=== PATIENT | female | born 1950 | race Caucasian/White ===

== ENCOUNTER 2017-11-26 12:00 | Outpatient (RCR) | payer MEDICARE, OTHER, SELFPAY ==
--- NOTE | 2017-09-09 09:02 | HP.PTEVAL_ITS ---
Patient's Visit Information JUSTINO FOY is a 66 year old F referred to Physical Therapy by Lyndsay Cha with a diagnosis of L TKA. Date of Evaluation: 09/08/17 Physical Therapist: Wiley Sun - Visit Plan Frequency: 3x /Week Duration: 4-6 Weeks Plan: 1.) Nustep. 2.) Focus ROM exercises to progress ext and flexion. 3.) progression of gait mechanics. 4.) light strengthening exercises once ready ( activation of quads, glute, HS, glute med) - Subjective Subjective: Pt. is here today for her initial evaluation with diagnosis of L TKA. DOS: 07/02/17. Pt. reports having rough experience at hospital, but is glad to be back at home. She arrives today useing FWW with decent step length. She had previously taken off her bandage as prescribed by physician. She reports high levels of pain as well. Difficulty sleeping and stair negotiation, difficulty with straightening and bending her knee. She reports being able to walk around her house hourly with AD and is doing her HEP she recieved from the hospital. Pt. - Pain L knee Pain Intensity (Out of 10): 6 Pain Intensity Range: 5, 8 - Objective POSTURE: Pt. has increased R wt. shift in stance, she lacks TKE on his L leg. Pt. has increased use of UEs on AD to maintain stability. Pt. has wide EDWAR. PALAPTION: Pt. had previously taken off bandage. She had DEWAYNE bandage without SAW hose on. Pt. had previously dried blood around incision and had placed self suture tape on incision. It did not appear to have any signs of infection, but was warm (as expected) and had increased edema as expected. Pt. has no signs of DVT, negative Dar's bilateral LEs. Pt. educated to wear TEDs as instructed by physician. NEUROLOGICAL: Pt. has normal sensation throughout bilateral LEs to light and sharp touch. Pt. has 2+ achilles DTR bilaterally and 2+ R patellar DTR. Pt. is able to rise on toes and heels, but did require balance asssitance to maintain stability. ROM: R knee- 0-2-129deg. L knee 0-11-78deg. Pt. reports increased symptoms at both end range flexion and ext. Pt. has tight L HS , but normal hip ROM bilaterally. MMT: RLE- ankle 5/5 throughout; knee- ext 5-/ 5, flexion 4+/5; hip- flexion 4+/5, abd 4/5, ext 4/5. LLE- ankle 5/5 throughout ; knee- 3/5 throughout; hip- flexion 4-/5, abd 4-/5, ext 4-/5. GAIT: Pt. ambulates with FWW with heavy use of UEs. She ambulates with decreased slep length bilaterally. She lack TKE on LLE during stance phase, but has close to normal knee flexion during swing phase. Increased use of AD during L stance phase noted. STAIRS: Pt. is able to complete with 2 HR with step to pattern. She is very hesitant to complete. Loading RLE only with trials. - Goals Goal 1:: Pt. to be I with HEP. Goal Time Frame: 4-6 Weeks Goal 2:: Pt. to have increased L knee ROM to 0-0-120deg allowing for increased tolerance to all functional mobility. Goal Time Frame: 4-6 Weeks Goal 3:: Pt. to have ambulate with normalized gait pattern without AD allowing for increased functional mobility. Goal Time Frame: 4-6 Weeks Goal 4:: Pt. to have increase LLE strength by 1/2 grade in all directions to increase ability to complete all functional mobility and stair negotiation. Goal Time Frame: 4-6 Weeks Goal 5:: Pt. to have decreased pain in L knee to 0-1/10 pain at rest and with sleeping allowing for increased quality of life. Goal Time Frame: 4-6 Weeks Goal 6:: Pt. to negotiate steps with reciprocal pattern with use of 1 HR allowing for increased functonal mobility. Goal Time Frame: 4-6 Weeks - Rehabilitation Potential Physical Therapy Diagnosis: Pt. has signs and symptoms consistent with L TKA, DOS 09/01/17. She has subsequent pain, hypomobility, weakness, difficulty with gait and difficulty with stair negotiation. Pt. would benefit from PT to address above limitations and progress back to normal gait and decreased symptoms with all ADLs and functional mobility. Rehabilitation Potential: Excellent - Anticipated Interventions Patient/Client Instruction: Educate patient on: Condition, Plan of Care, Risk Factors, Benefits of Fitness Program For the Purpose of:: To improve safety, To improve health and function, To foster healthy habits, To improve decision making, To facilitate caregiver knowledge, To improve self management, To prevent re-injury, To improve ability to perform tasks related to life management, To improve tolerance to ADL's Therapeutic Exercise to Include: Strength training, Power training, Endurance training, Balance training, Flexibilty training, Gait and locomotor training, Passive ROM, Active ROM For the Purpose of:: To decrease pain, To decrease swelling/inflammation, To increase ROM, To improve nutrient delivery to tissue, To improve muscle performance and motor function, To improve ability to perform ADL's, To increase tolerance to activity/condition/position, To improve performance and independence with ADL's, To improve gait and locomotor functions, To improve health of tissue, To decrease soft tissue restriction, To increase flexibility/ ROM Manual Therapy Techniques to Include: Mobilization, Passive ROM For the Purpose of:: To decrease pain, To decrease swelling/inflammation, To increase ROM, To improve nutrient delivery to tissue, To improve muscle performance and motor function IF ES: Yes Cryotherapy (ice pack, ice massage): Yes Vasopneumatic device: Yes For the Purpose of:: To decrease pain, To decrease swelling/inflammation, To increase ROM Thank you for the opportunity to evaluate your patient. For Medicare and Medicare HMO plans, please review the plan of care and approve it. It will need to be FAXED BACK to us at [phone] for Medicare purposes. Please let me know if there are questions or concerns regarding this plan of care. Physician Signature: Date:
--- NOTE | 2017-10-06 16:25 | HP.PTREVAL_ITS ---
Lyndsay Cha, It has been my pleasure to treat JUSTINO FOY over the last 11 visits for L TKA. Please see the progress note below for an update on the physical therapy plan of care! Subjective: Pt. reports I am doing pretty well, but I still have some issues with going up and down the stairs. I am doig all of my exercises. She continues to use her cane without issues. Objective/Function: Pt. tolerated all PT without adverse reaction. Pt. is progressing with ROM- PROM 0-0-112deg, AROM 0-3-107deg. PT. given knee aadc plans staff officer to take home with her. Pt. is able to negotiate steps with reciprocal pattern with 2 HR without LOB, but has mild increase insymptoms with loading LLE during descending. Pt. is able to ambulate without AD with increased step pattern, but does lack TKE during stance phase. Pt. has appropriate knee flexion during swing phase. Pt. continues to report increased pain with ambulation, but is progressing. Pt. is sleeping with greater tolerance. Plan Plan: Cont. with current POC. Pt. to follow up with physician next week. Goals Goal 1:: Pt. to be I with HEP. Goal Time Frame: 4-6 Weeks Goal Progress: Goal Met Goal 2:: Pt. to have increased L knee ROM to 0-0-120deg allowing for increased tolerance to all functional mobility. Goal Time Frame: 4-6 Weeks Goal Progress: Progressing Goal 3:: Pt. to have ambulate with normalized gait pattern without AD allowing for increased functional mobility. Goal Time Frame: 4-6 Weeks Goal Progress: Progressing Goal 4:: Pt. to have increase LLE strength by 1/2 grade in all directions to increase ability to complete all functional mobility and stair negotiation. Goal Time Frame: 4-6 Weeks Goal Progress: Progressing Goal 5:: Pt. to have decreased pain in L knee to 0-1/10 pain at rest and with sleeping allowing for increased quality of life. Goal Time Frame: 4-6 Weeks Goal Progress: Progressing Goal 6:: Pt. to negotiate steps with reciprocal pattern with use of 1 HR allowing for increased functonal mobility. Goal Time Frame: 4-6 Weeks Goal Progress: Progressing Anticipated Interventions Patient/Client Instruction: Educate patient on: Condition, Plan of Care, Risk Factors, Benefits of Fitness Program For the Purpose of:: To improve safety, To improve health and function, To foster healthy habits, To improve decision making, To facilitate caregiver knowledge, To improve self management, To prevent re-injury, To improve ability to perform tasks related to life management, To improve tolerance to ADL's Therapeutic Exercise to Include: Strength training, Power training, Endurance training, Balance training, Flexibilty training, Gait and locomotor training, Passive ROM, Active ROM For the Purpose of:: To decrease pain, To decrease swelling/inflammation, To increase ROM, To improve nutrient delivery to tissue, To improve muscle performance and motor function, To improve ability to perform ADL's, To increase tolerance to activity/condition/position, To improve performance and independence with ADL's, To improve gait and locomotor functions, To improve health of tissue, To decrease soft tissue restriction, To increase flexibility/ ROM Manual Therapy Techniques to Include: Mobilization, Passive ROM For the Purpose of:: To decrease pain, To decrease swelling/inflammation, To increase ROM, To improve nutrient delivery to tissue, To improve muscle performance and motor function IF ES: Yes Cryotherapy (ice pack, ice massage): Yes Vasopneumatic device: Yes For the Purpose of:: To decrease pain, To decrease swelling/inflammation, To increase ROM Please do not hesitate to contact me at [phone] by phone or Fax: if you have questions or concerns regarding this new plan of care! Sincerely, Wiley Sun
--- NOTE | 2017-10-31 12:47 | HP.PTREVAL_ITS ---
Lyndsay Cha, It has been my pleasure to treat JUSTINO FOY over the last 20 visits for L TKA. Please see the progress note below for an update on the physical therapy plan of care! Subjective: Pt. reports I am doing better, but it still stiffens up a lot at night. Pt. reports being HEP compliant with all exericses. Objective/Function: ROM- PROM 0-0-118deg. AROM 0-0-112deg. MMT- LLE- knee- ext 4+/5, flexion 4/5; hip- flexion 4/5, abd 4/5. GAIT: Pt. has improved gait pattern. She has improving initial contact and increased knee flexion during gait. STAIRS: Pt. is able to complete with reciprocal pattnern with 1 HR, slight functional weakness with LLE. Pt. is progressing. She continues to have slight reduction in ROM of flexion, but is progressing. Pt. cont. to have 3-4/ 10 pain with most activities. Pt. is tolerating increased motion and increased functional mobility. Plan Plan: Will cont. with POC x2-3 per week for another 2-3 weeks weaning from therapy progressing to independent activities. Pt. consents. Goals Goal 1:: Pt. to be I with HEP. Goal Time Frame: 4-6 Weeks Goal Progress: Goal Met Goal 2:: Pt. to have increased L knee ROM to 0-0-120deg allowing for increased tolerance to all functional mobility. Goal Time Frame: 4-6 Weeks Goal Progress: Progressing Goal 3:: Pt. to have ambulate with normalized gait pattern without AD allowing for increased functional mobility. Goal Time Frame: 4-6 Weeks Goal Progress: Progressing Goal 4:: Pt. to have increase LLE strength by 1/2 grade in all directions to increase ability to complete all functional mobility and stair negotiation. Goal Time Frame: 4-6 Weeks Goal Progress: Progressing Goal 5:: Pt. to have decreased pain in L knee to 0-1/10 pain at rest and with sleeping allowing for increased quality of life. Goal Time Frame: 4-6 Weeks Goal Progress: Progressing Goal 6:: Pt. to negotiate steps with reciprocal pattern with use of 1 HR allowing for increased functonal mobility. Goal Time Frame: 4-6 Weeks Goal Progress: Progressing Anticipated Interventions Patient/Client Instruction: Educate patient on: Condition, Plan of Care, Risk Factors, Benefits of Fitness Program For the Purpose of:: To improve safety, To improve health and function, To foster healthy habits, To improve decision making, To facilitate caregiver knowledge, To improve self management, To prevent re-injury, To improve ability to perform tasks related to life management, To improve tolerance to ADL's Therapeutic Exercise to Include: Strength training, Power training, Endurance training, Balance training, Flexibilty training, Gait and locomotor training, Passive ROM, Active ROM For the Purpose of:: To decrease pain, To decrease swelling/inflammation, To increase ROM, To improve nutrient delivery to tissue, To improve muscle performance and motor function, To improve ability to perform ADL's, To increase tolerance to activity/condition/position, To improve performance and independence with ADL's, To improve gait and locomotor functions, To improve health of tissue, To decrease soft tissue restriction, To increase flexibility/ ROM Manual Therapy Techniques to Include: Mobilization, Passive ROM For the Purpose of:: To decrease pain, To decrease swelling/inflammation, To increase ROM, To improve nutrient delivery to tissue, To improve muscle performance and motor function IF ES: Yes Cryotherapy (ice pack, ice massage): Yes Vasopneumatic device: Yes For the Purpose of:: To decrease pain, To decrease swelling/inflammation, To increase ROM Please do not hesitate to contact me at [phone] by phone or Fax: if you have questions or concerns regarding this new plan of care! Sincerely, Wiley Sun
--- NOTE | 2017-11-27 12:16 | HP.PTREVAL ---
Lyndsay Cha, It has been my pleasure to treat JUSTINO FOY over the last 30 visits for L TKA. Please see the progress note below for an update on the physical therapy plan of care! Subjective: Pt. reports I am doing okay, but [facility] She reports falling on her R side/hip. Pt. reports minimal increase in L knee pain, but not much. Pt. to follow up with physician later this date. Objective/Function: Knee ROM- PROM 0-0-118deg. AROM 0-1-114deg. GAIT: Pt. is able to ambulate without AD. She has slight decrease in tempo. Pt. does have slight lack of TKE on LLE, but is progressing. STAIRS: PT. is able to negotiate with 2 HR with reciprocal pattern, but has increased L knee pain during loaded phases. MMT- LLE- ankle 5/5 throughout; knee- ext 4/5, flexion 4/5; hip- flexion 4/5, abd 4/5, ext 4/5. Plan Plan: Pt. is to follow up with physician later this date. Pt. has improved motion, but continues to have anterior/lateral knee pain with walking. Talked to patient about edema lasting 6 months to 1 year. Pt. educated that often has she slows down from PT symptoms will reduce allowing for increased motion and tolerance to mobility. Pt. has follow up later this week. Goals Goal 1:: Pt. to be I with HEP. Goal Time Frame: 4-6 Weeks Goal Progress: Goal Met Goal 2:: Pt. to have increased L knee ROM to 0-0-120deg allowing for increased tolerance to all functional mobility. Goal Time Frame: 4-6 Weeks Goal Progress: Progressing Goal 3:: Pt. to have ambulate with normalized gait pattern without AD allowing for increased functional mobility. Goal Time Frame: 4-6 Weeks Goal Progress: Progressing Goal 4:: Pt. to have increase LLE strength by 1/2 grade in all directions to increase ability to complete all functional mobility and stair negotiation. Goal Time Frame: 4-6 Weeks Goal Progress: Progressing Goal 5:: Pt. to have decreased pain in L knee to 0-1/10 pain at rest and with sleeping allowing for increased quality of life. Goal Time Frame: 4-6 Weeks Goal Progress: Progressing Goal 6:: Pt. to negotiate steps with reciprocal pattern with use of 1 HR allowing for increased functonal mobility. Goal Time Frame: 4-6 Weeks Goal Progress: Progressing Anticipated Interventions Patient/Client Instruction: Educate patient on: Condition, Plan of Care, Risk Factors, Benefits of Fitness Program For the Purpose of:: To improve safety, To improve health and function, To foster healthy habits, To improve decision making, To facilitate caregiver knowledge, To improve self management, To prevent re-injury, To improve ability to perform tasks related to life management, To improve tolerance to ADL's Therapeutic Exercise to Include: Strength training, Power training, Endurance training, Balance training, Flexibilty training, Gait and locomotor training, Passive ROM, Active ROM For the Purpose of:: To decrease pain, To decrease swelling/inflammation, To increase ROM, To improve nutrient delivery to tissue, To improve muscle performance and motor function, To improve ability to perform ADL's, To increase tolerance to activity/condition/position, To improve performance and independence with ADL's, To improve gait and locomotor functions, To improve health of tissue, To decrease soft tissue restriction, To increase flexibility/ROM Manual Therapy Techniques to Include: Mobilization, Passive ROM For the Purpose of:: To decrease pain, To decrease swelling/inflammation, To increase ROM, To improve nutrient delivery to tissue, To improve muscle performance and motor function IF ES: Yes Cryotherapy (ice pack, ice massage): Yes Vasopneumatic device: Yes For the Purpose of:: To decrease pain, To decrease swelling/inflammation, To increase ROM Please do not hesitate to contact me at [phone] by phone or if you have questions or concerns regarding this new plan of care! Sincerely, Wiley Sun
--- NOTE | 2018-02-18 10:14 | HP.PTDCNRP_ITS ---
HP - Discharge Summary (1) - Patient Information JUSTINO FOY was seen in my office for initial evaluation on 09/08/17. The following Plan of Care was established for this patient: Initial Frequency: 3x /Week Initial Duration: 4-6 Weeks - Anticipated Interventions Patient/Client Instruction: Educate patient on: Condition, Plan of Care, Risk Factors, Benefits of Fitness Program For the Purpose of:: To improve safety, To improve health and function, To foster healthy habits, To improve decision making, To facilitate caregiver knowledge, To improve self management, To prevent re-injury, To improve ability to perform tasks related to life management, To improve tolerance to ADL's Therapeutic Exercise to Include: Strength training, Power training, Endurance training, Balance training, Flexibilty training, Gait and locomotor training, Passive ROM, Active ROM For the Purpose of:: To decrease pain, To decrease swelling/inflammation, To increase ROM, To improve nutrient delivery to tissue, To improve muscle performance and motor function, To improve ability to perform ADL's, To increase tolerance to activity/condition/position, To improve performance and independence with ADL's, To improve gait and locomotor functions, To improve health of tissue, To decrease soft tissue restriction, To increase flexibility/ ROM Manual Therapy Techniques to Include: Mobilization, Passive ROM For the Purpose of:: To decrease pain, To decrease swelling/inflammation, To increase ROM, To improve nutrient delivery to tissue, To improve muscle performance and motor function IF ES: Yes Cryotherapy (ice pack, ice massage): Yes Vasopneumatic device: Yes For the Purpose of:: To decrease pain, To decrease swelling/inflammation, To increase ROM This patient was last seen in our office 11/26/17. Pertinent comments regarding their Physical therapy will appear below: Pt. was seen for her TKA. Pt. was making progress with both ROM and strength, but continued to have increased pain. Pt. was to follow up with physician then back with PT if needed. Pt. did not follow up and has not been seen in ~3 months and will be DC from PT at this point in time. At this point I will be discontinuing this patient from physical therapy. I would be happy to see this patient again in the future if found appropriate by the physician. Thank you! Wiley Sun
== END 2017-11-26 19:00 | disposition home or self-care (01) ==
LOC: PT 12:00
PROVIDERS: Family Provider Family Medicine; PCP Family Medicine; Visit Provider Physician Assistant
DX: M19.071 Primary osteoarthritis, right ankle and foot (principal)
CPT/HCPCS: 97016; 97110; 97162; 97530; G8978; G8979

== ENCOUNTER 2018-06-24 12:09 | Outpatient (RCR) | payer MEDICARE, OTHER, SELFPAY ==
--- NOTE | 2018-07-29 12:45 | HP.PTEVAL_ITS ---
Patient's Visit Information JUSTINO FOY is a 67 year old F referred to Physical Therapy by Lyndsay Cha with a diagnosis of R ankle pain. Date of Evaluation: 06/24/18 Physical Therapist: Wiley Sun - Visit Plan Frequency: 1x/Week Duration: 1 Week Plan: I am referring patient to podiatry for consult or back to physician to determin if new bracing or reconstruction is warranted. Pt. consents. I think there is very little I can provide for this patient at this point it time, but might possibly do okay with better bracing. - Subjective Subjective: Pt. is here today for her initial evaluation with diagnosis of R ankle pain. Pt. is known to this PT as I have seen her before for this similar issues. She arrives today with increased R medial and lateral ankle pain. She wears an Jazzy brace, but appears to have been braking down. Pt. reports increased pain with walking, and standing. reduced pain with sitting and off loading. Pt. denies N/T. Pt. reports she has been told she might need surgery to repair a Post tib tear. Pt. has not been doing exercises due to time contraints. Pt. is hopeful to reduce symptoms in order to get back to all walking and household work wihtout issues. - Pain R lateral and medial ankle Pain Intensity (Out of 10): 5 Pain Intensity Range: 2, 6 - Objective POSTURE: Pt. has increased calcaneal varus in stance with almost complete navicualr drop. Pt. has increased pressure in stance on navicular. Brace is wearing out where here navicular is rubbing. Increased R knee valgus as well. PALAPTION: Pt. has increased tenderness along longitudinal arch, navicular and along post tib tendon or RLE. Pt. has tendernes along lateral malleolus as well. NEURO: Normal all intact. Pt. does have difficulty rising on toes and heels, balance aide required. ROM: R ankle- normal ankle DF 14deg, PF 38deg, INV 4deg, EVR 16deg. Pt. has pain with inversion mobility. Pt. has full PROM of R ankle. MMT: Pt. has 4+/5 throughout R ankle except 4/5 with inv and increased pain. Pt. ahd 4+/5 througout L ankle. GAIT: pt. has increased pronation to the pain of R navicular pressure in stance. Pt. has increased R knee valgus and antalgic pattern during R stance phase. STAIRS: step to pattern with HR to complete. - Rehabilitation Potential Physical Therapy Diagnosis: Pt. has signs and symptoms consistent with R ankle pain due to R ankle instability. She is currently wearing an Jazzy boot, but is braking down and putting increased pressure on her navicular bone. Pt. at this point would really benefit from podiatry consult to see if post tib recontruction of ankle recronstruction is warranted. Rehabilitation Potential: Poor - Anticipated Interventions Patient/Client Instruction: Educate patient on: Condition, Plan of Care, Risk Factors For the Purpose of:: To improve self management, To prevent re-injury, To improve ability to perform tasks related to life management, To improve tolerance to ADL's Thank you for the opportunity to evaluate your patient. For Medicare and Medicare HMO plans, please review the plan of care and approve it. It will need to be FAXED BACK to us at [phone] for Medicare purposes. Please let me know if there are questions or concerns regarding this plan of care. Physician Signature: Date:
--- NOTE | 2018-07-29 12:47 | HP.PT.NRP ---
HP - Discharge Summary (1) - Patient Information JUSTINO FOY was seen in my office for initial evaluation on 06/24/18. The following Plan of Care was established for this patient: Initial Frequency: 1x/Week Initial Duration: 1 Week - Anticipated Interventions Patient/Client Instruction: Educate patient on: Condition, Plan of Care, Risk Factors For the Purpose of:: To improve self management, To prevent re-injury, To improve ability to perform tasks related to life management, To improve tolerance to ADL's This patient was last seen in our office 06/24/18. Pertinent comments regarding their Physical therapy will appear below: Pt. was seen for her initial evaluation for R ankle pain. Pt. was referred back to physician or podiatry for new bracing vs surgical intervention. Pt. was not been seen in ~1 month and will be DC from PT at this point in time. At this point I will be discontinuing this patient from physical therapy. I would be happy to see this patient again in the future if found appropriate by the physician. Thank you! Wiley Sun
== END 2018-06-24 19:00 | disposition home or self-care (01) ==
LOC: PT 12:09
PROVIDERS: Family Provider Family Medicine; PCP Family Medicine; Visit Provider Physician Assistant
DX: M17.11 Unilateral primary osteoarthritis, right knee (principal); M54.5 Low back pain
CPT/HCPCS: 97162

== ENCOUNTER → 2018-11-18 11:32 | Outpatient (CLI) | payer MEDICARE, OTHER, SELFPAY ==
[2018-10-26 11:38] VITALS: BMI 24.1
[2018-11-18 13:02] LABS: Erythrocyte Sedimentation Rate 21 mm/hr (0-30)
[2018-11-18 13:32] LABS: Hemoglobin A1c 5.2 % (4.2-6.3)
[2018-11-18 13:34] LABS: Vitamin B12 1580 pg/mL (211-911)
[2018-11-18 13:36] LABS: CPK Total, Creatine Kinase 36 U/L (26-192); Rheumatoid Factor < 10.0 IU/mL (<15); Thyroid Stim Hormone (TSH) 1.45 uIU/mL (0.358-3.74)
[2018-11-19 14:05] LABS: SJOGREN'S Anti-SS-A test < 0.2 AI (0.0-0.9); SJOGREN'S Anti-SS-B test < 0.2 AI (0.0-0.9)
[2018-11-19 15:10] LABS: ANTINUCLEAR ANTIBODIES DIRECT Positive (Negative)
[2018-11-20 16:08] LABS: Albumin 3.9 g/dL (2.9-4.4); Albumin, Ur 42.7 % (.); Alpha-1-Globulin, Ur 4.6 % (.); Alpha-1-Globulins 0.2 g/dL (0.0-0.4); Alpha-2-Globulins 0.9 g/dL (0.4-1.0); Alpha-2-Globulins, Ur 13.4 % (.); Beta Globulin, Ur 27.4 % (.); Cytoplasmic Ab (C-ANCA) <1:20 titer (Neg:<1:20); Gamma Globulin 0.7 g/dL (0.4-1.8); Gamma Globulin, Ur 11.9 % (.); Immunoglobulin G 649 mg/dL (700-1600); Immunoglobulin M 72 mg/dL (26-217); M-Spike, Ur % Not Observed % (Not Observed); PROEL- TOTAL PROTEIN 6.7 g/dL (6.0-8.5); Total Protein, Ur 18.4 mg/dL (Not Estab.)
[2018-11-23 08:20] LABS: IMMUNOFIXATION RESULT,S Comment: (.); Immunoglobulin A 41 mg/dL (87-352); Perinuclear Ab (P-ANCA) <1:20 titer (Neg:<1:20)
== END ==
PROVIDERS: Family Provider Family Medicine; PCP Family Medicine; Referring Provider Psychiatry & Neurology Neurology; Visit Provider Psychiatry & Neurology Neurology
DX: D80.1 Nonfamilial hypogammaglobulinemia (principal); G62.9 Polyneuropathy, unspecified; Z79.899 Other long term (current) drug therapy
CPT/HCPCS: 36415; 82550; 82607; 82784; 83036; 84165; 84166; 84443; 85652; 86038; 86235; 86256; 86334; 86335; 86431

== ENCOUNTER → 2019-01-19 14:31 | Outpatient (CLI) | payer MEDICARE, OTHER, SELFPAY ==
[2018-11-23 10:59] VITALS: BMI 24.5
[2019-01-19 15:40] LABS: EXAGEN MAILED SPECIMEN
[2019-01-19 17:44] LABS: Color, Urine Yellow (Yellow); Glucose, Dipstick Normal (Normal); Ketone-Dipstick Negative (Negative); Leukocyte Esterase-Dipstick 500 /ul (Negative); Nitrite-Dipstick Negative (Negative); Occult Blood-Urine 10 /ul (Negative); Protein-Dipstick Negative (Negative); Urine Bilirubin Dipstick Negative (Negative); Urine Clarity Clear (Clear); Urine Urobilinogen Normal (Normal)
[2019-01-19 17:49] LABS: Absolute Lymphocyte Count 1.21 X10^3/ul (0.83-4.51); Absolute Neutrophil Count 3.1 X10^3/uL (2.0-7.7); Basophil# 0.01 X10^3/uL; Basophil% 0.2 % (0-1); Eosinophil# 0.13 X10^3/uL; Eosinophils% 2.6 % (0-5); Hematocrit 35.7 % (37-47); Lymphocyte # 1.21 X10^3/ul (4.0); Lymphocyte % 24.3 % (19-41); Mean Corp Hgb Conc 33.6 g/gl (32-36); Mean Corpuscular Hgb 31.5 pg (27.0-32.0); Mean Corpuscular Volume 93.7 fL (81-99); Mean Platelet Vol. 9.3 fl (6.2-12.0); Monocyte# 0.48 X10^3/uL; Monocyte% 9.7 % (0-10); Neutrophil # 3.13 X10^3/uL (2.7-7.7); Platelet Count 202 K/mm3 (150-450); RBC Distribution Width CV 12.3 % (11.6-14.6); Red Blood Count 3.81 M/mm3 (4.2-5.4)
[2019-01-19 17:50] LABS: POSITIVE COUNT NO; POSITIVE DIFFERENTIAL NO; POSITIVE MORPHOLOGY NO
[2019-01-19 17:55] LABS: Protein, Urine (Random) 10.1 mg/dL (<11.9); Protein:Creat Ratio 237 mg/g CRE (0-200)
[2019-01-19 18:00] LABS: Erythrocyte Sedimentation Rate 16 mm/hr (0-30)
[2019-01-19 18:34] LABS: ALB/GLOB Ratio 1.3 RATIO (0.9-2.4); AST(SGOT) 17 U/L (15-37); Alanine Aminotransfer ALT/SGPT 21 U/L (13-56); Alkaline Phosphatase 65 U/L (45-117); Anion Gap 10 (5-15); BUN 16 mg/dL (7-18); BUN/Creat Ratio 27.4 RATIO (10-20); CRP < 2.90 mg/L (0.0-3.0); Calcium,Total 9.1 mg/dL (8.5-10.1); Chloride 108 mmol/L (98-107); Creatinine, Serum 0.58 mg/dL (0.55-1.02); EST Glomerular Filtration Rate 109 mL/min (>60); Est Glom Filt Rate - Afr Amer 131 mL/min (>60); Globulin 3.1 g/dL (2.2-4.2); Glucose 100 mg/dL (74-106); Potassium 4.1 mmol/L (3.5-5.1); Protein, Total 7.1 g/dL (6.4-8.2); Rheumatoid Factor < 10.0 IU/mL (<15); Sodium Level 142 mmol/L (136-145)
[2019-01-22 12:42] LABS: CCP IgG Antibodies 4 units (0-19); HEPATITIS B SURFACE AG Negative (Negative); Hep B Surface Antibodies Reactive (.); Hep C Antibodies <0.1 s/co ratio (0.0-0.9)
== END ==
PROVIDERS: Family Provider Family Medicine; PCP Family Medicine; Referring Provider Internal Medicine Rheumatology; Visit Provider Internal Medicine Rheumatology
DX: M06.4 Inflammatory polyarthropathy (principal); R76.8 Other specified abnormal immunological findings in serum
CPT/HCPCS: 36415; 80053; 81002; 82570; 84156; 85025; 85652; 86140; 86200; 86431; 86706; 86803; 87340

== ENCOUNTER → 2019-06-02 10:16 | Outpatient (CLI) | payer MEDICARE, OTHER, SELFPAY ==
[2018-11-23 10:59] VITALS: BMI 24.5
--- NOTE | 2019-06-02 13:06 | NEURO ---
NCS and/or EMG Patient Report Ordering Doctor: Kari Denton DATE OF SERVICE: 06/02/19 Monse Orona is a 68-year-old female who presents for elective diagnostic testing of the upper limbs. She has burning pain radiating from the right hand to the right shoulder. She denies significant left-sided pain. Electrodiagnostic findings: Right median motor nerve demonstrates prolonged distal latency with normal amplitude and conduction velocity. Left median motor response within normal limits. Ulnar motor response bilaterally is within normal limits. Prolonged right median sensory latency at the wrist. Prolonged right median palmar latency. Prolonged right ulnar sensory latency is noted. Needle EMG testing showed no evidence of denervation in any muscles tested in the upper limbs. Motor action potentials of normal amplitude and duration. Electrodiagnostic impression: This is an abnormal study in the upper limbs. 1. Electrodiagnostic findings demonstrate right-sided median mononeuropathy. This is consistent with a mild right carpal tunnel syndrome. 2. Electrodiagnostic findings demonstrate right-sided ulnar sensory neuropathy. 3. No electrodiagnostic evidence is noted for myopathy or cervical radiculopathy. If there are any further questions, please do not hesitate to contact me.
== END ==
PROVIDERS: Family Provider Family Medicine; PCP Family Medicine; Referring Provider Psychiatry & Neurology Neurology; Visit Provider Psychiatry & Neurology Neurology
DX: R55 Syncope and collapse (principal); R20.0 Anesthesia of skin; R20.2 Paresthesia of skin
CPT/HCPCS: 95886; 95912

== ENCOUNTER → 2019-07-23 12:30 | Outpatient (CLI) | payer MEDICARE, OTHER, SELFPAY ==
[2019-06-22 15:20] VITALS: BMI 26.9
[2019-07-12 09:50] VITALS: BMI 26.2
--- NOTE | 2019-07-23 12:32 | STEWCON_ITS ---
Reason For Study: Atrial Fibrillation Stress Results Protocol: Dobutamine Stress Echo Maximum Predicted HR: 151 bpm Target HR: 128 bpm % Maximum Predicted HR: 85 % DurationHeart Rate Stage (mm:ss) (bpm) BP Comment Baseline 93 134/79No Chest Pain; Diluted Definity 7 ML Given DSE 10 MCG 3:23 109 125/71No Chest Pain DSE 20 MCG 3:07 129 148/62No Chest Pain Recovery 93 126/70No Chest Pain Stress Duration: 6:30 mm:ss Maximum Stress HR: 129 bpm METS: 1 Baseline Echocardiogram Findings The estimated ejection fraction is 55 %. Stress Echo Wall motion Data Resting WM Intermediate WM Stress WM Resting Wall Motion Wall Motion Stress No regional wall motion No regional wall motion abnormalities noted. abnormalities noted. EKG Data The baseline ECG displays normal sinus rhythm. The patient was titrated from 10 mcg to a maximum of 20 mcg of dobutamine during the stress. The maximum heart rate attained was 157 beats per minute. This was 103% of maximum predicted heart rate. At peak infusion, upsloping ST changes only were noted, which did not meet the criteria for ischemia. No clinical angina was noted. Interpretation Summary The estimated ejection fraction is 55 %. Normal, adequate, dobutamine echocardiogram. Negative for ischemia by echocardiographic criteria. No anginal symptoms noted. Rare PACs, PVCs and ventricular couplets during infusion. Appropriate blood pressure response to dobutamine. Patient developed less than [address] segment depression at peak infusion which resolved by 3 minutes 4 minutes 50 seconds into recovery. Decreased sensitivity due to poor echo windows requiring Definity agent. Final LVEF is 65%. Test terminated due to the attainment of target heart rate. No complications. The study was technically difficult. Contrast injection was performed. Ordering Physician: Selvin Sosa Referring Physician: Perez Rios Performed By: Zahra Barajas, MATT, RVT
== END ==
PROVIDERS: Family Provider Family Medicine; PCP Family Medicine; Referring Provider Internal Medicine Cardiovascular Disease; Visit Provider Internal Medicine Cardiovascular Disease
DX: I25.10 Atherosclerotic heart disease of native coronary artery without angina pectoris (principal); I48.2 Chronic atrial fibrillation; I48.92 Unspecified atrial flutter; I45.10 Unspecified right bundle-branch block; I34.0 Nonrheumatic mitral (valve) insufficiency; E78.5 Hyperlipidemia, unspecified
CPT/HCPCS: 93017; 93350; J7040; Q9957; A4216; C8928

== ENCOUNTER → 2019-12-17 13:50 | Outpatient (CLI) | payer MEDICARE, OTHER, SELFPAY ==
[2019-11-01 10:56] VITALS: BMI 26.2
[2019-12-17 15:36] LABS: Absolute Lymphocyte Count 3.22 X10^3/uL (0.83-4.51); Absolute Neutrophil Count 2.9 X10^3/uL (2.0-7.7); Basophil# 0.04 X10^3/uL; Basophil% 0.6 % (0-1); Eosinophil# 0.21 X10^3/uL; Hematocrit 33.7 % (37-47); Hemoglobin 11.3 g/dL (12.0-15.0); Lymphocyte # 3.22 X10^3/ul (4.0); Lymphocyte % 45.4 % (19-41); Mean Corp Hgb Conc 33.5 g/dL (32-36); Mean Corpuscular Hgb 31.4 pg (27.0-32.0); Mean Corpuscular Volume 93.6 fL (81-99); Mean Platelet Vol. 9.1 fl (6.2-12.0); Monocyte# 0.74 X10^3/uL; Monocyte% 10.4 % (0-10); NRBC Flagged by Analyzer 0 % (0-5); Neutrophil # 2.85 X10^3/uL (2.7-7.7); Platelet Count 173 K/mm3 (150-450); RBC Distribution Width CV 12.5 % (11.6-14.6); RBC Distribution Width SD 43.1 fl (35.1-43.9); RET-HE 36.5 pg (30-35); Reticulocyte Count 2.62 % (0.5-1.5); White Blood Count 7.1 K/mm3 (4.4-11.0)
[2019-12-17 15:58] LABS: ALB/GLOB Ratio 1.3 RATIO (0.9-2.4); AST(SGOT) 18 U/L (15-37); Alanine Aminotransfer ALT/SGPT 28 U/L (13-56); Albumin, Serum 3.8 g/dL (3.2-5.0); Alkaline Phosphatase 71 U/L (45-117); Anion Gap 6 (5-15); BUN 19 mg/dL (7-18); BUN/Creat Ratio 24.6 RATIO (10-20); Calcium,Total 9.3 mg/dL (8.5-10.1); Chloride 107 mmol/L (98-107); Creatinine, Serum 0.77 mg/dL (0.55-1.02); EST Glomerular Filtration Rate 79 mL/min (>60); Est Glom Filt Rate - Afr Amer 95 mL/min (>60); Ferritin 390 ng/mL (8-252); Glucose 98 mg/dL (74-106); Iron Binding Capacity,Total 232 ug/dL (250-450); Magnesium 2.1 mg/dL (1.6-2.6); Potassium 4.2 mmol/L (3.5-5.1); Protein, Total 6.8 g/dL (6.4-8.2); Sodium Level 138 mmol/L (136-145); Thyroid Stim Hormone (TSH) 2.35 uIU/mL (0.358-3.74)
== END ==
PROVIDERS: PCP Family Medicine; Referring Provider Family Medicine; Visit Provider Family Medicine
DX: I48.91 Unspecified atrial fibrillation (principal); D64.9 Anemia, unspecified
CPT/HCPCS: 36415; 80053; 82728; 83550; 83735; 84443; 85025; 85045

== ENCOUNTER → 2020-06-01 12:25 | Outpatient (CLI) | payer MEDICARE, OTHER, SELFPAY ==
[2020-05-04 14:40] VITALS: BMI 25.6
[2020-05-31 11:50] VITALS: BMI 24.7
--- NOTE | 2020-06-01 12:34 | BD_ITS ---
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 COMPARISON: Comparison is made with prior study dated December 13, 2015. FINDINGS: Lumbar Spine (L1-L4): g/cm2 (1.144) / T-score (-0.5) / Z-score (1.2) Findings are suggestive of normal bone density with a low fracture risk. Increased kyphosis. Prior vertebroplasty of the T12 vertebrae with loss of height. Left Femur Total: g/cm2 (0.918) / T-score (-0.7) / Z-score (0.8) Left Femoral Neck: g/cm2 (0.849) / T-score (-1.4) / Z-score (0.4) Right Femur Total: g/cm2 (0.958) / T-score (-0.4) / Z-score (1.1) Right Femoral Neck: g/cm2 (0.815) / T-score (-1.6) / Z-score (0.1) The T-Scores on the most recent prior examination were: Lumbar Spine (L1-L4): There has been improvement of bone density since the previous examination. Left Femur Total: which represents a worsening of 8.8%. Right Femur Total: which represents a worsening of 5.6%. BD/Dexa Bone Density Study IMPRESSION: The patient is considered osteopenic as outlined below according to World [employer] (WHO) criteria with a moderate fracture risk. There has been worsening of bone density since the previous examination. Reference Information: The T-score is the number of standard deviations above or below the standard which is normal for young adults at their peak bone mineral density. The World Health Organization (WHO) interprets the T-scores as follows: Above -1 Normal bone density Between -1 and -2.5 Osteopenia Equal to / or below -2.5 Osteoporosis As a practical clinical guideline, osteopenia may be graded as follows: Mild -1 through -1.5 Moderate -1.6 through -2.0 Severe -2.1 through -2.4 The Z-score is the number of standard deviations above or below age-matched controls. A Z-score of less than -1.5 would be considered abnormal. References: 1. NIH Osteoporosis and Related Bone Diseases http://www.osteo.org 2. International Society for Clinical Densitometry http://www.iscd.org 3. National Osteoporosis Foundation http://www.nof.org Electronically Signed: Leo Arora, at 8:12 EDT , Service support ,
== END ==
PROVIDERS: PCP Family Medicine
DX: S22.088A Other fracture of T11-T12 vertebra, initial encounter for closed fracture (principal); X58.XXXA Exposure to other specified factors, initial encounter; Y93.9 Activity, unspecified; Y92.9 Unspecified place or not applicable; Y99.9 Unspecified external cause status; M85.80 Other specified disorders of bone density and structure, unspecified site; Z78.0 Asymptomatic menopausal state
CPT/HCPCS: 77080

== ENCOUNTER 2020-07-05 11:30 | Outpatient (RCR) | payer MEDICARE, OTHER, SELFPAY ==
[2020-05-04 14:40] VITALS: BMI 25.6
[2020-05-31 11:50] VITALS: BMI 24.7
--- NOTE | 2020-06-08 07:29 | HP.PTEVAL ---
Patient's Visit Information JUSTINO FOY is a 69 year old F referred to Physical Therapy by NATHAN GRIER with a diagnosis of Compression fx of T12 with kyphoplasty on 05/10. Date of Evaluation: 06/07/20 Physical Therapist: Wiley Sun DPT - Visit Plan Frequency: 2x /Week Duration: 6 Weeks Plan: Start with neutral spine core stability exercise. Wean from brace as tolerated. Progress with complexity of exercises promoting independent program as able. - Subjective Pt. is here today for her initial evaluation with diganosis of T12 vertebral compression fracture. Pt. did have a subsequent kyphoplasty. Pt. 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 Pt. had subsequent surgery on 05/10/20. Pt. reports overall doing better, but still has an achey/sore feeling in her mid back. Pt. denies N/T. Pt. has been overall been taking it slow with her activities. Pt. 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 Pt. does report relief with resting. Pt. is hopeful to reduce these symptoms in order to get back to all of her household work without limitations. - Pain Lower Thoracic spine Pain Intensity (Out of 10): 2 Pain Intensity Range: 0, 4 - Objective POSTURE: pt. has decent posture in stance. pt. has slight increased in thoracic kyphosis, but minimal. PALAPTION: Pt. has increased tenderness along T8-L2 spinous process, but also tendereness along thoracic and lubar erector spinea, bilaterally (R worse than L). Muscle tightness noted as well. NEURO: normal throughout. ROM: Pt. has normal BLE ROM, normal HS length, normal hip flexor length. LUMBAR SPINE: flexion- min loss NE, extension min/mod loss NE, SB min loss NE, rotation- min loss NE bilat. MMT: RLE- ankle 5/5 throughout; knee 5/5 throughout; hip- flexion 4+/5, abd 4/5, ext 4/5. LLE- ankle 5/5 throughout; knee 5/5 throughout; hip- flexion 4+/5, abd 4/5, ext 4/5. Core strenght- poor+. GAIT: Pt. is able to ambulate without AD, but does report that her back feels heavy with increased walking. STAIRS: Pt. is able to negotiate with reciprocal pattern with slight increase in symptoms with ascending. Use of BHR. - Goals Goal 1:: LTG: pt. to be I with HEP for core stability. Goal Time Frame: 4-6 Weeks Goal 2:: STG: Pt. to sleep throughout the night without reprots of increased symptoms. Goal Time Frame: 2-4 Weeks Goal 3:: STG: Pt. to walk community level distances without increased in thoracic spine symptoms. Goal Time Frame: 2-4 Weeks Goal 4:: LTG: Pt. to ambulate unlimited distances without increase in symptoms. Goal Time Frame: 4-6 Weeks Goal 5:: LTG: Pt. to have increased core strength by 1/2 grade to reduce stress applied to thoracic spine with all ADLs and recreational activities. Goal Time Frame: 4-6 Weeks Goal 6:: STG: pt. to be educated in proper body mechanics to allow to increased tolerance for all engineering leader and recreational activites in order to reduce stress applied to Thoracic/lumbar spine. Goal Time Frame: 2-4 Weeks - Rehabilitation Potential Physical Therapy Diagnosis: Pt. has signs and symptoms consistent with Compression fx of T12 with kyphoplasty on 05/10. Pt. 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 Pt. would benefit from PT to address above limitation progressing back to all recreational/household activities without limitations. Rehabilitation Potential: Excellent - Anticipated Interventions Patient/Client Instruction: Educate patient on: Condition, Plan of Care, Risk Factors, Benefits of Fitness Program For the Purpose of:: To foster healthy habits, To improve decision making, To facilitate caregiver knowledge, To improve self management, To prevent re-injury, To improve ability to perform tasks related to life management, To improve tolerance to ADL's Therapeutic Exercise to Include: Strength training, Power training, Body mechanics, Postural training, Flexibilty training, Passive ROM, Active ROM, Dynamic Lumbar Stabilization For the Purpose of:: To decrease pain, To decrease swelling/inflammation, To increase ROM, To improve nutrient delivery to tissue, To increase oxygenation perfusion, To improve muscle performance and motor function, To improve ability to perform ADL's, To increase tolerance to activity/condition/position, To improve health of tissue, To decrease soft tissue restriction, To increase flexibility/ROM Thank you for the opportunity to evaluate your patient. For Medicare and Medicare HMO plans, please review the plan of care and approve it. It will need to be FAXED BACK to us at [phone] for Medicare purposes. For Medicare only, by signing this I certify the plan of care. Please let me know if there are questions or concerns regarding this plan of care. Physician Signature: Date:
== END 2020-07-05 19:00 | disposition home or self-care (01) ==
LOC: PT 11:30
PROVIDERS: PCP Family Medicine; Referring Provider Family Medicine
DX: S22.080D Wedge compression fracture of T11-T12 vertebra, subsequent encounter for fracture with routine healing (principal)
CPT/HCPCS: 97110; 97161

== ENCOUNTER 2020-12-28 12:00 | Outpatient (RCR) | payer MEDICARE, OTHER, SELFPAY ==
[2020-09-27 14:32] VITALS: BMI 23.6
[2020-11-22 12:48] VITALS: BMI 23.8
--- NOTE | 2020-11-28 09:51 | HP.PTEVAL ---
Patient's Visit Information JUSTINO FOY is a 70 year old F referred to Physical Therapy by NATHAN GRIER with a diagnosis of Low back pain without sciatica. Date of Evaluation: 11/27/20 Physical Therapist: Wiley Sun DPT - Visit Plan Frequency: 1-2x /Week Duration: 4-6 Weeks Plan: Start with neutral spine core stability exercises. Address posture alignment and proper positioning. Progress to further postural strengthening as tolerated. - Subjective Pt. is here today for her initial evaluation with diagnosis of Low back pain. Pt. having increased low back pain for ~2 months. She did have a kyphoplasty ~6 months ago. She is also taking chemo medications as well (stated ~ 2 months ago) for her CA (CLL). Increased pain: lying on her back it feels like my bones are coming out of my skin, standing, getting out of car, in and down steps, and bedning over. Decrease pain: prolonged lying. No N/T. No radiating pain. Pain located at lumnbar spine: 8/10, worst is 10/10, best is 5/10. Pt. is hopeful to reduce symptoms and get back to all recreational and household activities without limitations. - Pain Lumbar spine Pain Intensity (Out of 10): 8 Pain Intensity Range: 5, 10 - Objective POSTURE: Pt. has decreased lumbar lordosis, adn increased thoracic kyphosis. Pt. has decreased pain wtih improved posture. pt. has more sway back postioning. PALPATION: Pt. has tenderness at lumbar spine, greater on the R side. NEURO: Pt. has normal sensation of BLEs without issues. Normal DR of BLEs. ROM: LUMABR SPINE: flexion- min loss mild increase NW, extension- max loss (tightness, increase NW), SB R min loss increased NW, SB L nil loss NE, rotation L nil loss NE, rotation R min loss increase NW. Pt. has good HS lenght, tight hip flexors bilaterally. MMT: RLE- 4+/5 throughout; except hip flexors and hipabd 4/5 (increase NW with hip flexion and abd). LLE: 4+/5 throughout, hip- 4/5 throughout No pain with testing. Core strength- poor. GAIT: Pt. has slight incerase in lateral hip translation, decreased arm swing. Stairs- increase hip lateral translation. - Special Tests L/S Slump test left side: Negative L/S Slump test right side: Negative L/S Left Straight Leg Raise: Negative L/S Right Straight Leg Raise: Negative L/S Left Femoral Nerve Tension: Negative L/S Right Femoral Nerve Tension: Negative Lumbar Standing: Flexion - Mechanical Response: No effect Lumbar Standing: Flexion - Symptoms During Testing: No effect Lumbar Standing: Flexion - Symptoms After Testing: No effect Lumbar Standing: Extension - Mechanical Response: No effect Lumbar Standing: Extension - Symptoms During Testing: Increases Lumbar Standing: Extension - Symptoms After Testing: No worse Lumbar Standing: Right Side Glides - Mechanical Response: No effect Lumbar Standing: Right Side [place] - Symptoms During Testing: No effect Lumbar Standing: Right Side [place] - Symptoms After Testing: No effect Lumbar Standing: Left Side [place] - Mechanical Response: No effect Lumbar Standing: Left Side [place] - Symptoms During Testing: No effect Lumbar Standing: Left Side [place] - Symptoms After Testing: No effect Lumbar Lying: Flexion - Mechanical Response: No effect Lumbar Lying: Flexion - Symptoms During Testing: Decreases Lumbar Lying: Flexion - Symptoms After Testing: Better - Goals Goal 1:: LTG: Pt. to be I with HEP. Goal Time Frame: 4-6 Weeks Goal 2:: LTG: Pt. to walk unlimited distances without increase in symptoms. Goal Time Frame: 4-6 Weeks Goal 3:: LTG: pt. to have increased core and BLE strngth by 1/2 grade of all effected musculature. Goal Time Frame: 4-6 Weeks Goal 4:: STG: pt. to be able to sit for 1+ hour in comfortable chair with 0-2/10 pain in lumbar spine. Goal Time Frame: 2-4 Weeks Goal 5:: LTG: pt. to have increased lumbar ROM by 25% in all effected ranges. Goal Time Frame: 4-6 Weeks Goal 6:: LTG: Pt. to demonstrate improved posture throughout therapy sesssion, indicating increased postural awarness. Goal Time Frame: 4-6 Weeks - Rehabilitation Potential Physical Therapy Diagnosis: Pt. has signs and symptoms consistent with low back pain without sciatica. Pt. has maked core weakness and poor posture. Pt. would benefit from PT to work on core stability in neutral spine and porgress on body mechanics and postural control. Rehabilitation Potential: Good - Anticipated Interventions Patient/Client Instruction: Educate patient on: Condition, Plan of Care, Risk Factors, Benefits of Fitness Program For the Purpose of:: To improve decision making, To facilitate caregiver knowledge, To improve self management, To prevent re-injury, To improve ability to perform tasks related to life management, To improve tolerance to ADL's Therapeutic Exercise to Include: Strength training, Power training, Endurance training, Coordination, Passive ROM, Active ROM, Dynamic Lumbar Stabilization, Tania Exercises For the Purpose of:: To decrease pain, To decrease swelling/inflammation, To increase ROM, To improve nutrient delivery to tissue, To increase oxygenation perfusion, To improve muscle performance and motor function, To improve performance and independence with ADL's, To improve gait and locomotor functions, To improve health of tissue, To decrease soft tissue restriction, To increase flexibility/ROM Cryotherapy (ice pack, ice massage): Yes Thermo therapy (hot pack): Yes For the Purpose of:: To decrease pain, To decrease swelling/inflammation, To increase ROM Thank you for the opportunity to evaluate your patient. For Medicare and Medicare HMO plans, please review the plan of care and approve it. It will need to be FAXED BACK to us at [phone] for Medicare purposes. For Medicare only, by signing this I certify the plan of care. Please let me know if there are questions or concerns regarding this plan of care. Physician Signature: Date:
--- NOTE | 2021-01-03 12:05 | HP.PTREVAL ---
NATHAN CHERRIE, It has been my pleasure to treat JUSTINO FOY over the last 6 visits for Low back pain without sciatica. Please see the progress note below for an update on the physical therapy plan of care! Subjective: Pt. arrived 20 min late today. She reports having minimal to no change at this point in time with her low/mid back pain. Pt. reports increased symptoms throughout the day and has not been able to reudce symptoms with any movements. She reports doing her exercises for core stability. Objective/Function: Due to patient being fairly late today. I did not charge her, but talked to her about her progress or lack of progress. She cotinues to display poor pelvic posture resulting in poor lumbar posture. I talked to her about trying pool therapy. Pt. consents to this addition to her POC. Plan Plan: Trial aquatic exercises with focus on core stability in netural spine and general mobility. Pt. agrees to trialing aquatic therapy. Goals Goal 1:: LTG: Pt. to be I with HEP. Goal Time Frame: 4-6 Weeks Goal 2:: LTG: Pt. to walk unlimited distances without increase in symptoms. Goal Time Frame: 4-6 Weeks Goal 3:: LTG: pt. to have increased core and BLE strngth by 1/2 grade of all effected musculature. Goal Time Frame: 4-6 Weeks Goal 4:: STG: pt. to be able to sit for 1+ hour in comfortable chair with 0-2/10 pain in lumbar spine. Goal Time Frame: 2-4 Weeks Goal 5:: LTG: pt. to have increased lumbar ROM by 25% in all effected ranges. Goal Time Frame: 4-6 Weeks Goal 6:: LTG: Pt. to demonstrate improved posture throughout therapy sesssion, indicating increased postural awarness. Goal Time Frame: 4-6 Weeks Anticipated Interventions Patient/Client Instruction: Educate patient on: Condition, Plan of Care, Risk Factors, Benefits of Fitness Program For the Purpose of:: To improve decision making, To facilitate caregiver knowledge, To improve self management, To prevent re-injury, To improve ability to perform tasks related to life management, To improve tolerance to ADL's Therapeutic Exercise to Include: Strength training, Power training, Endurance training, Coordination, In an aquatic setting, Passive ROM, Active ROM, Dynamic Lumbar Stabilization, Tania Exercises For the Purpose of:: To decrease pain, To decrease swelling/inflammation, To increase ROM, To improve nutrient delivery to tissue, To increase oxygenation perfusion, To improve muscle performance and motor function, To improve performance and independence with ADL's, To improve gait and locomotor functions, To improve health of tissue, To decrease soft tissue restriction, To increase flexibility/ROM Cryotherapy (ice pack, ice massage): Yes Thermo therapy (hot pack): Yes For the Purpose of:: To decrease pain, To decrease swelling/inflammation, To increase ROM Please do not hesitate to contact me at [phone] by phone or if you have questions or concerns regarding this new plan of care! Sincerely, HOMAR CopelandT
== END 2020-12-28 19:00 | disposition home or self-care (01) ==
LOC: PT 12:00
PROVIDERS: PCP Family Medicine
DX: M54.5 Low back pain (principal); G89.29 Other chronic pain
CPT/HCPCS: 97110; 97161

== ENCOUNTER → 2021-05-15 14:33 | Outpatient (CLI) | payer MEDICARE, OTHER, SELFPAY ==
[2021-05-10 12:33] VITALS: BMI 21.1
[2021-05-15 14:51] LABS: Absolute Neutrophil Count 1.8 X10^3/uL (2.0-7.7); Basophil# 0.06 X10^3/uL; Basophil% 0.1 % (0-1); Eosinophil# 0.15 X10^3/uL; Eosinophils% 0.1 % (0-5); Hemoglobin 8.3 g/dL (12.0-15.0); Lymphocyte % 97.4 % (19-41); Mean Corp Hgb Conc 30.7 g/dL (32-36); Mean Corpuscular Hgb 33.1 pg (27.0-32.0); Mean Corpuscular Volume 107.6 fL (81-99); Mean Platelet Vol. 9.4 fl (6.2-12.0); Monocyte# 0.54 X10^3/uL; Monocyte% 0.5 % (0-10); NRBC Flagged by Analyzer 0 % (0-5); Neutrophil # 1.79 X10^3/uL (2.7-7.7); Neutrophil % 1.8 % (47-70); POSITIVE COUNT YES; POSITIVE DIFFERENTIAL YES; POSITIVE MORPHOLOGY YES; Platelet Count 164 K/mm3 (150-450); RBC Distribution Width CV 15.7 % (11.6-14.6); RBC Distribution Width SD 57.1 fl (35.1-43.9); Red Blood Count 2.51 M/mm3 (4.2-5.4)
[2021-05-15 14:55] LABS: Differential Indicated SCAN CRITERIA MET
[2021-05-15 15:44] LABS: White Blood Count 100.7 K/mm3 (4.4-11.0)
[2021-05-15 15:50] LABS: Differential Comment SCANNED
[2021-05-15 22:49] LABS: Xtra Tube EP Lab EXTRA TUBE
[2021-05-16 13:30] LABS: Pathologist Review Reviewed
== END ==
PROVIDERS: PCP Family Medicine
DX: C91.10 Chronic lymphocytic leukemia of B-cell type not having achieved remission (principal)
CPT/HCPCS: 36415; 85025

== ENCOUNTER 2021-06-12 15:54 | Outpatient (RCR) | payer MEDICARE, OTHER, SELFPAY ==
[2021-05-10 12:33] VITALS: BMI 21.1
[2021-05-29 13:48] LABS: Absolute Lymphocyte Count 146.32 X10^3/uL (0.83-4.51); Absolute Neutrophil Count 2.4 X10^3/uL (2.0-7.7); Basophil# 0.05 X10^3/uL; Eosinophil# 0.19 X10^3/uL; Eosinophils% 0.1 % (0-5); Hematocrit 28.2 % (37-47); Hemoglobin 8.3 g/dL (12.0-15.0); Lymphocyte # 146.32 X10^3/ul (0.83-4.51); Lymphocyte % 97.8 % (19-41); Mean Corp Hgb Conc 29.4 g/dL (32-36); Mean Corpuscular Hgb 32.4 pg (27.0-32.0); Mean Corpuscular Volume 110.2 fL (81-99); Mean Platelet Vol. 9.6 fl (6.2-12.0); Monocyte# 0.56 X10^3/uL; Monocyte% 0.4 % (0-10); NRBC Flagged by Analyzer 0 % (0-5); Neutrophil # 2.38 X10^3/uL (2.7-7.7); Neutrophil % 1.6 % (47-70); POSITIVE COUNT YES; POSITIVE DIFFERENTIAL YES; POSITIVE MORPHOLOGY YES; Platelet Count 177 K/mm3 (150-450); RBC Distribution Width CV 15.7 % (11.6-14.6); RBC Distribution Width SD 56.3 fl (35.1-43.9); Red Blood Count 2.56 M/mm3 (4.2-5.4)
[2021-05-29 13:51] LABS: White Blood Count 149.6 K/mm3 (4.4-11.0)
[2021-05-29 13:52] LABS: Differential Indicated SCAN CRITERIA MET
[2021-05-29 14:12] LABS: AST(SGOT) 20 U/L (15-37); Alanine Aminotransfer ALT/SGPT 20 U/L (13-56); Albumin, Serum 3.9 g/dL (3.2-5.0); Alkaline Phosphatase 59 U/L (45-117); Bilirubin, Direct 0.22 mg/dL (0.00-0.30); Cholesterol 158 mg/dL (200); Globulin 2.9 g/dL (2.2-4.2); High Density Lipoprotein 55 mg/dL; Protein, Total 6.8 g/dL (6.4-8.2); Triglycerides 95 mg/dL; Very Low Density Lipoprotein 19 mg/dL (5-40)
[2021-05-30 13:40] LABS: Pathologist Review Reviewed
[2021-06-12 17:10] LABS: Neutrophil-Segmented 1 % (47-70); Total Cells Counted 100 (MANUAL DIFF)
[2021-06-12 17:11] LABS: Lymphocyte 98 % (19-41); Monocyte 1 % (0-10)
[2021-06-12 17:19] LABS: Hematocrit 30.2 % (37-47); Hemoglobin 8.6 g/dL (12.0-15.0); Mean Corp Hgb Conc 28.5 g/dL (32-36); Mean Corpuscular Hgb 31.3 pg (27.0-32.0); Mean Corpuscular Volume 109.8 fL (81-99); Red Blood Count 2.75 M/mm3 (4.2-5.4); White Blood Count 195.7 K/mm3 (4.4-11.0)
[2021-06-12 17:20] LABS: Differential Indicated MANUAL DIFF; Mean Platelet Vol. 9.1 fl (6.2-12.0); POSITIVE COUNT YES; POSITIVE DIFFERENTIAL YES; POSITIVE MORPHOLOGY YES; Platelet Count 227 K/mm3 (150-450)
[2021-06-12 17:24] LABS: Absolute Lymphocyte Count 191.81 X10^3/uL (0.83-4.51)
[2021-06-12 17:25] LABS: Differential Comment SEE COMMENTS; Reactive Lymphocyte 1+
[2021-06-12 17:26] LABS: Anisocytosis 1+; Hypochromasia RARE; Macrocytosis 1+; Platelet Estimate ADEQUATE (ADEQ); Red Cell Morphology N CHROM NORMAL (NORM C&C)
[2021-06-13 00:14] LABS: Xtra Tube EP Lab EXTRA TUBE
[2021-06-13 12:25] LABS: Pathologist Review Reviewed
== END 2021-06-12 18:00 | disposition home or self-care (01) ==
LOC: LAB 15:54
PROVIDERS: Internal Medicine Cardiovascular Disease; PCP Family Medicine
DX: C91.10 Chronic lymphocytic leukemia of B-cell type not having achieved remission (principal); E78.00 Pure hypercholesterolemia, unspecified
CPT/HCPCS: 36415; 80061; 80076; 85025

== ENCOUNTER 2021-07-10 11:28 | Outpatient (RCR) | payer MEDICARE, OTHER, SELFPAY ==
[2021-05-10 12:33] VITALS: BMI 21.1
[2021-06-19 11:44] LABS: Absolute Lymphocyte Count 163.04 X10^3/uL (0.83-4.51); Absolute Neutrophil Count 3.3 X10^3/uL (2.0-7.7); Basophil# 0.07 X10^3/uL; Eosinophil# 0.14 X10^3/uL; Eosinophils% 0.1 % (0-5); Hemoglobin 8.7 g/dL (12.0-15.0); Lymphocyte # 163.04 X10^3/ul (0.83-4.51); Lymphocyte % 97.6 % (19-41); Mean Corpuscular Hgb 31.5 pg (27.0-32.0); Mean Corpuscular Volume 108.7 fL (81-99); Mean Platelet Vol. 9.2 fl (6.2-12.0); Monocyte% 0.2 % (0-10); NRBC Flagged by Analyzer 0 % (0-5); Neutrophil # 3.31 X10^3/uL (2.7-7.7); POSITIVE COUNT YES; POSITIVE DIFFERENTIAL YES; POSITIVE MORPHOLOGY YES; Platelet Count 163 K/mm3 (150-450); RBC Distribution Width SD 51.7 fl (35.1-43.9); Red Blood Count 2.76 M/mm3 (4.2-5.4)
[2021-06-19 11:55] LABS: Differential Indicated SCAN CRITERIA MET; White Blood Count 167.1 K/mm3 (4.4-11.0)
[2021-06-19 12:53] LABS: Smudge Cells 1+
[2021-06-20 12:36] LABS: Pathologist Review Reviewed
[2021-06-26 10:38] LABS: Absolute Lymphocyte Count 155.34 X10^3/uL (0.83-4.51); Absolute Neutrophil Count 2.8 X10^3/uL (2.0-7.7); Basophil# 0.04 X10^3/uL; Eosinophil# 0.25 X10^3/uL; Eosinophils% 0.2 % (0-5); Hematocrit 30.6 % (37-47); Hemoglobin 9.1 g/dL (12.0-15.0); Lymphocyte # 155.34 X10^3/ul (0.83-4.51); Lymphocyte % 97.5 % (19-41); Mean Corp Hgb Conc 29.7 g/dL (32-36); Mean Corpuscular Hgb 31.6 pg (27.0-32.0); Mean Corpuscular Volume 106.3 fL (81-99); Mean Platelet Vol. 9.5 fl (6.2-12.0); Monocyte# 0.63 X10^3/uL; Monocyte% 0.4 % (0-10); NRBC Flagged by Analyzer 0 % (0-5); Neutrophil # 2.84 X10^3/uL (2.7-7.7); Neutrophil % 1.8 % (47-70); POSITIVE COUNT YES; POSITIVE DIFFERENTIAL YES; POSITIVE MORPHOLOGY YES; Platelet Count 172 K/mm3 (150-450); RBC Distribution Width CV 14.3 % (11.6-14.6); Red Blood Count 2.88 M/mm3 (4.2-5.4)
[2021-06-26 11:14] LABS: White Blood Count 159.3 K/mm3 (4.4-11.0)
[2021-06-26 11:15] LABS: Atypical Lymphocyte 4+ %; Differential Indicated SCAN CRITERIA MET
[2021-06-26 11:16] LABS: Differential Comment SCANNED; Hypochromasia 1+; Platelet Estimate ADEQUATE (ADEQ); Smudge Cells RARE
[2021-06-26 18:35] LABS: Xtra Tube EP Lab EXTRA TUBE
[2021-06-28 09:02] LABS: Pathologist Review Reviewed
[2021-07-03 10:23] LABS: Absolute Lymphocyte Count 136.99 X10^3/uL (0.83-4.51); Absolute Neutrophil Count 3.3 X10^3/uL (2.0-7.7); Basophil# 0.03 X10^3/uL; Eosinophil# 0.23 X10^3/uL; Eosinophils% 0.2 % (0-5); Hematocrit 30.5 % (37-47); Lymphocyte # 136.99 X10^3/ul (0.83-4.51); Lymphocyte % 97.1 % (19-41); Mean Corp Hgb Conc 29.5 g/dL (32-36); Mean Corpuscular Hgb 31.5 pg (27.0-32.0); Mean Corpuscular Volume 106.6 fL (81-99); Mean Platelet Vol. 9.1 fl (6.2-12.0); Monocyte# 0.47 X10^3/uL; Monocyte% 0.3 % (0-10); NRBC Flagged by Analyzer 0 % (0-5); Neutrophil % 2.3 % (47-70); POSITIVE COUNT YES; POSITIVE DIFFERENTIAL YES; POSITIVE MORPHOLOGY YES; Platelet Count 166 K/mm3 (150-450); RBC Distribution Width CV 14.2 % (11.6-14.6); RBC Distribution Width SD 49.8 fl (35.1-43.9); Red Blood Count 2.86 M/mm3 (4.2-5.4); White Blood Count 141.1 K/mm3 (4.4-11.0)
[2021-07-03 11:12] LABS: Differential Indicated SCAN CRITERIA MET
[2021-07-03 11:13] LABS: Hypochromasia 1+; Platelet Estimate ADEQUATE (ADEQ)
[2021-07-03 11:14] LABS: Atypical Lymphocyte 3+ %
[2021-07-03 12:45] LABS: Pathologist Review Reviewed
[2021-07-03 18:20] LABS: Xtra Tube EP Lab EXTRA TUBE
[2021-07-10 11:50] LABS: Absolute Lymphocyte Count 123.59 X10^3/uL (0.83-4.51); Absolute Neutrophil Count 2.8 X10^3/uL (2.0-7.7); Basophil# 0.03 X10^3/uL; Eosinophil# 0.11 X10^3/uL; Eosinophils% 0.1 % (0-5); Hematocrit 28.5 % (37-47); Hemoglobin 8.5 g/dL (12.0-15.0); Lymphocyte # 123.59 X10^3/ul (0.83-4.51); Lymphocyte % 97.3 % (19-41); Mean Corp Hgb Conc 29.8 g/dL (32-36); Mean Corpuscular Hgb 31.4 pg (27.0-32.0); Mean Corpuscular Volume 105.2 fL (81-99); Mean Platelet Vol. 9.1 fl (6.2-12.0); Monocyte# 0.43 X10^3/uL; Monocyte% 0.3 % (0-10); NRBC Flagged by Analyzer 0 % (0-5); Neutrophil # 2.81 X10^3/uL (2.7-7.7); Neutrophil % 2.2 % (47-70); POSITIVE COUNT YES; POSITIVE DIFFERENTIAL YES; POSITIVE MORPHOLOGY YES; Platelet Count 164 K/mm3 (150-450); RBC Distribution Width CV 14.1 % (11.6-14.6); RBC Distribution Width SD 49.8 fl (35.1-43.9); Red Blood Count 2.71 M/mm3 (4.2-5.4); White Blood Count 127.1 K/mm3 (4.4-11.0)
[2021-07-10 11:52] LABS: Differential Indicated SCAN CRITERIA MET
[2021-07-10 19:48] LABS: Xtra Tube EP Lab EXTRA TUBE
[2021-07-11 13:00] LABS: Pathologist Review Reviewed
== END 2021-07-17 23:59 ==
LOC: PAVLAB 11:28
PROVIDERS: PCP Family Medicine
DX: C91.10 Chronic lymphocytic leukemia of B-cell type not having achieved remission (principal)
CPT/HCPCS: 36415; 85025

== ENCOUNTER 2021-08-14 13:36 | Outpatient (RCR) | payer MEDICARE, OTHER, SELFPAY ==
[2021-07-18 00:18] VITALS: BMI 21.1
[2021-07-24 11:27] LABS: Absolute Lymphocyte Count 116.15 X10^3/uL (0.83-4.51); Absolute Neutrophil Count 2.5 X10^3/uL (2.0-7.7); Basophil# 0.06 X10^3/uL; Eosinophil# 0.13 X10^3/uL; Eosinophils% 0.1 % (0-5); Hematocrit 31.3 % (37-47); Hemoglobin 9.4 g/dL (12.0-15.0); Lymphocyte # 116.15 X10^3/ul (0.83-4.51); Lymphocyte % 96.6 % (19-41); Mean Corpuscular Hgb 30.7 pg (27.0-32.0); Mean Corpuscular Volume 102.3 fL (81-99); Mean Platelet Vol. 9.5 fl (6.2-12.0); Monocyte% 1.1 % (0-10); NRBC Flagged by Analyzer 0 % (0-5); Neutrophil # 2.45 X10^3/uL (2.7-7.7); Neutrophil % 2.1 % (47-70); POSITIVE COUNT YES; POSITIVE DIFFERENTIAL YES; POSITIVE MORPHOLOGY YES; Platelet Count 200 K/mm3 (150-450); RBC Distribution Width CV 14.3 % (11.6-14.6); RBC Distribution Width SD 49.5 fl (35.1-43.9); Red Blood Count 3.06 M/mm3 (4.2-5.4); White Blood Count 120.2 K/mm3 (4.4-11.0)
[2021-07-24 11:28] LABS: Differential Indicated SCAN CRITERIA MET
[2021-07-24 19:23] LABS: Xtra Tube EP Lab EXTRA TUBE
[2021-07-25 16:13] LABS: Pathologist Review Reviewed
[2021-07-31 16:04] LABS: Absolute Lymphocyte Count 101.14 X10^3/uL (0.83-4.51); Absolute Neutrophil Count 4.3 X10^3/uL (2.0-7.7); Basophil# 0.05 X10^3/uL; Eosinophil# 0.22 X10^3/uL; Eosinophils% 0.2 % (0-5); Hematocrit 30.7 % (37-47); Hemoglobin 9.2 g/dL (12.0-15.0); Lymphocyte # 101.14 X10^3/ul (0.83-4.51); Lymphocyte % 95.1 % (19-41); Mean Corpuscular Volume 103.4 fL (81-99); Mean Platelet Vol. 9.6 fl (6.2-12.0); Monocyte# 0.53 X10^3/uL; Monocyte% 0.5 % (0-10); NRBC Flagged by Analyzer 0 % (0-5); Neutrophil # 4.33 X10^3/uL (2.7-7.7); Neutrophil % 4.1 % (47-70); POSITIVE COUNT YES; POSITIVE DIFFERENTIAL YES; POSITIVE MORPHOLOGY YES; Platelet Count 182 K/mm3 (150-450); RBC Distribution Width CV 14.4 % (11.6-14.6); Red Blood Count 2.97 M/mm3 (4.2-5.4)
[2021-07-31 16:42] LABS: Differential Indicated SCAN CRITERIA MET; White Blood Count 106.4 K/mm3 (4.4-11.0)
[2021-07-31 17:44] LABS: Anisocytosis 1+; Differential Comment SEE COMMENTS; Platelet Estimate ADEQUATE (ADEQ); Red Cell Morphology N CHROM NORMAL (NORM C&C)
[2021-07-31 17:45] LABS: Hypochromasia 1+; Macrocytosis 1+
[2021-08-01 13:41] LABS: Pathologist Review Reviewed
[2021-08-07 15:54] LABS: Absolute Lymphocyte Count 90.53 X10^3/uL (0.83-4.51); Absolute Neutrophil Count 3.2 X10^3/uL (2.0-7.7); Basophil# 0.04 X10^3/uL; Eosinophil# 0.24 X10^3/uL; Eosinophils% 0.3 % (0-5); Hematocrit 29.3 % (37-47); Hemoglobin 8.7 g/dL (12.0-15.0); Lymphocyte # 90.53 X10^3/ul (0.83-4.51); Lymphocyte % 95.6 % (19-41); Mean Corp Hgb Conc 29.7 g/dL (32-36); Mean Corpuscular Hgb 30.1 pg (27.0-32.0); Mean Corpuscular Volume 101.4 fL (81-99); Mean Platelet Vol. 9.7 fl (6.2-12.0); Monocyte# 0.63 X10^3/uL; Monocyte% 0.7 % (0-10); NRBC Flagged by Analyzer 0 % (0-5); Neutrophil # 3.19 X10^3/uL (2.7-7.7); Neutrophil % 3.3 % (47-70); POSITIVE COUNT YES; POSITIVE DIFFERENTIAL YES; POSITIVE MORPHOLOGY YES; Platelet Count 202 K/mm3 (150-450); Red Blood Count 2.89 M/mm3 (4.2-5.4)
[2021-08-07 16:13] LABS: Differential Indicated SCAN CRITERIA MET; White Blood Count 94.7 K/mm3 (4.4-11.0)
[2021-08-07 16:37] LABS: Differential Comment SCANNED
[2021-08-08 12:41] LABS: Pathologist Review Reviewed
[2021-08-14 13:58] LABS: Absolute Lymphocyte Count 93.64 X10^3/uL (0.83-4.51); Absolute Neutrophil Count 3.9 X10^3/uL (2.0-7.7); Basophil# 0.06 X10^3/uL; Basophil% 0.1 % (0-1); Eosinophil# 0.21 X10^3/uL; Eosinophils% 0.2 % (0-5); Hematocrit 31.7 % (37-47); Hemoglobin 9.4 g/dL (12.0-15.0); Lymphocyte # 93.64 X10^3/ul (0.83-4.51); Lymphocyte % 95.2 % (19-41); Mean Corp Hgb Conc 29.7 g/dL (32-36); Mean Corpuscular Hgb 29.8 pg (27.0-32.0); Mean Corpuscular Volume 100.6 fL (81-99); Monocyte# 0.48 X10^3/uL; Monocyte% 0.5 % (0-10); NRBC Flagged by Analyzer 0 % (0-5); Neutrophil # 3.89 X10^3/uL (2.7-7.7); Neutrophil % 3.9 % (47-70); POSITIVE COUNT YES; POSITIVE DIFFERENTIAL YES; POSITIVE MORPHOLOGY YES; Platelet Count 308 K/mm3 (150-450); RBC Distribution Width CV 14.3 % (11.6-14.6); RBC Distribution Width SD 50.5 fl (35.1-43.9); Red Blood Count 3.15 M/mm3 (4.2-5.4)
[2021-08-14 14:07] LABS: Differential Indicated SCAN CRITERIA MET; White Blood Count 98.4 K/mm3 (4.4-11.0)
[2021-08-14 14:26] LABS: Atypical Lymphocyte 3+ %
[2021-08-14 14:27] LABS: Hypochromasia 1+; Platelet Estimate ADEQUATE (ADEQ)
[2021-08-15 13:35] LABS: Pathologist Review Reviewed
[2021-08-16 15:55] LABS: Immunoglobulin G 592 mg/dL (586-1602)
== END 2021-08-16 23:59 ==
LOC: PAVLAB 13:36
PROVIDERS: Nurse Practitioner Family; PCP Family Medicine
DX: C91.10 Chronic lymphocytic leukemia of B-cell type not having achieved remission (principal)
CPT/HCPCS: 36415; 82784; 85025

== ENCOUNTER 2021-09-11 13:46 | Outpatient (RCR) | payer MEDICARE, OTHER, SELFPAY ==
[2021-08-17 00:14] VITALS: BMI 21.1
[2021-08-22 14:42] LABS: Absolute Lymphocyte Count 83.67 X10^3/uL (0.83-4.51); Absolute Neutrophil Count 4.4 X10^3/uL (2.0-7.7); Basophil# 0.02 X10^3/uL; Eosinophil# 0.02 X10^3/uL; Hematocrit 30.8 % (37-47); Hemoglobin 9.4 g/dL (12.0-15.0); Lymphocyte # 83.67 X10^3/ul (0.83-4.51); Lymphocyte % 94.6 % (19-41); Mean Corp Hgb Conc 30.5 g/dL (32-36); Mean Corpuscular Hgb 30.3 pg (27.0-32.0); Mean Corpuscular Volume 99.4 fL (81-99); Mean Platelet Vol. 9.3 fl (6.2-12.0); Monocyte% 0.3 % (0-10); NRBC Flagged by Analyzer 0 % (0-5); Neutrophil # 4.36 X10^3/uL (2.7-7.7); POSITIVE COUNT YES; POSITIVE DIFFERENTIAL YES; POSITIVE MORPHOLOGY YES; Platelet Count 254 K/mm3 (150-450); RBC Distribution Width CV 13.8 % (11.6-14.6); RBC Distribution Width SD 49.1 fl (35.1-43.9)
[2021-08-22 14:43] LABS: Differential Indicated SCAN CRITERIA MET
[2021-08-22 14:48] LABS: White Blood Count 88.5 K/mm3 (4.4-11.0)
[2021-08-22 15:18] LABS: Platelet Estimate ADEQUATE (ADEQ); Red Cell Morphology NORM C+C NORMAL (NORM C&C)
[2021-08-23 14:21] LABS: Pathologist Review Reviewed
[2021-08-24 09:59] LABS: Immunoglobulin G 565 mg/dL (586-1602)
[2021-08-28 13:48] LABS: Absolute Lymphocyte Count 76.01 X10^3/uL (0.83-4.51); Absolute Neutrophil Count 3.6 X10^3/uL (2.0-7.7); Basophil# 0.04 X10^3/uL; Eosinophil# 0.32 X10^3/uL; Eosinophils% 0.4 % (0-5); Hematocrit 31.7 % (37-47); Hemoglobin 9.8 g/dL (12.0-15.0); Lymphocyte # 76.01 X10^3/ul (0.83-4.51); Lymphocyte % 94.2 % (19-41); Mean Corp Hgb Conc 30.9 g/dL (32-36); Mean Corpuscular Hgb 30.3 pg (27.0-32.0); Mean Corpuscular Volume 98.1 fL (81-99); Mean Platelet Vol. 9.7 fl (6.2-12.0); Monocyte# 0.62 X10^3/uL; Monocyte% 0.8 % (0-10); NRBC Flagged by Analyzer 0 % (0-5); Neutrophil # 3.64 X10^3/uL (2.7-7.7); Neutrophil % 4.5 % (47-70); POSITIVE COUNT YES; POSITIVE DIFFERENTIAL YES; POSITIVE MORPHOLOGY YES; Platelet Count 214 K/mm3 (150-450); RBC Distribution Width CV 14.1 % (11.6-14.6); RBC Distribution Width SD 49.9 fl (35.1-43.9); Red Blood Count 3.23 M/mm3 (4.2-5.4)
[2021-08-28 13:59] LABS: Differential Indicated SCAN CRITERIA MET; White Blood Count 80.7 K/mm3 (4.4-11.0)
[2021-08-30 09:22] LABS: Pathologist Review Reviewed
[2021-09-04 13:58] LABS: Absolute Lymphocyte Count 66.28 X10^3/uL (0.83-4.51); Absolute Neutrophil Count 4.4 X10^3/uL (2.0-7.7); Basophil# 0.02 X10^3/uL; Eosinophil# 0.22 X10^3/uL; Eosinophils% 0.3 % (0-5); Hemoglobin 9.2 g/dL (12.0-15.0); Lymphocyte # 66.28 X10^3/ul (0.83-4.51); Lymphocyte % 92.4 % (19-41); Mean Corp Hgb Conc 30.7 g/dL (32-36); Mean Corpuscular Hgb 30.2 pg (27.0-32.0); Mean Corpuscular Volume 98.4 fL (81-99); Monocyte# 0.68 X10^3/uL; Monocyte% 0.9 % (0-10); NRBC Flagged by Analyzer 0 % (0-5); Neutrophil # 4.42 X10^3/uL (2.7-7.7); Neutrophil % 6.3 % (47-70); POSITIVE COUNT YES; POSITIVE DIFFERENTIAL YES; POSITIVE MORPHOLOGY YES; Platelet Count 201 K/mm3 (150-450); Red Blood Count 3.05 M/mm3 (4.2-5.4)
[2021-09-04 14:06] LABS: Differential Indicated SCAN CRITERIA MET; White Blood Count 71.7 K/mm3 (4.4-11.0)
[2021-09-04 14:26] LABS: Atypical Lymphocyte 3+ %
[2021-09-04 14:27] LABS: Hypochromasia 1+; Platelet Estimate ADEQUATE (ADEQ)
[2021-09-06 09:24] LABS: Pathologist Review Reviewed
[2021-09-11 14:06] LABS: Absolute Lymphocyte Count 60.43 X10^3/uL (0.83-4.51); Absolute Neutrophil Count 2.9 X10^3/uL (2.0-7.7); Basophil# 0.04 X10^3/uL; Basophil% 0.1 % (0-1); Eosinophil# 0.32 X10^3/uL; Eosinophils% 0.5 % (0-5); Hematocrit 32.8 % (37-47); Hemoglobin 10.3 g/dL (12.0-15.0); Lymphocyte # 60.43 X10^3/ul (0.83-4.51); Lymphocyte % 93.9 % (19-41); Mean Corp Hgb Conc 31.4 g/dL (32-36); Mean Corpuscular Hgb 30.5 pg (27.0-32.0); Mean Platelet Vol. 9.3 fl (6.2-12.0); Monocyte# 0.57 X10^3/uL; Monocyte% 0.9 % (0-10); NRBC Flagged by Analyzer 0 % (0-5); Neutrophil # 2.89 X10^3/uL (2.7-7.7); Neutrophil % 4.4 % (47-70); POSITIVE COUNT YES; POSITIVE DIFFERENTIAL YES; POSITIVE MORPHOLOGY YES; Platelet Count 234 K/mm3 (150-450); RBC Distribution Width CV 14.3 % (11.6-14.6); RBC Distribution Width SD 50.4 fl (35.1-43.9); Red Blood Count 3.38 M/mm3 (4.2-5.4)
[2021-09-11 14:41] LABS: White Blood Count 64.4 K/mm3 (4.4-11.0)
[2021-09-11 14:43] LABS: Differential Comment SCANNED
[2021-09-12 13:24] LABS: Pathologist Review Reviewed
== END 2021-09-16 23:59 ==
LOC: PAVLAB 13:46
PROVIDERS: PCP Family Medicine
DX: C91.10 Chronic lymphocytic leukemia of B-cell type not having achieved remission (principal)
CPT/HCPCS: 36415; 82784; 85025

== ENCOUNTER → 2021-09-12 13:55 | Outpatient (CLI) | payer MEDICARE, OTHER, SELFPAY ==
--- NOTE | 2021-09-12 13:58 | ECHOD_ITS ---
Reason For Study: Afib, Aflutter Procedure This was a 2D Doppler, Color Flow transthoracic echocardiogram. Exam performed in department. Left Ventricle Normal LV size. Apical false tendon noted. Left ventricular systolic function is normal. The estimated ejection fraction is 55 %. Unable to assess diastolic dysfunction. No regional wall motion abnormalities noted. Right Ventricle Normal RV size. Normal systolic function. Atria The left atrium is moderately enlarged. The right atrium is mildly enlarged. No doppler evidence for ASD. Mitral Valve There is no mitral annular calcification. Mild diffuse mitral valve thickening. Mild-Moderate (1-2+) mitral valve insufficiency. Tricuspid Valve Normal tricuspid valve. Mild to moderate (1-2+) tricuspid valve insufficiency. Right ventricular systolic pressure estimated to be 26 mmHg. Aortic Valve Trisinus/trileaflet aortic valve. Mild diffuse aortic valve thickening. Mild (1+) aortic valve insufficiency. Pulmonic Valve The pulmonic valve is not well visualized. Great Vessels Normal sized aortic root. Pericardium/Pleural No pericardial effusion. MMode/2D Measurements & Calculations LVIDd: 4.8 cm IVSd: 1.1 cm Ao root diam: 2.3 cm LVIDs: 3.7 cm LVPWd: 1.1 cm RVDd: 3.4 cm FS: 23.1 % LAV(MOD-bp): 86.2 ml LVAd ap4: 22.9 cm2 SV(MOD-sp4): 33.9 ml LAV(MOD-bp) Indexed: 54.1 ml/m2 LVLd ap4: 7.2 cm LAV(MOD-sp2): 103.2 ml EDV(MOD-sp4): 61.1 ml LAV(MOD-sp4): 72.5 ml EDV(sp4-el): 61.8 ml LVAs ap4: 13.9 cm2 LVLs ap4: 6.3 cm ESV(MOD-sp4): 27.1 ml ESV(sp4-el): 26.3 ml EF(MOD-sp4): 55.6 % EF(sp4-el): 57.5 % SV(sp4-el): 35.5 ml LA A4 area: 23.4 cm2 LA dimension(2D): 5.2 cm RA A4 area: 16.0 cm2 Doppler Measurements & Calculations MV E max thuy: 103.9 cm/sec Ao V2 max: 124.6 cm/sec AI max thuy: 454.5 cm/sec Ao max P.2 mmHg AI max P.6 mmHg Ao V2 mean: 91.2 cm/sec Ao mean P.6 mmHg AI dec slope: 277.2 cm/sec2 Ao V2 VTI: 25.7 cm AI P1/2t: 480.2 msec LV V1 max: 70.8 cm/sec PA V2 max: 76.4 cm/sec TR max thuy: 239.2 cm/sec LV V1 max P.0 mmHg TR max P.9 mmHg ECHO/Echo Complete Interpretation Summary Left ventricular systolic function is normal. The estimated ejection fraction is 55 %. Apical false tendon noted. The left atrium is moderately enlarged. The right atrium is mildly enlarged. Mild diffuse mitral valve thickening. Mild-Moderate (1-2+) mitral valve insufficiency. Mild to moderate (1-2+) tricuspid valve insufficiency. Mild diffuse aortic valve thickening. Mild (1+) aortic valve insufficiency. Right ventricular systolic pressure estimated to be 26 mmHg. Unable to assess diastolic dysfunction. Ordering Physician: Munir Perez Referring Physician: Perez Rios Performed By: Natalie Jean Baptiste, MATT, RVT
== END ==
PROVIDERS: PCP Family Medicine; Referring Provider Internal Medicine Cardiovascular Disease; Visit Provider Internal Medicine Cardiovascular Disease
DX: I34.0 Nonrheumatic mitral (valve) insufficiency (principal)
CPT/HCPCS: 93306

== ENCOUNTER 2021-09-25 13:57 | Outpatient (RCR) | payer MEDICARE, OTHER, SELFPAY ==
[2021-09-17 00:10] VITALS: BMI 21.1
[2021-09-18 14:44] LABS: Absolute Lymphocyte Count 49.94 X10^3/uL (0.83-4.51); Absolute Neutrophil Count 2.2 X10^3/uL (2.0-7.7); Basophil# 0.03 X10^3/uL; Basophil% 0.1 % (0-1); Eosinophil# 0.29 X10^3/uL; Eosinophils% 0.5 % (0-5); Hematocrit 31.5 % (37-47); Hemoglobin 9.8 g/dL (12.0-15.0); Lymphocyte # 49.94 X10^3/ul (0.83-4.51); Lymphocyte % 94.2 % (19-41); Mean Corp Hgb Conc 31.1 g/dL (32-36); Mean Corpuscular Hgb 30.2 pg (27.0-32.0); Mean Corpuscular Volume 96.9 fL (81-99); Mean Platelet Vol. 9.4 fl (6.2-12.0); Monocyte# 0.47 X10^3/uL; Monocyte% 0.9 % (0-10); NRBC Flagged by Analyzer 0 % (0-5); Neutrophil # 2.15 X10^3/uL (2.7-7.7); POSITIVE COUNT YES; POSITIVE DIFFERENTIAL YES; POSITIVE MORPHOLOGY YES; Platelet Count 236 K/mm3 (150-450); RBC Distribution Width CV 14.2 % (11.6-14.6); RBC Distribution Width SD 50.3 fl (35.1-43.9); Red Blood Count 3.25 M/mm3 (4.2-5.4)
[2021-09-18 14:53] LABS: Differential Indicated SCAN CRITERIA MET
[2021-09-21 09:13] LABS: Pathologist Review Reviewed
[2021-09-25 14:18] LABS: Absolute Lymphocyte Count 41.89 X10^3/uL (0.83-4.51); Absolute Neutrophil Count 2.5 X10^3/uL (2.0-7.7); Basophil# 0.03 X10^3/uL; Basophil% 0.1 % (0-1); Eosinophil# 0.22 X10^3/uL; Eosinophils% 0.5 % (0-5); Hematocrit 31.2 % (37-47); Hemoglobin 9.9 g/dL (12.0-15.0); Lymphocyte # 41.89 X10^3/ul (0.83-4.51); Lymphocyte % 92.5 % (19-41); Mean Corp Hgb Conc 31.7 g/dL (32-36); Mean Corpuscular Hgb 30.1 pg (27.0-32.0); Mean Corpuscular Volume 94.8 fL (81-99); Mean Platelet Vol. 9.3 fl (6.2-12.0); Monocyte# 0.46 X10^3/uL; NRBC Flagged by Analyzer 0 % (0-5); Neutrophil # 2.51 X10^3/uL (2.7-7.7); Neutrophil % 5.5 % (47-70); POSITIVE COUNT YES; POSITIVE DIFFERENTIAL YES; POSITIVE MORPHOLOGY YES; Platelet Count 202 K/mm3 (150-450); RBC Distribution Width CV 14.3 % (11.6-14.6); RBC Distribution Width SD 49.5 fl (35.1-43.9); Red Blood Count 3.29 M/mm3 (4.2-5.4); White Blood Count 45.3 K/mm3 (4.4-11.0)
[2021-09-25 14:21] LABS: Differential Indicated SCAN CRITERIA MET
[2021-09-26 12:58] LABS: Pathologist Review Reviewed
== END 2021-10-16 23:59 ==
LOC: PAVLAB 13:57
PROVIDERS: PCP Family Medicine
DX: C91.10 Chronic lymphocytic leukemia of B-cell type not having achieved remission (principal)
CPT/HCPCS: 36415; 85025

== ENCOUNTER 2021-11-07 15:29 | Outpatient (RCR) | payer MEDICARE, OTHER, SELFPAY ==
[2021-10-17 00:16] VITALS: BMI 21.1
[2021-11-07 15:51] LABS: Absolute Lymphocyte Count 21.05 X10^3/uL (0.83-4.51); Absolute Neutrophil Count 2.3 X10^3/uL (2.0-7.7); Basophil# 0.08 X10^3/uL; Basophil% 0.3 % (0-1); Eosinophil# 0.17 X10^3/uL; Eosinophils% 0.7 % (0-5); Hematocrit 32.7 % (37-47); Hemoglobin 10.3 g/dL (12.0-15.0); Lymphocyte # 21.05 X10^3/ul (0.83-4.51); Lymphocyte % 86.7 % (19-41); Mean Corp Hgb Conc 31.5 g/dL (32-36); Mean Corpuscular Hgb 29.8 pg (27.0-32.0); Mean Corpuscular Volume 94.5 fL (81-99); Mean Platelet Vol. 9.1 fl (6.2-12.0); Monocyte# 0.47 X10^3/uL; Monocyte% 1.9 % (0-10); NRBC Flagged by Analyzer 0 % (0-5); Neutrophil # 2.29 X10^3/uL (2.7-7.7); Neutrophil % 9.5 % (47-70); POSITIVE DIFFERENTIAL YES; POSITIVE MORPHOLOGY YES; Platelet Count 208 K/mm3 (150-450); RBC Distribution Width CV 14.2 % (11.6-14.6); RBC Distribution Width SD 48.4 fl (35.1-43.9); Red Blood Count 3.46 M/mm3 (4.2-5.4); White Blood Count 24.3 K/mm3 (4.4-11.0)
[2021-11-07 16:29] LABS: Differential Indicated SCAN CRITERIA MET
[2021-11-07 16:31] LABS: Differential Comment SCANNED
[2021-11-09 09:08] LABS: Immunoglobulin G 528 mg/dL (586-1602)
== END 2021-11-16 23:59 ==
LOC: PAVLAB 15:29
PROVIDERS: PCP Family Medicine
DX: C91.10 Chronic lymphocytic leukemia of B-cell type not having achieved remission (principal)
CPT/HCPCS: 36415; 82784; 85025

== ENCOUNTER 2021-12-04 14:11 | Outpatient (RCR) | payer MEDICARE, OTHER, SELFPAY ==
[2021-11-17 00:16] VITALS: BMI 21.1
[2021-12-04 14:45] LABS: Absolute Lymphocyte Count 13.83 X10^3/uL (0.83-4.51); Absolute Neutrophil Count 3.5 X10^3/uL (2.0-7.7); Basophil# 0.05 X10^3/uL; Basophil% 0.3 % (0-1); Eosinophil# 0.15 X10^3/uL; Eosinophils% 0.8 % (0-5); Hematocrit 31.6 % (37-47); Hemoglobin 10.5 g/dL (12.0-15.0); Lymphocyte # 13.83 X10^3/ul (0.83-4.51); Lymphocyte % 76.4 % (19-41); Mean Corp Hgb Conc 33.2 g/dL (32-36); Mean Corpuscular Volume 93.2 fL (81-99); Mean Platelet Vol. 9.1 fl (6.2-12.0); Monocyte# 0.57 X10^3/uL; Monocyte% 3.1 % (0-10); NRBC Flagged by Analyzer 0 % (0-5); Neutrophil # 3.47 X10^3/uL (2.7-7.7); Neutrophil % 19.2 % (47-70); POSITIVE DIFFERENTIAL YES; POSITIVE MORPHOLOGY YES; Platelet Count 210 K/mm3 (150-450); RBC Distribution Width CV 13.7 % (11.6-14.6); RBC Distribution Width SD 47.4 fl (35.1-43.9); Red Blood Count 3.39 M/mm3 (4.2-5.4); White Blood Count 18.1 K/mm3 (4.4-11.0)
[2021-12-04 14:47] LABS: Differential Indicated SCAN CRITERIA MET
[2021-12-06 08:35] LABS: Immunoglobulin G 440 mg/dL (586-1602)
== END 2021-12-17 23:59 ==
LOC: PAVLAB 14:11
PROVIDERS: PCP Family Medicine
DX: C91.10 Chronic lymphocytic leukemia of B-cell type not having achieved remission (principal); D80.1 Nonfamilial hypogammaglobulinemia
CPT/HCPCS: 36415; 82784; 85025

== ENCOUNTER 2022-01-29 15:19 | Outpatient (RCR) | payer MEDICARE, OTHER, SELFPAY ==
[2021-12-18 00:20] VITALS: BMI 21.1
[2022-01-29 15:45] LABS: Absolute Lymphocyte Count 10.35 X10^3/uL (0.83-4.51); Basophil# 0.03 X10^3/uL; Basophil% 0.2 % (0-1); Eosinophil# 0.13 X10^3/uL; Eosinophils% 0.9 % (0-5); Hematocrit 34.2 % (37-47); Hemoglobin 11.4 g/dL (12.0-15.0); Lymphocyte # 10.35 X10^3/ul (0.83-4.51); Lymphocyte % 73.8 % (19-41); Mean Corp Hgb Conc 33.3 g/dL (32-36); Mean Corpuscular Hgb 31.1 pg (27.0-32.0); Mean Corpuscular Volume 93.4 fL (81-99); Mean Platelet Vol. 9.4 fl (6.2-12.0); Monocyte# 0.49 X10^3/uL; Monocyte% 3.5 % (0-10); NRBC Flagged by Analyzer 0 % (0-5); Neutrophil # 2.95 X10^3/uL (2.7-7.7); POSITIVE DIFFERENTIAL YES; POSITIVE MORPHOLOGY YES; Platelet Count 200 K/mm3 (150-450); RBC Distribution Width CV 13.2 % (11.6-14.6); RBC Distribution Width SD 45.1 fl (35.1-43.9); Red Blood Count 3.66 M/mm3 (4.2-5.4)
[2022-01-29 15:50] LABS: Differential Indicated SCAN CRITERIA MET
[2022-01-29 16:18] LABS: Differential Comment SCANNED
[2022-01-31 08:24] LABS: Immunoglobulin G 623 mg/dL (586-1602)
== END 2022-02-14 23:59 ==
LOC: PAVLAB 15:19
PROVIDERS: PCP Family Medicine
DX: C91.10 Chronic lymphocytic leukemia of B-cell type not having achieved remission (principal)
CPT/HCPCS: 36415; 82784; 85025

== ENCOUNTER 2022-03-06 13:26 | Outpatient (RCR) | payer MEDICARE, OTHER, SELFPAY ==
[2022-02-15 00:09] VITALS: BMI 21.1
[2022-03-06 13:43] LABS: Absolute Lymphocyte Count 5.13 X10^3/uL (0.83-4.51); Absolute Neutrophil Count 4.6 X10^3/uL (2.0-7.7); Basophil# 0.03 X10^3/uL; Basophil% 0.3 % (0-1); Eosinophil# 0.19 X10^3/uL; Eosinophils% 1.8 % (0-5); Hematocrit 34.5 % (37-47); Hemoglobin 11.5 g/dL (12.0-15.0); Lymphocyte # 5.13 X10^3/ul (0.83-4.51); Lymphocyte % 48.6 % (19-41); Mean Corp Hgb Conc 33.3 g/dL (32-36); Mean Platelet Vol. 8.9 fl (6.2-12.0); Monocyte# 0.55 X10^3/uL; Monocyte% 5.2 % (0-10); NRBC Flagged by Analyzer 0 % (0-5); Neutrophil # 4.63 X10^3/uL (2.7-7.7); Neutrophil % 43.8 % (47-70); POSITIVE DIFFERENTIAL YES; Platelet Count 192 K/mm3 (150-450); RBC Distribution Width CV 13.2 % (11.6-14.6); RBC Distribution Width SD 44.9 fl (35.1-43.9); Red Blood Count 3.71 M/mm3 (4.2-5.4); White Blood Count 10.6 K/mm3 (4.4-11.0)
[2022-03-06 13:46] LABS: Differential Indicated SCAN CRITERIA MET
[2022-03-06 14:06] LABS: Platelet Estimate ADEQUATE (ADEQ)
[2022-03-06 14:07] LABS: Red Cell Morphology NORM C+C NORMAL (NORM C&C)
[2022-03-08 08:25] LABS: Immunoglobulin G 465 mg/dL (586-1602)
== END 2022-03-16 23:59 ==
LOC: PAVLAB 13:26
PROVIDERS: PCP Family Medicine
DX: C91.10 Chronic lymphocytic leukemia of B-cell type not having achieved remission (principal)
CPT/HCPCS: 36415; 82784; 85025

== ENCOUNTER 2022-05-13 11:21 | Outpatient (RCR) | payer MEDICARE, OTHER, SELFPAY ==
[2022-03-17 00:13] VITALS: BMI 21.1
[2022-05-13 11:56] LABS: Absolute Lymphocyte Count 3.68 X10^3/uL (0.83-4.51); Absolute Neutrophil Count 3.3 X10^3/uL (2.0-7.7); Basophil# 0.03 X10^3/uL; Basophil% 0.4 % (0-1); Eosinophil# 0.14 X10^3/uL; Eosinophils% 1.8 % (0-5); Hematocrit 33.6 % (37-47); Hemoglobin 10.8 g/dL (12.0-15.0); Lymphocyte # 3.68 X10^3/ul (0.83-4.51); Lymphocyte % 48.6 % (19-41); Mean Corp Hgb Conc 32.1 g/dL (32-36); Mean Corpuscular Hgb 30.3 pg (27.0-32.0); Mean Corpuscular Volume 94.4 fL (81-99); Mean Platelet Vol. 9.8 fl (6.2-12.0); Monocyte# 0.42 X10^3/uL; Monocyte% 5.5 % (0-10); NRBC Flagged by Analyzer 0 % (0-5); Neutrophil # 3.28 X10^3/uL (2.7-7.7); Neutrophil % 43.4 % (47-70); Platelet Count 182 K/mm3 (150-450); RBC Distribution Width CV 13.2 % (11.6-14.6); RBC Distribution Width SD 45.6 fl (35.1-43.9); Red Blood Count 3.56 M/mm3 (4.2-5.4); White Blood Count 7.6 K/mm3 (4.4-11.0)
[2022-05-13 19:52] LABS: Xtra Tube EP Lab EXTRA TUBE
[2022-05-14 07:53] LABS: Immunoglobulin G 484 mg/dL (586-1602)
== END 2022-05-16 23:59 ==
LOC: PAVLAB 11:21
PROVIDERS: PCP Family Medicine
DX: C91.10 Chronic lymphocytic leukemia of B-cell type not having achieved remission (principal)
CPT/HCPCS: 36415; 82784; 85025

== ENCOUNTER 2022-08-13 11:29 | Outpatient (RCR) | payer MEDICARE, OTHER, SELFPAY ==
[2022-05-17 00:08] VITALS: BMI 21.1
[2022-08-13 11:56] LABS: Absolute Lymphocyte Count 3.08 X10^3/uL (0.83-4.51); Absolute Neutrophil Count 2.3 X10^3/uL (2.0-7.7); Basophil# 0.04 X10^3/uL; Basophil% 0.7 % (0-1); Eosinophil# 0.22 X10^3/uL; Eosinophils% 3.7 % (0-5); Hematocrit 34.3 % (37-47); Hemoglobin 11.2 g/dL (12.0-15.0); Lymphocyte # 3.08 X10^3/ul (0.83-4.51); Lymphocyte % 51.2 % (19-41); Mean Corp Hgb Conc 32.7 g/dL (32-36); Mean Corpuscular Hgb 31.1 pg (27.0-32.0); Mean Corpuscular Volume 95.3 fL (81-99); Mean Platelet Vol. 9.5 fl (6.2-12.0); Monocyte# 0.42 X10^3/uL; NRBC Flagged by Analyzer 0 % (0-5); Neutrophil # 2.25 X10^3/uL (2.7-7.7); Neutrophil % 37.2 % (47-70); Platelet Count 210 K/mm3 (150-450); RBC Distribution Width CV 13.6 % (11.6-14.6); RBC Distribution Width SD 47.7 fl (35.1-43.9)
[2022-08-13 19:48] LABS: Xtra Tube EP Lab EXTRA TUBE
[2022-08-14 09:09] LABS: Immunoglobulin G 699 mg/dL (586-1602)
== END 2022-08-16 23:59 ==
LOC: PAVLAB 11:29
PROVIDERS: Nurse Practitioner Family; PCP Family Medicine
DX: C91.10 Chronic lymphocytic leukemia of B-cell type not having achieved remission (principal)
CPT/HCPCS: 36415; 82784; 85025

== ENCOUNTER 2022-09-09 11:03 | Outpatient (RCR) | payer MEDICARE, OTHER, SELFPAY ==
[2022-08-17 00:13] VITALS: BMI 21.1
[2022-08-20 14:06] LABS: Thyroid Stim Hormone (TSH) 1.86 uIU/mL (0.358-3.74)
[2022-09-09 11:19] LABS: Absolute Lymphocyte Count 3.66 X10^3/uL (0.83-4.51); Absolute Neutrophil Count 3.3 X10^3/uL (2.0-7.7); Basophil# 0.04 X10^3/uL; Basophil% 0.5 % (0-1); Eosinophil# 0.19 X10^3/uL; Eosinophils% 2.5 % (0-5); Hematocrit 34.5 % (37-47); Hemoglobin 11.3 g/dL (12.0-15.0); Lymphocyte # 3.66 X10^3/ul (0.83-4.51); Lymphocyte % 47.4 % (19-41); Mean Corp Hgb Conc 32.8 g/dL (32-36); Mean Corpuscular Hgb 30.5 pg (27.0-32.0); Mean Platelet Vol. 9.3 fl (6.2-12.0); Monocyte% 6.5 % (0-10); NRBC Flagged by Analyzer 0 % (0-5); Neutrophil # 3.31 X10^3/uL (2.7-7.7); Neutrophil % 42.8 % (47-70); Platelet Count 223 K/mm3 (150-450); RBC Distribution Width CV 13.3 % (11.6-14.6); RBC Distribution Width SD 45.3 fl (35.1-43.9); Red Blood Count 3.71 M/mm3 (4.2-5.4); White Blood Count 7.7 K/mm3 (4.4-11.0)
[2022-09-10 17:52] LABS: Immunoglobulin G 544 mg/dL (586-1602)
== END 2022-09-16 23:59 ==
LOC: PAVLAB 11:03
PROVIDERS: PCP Family Medicine
DX: C91.10 Chronic lymphocytic leukemia of B-cell type not having achieved remission (principal); R53.82 Chronic fatigue, unspecified
CPT/HCPCS: 36415; 82784; 84443; 85025

== ENCOUNTER → 2022-09-16 | Outpatient (CLI) | payer MEDICARE, OTHER, SELFPAY ==
--- NOTE | 2022-09-16 06:51 | ECHOD_ITS ---
Reason For Study: A. fib, Fatigue Procedure This was a 2D Doppler, Color Flow transthoracic echocardiogram. Myocardial strain analysis was performed in this exam to aid in the assessment of cardiac function. The exam was of adequate technical quality. Exam performed in department. Left Ventricle Normal LV size. Apical false tendon noted. Left ventricular systolic function is lower limits of normal. The estimated ejection fraction is 50 %. The global longitudinal strain = -12% (abnormal). Diastolic function is indeterminate. Right Ventricle Normal RV size. Normal systolic function. Atria The left atrium is severely enlarged. The right atrium is moderately enlarged. No doppler evidence for ASD. Mitral Valve There is no mitral annular calcification. Mild diffuse mitral valve thickening. Moderately severe (3+) eccentric mitral valve insufficiency. Tricuspid Valve Normal tricuspid valve. Moderate (2+) tricuspid valve insufficiency. Right ventricular systolic pressure estimated to be 29 mmHg. Aortic Valve Trisinus/trileaflet aortic valve. Mild diffuse aortic valve thickening. Mild (1+) eccentric aortic valve insufficiency. Pulmonic Valve The pulmonic valve is not well visualized. Great Vessels Normal sized aortic root. Pericardium/Pleural No pericardial effusion. MMode/2D Measurements & Calculations LVIDd: 4.6 cm IVSd: 1.0 cm Ao root diam: 3.1 cm LVIDs: 3.8 cm LVPWd: 1.1 cm RVDd: 3.0 cm FS: 17.3 % LAV(MOD-bp): 84.9 ml LVAd ap4: 25.6 cm2 SV(MOD-sp4): 37.3 ml LAV(MOD-bp) Indexed: 52.4 ml/m2 LVLd ap4: 6.7 cm LAV(MOD-sp2): 76.6 ml EDV(MOD-sp4): 82.3 ml LAV(MOD-sp4): 82.8 ml EDV(sp4-el): 82.5 ml LVAs ap4: 17.8 cm2 LVLs ap4: 6.1 cm ESV(MOD-sp4): 45.1 ml ESV(sp4-el): 44.3 ml EF(MOD-sp4): 45.3 % EF(sp4-el): 46.4 % SV(sp4-el): 38.3 ml LA A4 area: 23.9 cm2 LA dimension(2D): 4.9 cm RA A4 area: 20.0 cm2 Doppler Measurements & Calculations MV E max thuy: 88.5 cm/sec Ao V2 max: 132.6 cm/sec AI max thuy: 473.1 cm/sec Ao max P.0 mmHg AI max P.5 mmHg AI dec slope: 323.0 cm/sec2 AI P1/2t: 429.1 msec LV V1 max: 75.2 cm/sec PA V2 max: 85.5 cm/sec TR max thuy: 253.1 cm/sec LV V1 max P.3 mmHg TR max P.9 mmHg ECHO/Echo Complete Interpretation Summary Left ventricular systolic function is lower limits of normal. The estimated ejection fraction is 50 %. The global longitudinal strain = -12% (abnormal). Apical false tendon noted. The left atrium is severely enlarged. The right atrium is moderately enlarged. Mild diffuse mitral valve thickening. Moderately severe (3+) eccentric mitral valve insufficiency. Moderate (2+) tricuspid valve insufficiency. Mild diffuse aortic valve thickening. Mild (1+) eccentric aortic valve insufficiency. Right ventricular systolic pressure estimated to be 29 mmHg. Diastolic function is indeterminate. Ordering Physician: Munir Perez Referring Physician: Perez Rios MD Performed By: Daisha Stafford RDCS
== END | disposition home or self-care (01) ==
LOC: CVS 08:40
PROVIDERS: PCP Family Medicine; Referring Provider Internal Medicine Cardiovascular Disease; Visit Provider Internal Medicine Cardiovascular Disease
DX: I34.0 Nonrheumatic mitral (valve) insufficiency (principal); I48.20 Chronic atrial fibrillation, unspecified; R09.89 Other specified symptoms and signs involving the circulatory and respiratory systems; E78.5 Hyperlipidemia, unspecified; I10 Essential (primary) hypertension; Z95.818 Presence of other cardiac implants and grafts
CPT/HCPCS: 93306; A4216; J2785

== ENCOUNTER 2022-09-24 06:04 | Outpatient (CLI) | payer MEDICARE, OTHER, SELFPAY ==
--- NOTE | 2022-09-24 16:23 | STRESSREP ---
Stress Test Report Date: 09-24-2022 Procedure: Pharmacologic stress nuclear imaging study Indications: Atrial fibrillation; status post left atrial appendage occluder device; hyperlipidemia; hypertension Consent: Per the patient Procedure: The patient underwent pharmacologic (Regadenoson 0.4mg ) evaluation with a peak heart rate of 97 beats per minute (65%predicted maximal heart rate) and a resting blood pressure of 120/72 mmHg and a peak blood pressure of 120/72 mmHg. The baseline ECG demonstrated atrial fibrillation; nonspecific ST/T wave abnormality. The peak pharmacologic ECG demonstrated continued nonspecific ST/T wave abnormality. There was a rare PVC during recovery. There was no complaint of chest discomfort during pharmacologic infusion or recovery. The examination was discontinued secondary to completion of protocol. Impression: 1. Pharmacologic (Regadenoson) evaluation 2. Peak pharmacologic ECG with continued nonspecific ST/T wave abnormality. 3. There was a rare PVC during recovery. 4. Nuclear images pending Myocardial perfusion imaging study: Technique: The patient was injected with 10.8 millicuries of technetium 99m Cardiolite and subsequently rest SPECT Cardiolite nuclear imaging was obtained in the horizontal long, vertical long, and short axis views. The patient underwent pharmacologic (Regadenoson) evaluation with a peak heart rate of 97 beats per minute (65% percent predicted maximal heart rate) and a resting blood pressure of 120/72 mmHg and a peak blood pressure of 120/72 mmHg. The patient was injected with 31.9 millicuries of technetium 99m Cardiolite and subsequently stress SPECT Cardiolite nuclear imaging was obtained in the horizontal long, vertical long, and short axis views. A gated Cardiolite study at peak stress was obtained. Interpretation: Rest and stress SPECT Cardiolite nuclear imaging status post realignment, normalization, and attenuation correction demonstrate relative uniform tracer uptake and myocardial perfusion appearing within normal limits. There is end systolic thickening and brightening. The gated Cardiolite study demonstrates myocardial thickening and inward wall motion. The reported LVEF is 62%. Impression: 1. Rest and stress SPECT Cardiolite nuclear imaging demonstrate relative uniform tracer uptake and myocardial perfusion appearing within normal limits. 2. The gated Cardiolite study reports an LVEF of 62%. This note was generated with [employer] software. It may contain incorrect words, spelling, and punctuation that were not noted in checking the note before signing.
== END 2022-09-24 23:59 | disposition home or self-care (01) ==
PROVIDERS: PCP Family Medicine; Referring Provider Internal Medicine Cardiovascular Disease; Visit Provider Internal Medicine Cardiovascular Disease
DX: I48.11 Longstanding persistent atrial fibrillation (principal); R94.31 Abnormal electrocardiogram [ECG] [EKG]; I45.10 Unspecified right bundle-branch block; R93.1 Abnormal findings on diagnostic imaging of heart and coronary circulation; R09.89 Other specified symptoms and signs involving the circulatory and respiratory systems; I10 Essential (primary) hypertension; E78.5 Hyperlipidemia, unspecified; R53.83 Other fatigue
CPT/HCPCS: 78452; 93017; A9500; A4216; J2785

== ENCOUNTER → 2022-09-25 | Outpatient (CLI) | payer MEDICARE, OTHER, SELFPAY ==
--- NOTE | 2022-09-25 08:54 | AAAS_ITS ---
Reason For Study: Palbable abdominal aorta Aorta Measurements Aorta Doppler Measurements Proximal aorta measures2.23 x 2.29cm. in cross- Peak systolic flow velocities within the proximal sectional axis. aorta measure 85 cm/sec. Proximal aorta measures2.23cm. in longitudinal Peak systolic flow velocities within the mid aorta axis. measure 83.2 cm/sec. Mid aorta measures1.40 x 1.53cm. in cross- Peak systolic flow velocities within the distal sectional axis. aorta measure 70.5 cm/sec. Mid aorta measures1.45cm. in longitudinal axis. Distal aorta measures1.30 x 1.30cm. in cross- sectional axis. Distal aorta measures1.27cm. in longitudinal axis. Left Iliac Artery Left iliac artery measures 0.97 x 0.93 cm. in the cross-sectional axis. Left iliac artery measures 0.94 cm. in the longitudinal axis. Peak systolic velocity in the left iliac artery measures 79.6 cm/sec. Right Iliac Artery Right iliac artery measures 0.98 x 0.95 cm. in the cross-sectional axis. Right iliac artery measures 0.91 cm. in the longitudinal axis. Peak systolic velocity in the right iliac artery measures 83.2 cm/sec. Procedure Aorta IVC Iliac vasculature or bypass grafts 31813. Exam performed in department. VL/AAA Screening Interpretation Summary Diffuse atherosclerotic disease of the abdominal aorta with maximum dimension p roximally at 2.23 x 2.29 cm. Normal aortic flow velocities identified. Normal left common iliac artery diameter 0.97 x 0.93 cm Normal right common iliac artery diameter 0.98 x 0.95 cm Ordering Physician: Munir Perez Referring Physician: Perez Rios MD Performed By: Meseret Diaz RVT
== END | disposition home or self-care (01) ==
LOC: CVS 08:52
PROVIDERS: PCP Family Medicine; Referring Provider Internal Medicine Cardiovascular Disease; Visit Provider Internal Medicine Cardiovascular Disease
DX: R09.89 Other specified symptoms and signs involving the circulatory and respiratory systems (principal); I48.20 Chronic atrial fibrillation, unspecified; I34.0 Nonrheumatic mitral (valve) insufficiency; E78.5 Hyperlipidemia, unspecified; I10 Essential (primary) hypertension; Z95.818 Presence of other cardiac implants and grafts
CPT/HCPCS: 76706

== ENCOUNTER → 2022-10-09 | Outpatient (CLI) | payer MEDICARE, OTHER, SELFPAY | END | disposition home or self-care (01) | LOC: LABSPEC 16:20 | PROVIDERS: PCP Family Medicine; Visit Provider Family Medicine | DX: L02.415 Cutaneous abscess of right lower limb (principal) | CPT/HCPCS: 87070; 87205 ==

== ENCOUNTER 2022-11-04 10:51 | Outpatient (RCR) | payer MEDICARE, OTHER, SELFPAY ==
[2022-09-17 00:11] VITALS: BMI 21.1
[2022-11-04 11:31] LABS: Absolute Lymphocyte Count 2.36 X10^3/uL (0.83-4.51); Absolute Neutrophil Count 2.2 X10^3/uL (2.0-7.7); Basophil# 0.02 X10^3/uL; Basophil% 0.4 % (0-1); Eosinophil# 0.16 X10^3/uL; Eosinophils% 3.1 % (0-5); Hematocrit 32.9 % (37-47); Hemoglobin 10.6 g/dL (12.0-15.0); Lymphocyte # 2.36 X10^3/ul (0.83-4.51); Lymphocyte % 45.4 % (19-41); Mean Corp Hgb Conc 32.2 g/dL (32-36); Mean Corpuscular Hgb 30.5 pg (27.0-32.0); Mean Corpuscular Volume 94.5 fL (81-99); Mean Platelet Vol. 9.3 fl (6.2-12.0); Monocyte# 0.41 X10^3/uL; Monocyte% 7.9 % (0-10); NRBC Flagged by Analyzer 0 % (0-5); Neutrophil # 2.24 X10^3/uL (2.7-7.7); Platelet Count 186 K/mm3 (150-450); RBC Distribution Width CV 13.4 % (11.6-14.6); RBC Distribution Width SD 46.5 fl (35.1-43.9); Red Blood Count 3.48 M/mm3 (4.2-5.4); White Blood Count 5.2 K/mm3 (4.4-11.0)
[2022-11-05 12:46] LABS: Immunoglobulin G 563 mg/dL (586-1602)
== END 2022-11-16 23:59 ==
LOC: PAVLAB 10:51
PROVIDERS: PCP Family Medicine
DX: C91.10 Chronic lymphocytic leukemia of B-cell type not having achieved remission (principal)
CPT/HCPCS: 36415; 82784; 85025

== ENCOUNTER 2023-01-30 12:16 | Outpatient (RCR) | payer MEDICARE, OTHER, SELFPAY ==
[2022-11-17 00:05] VITALS: BMI 21.1
[2023-01-30 12:47] LABS: Absolute Lymphocyte Count 2.64 X10^3/uL (0.83-4.51); Absolute Neutrophil Count 2.3 X10^3/uL (2.0-7.7); Basophil# 0.02 X10^3/uL; Basophil% 0.4 % (0-1); Eosinophil# 0.17 X10^3/uL; Hematocrit 34.4 % (37-47); Hemoglobin 11.4 g/dL (12.0-15.0); Lymphocyte # 2.64 X10^3/ul (0.83-4.51); Mean Corp Hgb Conc 33.1 g/dL (32-36); Mean Corpuscular Hgb 31.2 pg (27.0-32.0); Mean Corpuscular Volume 94.2 fL (81-99); Mean Platelet Vol. 9.6 fl (6.2-12.0); Monocyte# 0.49 X10^3/uL; Monocyte% 8.7 % (0-10); NRBC Flagged by Analyzer 0 % (0-5); Neutrophil # 2.28 X10^3/uL (2.7-7.7); Neutrophil % 40.5 % (47-70); Platelet Count 198 K/mm3 (150-450); RBC Distribution Width SD 44.5 fl (35.1-43.9); Red Blood Count 3.65 M/mm3 (4.2-5.4); White Blood Count 5.6 K/mm3 (4.4-11.0)
[2023-02-01 13:01] LABS: Immunoglobulin G 695 mg/dL (586-1602)
== END 2023-02-14 23:59 ==
LOC: PAVLAB 12:16
PROVIDERS: Nurse Practitioner Family; PCP Family Medicine
DX: C91.10 Chronic lymphocytic leukemia of B-cell type not having achieved remission (principal)
CPT/HCPCS: 36415; 82784; 85025

== ENCOUNTER → 2023-05-09 | Outpatient (CLI) | payer MEDICARE, OTHER, SELFPAY ==
[2023-05-09 18:10] LABS: Vitamin B12 1332 pg/mL (211-911); Vitamin D,25 Hydroxy 99.1 ng/mL
[2023-05-09 18:56] LABS: AST(SGOT) 12 U/L (15-37); Alanine Aminotransfer ALT/SGPT 15 U/L (13-56); Albumin, Serum 3.2 g/dL (3.2-5.0); Alkaline Phosphatase 47 U/L (45-117); Anion Gap 5 (5-15); BUN 15 mg/dL (7-18); BUN/Creat Ratio 18.2 RATIO (10-20); Calcium,Total 8.4 mg/dL (8.5-10.1); Chloride 109 mmol/L (98-107); Creatinine, Serum 0.82 mg/dL (0.55-1.02); EST Glomerular Filtration Rate 72 mL/min (>60); Est Glom Filt Rate - Afr Amer 87 mL/min (>60); Ferritin 102 ng/mL (8-252); Globulin 3.3 g/dL (2.2-4.2); Glucose 84 mg/dL (74-106); Potassium 3.8 mmol/L (3.5-5.1); Protein, Total 6.5 g/dL (6.4-8.2); Rheumatoid Factor < 10.0 IU/mL (<15); Sodium Level 141 mmol/L (136-145); Thyroid Stim Hormone (TSH) 1.26 uIU/mL (0.358-3.74)
== END | disposition home or self-care (01) ==
LOC: MTLAB 14:43
PROVIDERS: PCP Family Medicine; Referring Provider Family Medicine; Visit Provider Family Medicine
DX: M06.9 Rheumatoid arthritis, unspecified (principal); D64.9 Anemia, unspecified; R53.83 Other fatigue; E55.9 Vitamin D deficiency, unspecified
CPT/HCPCS: 36415; 80053; 82306; 82607; 82728; 82746; 84443; 86431

== ENCOUNTER 2023-06-19 11:25 | Outpatient (RCR) | payer MEDICARE, OTHER, SELFPAY ==
[2023-02-15 00:12] VITALS: BMI 21.1
[2023-06-19 11:55] LABS: Absolute Lymphocyte Count 2.25 X10^3/uL (0.83-4.51); Absolute Neutrophil Count 1.3 X10^3/uL (2.0-7.7); Basophil# 0.03 X10^3/uL; Basophil% 0.7 % (0-1); Eosinophil# 0.14 X10^3/uL; Eosinophils% 3.3 % (0-5); Hematocrit 33.9 % (37-47); Hemoglobin 11.5 g/dL (12.0-15.0); Lymphocyte # 2.25 X10^3/ul (0.83-4.51); Lymphocyte % 52.6 % (19-41); Mean Corp Hgb Conc 33.9 g/dL (32-36); Mean Corpuscular Hgb 31.5 pg (27.0-32.0); Mean Corpuscular Volume 92.9 fL (81-99); Mean Platelet Vol. 9.5 fl (6.2-12.0); Monocyte% 11.7 % (0-10); NRBC Flagged by Analyzer 0 % (0-5); Neutrophil # 1.32 X10^3/uL (2.7-7.7); Neutrophil % 30.8 % (47-70); Platelet Count 195 K/mm3 (150-450); RBC Distribution Width SD 44.1 fl (35.1-43.9); Red Blood Count 3.65 M/mm3 (4.2-5.4); White Blood Count 4.3 K/mm3 (4.4-11.0)
[2023-06-20 05:07] LABS: Immunoglobulin G 542 mg/dL (586-1602)
== END 2023-07-17 23:59 ==
LOC: PAVLAB 11:25
PROVIDERS: PCP Family Medicine
DX: C91.10 Chronic lymphocytic leukemia of B-cell type not having achieved remission (principal)
CPT/HCPCS: 36415; 82784; 85025

== ENCOUNTER 2023-08-13 10:16 | Outpatient (RCR) | payer MEDICARE, OTHER, SELFPAY ==
[2023-07-18 00:04] VITALS: BMI 21.1
[2023-08-13 10:37] LABS: Absolute Lymphocyte Count 2.91 X10^3/uL (0.83-4.51); Absolute Neutrophil Count 8.8 X10^3/uL (2.0-7.7); Basophil# 0.03 X10^3/uL; Basophil% 0.2 % (0-1); Eosinophil# 0.02 X10^3/uL; Eosinophils% 0.2 % (0-5); Hematocrit 32.2 % (37-47); Hemoglobin 10.8 g/dL (12.0-15.0); Lymphocyte # 2.91 X10^3/ul (0.83-4.51); Lymphocyte % 22.3 % (19-41); Mean Corp Hgb Conc 33.5 g/dL (32-36); Mean Corpuscular Hgb 30.9 pg (27.0-32.0); Mean Corpuscular Volume 92.3 fL (81-99); Mean Platelet Vol. 9.5 fl (6.2-12.0); Monocyte# 1.27 X10^3/uL; Monocyte% 9.7 % (0-10); NRBC Flagged by Analyzer 0 % (0-5); Neutrophil # 8.75 X10^3/uL (2.7-7.7); Platelet Count 244 K/mm3 (150-450); RBC Distribution Width CV 13.2 % (11.6-14.6); Red Blood Count 3.49 M/mm3 (4.2-5.4); White Blood Count 13.1 K/mm3 (4.4-11.0)
[2023-08-14 05:07] LABS: Immunoglobulin G 535 mg/dL (586-1602)
== END 2023-08-16 23:59 ==
LOC: PAVLAB 10:16
PROVIDERS: PCP Family Medicine
DX: C91.10 Chronic lymphocytic leukemia of B-cell type not having achieved remission (principal)
CPT/HCPCS: 36415; 82784; 85025

== ENCOUNTER → 2023-11-19 | Outpatient (CLI) | payer MEDICARE, OTHER, SELFPAY ==
[2023-11-19 12:32] LABS: Absolute Lymphocyte Count 1.88 X10^3/uL (0.83-4.51); Absolute Neutrophil Count 3.5 X10^3/uL (2.0-7.7); Basophil# 0.06 X10^3/uL; Eosinophil# 0.17 X10^3/uL; Eosinophils% 2.8 % (0-5); Hematocrit 37.3 % (37-47); Hemoglobin 12.2 g/dL (12.0-15.0); Lymphocyte # 1.88 X10^3/ul (0.83-4.51); Lymphocyte % 30.8 % (19-41); Mean Corp Hgb Conc 32.7 g/dL (32-36); Mean Corpuscular Hgb 30.3 pg (27.0-32.0); Mean Corpuscular Volume 92.8 fL (81-99); Monocyte# 0.44 X10^3/uL; Monocyte% 7.2 % (0-10); NRBC Flagged by Analyzer 0 % (0-5); Neutrophil # 3.53 X10^3/uL (2.7-7.7); Neutrophil % 57.7 % (47-70); Platelet Count 244 K/mm3 (150-450); RBC Distribution Width CV 12.9 % (11.6-14.6); RBC Distribution Width SD 43.5 fl (35.1-43.9); Red Blood Count 4.02 M/mm3 (4.2-5.4); White Blood Count 6.1 K/mm3 (4.4-11.0)
[2023-11-19 12:57] LABS: BNP,B-Type NATRIURETIC PEPTIDE 123.2 pg/mL (0-100)
[2023-11-19 13:16] LABS: ALB/GLOB Ratio 1.2 RATIO (0.9-2.4); AST(SGOT) 14 U/L (15-37); Alanine Aminotransfer ALT/SGPT 13 U/L (13-56); Albumin, Serum 3.8 g/dL (3.2-5.0); Alkaline Phosphatase 52 U/L (45-117); Anion Gap 6 (5-15); BUN 19 mg/dL (7-18); BUN/Creat Ratio 22.7 RATIO (10-20); Calcium,Total 9.2 mg/dL (8.5-10.1); Chloride 107 mmol/L (98-107); Creatinine, Serum 0.84 mg/dL (0.55-1.02); EST Glomerular Filtration Rate 71 mL/min (>60); Est Glom Filt Rate - Afr Amer 86 mL/min (>60); Globulin 3.1 g/dL (2.2-4.2); Glucose 95 mg/dL (74-106); Magnesium 2.3 mg/dL (1.6-2.6); Protein, Total 6.9 g/dL (6.4-8.2); Sodium Level 140 mmol/L (136-145)
== END | disposition home or self-care (01) ==
LOC: LAB 11:48
PROVIDERS: PCP Family Medicine; Referring Provider Physician Assistant Medical; Visit Provider Physician Assistant Medical
DX: R06.09 Other forms of dyspnea (principal); D80.1 Nonfamilial hypogammaglobulinemia; R53.83 Other fatigue; I34.0 Nonrheumatic mitral (valve) insufficiency; Z95.818 Presence of other cardiac implants and grafts
CPT/HCPCS: 36415; 80053; 83735; 83880; 85025

== ENCOUNTER → 2023-12-03 | Outpatient (CLI) | payer MEDICARE, OTHER, SELFPAY ==
--- OUTSIDE RECORDS SUMMARY | 2023-12-03 19:55 | XMS RPT_ITS | CCD ---
Author Name Unknown Address [address] [place] [address] Organization [facility] Care Team Providers Care Grounds Manager Name Role Phone PEPE MARIN Unavailable Unavailable SAVANNAH RIOS Unavailable Unavailable ELAINE VILLAREAL Unavailable Unavailable ELAINE VILLAREAL Unavailable Unavailable MAYTE GAR Unavailable Unavailable PEPE MARIN Unavailable Unavailable SAVANNAH RIOS Unavailable Unavailable Willie Amaya Unavailable Unavailable Symone Mora Unavailable Unavailable Vitaly Ortega Unavailable Symone London Unavailable Unavailable Didi Kirkpatrick Unavailable Unavailable Master Kuo Unavailable Cong Aguirre Unavailable Vitaly Ortega MD Unavailable Unavailable Master Kuo MD Unavailable [facility] MAGDA/Cong MENDOZA Unavailable Savannah Rios MD A Primary Care Provider Faye GARCIAN-MANAGER CIVIL, Ada R Unavailable [facility] Un[facility] [phone] Domingo [facility],PharmD, Chauncey Unavailable Unavai lable Otto [facility], Vitaly Unavailable [phone] [facility]adi [facility] Un[facility] Otto [facility], Vitaly Unavailable [phone] Vitaly Ortega MD Unavailable Unavailable Vitaly Ortega MD Unavailable Unavailable Master Kuo MD Unavailable [facility] MAGDA/Cong MENDOZA Unavailable Savannah Rios MD Primary Care Provider Faye MASTICATOR-MANAGER CIVIL, Ada R Unavailable [phone] Sadi [facility], Chris W Unavailable [phone] Domingo [facility],PharmD, Chauncey Unavailable Unavai lable Otto [facility], [place] Unavailable Rm BENAVIDEZ, Sarina Moore Unavailable Shannon BENAVIDEZ, [place] Unavailable Unavailable [facility] MB/CHB, Cong Unavailable Gabriel BENAVIDEZ, Savannah Moore Primary Care Provider Faye MASTICATOR-[facility], Ada R Unavailable Sadi [facility], Chris W Unavailable [phone] Domingo [facility],PharmD, Chauncey Unavailable Unavai lable Otto [facility], [place] Unavailable Sarina Abdalla MD Unavailable Domingo [facility],PharmD, Chauncey Unavailable Unavai labtrace RIOS, SAVANNAH A Referring Unavailable RIOS, SAVANNAH A Primary Care Unavailable RM, SARINA A Attending Unavailable RIOS, SAVANNAH A Referring Unavailable RIOS, SAVANNAH A Primary Care Unavailable RM, SARINA A Attending Unavailable RIOS, SAVANNAH A Referring Unavailable RIOS, SAVANNAH A Primary Care Unavailable RM, SARINA A Attending Unavailable RIOS, SAVANNAH A Referring Unavailable RM, SARINA A Attending Unavailable RIOS, SAVANNAH A Primary Care Unavailable Medications Current Medications Medication Drug Class(es) Dates Sig (Normalized) Sig (Original) Aloe Vera Oil (20 sources) take 1 dose by mouth three times daily Aloe Vera Oil Take 1 Dose by mouth Three times a day. 0 Active amoxicillin 875 mg / clavulanate 125 mg oral tablet (1 source) Penicillin-class Antibacterial Start: 10-31-2023 End: 11-07-2023 take 1 tablet by mouth every twelve hours Amoxicillin-clav ulanate 875-125 MG tablet Take 1 tablet by mouth every 12 hours for 7 days. 14 tablet 0 10/31/2023 11/07/2023 Active amylase 931102 unt / lipase 9000 unt / protease [id number] unt oral capsule (20 sources) take 1 capsule by mouth three times daily after mealtime Digestive Enzyme Cap Take 1 capsule by mouth 3 times daily. After meals 0 Active apixaban 5 mg oral tablet (1 source) Factor Xa Inhibitor Start: 10-06-2018 take 1 tablet by mouth every twelve hours apixaban (ELIQUIS) 5 MG Tab tablet Take 1 tablet by mouth every 12 hours. 60 tablet 2 10/06/2018 Active Apple Cider Vinegar (20 sources) APPLE CIDER VINEGAR PO Take by mouth. 0 Active Arnica extract (20 sources) ascorbic acid 500 mg chewable tablet (20 sources) Vitamin C Start: 10-08-2022 take 4 tablets by mouth once daily ascorbic acid 500 MG tablet Take 4 tablets by mouth daily. 0 10/08/2022 Active Completed/Discontinued Medications Medication Drug Class(es) Dates Sig (Normalized) Sig (Original) busPIRone hydrochloride 5 mg oral tablet (3 sources) Start: 02-08-2022 End: 07-09-2022 take 0.5-2 tablets by mouth twice daily busPIRone 5 MG tablet 1/2 TO 2 TABLET BY MOUTH TWICE DAILY 0 02/08/2022 07/09/2022 Discontinued (Therapy completed) hydrOXYzine hydrochloride 25 mg oral tablet (3 sources) Antihistamine Start: 08-15-2022 End: 10-08-2022 take 1 tablet by mouth at bedtime as needed for anxiety hydrOXYzine HCl 25 MG tablet Indications: ZULEYKA (generalized anxiety disorder) , Panic attacks Take 1 tablet by mouth at bedtime as needed for Anxiety or Insomnia. 90 tablet 0 08/15/2022 10/08/2022 Discontinued (Ineffective) sertraline 50 mg oral tablet (16 sources) Serotonin Reuptake Inhibitor Start: 08-15-2022 End: 10-31-2023 take 1.5 tablets by mouth once daily sertraline 50 MG tablet Indications: Major depressive disorder, recurrent episode, moderate , ZULEYKA (generalized anxiety disorder) Take 1.5 tablets by mouth daily. 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 ] Onset: 11-07-2017 11-07-2017 Chronic Leukemias (20 sources) Chronic lymphoid leukemia, disease; Translations: [Chronic lymphocytic leukemia of B-cell type not having achieved remission] Onset: 10-03-2015 10-06-2018 Chronic Maintenance chemotherapy; radiotherapy (20 sources) Patient encounter status; Translations: [Encounter for antineoplastic chemotherapy] Onset: 07-31-2018 07-31-2018 Chronic Other hematologic conditions (20 sources) Disorder of hematopoietic structure; Translations: [Other specified diseases of blood and blood-forming organs] Onset: 07-31-2018 07-31-2018 Chronic Unclassified (1 source) Patient encounter status; Translations: [Encounter for antineoplastic chemotherapy] Onset: 07-31-2018 07-31-2018 Unclassified (7 sources) New Patient Onset: 03-25-2023 03-25-2023 Unclassified (7 sources) Access to Medication(s) Onset: 03-25-2023 03-25-2023 Unclassified (7 sources) Safety: Avoid toxicity that would cause discontinuation Onset: 03-25-2023 03-25-2023 Unclassified (7 sources) Identify and eliminate barriers to patient adherence Onset: 03-25-2023 03-25-2023 Unclassified (7 sources) Ensure that patient is receiving therapeutic benefit Onset: 03-25-2023 03-25-2023 Past or Other Problems Problem Classification Problem Date Documented Date Episodic/Chronic Deficiency and other anemia (20 sources) Anemia; Translations: [Anemia, unspecified] Onset: 03-30-2016 03-30-2016 Episodic Headache; including migraine (20 sources) Headache; Translations: [Head ache] Onset: 08-31-2016 08-31-2016 Episodic Mood disorders (20 sources) Mood disorders Onset: 01-16-2021 Resolved: 08-15-2022 01-16-2021 Other hematologic conditions (1 source) Disorder of hematopoietic structure; Translations: [Other specified diseases of blood and blood-forming organs] Onset: 07-31-2018 07-31-2018 Episodic Urinary tract infections (20 sources) Urinary tract infectious disease; Translations: [Urinary tract infection, site not specified] Onset: 09-01-2016 09-01-2016 Episodic Results Test Name Value Interpretation Reference Range Facil ity Vital Signs Date Time Vital Sign Value Performing Clinician Faci lity 10-31-2023 09:49-0500 Body height 165.1 cm Sarina Abdalla MD Work Phone: [facility] 10-31-2023 09:49-0500 Body mass index (BMI) [Ratio] 22.96 kg/m2 Sarina Abdalla MD Work Phone: [facility] 10-31-2023 09:49-0500 Body temperature 97.3 [degF] Sarina Abdalla MD Work Phone: [facility] 10-31-2023 09:49-0500 Body weight 62.6 kg Sarina Abdalla MD Work Phone: [facility] 10-31-2023 09:49-0500 Diastolic blood pressure 70 mm[Hg] Sarina Abdalla MD Work Phone: [facility] 10-31-2023 09:49-0500 Heart rate 72 /min Sarina Abdalla MD Work Phone: [facility] 10-31-2023 09:49-0500 Respiratory rate 18 /min aSrina Abdalla MD Work Phone: [facility] 10-31-2023 09:49-0500 SaO2% (BldA) [Mass fraction] 99 % Sarina Abdalla MD Work Phone: [facility] 10-31-2023 09:49-0500 Systolic blood pressure 145 mm[Hg] Sarina Abdalla MD Work Phone: [facility] 10-08-2022 12:48-0500 Body height 165.1 cm Sarina Abdalla MD Work Phone: [facility] 10-08-2022 12:48-0500 Body mass index (BMI) [Ratio] 21.98 kg/m2 Sarina Abdalla MD Work Phone: [facility] 10-08-2022 12:48-0500 Body temperature 97.81 [degF] Sarina Abdalla MD Work Phone: [facility] 10-08-2022 12:48-0500 Body weight 59.92 kg Sarina Abdalla MD Work Phone: [facility] 10-08-2022 12:48-0500 Diastolic blood pressure 68 mm[Hg] Sarina Abdalla MD Work Phone: [facility] 10-08-2022 12:48-0500 Heart rate 72 /min Sarina Abdalla MD Work Phone: 0(111)261-769754 [address] 10-08-2022 12:48-0500 Respiratory rate 17 /min Sarina Abdalla MD Work Phone: [facility] 10-08-2022 12:48-0500 SaO2% (BldA) [Mass fraction] 98 % Sarina Abdalla MD Work Phone: [facility] 10-08-2022 12:48-0500 Systolic blood pressure 143 mm[Hg] Sarina Abdalla MD Work Phone: [facility] 07-09-2022 14:08-0400 Body height 165.1 cm Sarina Abdalla MD Work Phone: [facility] 07-09-2022 14:08-0400 Body mass index (BMI) [Ratio] 21.72 kg/m2 Sarina Abdalla MD Work Phone: [facility] 07-09-2022 14:08-0400 Body temperature 98.4 [degF] Sarina Abdalla MD Work Phone: [facility] 07-09-2022 14:08-0400 Body weight 59.19 kg Sarina Abdalla MD Work Phone: [facility] 07-09-2022 14:08-0400 Diastolic blood pressure 64 mm[Hg] Sarina Abdalla MD Work Phone: [facility] 07-09-2022 14:08-0400 Heart rate 90 /min Sarina Abdalla MD Work Phone: 9(661)293-776054 [address] 07-09-2022 14:08-0400 Respiratory rate 16 /min Sarina Abdalla MD Work Phone: 5(649)448-378935 [place] [address] 07-09-2022 14:08-0400 SaO2% (BldA) [Mass fraction] 98 % Sarina Abdalla MD Work Phone: 0(593)786-851735 [place] [address] 07-09-2022 14:08-0400 Systolic blood pressure 132 mm[Hg] Sarina Abdalla MD Work Phone: 6(589)104-098535 [place] [address] 04-09-2022 13:22-0400 Body height 165.1 cm Sarina Abdalla MD Work Phone: 1(428)373-834635 [place] [address] 04-09-2022 13:22-0400 Body mass index (BMI) [Ratio] 21.67 kg/m2 Sarina Abdalla MD Work Phone: 5(029)403-010935 [place] [address] 04-09-2022 13:22-0400 Body temperature 97.81 [degF] Sarina Abdalla MD Work Phone: 8(090)938-228435 [place] [address] 04-09-2022 13:22-0400 Body weight 59.06 kg Sarina Abdalla MD Work Phone: 0(399)933-020835 [place] [address] 04-09-2022 13:22-0400 Diastolic blood pressure 73 mm[Hg] Sarina Abdalla MD Work Phone: 9(124)881-391635 [place] [address] 04-09-2022 13:22-0400 Heart rate 73 /min Sarina Abdalla MD Work Phone: 4(476)179-491035 [place] [address] 04-09-2022 13:22-0400 Respiratory rate 16 /min Sarina Abdalla MD Work Phone: 8(884)160-579335 [place] [address] 04-09-2022 13:22-0400 SaO2% (BldA) [Mass fraction] 97 % Sarina Abdalla MD Work Phone: 0(430)398-984987 [place] [address] 04-09-2022 13:22-0400 Systolic blood pressure 144 mm[Hg] Sarina Abdalla MD Work Phone: 2(256)017-107935 [place] [address] 06-05-2021 10:28-0400 Body height 165.1 cm Sarina Abdalla MD Work Phone: 3(260)583-005235 [place] [address] 06-05-2021 10:28-0400 Body mass index (BMI) [Ratio] 21.32 kg/m2 Sarina Abdalla MD Work Phone: 0(620)358-986935 [place] [address] 06-05-2021 10:28-0400 Body temperature 97.7 [degF] Sarina Abdalla MD Work Phone: 0(357)292-696435 [place] [address] 06-05-2021 10:28-0400 Body weight 58.11 kg Sarina Abdalla MD Work Phone: 4(488)999-964135 [place] [address] 06-05-2021 10:28-0400 Diastolic blood pressure 59 mm[Hg] Sarina Abdalla MD Work Phone: 4(846)689-838035 [place] [address] 06-05-2021 10:28-0400 Heart rate 100 /min Sarina Abdalla MD Work Phone: 1(678)303-080735 [place] [address] 06-05-2021 10:28-0400 Respiratory rate 16 /min Sarina Abdalla MD Work Phone: 9(094)046-934935 [place] [address] 06-05-2021 10:28-0400 SaO2% (BldA) [Mass fraction] 99 % Sarina Abdalla MD Work Phone: 1(762)588-771935 [place] [address] 06-05-2021 10:28-0400 Systolic blood pressure 129 mm[Hg] Sarina Abdalla MD Work Phone: 8(292)722-273635 [place] [address] Encounters Encounter Date Encounter Type Care Provider Facility Start: 11-28-[address] RPh,PharmD Pharmacy Outpatient [facility] Start: 11-28-2023 Patient encounter procedure [address]uncey Lane RPh,PharmD Pharmacy [facility] Start: 10-31-2023 ambulatory SAVANNAH RIOS Facility:[facility] Start: 10-31-2023 End: 10-31-2023 Office outpatient visit 25 minutes Sarina Abdalla MD Work Phone: Division of Hematology & Oncology at [facility] Procedures Date Procedure Procedure Detail Performing Clinician Start: 10-31-2023 CBC AND ELECTRONIC DIFF Bettina Maryjane ArechigaSantoyo MASTICATOR-MANAGER CIVIL Work Phone: Start: 10-31-2023 Complete blood count with white cell differential, automated Bettina Maryjane ArechigaSantoyo MASTICATOR-MANAGER CIVIL Work Phone: Start: 10-31-2023 Comprehensive metabo lic panel Bettinamark Arechigaman MASTICATOR-MANAGER CIVIL Work Phone: Start: 10-31-2023 DNA EXTRACTION, B-CELL Bettinamark Arechigaman MASTICATOR-MANAGER CIVIL Work Phone: Start: 10-31-2023 Unlisted molecular pathology procedure Bettinamark Arechigaman MASTICATOR-MANAGER CIVIL Work Phone: Start: 10-08-2022 CBC AND ELECTRONIC DIFF Bettina Maryjane Santoyo MASTICATOR-MANAGER CIVIL Work Phone: Start: 10-08-2022 Complete blood count with white cell differential, automated Bettina Maryjane Santoyo MASTICATOR-MANAGER CIVIL Work Phone: Start: 10-08-2022 Comprehensive metabo lic panel Bettina Maryjane Santoyo MASTICATOR-MANAGER CIVIL Work Phone: Start: 07-09-2022 CBC AND ELECTRONIC DIFF Bettina Maryjane Santoyo MASTICATOR-MANAGER CIVIL Work Phone: Start: 07-09-2022 Complete blood count with white cell differential, automated Bettina Maryjane Santoyo MASTICATOR-MANAGER CIVIL Work Phone: Start: 07-09-2022 Comprehensive metabo lic panel Bettina N Santoyo MASTICATOR-MANAGER CIVIL Work Phone: Start: 04-09-2022 CBC AND ELECTRONIC DIFF Ebttina N Santoyo MASTICATOR-MANAGER CIVIL Work Phone: Start: 04-09-2022 Complete blood count with white cell differential, automated Bettina N Santoyo MASTICATOR-MANAGER CIVIL Work Phone: Start: 04-09-2022 Comprehensive metabo lic panel Bettina N Santoyo MASTICATOR-MANAGER CIVIL Work Phone: Start: 06-05-2021 CBC AND ELECTRONIC DIFF Bettina N Santoyo MASTICATOR-MANAGER CIVIL Work Phone: Start: 06-05-2021 Complete blood count with white cell differential, automated Bettina N Santoyo MASTICATOR-MANAGER CIVIL Work Phone: Start: 06-05-2021 Comprehensive metabo lic panel Bettina N Santoyo MASTICATOR-MANAGER CIVIL Work Phone: Start: 06-05-2021 MANUAL DIFF Bettina N Santoyo MASTICATOR-MANAGER CIVIL Work Phone: Start: 11-20-2020 Lipid 1996 panel - S mauricio or Plasma Vitaly Otto [facility] Work Phone: Start: 05-10-2020 Antibody screen Plan of Treatment Date Care Activity Detail Author Start: 11-20-2025 Fasting lipid profile LIPID SCREENING [facility] Start: 11-20-2025 Lipid panel LIPID SCREENING [facility] Start: 02-03-2024 End: 02-03-2024 Patient encounter procedure 02/03/2024 9:40 AM EDT Office Visit Division of Hematology & Oncology at [facility] [address] [place] [address] Sarina Abdalla MD [address] [place] [address] Division of Hematology & Oncology at [facility] Start: 10-31-2023 End: 10-31-2023 Patient encounter procedure 10/31/2023 10:20 AM EST Office Visit Division of Hematology & Oncology at [facility] [address] [place] [phone] Sarina Abdalla MD [address] [place] [address] Division of Hematology & Oncology at [facility] Start: 07-22-2023 End: 07-22-2023 Patient encounter procedure [facility] H[facility]ology [facility] at [facility] Start: 07-18-2023 Influenza vaccination [facility] Start: 04-01-2023 End: 04-01-2023 Patient encounter procedure 04/01/2023 Office Visit Hematology Sarina Abdalla MD [address] [place] [address] Division of Hematology & Oncology Start: 12-31-2022 End: 12-31-2022 Patient encounter procedure 12/31/2022 Office Visit Hematology Sarina Abdalla MD [address] [place] [address] Division of Hematology & Oncology Start: 10-28-2022 End: 10-28-2022 ambulatory 10/28/2022 Telemed Clin Support Psychology Eduin Ovalle, YOEL [address] [place] [address] [facility] Start: 10-28-2022 End: 10-28-2022 Telemedicine consultation with patient 10/28/2022 Telemedicine Psychology Anabella Correia, MASTICATOR-MANAGER CIVIL [address] [place] [address] [facility] Start: 10-08-2022 End: 10-08-2022 Patient encounter procedure 10/08/2022 Office Visit Hematology Sarina Abdalla MD [address] [place] [address] Division of Hematology & Oncology Start: 09-18-2022 End: 09-18-2022 ambulatory 09/18/2022 Telemed Clin Support Psychology Eduin Ovalle HAND CROCHETER [address] [place] [address] [facility] Start: 09-16-2022 Fasting lipid profile LIPID SCREENING [facility] Work Phone: Start: 08-15-2022 End: 08-15-2022 Telemedicine consultation with patient 08/15/2022 Telemedicine Psychology Anabella Correia, MASTICATOR-MANAGER CIVIL [address] [facility] [address] [place] [address] [facility] Start: 08-14-2022 End: 08-14-2022 ambulatory 08/14/2022 Telemed Clin Support Psychology Eduin Ovalle HAND CROCHETER [address] [address] [facility] Start: 08-13-2022 End: 08-13-2022 ambulatory 08/13/2022 Telemed Clin Support Multispecialty Siva Lemon, [facility] [address] [place] [address] [facility] Start: 07-24-2022 End: 07-24-2022 ambulatory 07/24/2022 Telemed Clin Support Psychology Eduin Ovalle HAND CROCHETER [address] [address] [facility] Start: 07-19-2022 End: 07-19-2022 ambulatory 07/19/2022 Telemed Clin Support Multispecialty Sharon Chi, MASTICATOR-MANAGER CIVIL [address] [facility] [address] [place] [address] Ion Lultono, [facility] [address] [place] [address] [facility] Start: 07-18-2022 Influenza vaccination [facility] Start: 07-09-2022 End: 07-09-2022 Patient encounter procedure 07/09/2022 Office Visit Hematology Sarina Abdalla MD [address] [place] [address] Division of Hematology & Oncology Start: 04-09-2022 End: 04-09-2023 OUTSIDE LAB ORDERS OUTSIDE LAB ORDERS Outside Labs Routine 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 Expected: 04/09/2022, Expires: 04/09/[address] [facility] Immunizations Immunization Date Immunization Notes Care Provider Fa cility 08-19-2016 influenza, injectabl e, quadrivalent, contains preservative; Translations: [INFLUENZA, INJECTABLE, QUADRIVALENT] Other Other [facility] Work Phone: 08-19-2016 influenza virus vacc ine, unspecified formulation Other Other [facility] Work Phone: 11-03-2013 influenza virus vacc ine, unspecified formulation Sarina Abdalla MD Work Phone: [facility] 12-16-2012 influenza virus vacc ine, unspecified formulation Sarina Abdalla MD Work Phone: [facility] 10-09-2011 pneumococcal polysaccharide vaccine, 23 valent Vitaly Otto [facility] Work Phone: [facility] 09-17-2010 influenza virus vacc ine, unspecified formulation Sarina Abdalla MD Work Phone: [facility] 09-05-2009 influenza virus vacc ine, unspecified formulation Sarina Abdalla MD Work Phone: [facility] Payers Date Payer Category Payer Unknown GENERIC PAYOR [place] DICARE SUPPLEMENT [id number] 2019-Present [address] [place] [address] [id number] 2019 Unknown GENERIC PAYOR ME DICARE SUPPLEMENT [id number] 2019-Present [address] [place] [id number] 2019 Unknown [id number] 2017 Medicare [id number] 2017 Medicare [id number] 2014 Medicare MEDICARE MEDICAR E A AND B [id number] 2014-Present [address] [place] [address] [id number] 2014 Medicare MEDICARE MEDICAR E A AND B [id number] 2014-Present [address] [place] [address] [id number] 2014 Medicare [id number] 1950 Unknown [id number] 1950 Unknown [id number] 1950 Unknown [id number] 1950 Unknown [id number] Social History Date Type Detail Facility Start: 10-03-2015 End: 06-26-2018 Tobacco smoking status NHIS Never smoker [facility] Work Phone: Start: 1950 Sex Assigned At Not on file O [facility] Work Phone: Start: 10-03-2015 Tobacco use and exposure Never used [facility] Start: 05-09-2021 End: 11-05-2023 Alcohol intake Current non-drinker of alcohol (finding) [facility] Start: 05-09-2021 End: 08-15-2022 Alcohol intake [facility] Start: 01-16-2021 History SDOH Financial [address] [facility] Start: 01-16-2021 End: 08-15-2022 History SDOH Food Worry 1 [facility] Start: 01-16-2021 History SDOH Transpo rt Non-Med [address] [facility] Exposure to SARS-CoV -2 (event) Not sure [facility] Start: 08-15-2022 History SDOH Financial [address] [facility] Start: 10-18-2022 End: 10-28-2022 Exposure to SARS-CoV-2 (event) Unable to assess [facility] Start: 08-15-2022 End: 01-10-2023 Tobacco use panel [facility] How hard is it for y ou to pay for the very basics like food, housing, medical care, and heating Not hard at all [facility] (I/We) worried alvin er (my/our) food would run out before (I/we) got money to buy more. Never true [facility] Gender identity Identifies as fe male gender (finding) [facility] Goals Date Patient Goal Desired Activity /State Personal health goal Clinical Notes 01-17-2021 to 11-28-2023 Vibha Bernabe - 11/28/2023 11:32 AM Chase Thomas - 11/28/2023 11:32 AM Jacqueline Dennis APRN-SHANNON - 10/31/2023 10:20 AM Darren Abdalla MD - 10/31/2023 10:20 AM ESTPatient Instructions Note Date & Type Note Facility 11-28-2023 History of Present illness Narrative [facility]: Call Information: Date and Time of Contact: 11/28/2023 11:32 AM Method of Contact: By Phone Contact Type: Prescriptions Contactor: [facility] Contactee: Patient Contact Outcome: Left message Shipping/Pickup: Medication Name: Brukina 80mg caps Contact Info: Specialty (Deanna) [phone] Xavi [phone] [facility] [phone] Akira [phone] Bedside Delivery ([facility]) [phone] [facility]: Call Information: Date and Time of Contact: 12/01/2023 3:51 PM Method of Contact: By Phone Contact Type: Prescriptions Contactor: Patient Contactee: [facility] Shipping/Pickup: Medicare B Refill?: No Medication Name: Brukinsa Delivery Method: Ship Delivery Location: Home Signature Required: No Receive/Pickup Date: 12/02/2023 Shipping Address: [address] [place] [address] Contact Info: Specialty (Margaret) [phone] Xavi [phone] [facility] [phone] Akira [phone] Bedside Delivery ([facility]) [phone] documented in this encounter [facility] 10-31-2023 History of Present illness Narrative HEMATOLOGY CLINIC NOTE Attending: Sarina Abdalla MD Date of Encounter: 10/31/23 Chief Complaint Patient presents with Follow-up History of Present Ilness: Ms. Monse Orona is seen for CLL, IGVH unmutated, simple karyotype diagnosed in 2014, currently on zanubrutinib. She was initially diagnosed with CLL in December 2010 when she was found to have lymphocytosis on routine blood test. Treatment History: 1. Veltuzumab antibody treatment for 8 weeks in December 2011 on a clinical trial at the [facility]. This was complicated by anemia, thrombocytopenia and neutropenia. 2. Fludarabine, cyclophosphamide and rituximab in February 2012 for 4 cycles. Treatment was complicated by prolonged cytopenias and recurrent infections. Last 2 cycles required a 66% dose reduction. 3. [id number] Combination of [id number] and Ibrutinib - on combination 04/29/16-05/05/[address] but MRD(+). She continued ibrutinib since until 07/2018 when it was stopped for atrial fibrillation 4. Acalabrutinib 100 mg BID initiated on 08/29/20, but she developed new hand/finger pain in 09/2020, as well as worsening back pain. Arthralgias did not improve with acalabrutinib dose decrease to 100 mg daily on 09/11/20. She was started on a Medrol DosePak on 09/25/20, and her pain responded to steroids but recurred. On 12/18/20 she started an Acalabrutinib drug holiday due to her severe arthralgias, and discontinued treatment entirely in 02/2021 due to improved hand and back pain. 5. Zanubrutinib initiated 04/10/21 - present. Oncology History Overview Note . CLL (chronic lymphocytic leukemia) 2010 Initial Diagnosis CLL (chronic lymphocytic leukemia) 12/2011 - Chemotherapy Veltuzumab antibody treatment for 8 weeks in December 2011 on a clinical trial at the [facility]. This was complicated by anemia, thrombocytopenia and neutropenia. 02/2012 - Chemotherapy Fludarabine, cyclophosphamide and rituximab in February 2012 for 4 cycles. Treatment was complicated by prolonged cytopenias and recurrent infections. Last 2 cycles required a 66% dose reduction. 04/2016 - 07/2018 Chemotherapy [id number] Combination of [id number] and Ibrutinib - on combination 04/29/16-05/05/[address] but MRD(+). She continued ibrutinib since until 07/2018 when it was stopped for atrial fibrillation 08/21/2020 - 12/18/2020 Chemotherapy Acalabrutinib 100mg BID, dose decrease to 100 mg daily on 09/11/20 d/t arthralgias 04/10/2021 - Chemotherapy Zanubrutinib 160 mg BID Interval History: Ms. Monse Orona is a 72 y.o. female with a hx of IGHV unmutated, simple karyotype CLL, currently on zanubrutinib. Here today for 3-month follow-up for her history of CLL. Since last visit, she shares to have been well. She continues local IVIG when IGG < 600. - States that she has been having intermittent headaches - feels like a cap on her head, can also be sharp on the left side, concerned its related to her BP, but she hasn't been checking her blood pressure. Also wonders if its related to sinus infection, see below. These started about three weeks ago. Happens daily. Takes arnica for the pain with improvement. No associated vision changes, dizziness, nausea, etc. - Has had a sinus infection over the last two months per her report, has only been using homeopathy - unsure of the exact name/brand. Gargling with salt water. No fevers. Non-productive cough, sore throat, ear pain. Symptoms are worsening, more prominent on the right side (ear, throat). Saw PCP yesterday and was prescribed flonase and alkalol, hasn't started this. Thinks that IVIG will help her to feel better, curious as to her IgG levels today - hasn't had an infusion in 4 months. Dizziness, attributes to congestion, ear fullness. - Denies recent or recurrent infections, fevers, chills, night sweats, changes in appetite, unintentional weight loss, increased lymphadenopathy. - History of AFib, will have palpitations, follows with cardiology on 11/20/23. - ROWE, feels that this is maybe slightly worse. Plans to discuss with cardiology - Reports ongoing fatigue, overall ok with ADLs, but does have some people who come to help her with cleaning and other household tasks. - Asking about a ketamine trial for depression, thinks this is worse this time of year. Denies SI/HI. No longer on sertraline. Does not have a follow-up with psychosocial oncology. - Denies fevers, night sweats, changes in appetite, unintentional weight loss - Has upcoming appointment with dermatology - Declines flu, COVID, RSV vaccines ROS: Pertinent positive and negative systems are described in the HPI; all other systems are negative. Past Medical History: Diagnosis Date Anemia 2011 Arrhythmia Arthritis Basal cell carcinoma 10/20/2001 face Bleeding disorder 2011 Bronchitis most recently 6 months ago. Chest pain 2014 Chronic lymphocytic leukemia 2010 Depression H/O cardiovascular stress test 2013 no cath unless progressive symptoms Hay fever 2015 Hives as manifestation of blood transfusion reaction 2011 HTN (hypertension) 2008 Hypogammaglobulinemia 11/07/2017 Measles childhood. Mumps childhood. 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 Pepe Marin COLONOSCOPY FOR COLORECTAL CANCER SCREENING LOW/AVERAGE RISK INDIVIDUAL 2009 BUNIONECTOMY Bilateral 2001 GRAFT PERIODONTAL MUCOSA Physical Exam: BP 145/70 (BP Position: Sitting) Pulse 72 Temp 97.3 F (36.3 C) (Oral) Resp 18 Ht 1.651 m (5' 5 ) Wt 62.6 kg (138 lb) SpO2 99% BMI 22.96 kg/m Smoking Status Never ECOG Performance Status: 1 GEN: Well developed, well nourished, AAOx3. No apparent distress. Appropriate mood and affect for clinical situation. HEAD and NECK: Normocephalic, atraumatic. Conjunctiva non-injected. Sclera non-icteric. EOMI. Neck supple. Erythema to posterior oropharynx. Right tympanic membrane with mild erythema. CARDIO: Irregular rhythm, rate controlled CHEST: Lungs are clear to auscultation bilaterally, no wheezes, rhonchi or rales. ABDOMEN: Soft, non-tender, non-distended, hepatosplenomegaly not appreciated. No mass. SKIN: Warm, dry, intact. Without rash. EXTREMITIES: No edema. Lymph Node examination is as follows: Location Right cm Left cm Cervical neg neg Supraclavicular neg neg Axillary neg neg Inguinal neg neg Femoral neg neg Results: CBC Lab Results Component Value Date WBC 5.96 07/22/2023 HGB 11.3 (L) 07/22/2023 HCT 33.8 (L) 07/22/2023 PLATELET 183 07/22/2023 MCV 91.6 07/22/2023 EDIF Lab Results Component Value Date RBCDISTRIBU 13.1 07/22/2023 GRNLOCYT 55.2 07/22/2023 LYMPHOCYT 33.4 07/22/2023 MONOCYTELEC 7.7 07/22/2023 EOSINOPHILS 2.9 07/22/2023 BASOPHILS 0.5 07/22/2023 GRNLOCTYABS 6.0 02/10/2017 LYMPHOCYTABS 1.99 07/22/2023 MONOSABSOLU 0.8 02/10/2017 EOSINOPHLABS 0.17 07/22/2023 BASOPHILSABS 0.0 02/10/2017 PLATELET 183 07/22/2023 MPV 9.8 07/22/2023 Assessment/Plan: # CLL, IgVH unmutated: Dx in 2010. She had a BMBx done on 07/17/20. SF3B1 and XPO1 mutations same as previous. CLL >80%.Therapy for CLL was discussed with acalabrutinib or a clinical trial of novel BTK inhibitor LOXO 305, she elected to begin treatment with acalabrutinib 100mg BID on 08/29/20. She developed new hand/finger pain in early Sep, worsening back pain since starting acalabrutinib, pain did not improve with dose decrease to 100 mg daily on 09/11/20. She started Medrol DosePak 09/25/20. Hand and back pain responded to steroids but recurred. She reports this type of pain occurred with ibrutinib. She followed up with neurosurgery (s/p kyphoplasty in May), not concerned for new fracture, she was referred to osteoporosis clinic. On 12/18/20 she held acalabrutinib due to severe arthralgias. Since holding, she has had improvement in hand and back pain but has experienced progressive fatigue, adenopathy, and lymphocytosis. Discontinued acalabrutinib in 02/2021. Test claim for Zanubrutinib was previously placed and approved. She was provided further drug education and that hopefully arthralgias will be less severe on this BTKi. She initiated zanubrutinib on 04/10/21. I added that should she progress through zanubrutinib, we can consider venetoclax/obinituzumab as an alternative treatment option. She presents today for follow-up and evaluation. She continues to tolerate zanubrutinib fairly well. No adenoathy on exam. Continue zanubrutinib. Heme: WBC 6.98, Hgb 12.4, Plt 227 # Sinusitis. Symptoms ongoing for 2 months, worsening while on homeopathic therapy. Agreeable to antibiotics, will prescribe augmentin today. Denies known drug allergies. Ok to use flonase and alkalol nasal rinse as recommended by PCP. # RLE abscess. Resolved. PCP found that the abscess included clotted blood and drained the abscess. # Depression. Previously established with psychosocial oncology, however has been lost to follow-up. No longer on antidepressant, unsure if she would want to resume. Denies suicidal/homicidal ideation. Admits to depression, particularly surrounding being immunocompromised with CLL. Encouraged to follow-up with psychosocial oncology. # ID: Continue Valacyclovir 500 mg daily for VZV/HSV prophylaxis. We will monitor for persistent/recurrent infections. She states she is receiving IVIG locally in [place] when IGG < 600. Would like IGG drawn with every visit here and monthly labs. # Health Maintenance: Patient visits with PCP annually and Dermatology biannually. She does not receive vaccinations. We suggest avoiding live vaccines, and continuing cancer screening for skin, colon, and breast cancer. Her last colonoscopy was 15-20 years ago; the patient has been educated on the importance of primary care. Patient was recently diagnosed with osteopenia. Discussed with pharmacist and bisphosphonates are ok to take with zanubrutinib. # COVID-19 Pandemic: It was discussed with patient that she is at higher risk for more severe illness with COVID-19 due to her CLL. She is aware of our recommendation for vaccination- pt has declined. # Atrial fibrillation. Continue regular follow up with cardiology. Has received the WATCHMAN procedure and is on atenolol 25mg bid. Irregular rhythm on exam today, consistent with baseline. Rate controlled. # Poor Dentition. Has had teeth extracted but had a poor experience. She states she will be scheduled to have further extractions- we advised that she let us know when these are planned so we can advise if zanubrutinib needs held. # RA. She reports general joint pain. RTC in 3 months. Monthly blood work with monthly IGG levels. Attending Addendum: Patient was seen and examined independently and I agree with the history, physical exam findings, review of systems and plan as documented by Diana Dennis CNP. I directed the patient's care and counseling, and I devised and agree with the assessment and plan as documented. I have reviewed and agree with her note. I have discussed treatment plans and labs with the patient and provided verbal instruction. Monse Orona is a 72 y.o. female with hx of CLL here today for routine follow up on Zanubrutinib. She has been more fatigued lately, and depressed as well. She has been following with her PCP for HTN and is establishing with a new studio potter on 11/20/23. Otherwise she has been well. She has also been dealing with some sinus congestion lately, for which she has tried home remedies. Denies any, cramps, diarrhea, bleeding, bruising, nausea, vomiting, abdominal pain, joint/muscle aches, SOB, chest pain, palpitations, leg swelling, night sweats, recent infections, unintentional weight loss, or increased lymphadenopathy. Physical Exam: Location Left cm x cm Right cm x cm Cervical neg neg Supraclavicular neg neg Axillary neg neg Inguinal neg neg Physical exam was otherwise unremarkable. No palpable organomegaly. Impression and Plan: CLL. Patient continues to do well clinically without any evidence of disease progression. Labs reviewed with the patient. Counts are stable. I recommended she proceed with Zanubrutinib Heme: WBC 6.98, Hgb 12.4, Plt 227 ID. She has been dealing with ongoing sinusitis. We will give antibiotics and will check IgG levels. She states she is receiving IVIG locally in [place] when IGG < 600. She will follow with her primary care physician for the management of her routine medical issues. Advised her to contact us with any new or worsening symptoms. RTC in 3 months. Documented by Wojciech Kaufman, for Dr. Sarina Abdalla on 10/31/2023 at 10:49 AM. All medical record entries made by the Shae were at my direction and personally dictated by me, Dr. Sarina Abdalla MD. I have reviewed the chart and agree that the record accurately reflects my personal performance of the history, physical exam, assessment and plan. I have also personally directed, reviewed, and agree with the discharge instructions. Sarina Abdalla MD Hematology Reviewed After Visit Summary with patient and family. Discussed any medication changes and recommendations from physician. All questions answered. Patient and family encouraged to call with any additional questions. documented in this encounter [facility] 10-31-2023 Instructions Roxann Rollins RN - 10/31/2023 10:20 AM EST YOUR PRIMARY TEAM Dr. Sarina Santoyo MANAGER CIVIL - Nurse Practitioner Diana Dennis MANAGER CIVIL - Nurse Practitioner Roxann Rollins RN - Primary Nurse Will Casper RN - Secondary Nurse CONTACT NUMBERS Clinic phone: [phone] Clinic fax: [phone] Please contact our office if you develop a temperature of 100.4 or greater. [facility] edulio is a secure way to get access to your health records online. It will also allow you to communicate with your health care provider through email. For non-emergent concerns, please send us a [employer] message but describe your issue fully. When sending a message to the provider, please know that these messages will be received and answered by the primary nurse practitioner. The nurse practitioner will consult your physician when needed. Please note, [employer] is for non-urgent messages only. If you are reporting symptoms or changes in your condition, please call the clinic at [phone]. For questions or concerns regarding [employer] access or technical dificulties, please call [phone] or toll free at . MEDICAL RECORDS The Release of Information (TA) area is staffed from 8:00 a.m. to 7:00 p.m. and is available for walk in requests from 8:00 a.m. to 4:[address] [facility] is responsible for answering requests for copies of medical records from various requestors such as insurance companies, attorneys, hospitals and patients. Please note it can take up to 2 weeks to complete your request. [phone]; [phone] (fax). FINANCIAL CONCERNS Any questions regarding billing for services or insurance coverage concerns should be directed to our Billing Department at [phone]. DISABILITY FORMS This category includes any form (FMLA, STD, cancer insurance policy) requiring information to be completed by a physician or nurse practitioner. The forms should be given to the clinic nurse. There is no fee associated with this request but note it may take 2 weeks to complete. The forms cannot be completed during a clinic visit or within 24 hours of your request. It is important to place the patient s name, employee s name, patient s date, date disability begins and ends, and any required signatures. Ask our team about the suggested recovery time. __ Results for orders placed or performed in visit on 10/31/23 LACTATE DEHYDROGENASE Result Value Ref Range LD Total 145 100 - 190 U/L COMPREHENSIVE METABOLIC PANEL Result Value Ref Range Sodium 139 135 - 145 mmol/L Potassium 4.1 3.5 - 5.0 mmol/L Chloride 106 98 - 108 mmol/L BUN 20 7 - 25 mg/dL Creatinine 0.81 0.50 - 1.20 mg/dL Glucose 89 70 - 99 mg/dL Bilirubin Total 0.6 <1.5 mg/dL Albumin 4.3 3.5 - 5.0 g/dL Total Protein 6.6 6.4 - 8.3 g/dL AST 13 10 - 39 U/L ALP 46 32 - 126 U/L Calcium 9.3 8.6 - 10.5 mg/dL CO2 27 21 - 31 mmol/L ALT 9 9 - 48 U/L Bun/Crea Ratio 25 Osmolality (Calculated) 293 278 - 305 mOsm/kg Anion Gap 10 7 - 17 mmol/L eGFR, CKD-EPI, Female 77 >=60 mL/min/1.73m2 CBC AND ELECTRONIC DIFF Result Value Ref Range WBC Count 6.98 3.99 - 11.19 K/uL RBC Count 4.08 3.91 - 5.04 M/uL Hemoglobin 12.4 11.4 - 15.2 g/dL Hematocrit 38.0 34.9 - 44.3 % Mean Cell Volume 93.1 79.6 - 97.7 fL Mean Cell Hgb 30.4 25.9 - 33.9 pg Mean Cell Hgb Conc 32.6 31.4 - 35.9 g/dL RBC Distribution 13.1 10.8 - 14.9 % Platelet Count 227 150 - 393 K/uL Mean Platelet Volume 9.9 8.5 - 12.2 fL DIFF STATUS Electronic Differential Segs + Bands Auto 54.5 % Immature Grans % 0.3 % Lymphocyte % Auto 34.8 % Monocyte % Auto 7.9 % Eosinophil % Auto 1.9 % Basophil % Auto 0.6 % Nucleated RBC 0.0 <=0.2 /100 WBC Segs + Bands,Absolute Auto 3.81 1.64 - 7.28 K/uL Immature Grans Absolute <0.04 <=0.08 K/uL Abs Lymph Auto 2.43 1.16 - 3.51 K/uL Abs [place] Auto 0.55 0.22 - 0.87 K/uL Abs Eos Auto 0.13 0.00 - 0.42 K/uL Abs Baso Auto 0.04 0.00 - 0.15 K/uL *Note: Due to a large number of results and/or encounters for the requested time period, some results have not been displayed. A complete set of results can be found in Results Review. documented in this encounter [facility] 10-03-2023 History of Present illness Narrative [facility]: Call Information: Date and Time of Contact: 10/03/2023 11:07 AM Method of Contact: By Phone Contactor: [facility] Contactee: Patient Contact Outcome: Left message and Follow-up (Brukinsa RA/refill) Contact Info: Specialty (Margaret) [phone] [facility] [phone] [facility] [phone] Akira [phone] Bedside Delivery ([facility]) [phone] [facility] RX [facility]REACH [facility]VANC[facility]: Call Information: Method of Contact: By Phone Contact Type: Prescriptions Contactor: Patient Contactee: [facility] Shipping/Pickup: Medicare B Refill?: No Medication Name: Brukinsa Delivery Method: Air Delivery Location: Home Signature Required: No Mailing/Pickup Date: 10/08/2023 Shipping Address: [address] [place] [address] Pre-Verification/Specialty Assessment/Disease Mgt: Medication(s) Name: Brukinsa Lab Review: CBC w/diff Assessment type (Select either Initial or Re-Assessment): Re-Assessment Specialty Assessment Review: Demographics Name, Age, Sex Therapeutic Goals Health Problems/Diagnoses Pertinent Medical History Adverse Effects with Enrolled (and related) Medications Medications (dose, route, frequency, and interactions) Allergies Dietary Requirements Person(s) responsible for care Emergency Contact(s) Functional Limitations Usual Environment Mental Reasoning, Judgement, Orientation, and Memory Financial Resources Specialty Medication Management Adherence Appropriate Use Patient Comprehension Immunizations Care Plan Activities Completed: Reviewed Assessment Findings: Patient continues to do very well on Brukinsa. States that she feels she best she has in a long time and is tolerating Brukinsa without any side effects. No missed doses. No B symptoms. She will continue as prescribed. Monitoring Parameter Review: Within normal limits Contact Info: Specialty (Deanna) [phone] Xavi [phone] [facility] [phone] Akira [phone] Bedside Delivery ([facility]) [phone] documented in this encounter [facility] 06-13-2023 History of Present illness Narrative [facility]: Call Information: Date and Time of Contact: 06/13/2023 10:49 AM Method of Contact: By Phone Contact Type: Prescriptions Contactor: [facility] Contactee: Patient Contact Outcome: Left message and Follow-up (in 4 days (due to weekend)) Shipping/Pickup: Medication Name: Brukinsa 80mg Contact Info: Specialty (Deanna) [phone] Xavi [phone] [facility] [phone] Akira [phone] Bedside Delivery ([facility]) [phone] [facility]REACH [facility]: Call Information: Date and Time of Contact: 06/17/2023 9:49 AM Method of Contact: By Phone Contact Type: Prescriptions Contactor: [facility] Contactee: Patient Shipping/Pickup: Medicare B Refill?: No Medication Name: Brukinsa 80mg Delivery Method: Air Delivery Location: Home Signature Required: No Mailing/Pickup Date: 06/20/2023 Shipping Address: [address] [place] [address] Contact Info: Specialty (Margaret) [phone] [facility] [phone] [facility] [phone] Akira [phone] Bedside Delivery ([facility]) [phone] documented in this encounter [facility] 05-19-2023 History of Present illness Narrative [facility]: Call Information: Date and Time of Contact: 05/19/2023 11:42 AM Method of Contact: By Phone Contact Type: Prescriptions Contactor: [facility] Contactee: Patient Contact Outcome: Left message and Follow-up (in 1-2 days) Shipping/Pickup: Medication Name: Brukinsa 80mg Contact Info: Specialty (Margaret) [phone] [facility] [phone] [facility] [phone] Akira [phone] Bedside Delivery ([facility]) [phone] [facility]REACH [facility]VANC[facility]: Call Information: Date and Time of Contact: 05/21/2023 9:04 AM Method of Contact: By Phone Contact Type: Prescriptions Contactor: [facility] Contactee: Patient Shipping/Pickup: Medicare B Refill?: No Medication Name: Brukinsa 80 mg Delivery Method: Air Delivery Location: Home Signature Required: No Mailing/Pickup Date: 05/22/2023 Shipping Address: [address] Contact Info: Specialty (Margaret) [phone] [facility] [phone] [facility] [phone] Akira [phone] Bedside Delivery ([facility]) [phone] [facility] History of Present illness Narrative [facility]: Call Information: Date and Time of Contact: 04/18/2023 11:34 AM Method of Contact: By Phone Contact Type: Prescriptions Contactor: [facility] Contactee: Patient Contact Outcome: Left message and Follow-up (in 4 days (due to weekend)) Shipping/Pickup: Medication Name: Brukinsa 80mg Contact Info: Specialty (Margaret) [phone] [facility] [phone] [facility] [phone] Akira [phone] Bedside Delivery ([facility]) [phone] [facility] RX OUTREACH ADVANCED: Call Information: Date and Time of Contact: 04/22/2023 11:20 AM Method of Contact: By Phone Contact Type: Prescriptions Contactor: [facility] Contactee: Patient Shipping/Pickup: Medicare B Refill?: No Medication Name: Brukinsa 80mg Delivery Method: Air Delivery Location: Home Signature Required: No Mailing/Pickup Date: 04/24/2023 Shipping Address: [address] Contact Info: Specialty (Margaret) [phone] [facility] [phone] [facility] [phone] Akira [phone] Bedside Delivery ([facility]) [phone] [facility] History of Present illness Narrative [facility] RX OUTREACH ADVANCED: Call Information: Date and Time of Contact: 03/17/2023 2:51 PM Method of Contact: By Phone Contact Type: Prescriptions (brukinsa) Contactor: [facility] Contactee: Patient Contact Outcome: Left message and Follow-up Contact Info: Specialty (Margaret) [phone] Xavi [phone] [facility] [phone] Akira [phone] Bedside Delivery ([facility]) [phone] [facility] RX OUTREACH ADVANCED: Call Information: Date and Time of Contact: 03/17/2023 4:47 PM Method of Contact: By Phone Contact Type: Prescriptions Contactor: Patient Contactee: [facility] Contact Outcome: Patient declined to fill Patient Declined Fill Detail/Reason: Has >2 weeks on hand. [facility] will follow up in 1 week. Shipping/Pickup: Medication Name: Brukinsa Contact Info: Specialty (Margaret) [phone] Xavi [phone] [facility] [phone] Akira [phone] Bedside Delivery ([facility]) [phone] documented in this encounter [facility] 03-17-2023 History of Present illness Narrative [facility] RX OUTREACH ADVANCED: Call Information: Date and Time of Contact: 03/17/2023 2:51 PM Method of Contact: By Phone Contact Type: Prescriptions (brukinsa) Contactor: [facility] Contactee: Patient Contact Outcome: Left message and Follow-up Contact Info: Specialty (Deanna) [phone] Xavi [phone] [facility] [phone] Akira [phone] Bedside Delivery ([facility]) [phone] [facility] RX OUTREACH ADVANCED: Call Information: Date and Time of Contact: 03/17/2023 4:47 PM Method of Contact: By Phone Contact Type: Prescriptions Contactor: Patient Contactee: [facility] Contact Outcome: Patient declined to fill Patient Declined Fill Detail/Reason: Has >2 weeks on hand. [facility] will follow up in 1 week. Shipping/Pickup: Medication Name: Brukinsa Contact Info: Specialty (Deanna) [phone] [facility] [phone] [facility] [phone] Akira [phone] Bedside Delivery ([facility]) [phone] [facility] RX OUTREACH ADVANCED: Call Information: Date and Time of Contact: 03/25/2023 2:25 PM Method of Contact: By Phone Contact Type: Prescriptions and Services Contactor: [facility] Contactee: Patient Shipping/Pickup: Medicare B Refill?: No Medication Name: Brukinsa 80ng Delivery Method: Air Delivery Location: Home Signature Required: No Mailing/Pickup Date: 03/26/2023 Shipping Address: [address] [place] [address] Pre-Verification/Specialty Assessment/Disease Mgt: Medication(s) Name: Brukinsa 80mg Lab Review: CBC w/diff Assessment type (Select either Initial or Re-Assessment): Re-Assessment Specialty Assessment Review: Person(s) responsible for care Dietary Requirements Allergies Medications (dose, route, frequency, and interactions) Adverse Effects with Enrolled (and related) Medications Pertinent Medical History Health Problems/Diagnoses Therapeutic Goals Demographics Name, Age, Sex Emergency Contact(s) Functional Limitations Usual Environment Financial Resources Mental Reasoning, Judgement, Orientation, and Memory Specialty Medication Management Adherence Appropriate Use Patient Comprehension Immunizations Care Plan Activities Completed: Reviewed and Updated Assessment Findings: Tolerating Brukinsa very well. No mason to report. She will continue treatment with Brukinsa. Monitoring Parameter Review: Outside normal limits Monitoring Parameter Assessment: Low rbc, hgb. continue to monitor Contact Info: Specialty (Margaret) [phone] [facility] [phone] [facility] [phone] Akira [phone] Bedside Delivery ([facility]) [phone] documented in this encounter [facility] 02-20-2023 History of Present illness Narrative [facility] RX OUTREACH ADVANCED: Contact Info: Specialty (Deanna) [phone] Xavi [phone] [facility] [phone] Akira [phone] Bedside Delivery ([facility]) [phone] documented in this encounter [facility] 12-27-2022 History of Present illness Narrative [facility] RX OUTREACH ADVANCED: Call Information: Date and Time of Contact: 12/27/2022 1:51 PM Method of Contact: By Phone Contact Type: Prescriptions Contactor: [facility] Contactee: Patient Contact Outcome: Left message and Follow-up (2-3 days) Shipping/Pickup: Medication Name: Bukinsa 80mg Contact Info: Specialty (Deanna) [phone] Xavi [phone] [facility] [phone] Akira [phone] Bedside Delivery ([facility]) [phone] [facility] RX OUTREACH ADVANCED: Call Information: Date and Time of Contact: 12/30/2022 4:41 PM Method of Contact: By Phone Contact Type: Prescriptions Contactor: Patient Contactee: [facility] Shipping/Pickup: Medicare B Refill?: No Medication Name: Brukinsa 80mg caps Delivery Method: Air Delivery Location: Home Signature Required: No Mailing/Pickup Date: 01/01/2023 Shipping Address: [address] [place] [address]. [id number] Delivery Details: Otl Contact Info: Specialty (Deanna) [phone] [facility] [phone] [facility] [phone] Akira [phone] Bedside Delivery ([facility]) [phone] documented in this encounter [facility] 10-31-2022 History of Present illness Narrative [facility] RX OUTREACH ADVANCED: Call Information: Date and Time of Contact: 10/31/2022 10:58 AM Method of Contact: By Phone Contact Type: Prescriptions Contactor: [facility] Contactee: Patient Contact Outcome: Left message and Follow-up (in 4 days (due to weekend)) Shipping/Pickup: Medication Name: Brukinsa 80mg Contact Info: Specialty (Margaret) [phone] [facility] [phone] [facility] [phone] Akira [phone] Bedside Delivery ([facility]) [phone] [facility] RX OUTREACH ADVANCED: Call Information: Date and Time of Contact: 11/01/2022 11:14 AM Method of Contact: By Phone Contact Type: Prescriptions Contactor: Patient Contactee: [facility] Shipping/Pickup: Medicare B Refill?: No Medication Name: Brukinsa Delivery Method: Air Delivery Location: Home Signature Required: No Mailing/Pickup Date: 11/01/2022 Shipping Address: [address] [place] [address] Contact Info: Specialty (Margaret) [phone] [facility] [phone] [facility] [phone] Akira [phone] Bedside Delivery ([facility]) [phone] documented in this encounter [facility] 10-08-2022 History of Present illness Narrative HEMATOLOGY CLINIC NOTE Attending: Sarina Abdalla MD Date of Encounter: 10/08/22 Chief Complaint Patient presents with Follow-up History of Present Ilness: Ms. Monse Orona is seen for CLL, IGVH unmutated, simple karyotype diagnosed in 2014, currently on zanubrutinib. She was initially diagnosed with CLL in December 2010 when she was found to have lymphocytosis on routine blood test. Treatment History: 1. Veltuzumab antibody treatment for 8 weeks in December 2011 on a clinical trial at the [facility]. This was complicated by anemia, thrombocytopenia and neutropenia. 2. Fludarabine, cyclophosphamide and rituximab in February 2012 for 4 cycles. Treatment was complicated by prolonged cytopenias and recurrent infections. Last 2 cycles required a 66% dose reduction. 3. [id number] Combination of [id number] and Ibrutinib - on combination 04/29/16-05/05/[address] but MRD(+). She continued ibrutinib since until 07/2018 when it was stopped for atrial fibrillation 4. Acalabrutinib 100 mg BID initiated on 08/29/20, but she developed new hand/finger pain in 09/2020, as well as worsening back pain. Arthralgias did not improve with acalabrutinib dose decrease to 100 mg daily on 09/11/20. She was started on a Medrol DosePak on 09/25/20, and her pain responded to steroids but recurred. On 12/18/20 she started an Acalabrutinib drug holiday due to her severe arthralgias, and discontinued treatment entirely in 02/2021 due to improved hand and back pain. 5. Zanubrutinib initiated 04/10/21 - present Oncology History Overview Note . CLL (chronic lymphocytic leukemia) 2010 Initial Diagnosis CLL (chronic lymphocytic leukemia) 12/2011 - Chemotherapy Veltuzumab antibody treatment for 8 weeks in December 2011 on a clinical trial at the [facility]. This was complicated by anemia, thrombocytopenia and neutropenia. 02/2012 - Chemotherapy Fludarabine, cyclophosphamide and rituximab in February 2012 for 4 cycles. Treatment was complicated by prolonged cytopenias and recurrent infections. Last 2 cycles required a 66% dose reduction. 04/2016 - 07/2018 Chemotherapy [id number] Combination of [id number] and Ibrutinib - on combination 04/29/16-05/05/[address] but MRD(+). She continued ibrutinib since until 07/2018 when it was stopped for atrial fibrillation 08/21/2020 - 12/18/2020 Chemotherapy Acalabrutinib 100mg BID, dose decrease to 100 mg daily on 09/11/20 d/t arthralgias 04/10/2021 - Chemotherapy Zanubrutinib 160 mg BID Interval History: Ms. Monse Orona is a 71 y.o. female with a hx of IGHV unmutated, simple karyotype CLL, currently on zanubrutinib. HEre today for 3-month follow-up for her history of CLL. - Dropped wooden pallet on R leg x 3 weeks ago after it slipped out of her hands. The object hit R knee and then fell down her leg. She then developed swelling pretty immediately from R knee to R foot as well as redness and bruising. Treated by staying off of it when possible, iced and then red light laser therapy . About one week ago, started noticing improvement in the swelling. Reports that she still has a residual area of redness and tenderness to R lower leg. Denies drainage. Still some discoloration to foot. - Denies fevers. - Cardiology appts x 2 weeks ago- underwent echo, ECG and pharm stress test. ECG showed her known atrial fibrillation per pt. Stress test normal per patient. Was told echo showed some reduced EF compared to last year, by about 10%. Next follow-up planned for 1 year. - Following with psychosocial oncology. Not finding benefit with Zoloft currently. Planning to talk to provider about tapering off. Has found this service to be helpful. - Would like social work referral for general information on handing of affairs after . - Feels like she continues to tolerate zanubrutinib well and better than previous BTKis. - Last IVIG was last month. Usually receiving about every other month. Feels as though this helps with frequency and severity of sinus infections. - Denies recent or recurrent infections, fevers, chills, night sweats, changes in appetite, unintentional weight loss, increased lymphadenopathy. - Stable fatigue and ROWE - Denies recent chest pain, heart palpitations, racing heart sensation. Denies SOB. Stable ROWE. - Since temperatures have dropped, has noticed that can't bend fingers as easily when cold. ROS: Pertinent positive and negative systems are described in the HPI; all other systems are negative. Past Medical History: Diagnosis Date Anemia 2011 Arrhythmia Arthritis Basal cell carcinoma 10/20/2001 face Bleeding disorder 2011 Bronchitis most recently 6 months ago. Chest pain 2014 Chronic lymphocytic leukemia 2010 Depression H/O cardiovascular stress test 2013 no cath unless progressive symptoms Hay fever 2015 Hives as manifestation of blood transfusion reaction 2011 HTN (hypertension) 2008 Hypogammaglobulinemia 11/07/2017 Measles childhood. Mumps childhood. 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 Pepe Marin COLONOSCOPY FOR COLORECTAL CANCER SCREENING LOW/AVERAGE RISK INDIVIDUAL 2008 BUNIONECTOMY Bilateral 2001 GRAFT PERIODONTAL MUCOSA Physical Exam: BP 143/68 (BP Position: Sitting) Pulse 72 Temp 97.8 F (36.6 C) (Oral) Resp 17 Ht 1.651 m (5' 5 ) Wt 59.9 kg (132 lb 1.6 oz) SpO2 98% BMI 21.98 kg/m Smoking Status Never ECOG Performance Status: 1 GEN: Well developed, well nourished, AAOx3. No apparent distress. Appropriate mood and affect for clinical situation. HEAD and NECK: Normocephalic, atraumatic. Conjunctiva non-injected. Sclera non-icteric. EOMI. Neck supple. Oral mucosa is pink, moist, not inflamed and without lesions. CARDIO: Regular rate and rhythm, no murmurs CHEST: Lungs are clear to auscultation bilaterally, no wheezes, rhonchi or rales. ABDOMEN: Soft, non-tender, non-distended, hepatosplenomegaly not appreciated. No mass. SKIN: Tender 8x6cm RLE (medial side of R lower leg) lesion with central raised fluctuant area, purplish red in color.Skin intact. EXTREMITIES: No cyanosis. No calf tenderness. Lymph Node examination is as follows: Location Right cm Left cm Cervical neg neg Supraclavicular neg neg Axillary neg neg Inguinal neg neg Femoral neg neg Results: CBC Lab Results Component Value Date WBC 6.67 10/08/2022 HGB 10.5 (L) 10/08/2022 HCT 31.8 (L) 10/08/2022 PLATELET 248 10/08/2022 MCV 93.8 10/08/2022 EDIF Lab Results Component Value Date RBCDISTRIBU 12.8 10/08/2022 GRNLOCYT 45.5 10/08/2022 LYMPHOCYT 45.6 10/08/2022 MONOCYTELEC 6.7 10/08/2022 EOSINOPHILS 1.5 10/08/2022 BASOPHILS 0.4 10/08/2022 GRNLOCTYABS 6.0 02/10/2017 LYMPHOCYTABS 3.04 10/08/2022 MONOSABSOLU 0.8 02/10/2017 EOSINOPHLABS 0.10 10/08/2022 BASOPHILSABS 0.0 02/10/2017 PLATELET 248 10/08/2022 MPV 9.5 10/08/2022 Assessment/Plan: 1. CLL, IgVH unmutated: Dx in 2010. She had a BMBx done on 07/17/20. SF3B1 and XPO1 mutations same as previous. CLL >80%.Therapy for CLL was discussed with acalabrutinib or a clinical trial of novel BTK inhibitor LOXO 305, she elected to begin treatment with acalabrutinib 100mg BID on 08/29/20. She developed new hand/finger pain in early Sep, worsening back pain since starting acalabrutinib, pain did not improve with dose decrease to 100 mg daily on 09/11/20. She started Medrol DosePak 09/25/20. Hand and back pain responded to steroids but recurred. She reports this type of pain occurred with ibrutinib. She followed up with neurosurgery (s/p kyphoplasty in May), not concerned for new fracture, she was referred to osteoporosis clinic. On 12/18/20 she held acalabrutinib due to severe arthralgias. Since holding, she has had improvement in hand and back pain but has exper ienced progressive fatigue, adenopathy, and lymphocytosis. Discontinued acalabrutinib in 02/2021. Test claim for Zanubrutinib was previously placed and approved. She was provided further drug education and that hopefully arthralgias will be less severe on this BTKi. She initiated zanubrutinib on 04/10/21. I added that should she progress through zanubrutinib, we can consider venetoclax/obinituzumab as an alternative treatment option. She presents today for follow-up and evaluation. She continues to tolerate zanubrutinib fairly well and her WBC has normalized and hemoglobin overall improved since treatment start. No adenoathy on exam today. Continue zanubrutinib. 2. RLE abscess. Pt was prescribed Bactrim and instructed to go to urgent care, PCP or ED for drainage.Pt prefers to do this locally. 3. Depression. Recently established with psychosocial oncology, transitioned to zoloft from buspar. Denies suicidal ideation. Admits to depression, particularly surrounding being immunocompromised with CLL. Feels that psychosocial oncology has been beneficial 3. ID: Continue Valacyclovir 500 mg daily for VZV/HSV prophylaxis. We will monitor for persistent/recurrent infections. She states she is receiving IVIG locally in [place] when IGG < 600. Would like IGG drawn with every visit here. 4. Health Maintenance: Patient visits with PCP annually and Dermatology biannually. She does not receive vaccinations. We suggest avoiding live vaccines, and continuing cancer screening for skin, colon, and breast cancer. Her last colonoscopy was 15-20 years ago; the patient has been educated on the importance of primary care. Patient was recently diagnosed with osteopenia. Discussed with pharmacist and bisphosphonates are ok to take with zanubrutinib. 5. COVID-19 Pandemic: It was discussed with patient that she is at higher risk for more severe illness with COVID-19 due to her CLL. She is aware of our recommendation for vaccination- pt has declined. 6. Atrial fibrillation. Continue regular follow up with cardiology. RTC in 3 months. Monthly blood work with monthly IGG levels. Case and care plan discussed with Dr. Abdalla. Reviewed After Visit Summary with patient and family. Discussed any medication changes and recommendations from physician. All questions answered. Patient and family encouraged to call with any additional questions. Attending Addendum: Patient was seen and examined independently and I agree with the history, physical exam findings, review of systems and plan as documented by Bettina Santoyo CNP. I directed the patient's care and counseling, and I devised and agree with the assessment and plan as documented. I have reviewed and agree with her note. I have discussed treatment plans and labs with the patient and provided verbal instruction. Monse Orona is a 71 y.o. female with a hx of IGHV unmutated, simple karyotype CLL, currently on zanubrutinib. Here today for 3-month follow-up for her history of CLL. Since last visit, she shares to have been well. She reports a RLE abscess that has improved since onset ~3 weeks ago. Denies recurrent infections, fevers, groin swelling, chills, night sweats, changes in appetite, unintentional weight loss, increased lymphadenopathy. Physical Exam: Location Left cm x cm Right cm x cm Cervical neg neg Supraclavicular neg neg Axillary neg neg Inguinal neg neg Physical exam was unremarkable with no palpable enlarged lymph nodes and no palpable organomegaly. Tender 8x6cm RLE abscess with central raised fluctuant area, purplish red in color. Impression and Plan: CLL. Patient continues to do well clinically without any evidence of disease progression. Labs reviewed with the patient. Counts are stable. I recommended she proceed with treatment on zanubrutinib. Heme: WBC 6.67, Hgb 10.5, Plt 248K RLE abscess. Prescribed Bactrim. Advised patient follow with her PCP or urgent care for drainage. She will follow with her primary care physician for the management of her routine medical issues. Advised her to contact us with any new or worsening symptoms. RTC in 3 months with labs prior. Documented by Dennis Kaufman, for Dr. Sarina Abdalla on 10/08/2022 at 2:12 PM. All medical record entries made by the Shae were at my direction and personally dictated by me, Dr. Sarina Abdalla MD. I have reviewed the chart and agree that the record accurately reflects my personal performance of the history, physical exam, assessment and plan. I have also personally directed, reviewed, and agree with the discharge instructions. Sarina Abdalla MD Hematology documented in this encounter [facility] 10-08-2022 Instructions Roxann Rollins RN - 10/08/2022 12:00 PM EST YOUR PRIMARY TEAM Dr. Sarina Santoyo MANAGER CIVIL - Nurse Practitioner Diana Dennis MANAGER CIVIL - Nurse Practitioner Roxann Rollins RN - Primary Nurse Will Casper RN Please contact our office if you develop a temperature of 100.4 or greater. CONTACT NUMBERS [facility] phone: [phone] [facility] fax: [phone] MEDICAL RECORDS The Release of Information ([facility]) area is staffed from 8:00 a.m. to 7:00 p.m. and is available for walk in requests from 8:00 a.m. to 4:[address] [facility] is responsible for answering requests for copies of medical records from various requestors such as insurance companies, attorneys, hospitals and patients. Please note it can take up to 2 weeks to complete your request. [phone]; [phone] (fax). FINANCIAL CONCERNS Any questions regarding billing for services or insurance coverage concerns should be directed to our billing department at [phone]. DISABILITY FORMS This category includes any form (STD, LTD, FMLA, cancer insurance policy) requiring information to be completed by a physician or nurse practitioner. The forms should be given to the clinic nurse. There is no fee associated with this request but note it may take 2 weeks to complete. The forms cannot be completed during a clinic visit or within 24 hours of your request. It is important to place the patient s name, employee s name, patient s date, date disability begins and ends, and any required signatures. Ask our team about the suggested recovery time. [employer] is a secure way to get access to your health records online. The medical information you will have access to within the [employer] program is only selected portions of your entire chart, such as basic laboratory results, summary medical history, visit history, and selected billing information. It will also allow you to communicate with your health care provider through email. To provide you with the best quality care available, we need to be able to discuss these results with you personally. If you are unable to obtain the results of a test that you can't find within the My Chart please feel free to call us and we will get back to you with that information. For non-emergent concerns, please send us a [employer] message but describe your issue fully. When sending a message to the provider, please know that these messages will be received and answered by the primary nurse practitioner. The nurse practitioner will consult your physician when needed. For questions or concerns regarding [employer] access or technical dificulties, please call [phone] or toll free at . __ Results for orders placed or performed in visit on 10/08/22 IGG Result Value Ref Range IGG 673 600 - 1,560 mg/dL COMPREHENSIVE METABOLIC PANEL Result Value Ref Range Sodium 137 135 - 145 mmol/L Potassium 4.4 3.5 - 5.0 mmol/L Chloride 102 98 - 108 mmol/L BUN 21 7 - 25 mg/dL Creatinine 0.87 0.50 - 1.20 mg/dL Glucose 92 70 - 99 mg/dL Bilirubin Total 0.6 <1.5 mg/dL Albumin 4.3 3.5 - 5.0 g/dL Total Protein 6.8 6.4 - 8.3 g/dL AST 18 10 - 39 U/L ALP 56 32 - 126 U/L Calcium 9.4 8.6 - 10.5 mg/dL CO2 28 21 - 31 mmol/L ALT 13 9 - 48 U/L Bun/Crea Ratio 24 Osmolality (Calculated) 290 278 - 305 mOsm/kg Anion Gap 11 7 - 17 mmol/L eGFR, CKD-EPI, Female 71 >=60 mL/min/1.73m2 LACTATE DEHYDROGENASE Result Value Ref Range LD Total 157 100 - 190 U/L CBC AND ELECTRONIC DIFF Result Value Ref Range WBC Count 6.67 3.99 - 11.19 K/uL RBC Count 3.39 (L) 3.91 - 5.04 M/uL Hemoglobin 10.5 (L) 11.4 - 15.2 g/dL Hematocrit 31.8 (L) 34.9 - 44.3 % Mean Cell Volume 93.8 79.6 - 97.7 fL Mean Cell Hgb 31.0 25.9 - 33.9 pg Mean Cell Hgb Conc 33.0 31.4 - 35.9 g/dL RBC Distribution 12.8 10.8 - 14.9 % Platelet Count 248 150 - 393 K/uL Mean Platelet Volume 9.5 8.5 - 12.2 fL DIFF STATUS Electronic Differential Segs + Bands Auto 45.5 % Immature Grans % 0.3 % Lymphocyte % Auto 45.6 % Monocyte % Auto 6.7 % Eosinophil % Auto 1.5 % Basophil % Auto 0.4 % Nucleated RBC 0.0 <=0.2 /100 WBC Segs + Bands,Absolute Auto 3.03 1.64 - 7.28 K/uL Immature Grans Absolute <0.04 <=0.08 K/uL Abs Lymph Auto 3.04 1.16 - 3.51 K/uL Abs [place] Auto 0.45 0.22 - 0.87 K/uL Abs Eos Auto 0.10 0.00 - 0.42 K/uL Abs Baso Auto <0.04 0.00 - 0.15 K/uL documented in this encounter [facility] 10-03-2022 History of Present illness Narrative [facility]: Call Information: Date and Time of Contact: 10/03/2022 12:05 PM Method of Contact: By Phone Contact Type: Prescriptions Contactor: [facility] Contactee: Patient Contact Outcome: Left message and Follow-up (follow up in 3 days due to the weekend) Shipping/Pickup: Medication Name: Brukinsa 80 mg Contact Info: Specialty (Margaret) [phone] [facility] [phone] [facility] [phone] Akira [phone] Bedside Delivery ([facility]) [phone] [facility]: Call Information: Date and Time of Contact: 10/04/2022 3:44 PM Method of Contact: By Phone Contact Type: Prescriptions Contactor: [facility] Contactee: Patient Shipping/Pickup: Medicare B Refill?: No Medication Name: Brukinsa 80mg Delivery Method: Air Delivery Location: Home Signature Required: No Mailing/Pickup Date: 10/08/2022 Shipping Address: [address] Contact Info: Specialty (Margaret) [phone] [facility] [phone] [facility] [phone] Akira [phone] Bedside Delivery ([facility]) [phone] documented in this encounter [facility] 09-04-2022 History of Present illness Narrative [facility]: Call Information: Date and Time of Contact: 09/04/2022 1:51 PM Method of Contact: By Phone Contact Type: Prescriptions Contactor: [facility] Contactee: Patient Contact Outcome: Left message and Follow-up (in 1-2 days) Shipping/Pickup: Medication Name: Brukinsa 80mg Contact Info: Specialty (Deanna) [phone] [facility] [phone] [facility] [phone] Akira [phone] Bedside Delivery ([facility]) [phone] [facility]: Call Information: Date and Time of Contact: 09/06/2022 11:21 AM Method of Contact: By Phone Contact Type: Prescriptions Contactor: [facility] Contactee: Patient Shipping/Pickup: Medicare B Refill?: No Medication Name: Brukinsa 80mg Delivery Method: Air Delivery Location: Home Signature Required: No Mailing/Pickup Date: 09/10/2022 Shipping Address: [address] Contact Info: Specialty (Deanna) [phone] [facility] [phone] [facility] [phone] Akira [phone] Bedside Delivery ([facility]) [phone] documented in this encounter [facility] 08-06-2022 History of Present illness Narrative [facility]: Call Information: Date and Time of Contact: 08/06/2022 10:35 AM Method of Contact: By Phone Contact Type: Prescriptions Contactor: [facility] Contactee: Patient Contact Outcome: Left message and Follow-up (in 1-3 days) Shipping/Pickup: Medication Name: Brukinsa 80mg Contact Info: Specialty (Margaret) [phone] [facility] [phone] [facility] [phone] Akira [phone] Bedside Delivery ([facility]) [phone] [facility]: Call Information: Date and Time of Contact: 08/09/2022 9:50 AM Method of Contact: By Phone Contact Type: Prescriptions Contactor: [facility] Contactee: Patient Shipping/Pickup: Medicare B Refill?: No Medication Name: Brukinsa 80mg Delivery Method: Air Delivery Location: Home Signature Required: No Mailing/Pickup Date: 08/12/2022 Shipping Address: [address] [place] [id number] Contact Info: Specialty (Margaret) [phone] [facility] [phone] [facility] [phone] Akira [phone] Bedside Delivery ([facility]) [phone] [facility] Note: The patient contacted [facility] about adverse effect assessment for the following prescriptions: Brukinsa. Counseling was provided about: Patient inquiring if ok to take BPC-157 (synthetic peptide), NAD, and quercetin along with Brukinsa. Potential interaction found with quercetin. Theoretically, concomitant use might alter the effects and adverse effects of Brukinsa. Patient was advised not to take quercetin. Chris Avitia [facility] Specialty (Margaret) [phone] [facility] [phone] [facility] [phone] Akira [phone] [place] [phone] [place] [phone] Bedside Delivery ([facility]) [phone] documented in this encounter [facility] 07-09-2022 History of Present illness Narrative Summary: CLL, continue zanubrutinib HEMATOLOGY CLINIC NOTE Attending: Sarina Abdalla MD Date of Encounter: 07/13/22 Chief Complaint Patient presents with Follow-up History of Present Ilness: Ms. Monse Orona is seen for CLL, IGVH unmutated, simple karyotype diagnosed in 2014, currently on zanubrutinib. She was initially diagnosed with CLL in December 2010 when she was found to have lymphocytosis on routine blood test. Treatment History: 1. Veltuzumab antibody treatment for 8 weeks in December 2011 on a clinical trial at the [facility]. This was complicated by anemia, thrombocytopenia and neutropenia. 2. Fludarabine, cyclophosphamide and rituximab in February 2012 for 4 cycles. Treatment was complicated by prolonged cytopenias and recurrent infections. Last 2 cycles required a 66% dose reduction. 3. [id number] Combination of [id number] and Ibrutinib - on combination 04/29/16-05/05/[address] but MRD(+). She continued ibrutinib since until 07/2018 when it was stopped for atrial fibrillation 4. Acalabrutinib 100 mg BID initiated on 08/29/20, but she developed new hand/finger pain in 09/2020, as well as worsening back pain. Arthralgias did not improve with acalabrutinib dose decrease to 100 mg daily on 09/11/20. She was started on a Medrol DosePak on 09/25/20, and her pain responded to steroids but recurred. On 12/18/20 she started an Acalabrutinib drug holiday due to her severe arthralgias, and discontinued treatment entirely in 02/2021 due to improved hand and back pain. 5. Zanubrutinib initiated 04/10/21 - present Oncology History Overview Note . CLL (chronic lymphocytic leukemia) 2010 Initial Diagnosis CLL (chronic lymphocytic leukemia) 12/2011 - Chemotherapy Veltuzumab antibody treatment for 8 weeks in December 2011 on a clinical trial at the [facility]. This was complicated by anemia, thrombocytopenia and neutropenia. 02/2012 - Chemotherapy Fludarabine, cyclophosphamide and rituximab in February 2012 for 4 cycles. Treatment was complicated by prolonged cytopenias and recurrent infections. Last 2 cycles required a 66% dose reduction. 04/2016 - 07/2018 Chemotherapy [id number] Combination of [id number] and Ibrutinib - on combination 04/29/16-05/05/[address] but MRD(+). She continued ibrutinib since until 07/2018 when it was stopped for atrial fibrillation 08/21/2020 - 12/18/2020 Chemotherapy Acalabrutinib 100mg BID, dose decrease to 100 mg daily on 09/11/20 d/t arthralgias 04/10/2021 - Chemotherapy Zanubrutinib 160 mg BID Interval History: Ms. Monse Orona is a 71 y.o. female with a hx of IGHV unmutated, simple karyotype CLL, currently on zanubrutinib. Ms. Monse Orona is here today for 3-month follow-up for her history of CLL, currently on zanubrutinib. - Since last visit, established with sychosocial oncology, music therapy, which she feels has been beneficial. Has recently started zoloft, previously on buspar. - Dental extractions recently, affecting what she can eat. Additional extractions planned for August, held zanubrutinib appropriately. Appetite ok. - Receives IVIG when her IgG levels fall per her insurance requirements. - Denies recent or recurrent infections, fevers, chills, night sweats, changes in appetite, unintentional weight loss, increased lymphadenopathy. - Stable fatigue and ROWE - Overall, feels that she is tolerating zanubrutinib well. - Reports a history of AFib, follows with cardiology. Denies recent chest pain, heart palpitations, racing heart sensation. Denies SOB. Stable ROWE. ROS: Pertinent positive and negative systems are described in the HPI; all other systems are negative. Past Medical History: Diagnosis Date Anemia 2012 Arrhythmia Arthritis Basal cell carcinoma 10/20/2001 face Bleeding disorder 2012 Bronchitis most recently 6 months ago. Chest pain 2014 Chronic lymphocytic leukemia 2010 Depression H/O cardiovascular stress test 2013 no cath unless progressive symptoms Hay fever 2015 Hives as manifestation of blood transfusion reaction 2011 HTN (hypertension) 2008 Hypogammaglobulinemia 11/07/2017 Measles childhood. Mumps childhood. 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 Pepe Marin COLONOSCOPY FOR COLORECTAL CANCER SCREENING LOW/AVERAGE RISK INDIVIDUAL 2009 BUNIONECTOMY Bilateral 2001 GRAFT PERIODONTAL MUCOSA Physical Exam: BP 132/64 (BP Location: Right arm, BP Position: Sitting) Pulse 90 Temp 98.4 F (36.9 C) (Oral) Resp 16 Ht 1.651 m (5' 5 ) Wt 59.2 kg (130 lb 8 oz) SpO2 98% BMI 21.72 kg/m Smoking Status Never Smoker ECOG Performance Status: 1 GEN: Well developed, well nourished, AAOx3. No apparent distress. Appropriate mood and affect for clinical situation. HEAD and NECK: Normocephalic, atraumatic. Conjunctiva non-injected. Sclera non-icteric. EOMI. Neck supple. Oral mucosa is pink, moist, not inflamed and without lesions. CARDIO: Regular rate and rhythm, no murmurs CHEST: Lungs are clear to auscultation bilaterally, no wheezes, rhonchi or rales. ABDOMEN: Soft, non-tender, non-distended, hepatosplenomegaly not appreciated. No mass. SKIN: skin color, texture, turgor normal. Anicteric. No rash, lesions, masses. Skin is warm and dry. EXTREMITIES: No cyanosis. No calf tenderness. Lymph Node examination is as follows: Location Right cm Left cm Cervical neg neg Supraclavicular neg neg Axillary neg neg Inguinal neg neg Femoral neg neg Results: CBC Lab Results Component Value Date WBC 9.80 07/09/2022 HGB 11.1 (L) 07/09/2022 HCT 34.2 (L) 07/09/2022 PLATELET 173 07/09/2022 MCV 94.7 07/09/2022 EDIF Lab Results Component Value Date RBCDISTRIBU 13.6 07/09/2022 GRNLOCYT 58.0 07/09/2022 LYMPHOCYT 34.1 07/09/2022 MONOCYTELEC 5.7 07/09/2022 EOSINOPHILS 1.6 07/09/2022 BASOPHILS 0.3 07/09/2022 GRNLOCTYABS 6.0 02/10/2017 LYMPHOCYTABS 3.34 07/09/2022 MONOSABSOLU 0.8 02/10/2017 EOSINOPHLABS 0.16 07/09/2022 BASOPHILSABS 0.0 02/10/2017 PLATELET 173 07/09/2022 MPV 9.4 07/09/2022 Assessment/Plan: 1. CLL, IgVH unmutated: Dx in 2010. She had a BMBx done on 07/17/20. SF3B1 and XPO1 mutations same as previous. CLL >80%.Therapy for CLL was discussed with acalabrutinib or a clinical trial of novel BTK inhibitor LOXO 305, she elected to begin treatment with acalabrutinib 100mg BID on 08/29/20. She developed new hand/finger pain in early Sep, worsening back pain since starting acalabrutinib, pain did not improve with dose decrease to 100 mg daily on 09/11/20. She started Medrol DosePak 09/25/20. Hand and back pain responded to steroids but recurred. She reports this type of pain occurred with ibrutinib. She followed up with neurosurgery (s/p kyphoplasty in May), not concerned for new fracture, she was referred to osteoporosis clinic. On 12/18/20 she held acalabrutinib due to severe arthralgias. Since holding, she has had improvement in hand and back pain but has exper ienced progressive fatigue, adenopathy, and lymphocytosis. Discontinued acalabrutinib in 02/2021. Test claim for Zanubrutinib was previously placed and approved. She was provided further drug education and that hopefully arthralgias will be less severe on this BTKi. She initiated zanubrutinib on 04/10/21. I added that should she progress through zanubrutinib, we can consider venetoclax/obinituzumab as an alternative treatment option. She presents today for follow-up and evaluation. She continues to tolerate zanubrutinib fairly well and her WBC has significantly decreased, hemoglobin improved. No adenoathy on exam today. Continue zanubrutinib. WBC 9.80, Hgb 11.1, Plt 173K 2. Depression. Recently established with psychosocial oncology, transitioned to zoloft from buspar. Denies suicidal ideation. Admits to depression, particularly surrounding being immunocompromised with CLL. Feels that psychosocial oncology has been beneficial 3. ID: Continue Valacyclovir 500 mg daily for VZV/HSV prophylaxis. We will monitor for persistent/recurrent infections. She states she is receiving IVIG locally in [place] when IGG < 600. Would like IGG drawn with every visit here. 4. Health Maintenance: Patient visits with PCP annually and Dermatology biannually. She does not receive vaccinations. We suggest avoiding live vaccines, and continuing cancer screening for skin, colon, and breast cancer. Her last colonoscopy was 15-20 years ago; the patient has been educated on the importance of primary care. Patient was recently diagnosed with osteopenia. Discussed with pharmacist and bisphosphonates are ok to take with zanubrutinib. 5. COVID-19 Pandemic: It was discussed with patient that she is at higher risk for more severe illness with COVID-19 due to her CLL. She is aware of our recommendation for vaccination- pt has declined. RTC in 3 months. Monthly blood work with monthly IGG levels. Case and care plan discussed with Dr. Abdalla. Attending Addendum: Patient was seen and examined independently and I agree with the history, physical exam findings, review of systems and plan as documented by Diana Dennis CNP. I directed the patient's care and counseling, and I devised and agree with the assessment and plan as documented. I have reviewed and agree with her note. I have discussed treatment plans and labs with the patient and provided verbal instruction. Monse Orona is a 71 y.o. female with a hx of, IGVH unmutated, simple karyotype CLL, currently on zanubrutinib. She presents today for follow up and evaluation. Since her last visit, she shares fatigue is about the same. She notes improvements with her sinus infections upon receiving IVIG's. Occasionally notices mild leg swelling before going to bed at night. No new side-effects with zanubrutinib. Shares baseline palpitations d/t history of Afib. Denies any fevers, cramps, diarrhea, bleeding, bruising, nausea, vomiting, abdominal pain, joint/muscle aches, SOB, chest pain, chills, night sweats, recent infections, unintentional weight loss, or increased lymphadenopathy. Physical Exam: Location Left cm x cm Right cm x cm Cervical neg neg Supraclavicular neg neg Axillary neg neg Inguinal neg neg Physical exam was unremarkable with no palpable enlarged lymph nodes and no palpable organomegaly. Impression and Plan: CLL. Patient continues to do well clinically without any evidence of disease progression. Labs reviewed with the patient. Counts are stable. I recommended she proceed with treatment on Zanubrutinib. Heme: WBC 9.80, Hgb 11.1, Plt 173K She will follow with her primary care physician for the management of her routine medical issues. RTC in 3 months. Documented by Scribe, Dennis Paulino, for Dr. Sarina Abdalla on 07/09/2022 at 3:50 PM. All medical record entries made by the Scribchristine were at my direction and personally dictated by me, Dr. Sarina Abdalla MD. I have reviewed the chart and agree that the record accurately reflects my personal performance of the history, physical exam, assessment and plan. I have also personally directed, reviewed, and agree with the discharge instructions. Sarina Abdalla MD Hematology documented in this encounter [facility] 07-09-2022 Instructions Nettie Casper RN - 07/09/2022 2:20 PM EDT YOUR PRIMARY TEAM Dr. Sarina Santoyo CNP - Nurse Practitioner Diana Dennis CNP - Nurse Practitioner Roxann Rollins, PL[place] - Primary Nurse Will Casper RN - Secondary Nurse Please contact our office if you develop a temperature of 100.4 or greater. CONTACT NUMBERS Clinic phone: [phone] Clinic fax: [phone] MEDICAL RECORDS The Release of Information ([facility]) area is staffed from 8:00 a.m. to 7:00 p.m. and is available for walk in requests from 8:00 a.m. to 4:[address] [facility] is responsible for answering requests for copies of medical records from various requestors such as insurance companies, attorneys, hospitals and patients. Please note it can take up to 2 weeks to complete your request. [phone]; [phone] (fax). FINANCIAL CONCERNS Any questions regarding billing for services or insurance coverage concerns should be directed to our billing department at [phone]. DISABILITY FORMS This category includes any form (STD, LTD, FMLA, cancer insurance policy) requiring information to be completed by a physician or nurse practitioner. The forms should be given to the clinic nurse. There is no fee associated with this request but note it may take 2 weeks to complete. The forms cannot be completed during a clinic visit or within 24 hours of your request. It is important to place the patient s name, employee s name, patient s date, date disability begins and ends, and any required signatures. Ask our team about the suggested recovery time. [employer] is a secure way to get access to your health records online. The medical information you will have access to within the [employer] program is only selected portions of your entire chart, such as basic laboratory results, summary medical history, visit history, and selected billing information. It will also allow you to communicate with your health care provider through email. To provide you with the best quality care available, we need to be able to discuss these results with you personally. If you are unable to obtain the results of a test that you can't find within the My Chart please feel free to call us and we will get back to you with that information. For non-emergent concerns, please send us a [employer] message but describe your issue fully. When sending a message to the provider, please know that these messages will be received and answered by the primary nurse practitioner. The nurse practitioner will consult your physician when needed. For questions or concerns regarding [employer] access or technical dificulties, please call [phone] or toll free at . __ Results for orders placed or performed in visit on 07/09/22 IGG Result Value Ref Range IGG 515 (L) 600 - 1,560 mg/dL COMPREHENSIVE METABOLIC PANEL Result Value Ref Range Sodium 138 135 - 145 mmol/L Potassium 4.0 3.5 - 5.0 mmol/L Chloride 104 98 - 108 mmol/L BUN 22 7 - 25 mg/dL Creatinine 0.87 0.50 - 1.20 mg/dL Glucose 91 70 - 99 mg/dL Bilirubin Total 0.7 <1.5 mg/dL Albumin 4.4 3.5 - 5.0 g/dL Total Protein 6.8 6.4 - 8.3 g/dL AST 15 10 - 39 U/L ALP 44 32 - 126 U/L Calcium 9.4 8.6 - 10.5 mg/dL CO2 26 21 - 31 mmol/L ALT 11 9 - 48 U/L Bun/Crea Ratio 25 Osmolality (Calculated) 292 278 - 305 mOsm/kg Anion Gap 12 7 - 17 mmol/L eGFR, CKD-EPI, Female 71 >=60 mL/min/1.73m2 LACTATE DEHYDROGENASE Result Value Ref Range LD Total 148 100 - 190 U/L CBC AND ELECTRONIC DIFF Result Value Ref Range WBC Count 9.80 3.99 - 11.19 K/uL RBC Count 3.61 (L) 3.91 - 5.04 M/uL Hemoglobin 11.1 (L) 11.4 - 15.2 g/dL Hematocrit 34.2 (L) 34.9 - 44.3 % Mean Cell Volume 94.7 79.6 - 97.7 fL Mean Cell Hgb 30.7 25.9 - 33.9 pg Mean Cell Hgb Conc 32.5 31.4 - 35.9 g/dL RBC Distribution 13.6 10.8 - 14.9 % Platelet Count 173 150 - 393 K/uL Mean Platelet Volume 9.4 8.5 - 12.2 fL DIFF STATUS Electronic Differential Segs + Bands Auto 58.0 % Immature Grans % 0.3 % Lymphocyte % Auto 34.1 % Monocyte % Auto 5.7 % Eosinophil % Auto 1.6 % Basophil % Auto 0.3 % Nucleated RBC 0.0 <=0.2 /100 WBC Segs + Bands,Absolute Auto 5.68 1.64 - 7.28 K/uL Immature Grans Absolute <0.04 <=0.08 K/uL Abs Lymph Auto 3.34 1.16 - 3.51 K/uL Abs [place] Auto 0.56 0.22 - 0.87 K/uL Abs Eos Auto 0.16 0.00 - 0.42 K/uL Abs Baso Auto <0.04 0.00 - 0.15 K/uL documented in this encounter [facility] 05-09-2022 History of Present illness Narrative [facility]: Call Information: Date and Time of Contact: 05/09/2022 11:47 AM Method of Contact: By Phone Contact Type: Prescriptions Contactor: [facility] Contactee: Patient Shipping/Pickup: Medication Name: Brukinsa Contact Info: Specialty (Margaret) [phone] [facility] [phone] [facility] [phone] Akira [phone] Bedside Delivery ([facility]) [phone] [facility] RX OUTREACH ADVANCED: Call Information: Date and Time of Contact: 05/09/2022 1:44 PM Method of Contact: By Phone Contact Type: Prescriptions Contactor: [facility] Contactee: Patient Shipping/Pickup: Medicare B Refill?: No Medication Name: Brukinsa 80mg Delivery Method: Air Delivery Location: Home Signature Required: No Mailing/Pickup Date: 05/13/2022 Shipping Address: [address] [place] [address] Contact Info: Specialty (Margaret) [phone] [facility] [phone] [facility] [phone] Akira [phone] Bedside Delivery ([facility]) [phone] documented in this encounter [facility] 04-09-2022 History of Present illness Narrative Summary: RTC 3 mos, continue zanubrutinib HEMATOLOGY CLINIC NOTE Attending: Sarina Abdalla MD Date of Encounter: 04/09/22 Chief Complaint Patient presents with Follow-up History of Present Ilness: Ms. Monse Orona is seen for CLL, IGVH unmutated, simple karyotype diagnosed in 2014, currently on zanubrutinib. She was initially diagnosed with CLL in December 2010 when she was found to have lymphocytosis on routine blood test. Treatment History: 1. Veltuzumab antibody treatment for 8 weeks in December 2011 on a clinical trial at the [facility]. This was complicated by anemia, thrombocytopenia and neutropenia. 2. Fludarabine, cyclophosphamide and rituximab in February 2012 for 4 cycles. Treatment was complicated by prolonged cytopenias and recurrent infections. Last 2 cycles required a 66% dose reduction. 3. [id number] Combination of [id number] and Ibrutinib - on combination 04/29/16-05/05/[address] but MRD(+). She continued ibrutinib since until 07/2018 when it was stopped for atrial fibrillation 4. Acalabrutinib 100 mg BID initiated on 08/29/20, but she developed new hand/finger pain in 09/2020, as well as worsening back pain. Arthralgias did not improve with acalabrutinib dose decrease to 100 mg daily on 09/11/20. She was started on a Medrol DosePak on 09/25/20, and her pain responded to steroids but recurred. On 12/18/20 she started an Acalabrutinib drug holiday due to her severe arthralgias, and discontinued treatment entirely in 02/2021 due to improved hand and back pain. 5. Zanubrutinib initiated 04/10/21 - present Oncology History Overview Note . CLL (chronic lymphocytic leukemia) 2010 Initial Diagnosis CLL (chronic lymphocytic leukemia) 12/2011 - Chemotherapy Veltuzumab antibody treatment for 8 weeks in December 2011 on a clinical trial at the [facility]. This was complicated by anemia, thrombocytopenia and neutropenia. 02/2012 - Chemotherapy Fludarabine, cyclophosphamide and rituximab in February 2012 for 4 cycles. Treatment was complicated by prolonged cytopenias and recurrent infections. Last 2 cycles required a 66% dose reduction. 04/2016 - 07/2018 Chemotherapy [id number] Combination of [id number] and Ibrutinib - on combination 04/29/16-05/05/[address] but MRD(+). She continued ibrutinib since until 07/2018 when it was stopped for atrial fibrillation 08/21/2020 - 12/18/2020 Chemotherapy Acalabrutinib 100mg BID, dose decrease to 100 mg daily on 09/11/20 d/t arthralgias 04/10/2021 - Chemotherapy Zanubrutinib 160 mg BID Interval History: Ms. Monse Orona is a 71 y.o. female with a hx of IGHV unmutated, simple karyotype CLL, currently on zanubrutinib. - Ongoing fatigue, stable. - Reports an increase in sinus infections over the past 3-5 months. No recent antibiotic use. - Continues IVIG about every other month locally. Gets IGG checked monthly. - Stable depression and takes supplements for this and buspar. Denies SI/HI. - Denies recent or recurrent infections, fevers, chills, night sweats, changes in appetite, unintentional weight loss, increased lymphadenopathy. - Reports a history of AFib, follows with cardiology. Denies recent chest pain, heart palpitations, racing heart sensation. Denies SOB. Stable ROWE. - Stable easy bruising. Denies bleeding. - Considering procedure with ophthalmology to have tube placed in tear duct. ROS: Pertinent positive and negative systems are described in the HPI; all other systems are negative. Past Medical History: Diagnosis Date Anemia 2012 Arrhythmia Arthritis Basal cell carcinoma 10/20/2001 face Bleeding disorder 2012 Bronchitis most recently 6 months ago. Chest pain 2015 Chronic lymphocytic leukemia 2011 Depression H/O cardiovascular stress test 2013 no cath unless progressive symptoms Hay fever 2015 Hives as manifestation of blood transfusion reaction 2012 HTN (hypertension) 2008 Hypogammaglobulinemia 11/07/2017 Measles childhood. Mumps childhood. 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 Pepe Marin COLONOSCOPY FOR COLORECTAL CANCER SCREENING LOW/AVERAGE RISK INDIVIDUAL 2009 BUNIONECTOMY Bilateral 2001 GRAFT PERIODONTAL MUCOSA Physical Exam: BP 144/73 (BP Position: Sitting) Pulse 73 Temp 97.8 F (36.6 C) (Oral) Resp 16 Ht 1.651 m (5' 5 ) Wt 59.1 kg (130 lb 3.2 oz) SpO2 97% BMI 21.67 kg/m Smoking Status Never Smoker ECOG Performance Status: 1 GEN: Well developed, well nourished, AAOx3. No apparent distress. Appropriate mood and affect for clinical situation. HEAD and NECK: Normocephalic, atraumatic. Conjunctiva non-injected. Sclera non-icteric. PERRL, EOMI. Neck supple. Oral mucosa is pink, moist, not inflamed and without lesions. CARDIO: Regular rate and rhythm, no murmurs, click or gallop. CHEST: Lungs are clear to auscultation bilaterally, no wheezes, rhonchi or rales. ABDOMEN: Soft, non-tender, non-distended, hepatosplenomegaly not appreciated. No mass. NEURO: Cranial nerves II-XII grossly intact, no focal deficits. SKIN: skin color, texture, turgor normal. Anicteric. No rash, lesions, masses. Skin is warm and dry. EXTREMITIES: No cyanosis. No calf tenderness. Lymph Node examination is as follows: Location Right cm Left cm Cervical neg neg Supraclavicular neg neg Axillary neg neg Inguinal neg neg Femoral neg neg Results: CBC Lab Results Component Value Date WBC 8.60 04/09/2022 HGB 10.9 (L) 04/09/2022 HCT 34.0 (L) 04/09/2022 PLATELET 273 04/09/2022 MCV 94.7 04/09/2022 EDIF Lab Results Component Value Date RBCDISTRIBU 13.7 04/09/2022 GRNLOCYT 34.4 04/09/2022 LYMPHOCYT 55.3 04/09/2022 MONOCYTELEC 6.6 04/09/2022 EOSINOPHILS 2.9 04/09/2022 BASOPHILS 0.5 04/09/2022 GRNLOCTYABS 6.0 02/10/2017 LYMPHOCYTABS 4.76 (H) 04/09/2022 MONOSABSOLU 0.8 02/10/2017 EOSINOPHLABS 0.25 04/09/2022 BASOPHILSABS 0.0 02/10/2017 PLATELET 273 04/09/2022 MPV 9.6 04/09/2022 Assessment/Plan: 1. CLL, IgVH unmutated: Dx in 2010. She had a BMBx done on 07/17/20. SF3B1 and XPO1 mutations same as previous. CLL >80%.Therapy for CLL was discussed with acalabrutinib or a clinical trial of novel BTK inhibitor LOXO 305, she elected to begin treatment with acalabrutinib 100mg BID on 08/29/20. She developed new hand/finger pain in early Sep, worsening back pain since starting acalabrutinib, pain did not improve with dose decrease to 100 mg daily on 09/11/20. She started Medrol DosePak 09/25/20. Hand and back pain responded to steroids but recurred. She reports this type of pain occurred with ibrutinib. She followed up with neurosurgery (s/p kyphoplasty in May), not concerned for new fracture, she was referred to osteoporosis clinic. On 12/18/20 she held acalabrutinib due to severe arthralgias. Since holding, she has had improvement in hand and back pain but has exper ienced progressive fatigue, adenopathy, and lymphocytosis. Discontinued acalabrutinib in 02/2021. Test claim for Zanubrutinib was previously placed and approved. She was provided further drug education and that hopefully arthralgias will be less severe on this BTKi. She initiated zanubrutinib on 04/10/21. I added that should she progress through zanubrutinib, we can consider venetoclax/obinituzumab as an alternative treatment option. She presents today for follow-up and evaluation. She continues to tolerate zanubrutinib fairly well and her WBC has significantly decreased. Additionally, her Hgb has improved and is stable today at 10.9. No adenoathy on exam today. Continue zanubrutinib. 2. Depression. On buspar, managed by PCP. Denies suicidal ideation. Admits to depression, particularly surrounding being immunocompromised with CLL. We again discussed benefits of psychosocial oncology referral and counseling. Discussed that telehealth may be an option for her through their department - she will ask about this. 3. ID: Continue Valacyclovir 500 mg daily for VZV/HSV prophylaxis. We will monitor for persistent/recurrent infections. She states she is receiving IVIG locally in [place] when IGG < 600. Would like IGG drawn with every visit here. 4. Health Maintenance: Patient visits with PCP annually and Dermatology biannually. She does not receive vaccinations. We suggest avoiding live vaccines, and continuing cancer screening for skin, colon, and breast cancer. Her last colonoscopy was 15-20 years ago; the patient has been educated on the importance of primary care. Patient was recently diagnosed with osteopenia. Discussed with pharmacist and bisphosphonates are ok to take with zanubrutinib. 5. COVID-19 Pandemic: It was discussed with patient that she is at higher risk for more severe illness with COVID-19 due to her CLL. She is aware of our recommendation for vaccination- pt has declined. RTC in 3 months. Monthly blood work with monthly IGG levels. New order to be provided today. \ Case and care plan discussed with Dr. Abdalla. Attending Addendum: Patient was seen and examined independently and I agree with the history, physical exam findings, review of systems and plan as documented by Bettina Santoyo CNP. I directed the patient's care and counseling, and I devised and agree with the assessment and plan as documented. I have reviewed and agree with her note. I have discussed treatment plans and labs with the patient and provided verbal instruction. Ms. Monse Orona is a 71 y.o. female with a hx of, IGVH unmutated, simple karyotype CLL, currently on zanubrutinib. She presents today for follow up and evaluation. Since her last visit, she shares fatigue is about the same, and shares having some sinus infections as well. Otherwise she is doing fine and tolerating treatment well. She denies any fevers, chills, night sweats, recent infections, unintentional weight loss, or increased lymphadenopathy. Physical Exam: Location Left cm x cm Right cm x cm Cervical neg neg Supraclavicular neg neg Axillary neg neg Inguinal neg neg Impression and Plan: CLL: Patient continues to do well clinically without any evidence of disease progression. Counts are stable. Continue zanabrutinib. Heme: WBC 8.60, Hgb 10.9, Plt 273K Fatigue: I shared these may be due to interactions with her medications. She has been paying closer attention to her intakes. She will follow with her primary care physician for the management of her routine medical issues. RTC in 3 months, blood work locally. Documented by Trina Kaufman, for Dr. Sarina Abdalla on 04/09/2022 at 3:20 PM. All medical record entries made by the Trina Kaufman, were at my direction and personally dictated by me, Sarina Abdalla. I have reviewed the chart and agree that the record accurately reflects my personal performance of the history, physical exam, assessment and plan. I have also personally directed, reviewed, and agree with the discharge instructions. Sarina Abdalla MD Hematology documented in this encounter [facility] 04-09-2022 Instructions Nettie Casper RN - 04/09/2022 1:36 PM EDT YOUR PRIMARY TEAM Dr. Sarina Santoyo CNP - Nurse Practitioner Diana Dennis CNP - Nurse Practitioner Roxann Rollins RN - Primary Nurse Will Casper RN - Secondary Nurse Please contact our office if you develop a temperature of 100.4 or greater. CONTACT NUMBERS Clinic phone: [phone] Clinic fax: [phone] MEDICAL RECORDS The Release of Information ([facility]) area is staffed from 8:00 a.m. to 7:00 p.m. and is available for walk in requests from 8:00 a.m. to 4:[address] [facility] is responsible for answering requests for copies of medical records from various requestors such as insurance companies, attorneys, hospitals and patients. Please note it can take up to 2 weeks to complete your request. [phone]; [phone] (fax). FINANCIAL CONCERNS Any questions regarding billing for services or insurance coverage concerns should be directed to our billing department at [phone]. DISABILITY FORMS This category includes any form (STD, LTD, FMLA, cancer insurance policy) requiring information to be completed by a physician or nurse practitioner. The forms should be given to the clinic nurse. There is no fee associated with this request but note it may take 2 weeks to complete. The forms cannot be completed during a clinic visit or within 24 hours of your request. It is important to place the patient s name, employee s name, patient s date, date disability begins and ends, and any required signatures. Ask our team about the suggested recovery time. [employer] is a secure way to get access to your health records online. The medical information you will have access to within the [employer] program is only selected portions of your entire chart, such as basic laboratory results, summary medical history, visit history, and selected billing information. It will also allow you to communicate with your health care provider through email. To provide you with the best quality care available, we need to be able to discuss these results with you personally. If you are unable to obtain the results of a test that you can't find within the My Chart please feel free to call us and we will get back to you with that information. For non-emergent concerns, please send us a [employer] message but describe your issue fully. When sending a message to the provider, please know that these messages will be received and answered by the primary nurse practitioner. The nurse practitioner will consult your physician when needed. For questions or concerns regarding [employer] access or technical dificulties, please call [phone] or toll free at . __ Results for orders placed or performed in visit on 04/09/22 LACTATE DEHYDROGENASE Result Value Ref Range LD Total 191 (H) 100 - 190 U/L COMPREHENSIVE METABOLIC PANEL Result Value Ref Range Sodium 139 135 - 145 mmol/L Potassium 4.8 3.5 - 5.0 mmol/L Chloride 106 98 - 108 mmol/L BUN 20 7 - 25 mg/dL Creatinine 0.76 0.50 - 1.20 mg/dL Glucose 91 70 - 99 mg/dL Bilirubin Total 0.5 <1.5 mg/dL Albumin 4.2 3.5 - 5.0 g/dL Total Protein 6.7 6.4 - 8.3 g/dL AST 15 10 - 39 U/L ALP 53 32 - 126 U/L Calcium 9.2 8.6 - 10.5 mg/dL CO2 23 21 - 31 mmol/L ALT 7 (L) 9 - 48 U/L Bun/Crea Ratio 26 Osmolality (Calculated) 294 278 - 305 mOsm/kg Anion Gap 15 7 - 17 mmol/L eGFR, CKD-EPI, Female 83 >=60 mL/min/1.73m2 CBC AND ELECTRONIC DIFF Result Value Ref Range WBC Count 8.60 3.99 - 11.19 K/uL RBC Count 3.59 (L) 3.91 - 5.04 M/uL Hemoglobin 10.9 (L) 11.4 - 15.2 g/dL Hematocrit 34.0 (L) 34.9 - 44.3 % Mean Cell Volume 94.7 79.6 - 97.7 fL Mean Cell Hgb 30.4 25.9 - 33.9 pg Mean Cell Hgb Conc 32.1 31.4 - 35.9 g/dL RBC Distribution 13.7 10.8 - 14.9 % Platelet Count 273 150 - 393 K/uL Mean Platelet Volume 9.6 8.5 - 12.2 fL DIFF STATUS Electronic Differential Segs + Bands Auto 34.4 % Immature Grans % 0.3 % Lymphocyte % Auto 55.3 % Monocyte % Auto 6.6 % Eosinophil % Auto 2.9 % Basophil % Auto 0.5 % Nucleated RBC 0.0 <=0.2 /100 WBC Segs + Bands,Absolute Auto 2.95 1.64 - 7.28 K/uL Immature Grans Absolute <0.04 <=0.09 K/uL Abs Lymph Auto 4.76 (H) 1.16 - 3.51 K/uL Abs [place] Auto 0.57 0.22 - 0.87 K/uL Abs Eos Auto 0.25 0.00 - 0.42 K/uL Abs Baso Auto 0.04 0.00 - 0.15 K/uL documented in this encounter [facility] 03-15-2022 History of Present illness Narrative [facility]) Note: The patient is out of refills on Brukinsa 80mg. Please send a new prescription to [facility], if appropriate. Chris Avitia [facility] Specialty (Deanna) [phone] [facility] [phone] [facility] [phone] Akira [phone] Peyton [phone] Bedside Delivery ([facility]) [phone] [facility] RX OUTREACH ADVANCED: Call Information: Date and Time of Contact: 03/18/2022 1:05 PM Method of Contact: By Phone Contact Type: Prescriptions Contactor: [facility] Contactee: Patient Shipping/Pickup: Medicare B Refill?: No Medication Name: Brukinsa 80mg Delivery Method: Air Delivery Location: Home Signature Required: No Mailing/Pickup Date: 03/19/2022 Shipping Address: [address] [place] [address] Contact Info: Specialty (Deanna) [phone] [facility] [phone] [facility] [phone] Akira [phone] Bedside Delivery ([facility]) [phone] documented in this encounter [facility] 07-09-2021 History of Present illness Narrative [facility]: Call Information: Date and Time of Contact: 07/11/2021 2:17 PM Method of Contact: By Phone Contact Type: Prescriptions Contactor: [facility] Contactee: Patient Shipping/Pickup: Mailing/Pickup Date: 07/12/2021 Medicare B Refill: No Medication Name: brukinsa Delivery Method: Air Delivery Location: Home Signature Required: No Shipping Address: [address] [place] [address] Contact Info: Specialty (Margaret) [phone] Xavi [phone] [facility] [phone] Akira [phone] Bedside Delivery ([facility]) [phone] [facility]RE[facility]: Call Information: Date and Time of Contact: 07/11/2021 10:51 AM Method of Contact: By Phone Contact Type: Prescriptions Contactor: [facility] Contactee: Patient Contact Outcome: Left message and Follow-up (brukinsa refill ) Contact Info: Specialty (Deanna) [phone] [facility] [phone] [facility] [phone] Akira [phone] Bedside Delivery ([facility]) [phone] [facility] RX OUTREACH: Call Information: Date and Time of Contact: 07/09/2021 2:27 PM Method of Contact: By Phone Contact Type: Prescriptions Contactor: [facility] Contactee: Patient Contact Outcome: Left message and Follow-up (in 1 to 2 days) Shipping/Pickup: Medication Name: Brukinsa 80mg Contact Info: Specialty (Margaret) [phone] [facility] [phone] [facility] [phone] Akira [phone] Bedside Delivery ([facility]) [phone] documented in this encounter [facility] 06-08-2021 History of Present illness Narrative [facility]: Call Information: Date and Time of Contact: 06/12/2021 12:31 PM Method of Contact: By Phone Contact Type: Prescriptions Contactor: [facility] Contactee: Patient Shipping/Pickup: Mailing/Pickup Date: 06/14/2021 Medicare B Refill: No Medication Name: Brukinsa Delivery Method: Air Delivery Location: Home Signature Required: No Shipping Address: [address] [place] [id number] Contact Info: Specialty (Margaret) [phone] [facility] [phone] [facility] [phone] Akira [phone] Bedside Delivery ([facility]) [phone] [facility] RX OUTREACH: Call Information: Date and Time of Contact: 06/08/2021 3:26 PM Method of Contact: By Phone Contact Type: Prescriptions Contactor: [facility] Contactee: Patient Contact Outcome: Left message and Follow-up (in 3-5 days (due to weekend)) Shipping/Pickup: Medication Name: Brukinsa 80mg Contact Info: Specialty (Margaret) [phone] Xavi [phone] [facility] [phone] Akira [phone] Bedside Delivery ([facility]) [phone] documented in this encounter [facility] 06-05-2021 History of Present illness Narrative Attending Addendum: Patient was seen and examined independently and I agree with the history, physical exam findings, review of systems and plan as documented by Bettina Santoyo CNP. I directed the patient's care and counseling, and I devised and agree with the assessment and plan as documented. I have reviewed and agree with her note. I have discussed treatment plans and labs with the patient and provided verbal instruction. Ms. Monse Orona is a 70 y.o. female with a hx of IGVH unmutated, simple karyotype CLL, currently on zanubrutinib. She presents today for follow-up and evaluation. Since last seen, she shares that she has been doing alright. She complains of ongoing fatigue, dizziness, and SOB. She also reports experiencing some dental problems, and would like to have ozone therapy done, but recently left her previous holistic dentist. Denies any fevers, chills, night sweats, recent infections, unintentional weight loss, or increased lymphadenopathy. She has not received a COVID-19 vaccine. Physical Exam: Location Left cm x cm Right cm x cm Cervical neg neg Supraclavicular neg neg Axillary neg neg Inguinal neg neg Heart rate is regular, with irregularly irregular rhythm. Impression and Plan: CLL: Labs reviewed, WBC has increased as expected. However, her Hgb has decreased over the past month with no evidence of hemolysis on studies. Reticulocyte count is increased, currently at 2.81%, reflecting marrow response to anemia. As she has not improved with B12 supplementation, I am unsure of the exact etiology for her present symptoms. I discussed a further evaluation with a bone marrow biopsy, but she is resistant to proceed with this due to her hx of back pain. For now, we will continue with zanubrutinib for another month and reevaluate the bmbx option if she shows no improvement at that time. Heme: WBC 170.55, Hgb 8.5, Plt 208K Hx of Afib: Continue follow-up with [facility]. She will follow with her primary care physician for the management of her routine medical issues. RTC in 1 month. Documented by Jordan Kaufman, for Dr. Sarina Abdalla on 06/05/21 11:49 AM. All medical record entries made by the Jordan Kaufman, were at my direction and personally dictated by me, Sarina Abdalla. I have reviewed the chart and agree that the record accurately reflects my personal performance of the history, physical exam, assessment and plan. I have also personally directed, reviewed, and agree with the discharge instructions. Sarina Abdalla MD Hematology HEMATOLOGY CLINIC NOTE Attending: Sarina Abdalla MD Date of Encounter: 06/05/21 Chief Complaint Patient presents with Follow-up History of Present Ilness: Ms. Monse Orona is seen for CLL, IGVH unmutated, simple karyotype diagnosed in 2014, currently on zanubrutinib. She was initially diagnosed with CLL in December 2010 when she was found to have lymphocytosis on routine blood test. Treatment History: 1. Veltuzumab antibody treatment for 8 weeks in December 2011 on a clinical trial at the [facility]. This was complicated by anemia, thrombocytopenia and neutropenia. 2. Fludarabine, cyclophosphamide and rituximab in February 2012 for 4 cycles. Treatment was complicated by prolonged cytopenias and recurrent infections. Last 2 cycles required a 66% dose reduction. 3. [id number] Combination of [id number] and Ibrutinib - on combination 04/29/16-05/05/[address] but MRD(+). She continued ibrutinib since until 07/2018 when it was stopped for atrial fibrillation 4. Acalabrutinib 100 mg BID initiated on 08/29/20, but she developed new hand/finger pain in 09/2020, as well as worsening back pain. Arthralgias did not improve with acalabrutinib dose decrease to 100 mg daily on 09/11/20. She was started on a Medrol DosePak on 09/25/20, and her pain responded to steroids but recurred. On 12/18/20 she started an Acalabrutinib drug holiday due to her severe arthralgias, and discontinued treatment entirely in 02/2021 due to improved hand and back pain. 5. Zanubrutinib initiated 04/10/21- Oncologic History: She had Watchman procedure on 11/23/19, she continued followup in clinical remission until 05/02/20, she reported a fall striking her back, continued back pain since. No adenopathy or splenomegaly on exam. WBC was 16, hgb 10.2,MCV 97, plts 158, ANC 3.55. elevated reticulocyte % with mild LDH elevation (225), T bili was 0.8. GENARO was positive for warm autoantibody. Haptoglobin was 197. CT abd/pelvis compared to 05/12/2018 showed progressive adenopathy Spleen - normal size Bhavana hepatis 1.7 x 3.4 cm. Left para-aortic 1.3 x 2.3 cm. Left external iliac 1.2 x 2.3 cm. New endplate compression deformity at T12 some retropulsion of fracture fragments indenting the spinal canal at this level. Simple abnormal karyotype was seen with del 13q by FISH. On hematologic malignancy panel the previously identified mutations in SF3B1 and XPO1 are detected again. No BTK or PLCG2 mutations were detected. She had IVIG locally in [place] and had kyphoplasty at [facility] on 05/10/20. On 05/10/20, wbc was 14.6, hgb 9.9, mcv 99, plts 173, ANC 1.7. elevated reticulocytes. Haptoglobin normal. ferrtin 780 (elevated), LDH 237 (ULN 214) folate and B12 normal. At her visit on 05/30/20 she had lower hgb (9.7). She was started on rituximab 375mg/m2 and prednisone 1mg/kg for AIHA, she elected to do this treatment locally. Test claim for acalabrutinib was also placed. She was referred to pulmonology for lung nodules. She saw Dr. Schilling (pulmonology) on 06/13/20. No further routine imaging required for ground glass nodules. PFTs, 6 minute walk test, and BNP were ordered for further workup of ROWE. She completed 4 weekly rituximab infusions week of 06/29/[address] Aguirre's office ([facility]). On 07/06/20 labs were WBC 9.5; hgb 9.9; plt 189. Prednisone was decreased from 80 mg to 40mg daily. At her visit on 07/11/20 she reported stable mild fatigue and weight loss with effort. She had persistent anemia: Hgb 9.7. Therapy for CLL was discussed with acalabrutinib or a clinical trial of novel BTK inhibitor LOXO 305. Bone marrow biopsy 07/17/20 showed >80% CLL. Karyotype was simple (unbalanced translocation between chromosome 2 and 7), FISH del 13q, molecular genetics showed SF3B1 and XPO1 mutations same as previous Prednisone was decreased to 20 mg on 07/19/20. She returned to the [facility] on 07/25/20 - she had 1 cm neck notes, wbc was 6, hgb was 10.8, plts were 195, ANC 3.92. She elected therapy with acalabrutinib. Steroid taper continued - She decreased prednisone from 10 mg to 5 mg on 08/17/20, and started acalabrutinib on 08/21/20. 08/17/20 - Wbc 7.8, hgb 10.8, plts 221, ANC 3.3 On 08/24/2020, wbc was 7.7, hgb 10.6, plts 198, ANC 3.5. 10/23/20, She had worsened back pain and hand/finger pain. Steroids did not help, WBC was 17, hgb 10.8, plts 171. She then tried once daily acalabrutinib. She was being referred to an osteoporosis clinic. 11/20/20 she reported increased fatigue, continued back pain, hand/finger pain. We discussed trial of ibuprofen 400 TID with food. Consider trial of zanubrutinib if she is not able to tolerate acalabruitnib. For back pain, we discussed that she should return to spine clinic (kypoplasty in May) & followup re: osteopenia. 12/18/20 - wbc 12.75, hgb 10.8, plts 162, ANC 3.5, ALC 8.42. Severe arthralgias continued in back and fingers/hands, she was instructed to hold acalabrutinib. Test claim for zanubrutinib was placed. 04/10/21 - WBC is elevated at 35.18 K/uL on 04/10/21. Hgb is decreased at 9.7 g/dL, Plt count is 140K. As she has not tolerated ibrutinib or acalabrutinib well in the past, we will attempt to rechallenge with zanubrutinib. Oncology History Overview Note . CLL (chronic lymphocytic leukemia) 2010 Initial Diagnosis CLL (chronic lymphocytic leukemia) 12/2011 - Chemotherapy Veltuzumab antibody treatment for 8 weeks in December 2011 on a clinical trial at the [facility]. This was complicated by anemia, thrombocytopenia and neutropenia. 02/2012 - Chemotherapy Fludarabine, cyclophosphamide and rituximab in February 2012 for 4 cycles. Treatment was complicated by prolonged cytopenias and recurrent infections. Last 2 cycles required a 66% dose reduction. 04/2016 - 07/2018 Chemotherapy [id number] Combination of [id number] and Ibrutinib - on combination 04/29/16-05/05/[address] but MRD(+). She continued ibrutinib since until 07/2018 when it was stopped for atrial fibrillation 08/21/2020 - 12/18/2020 Chemotherapy Acalabrutinib 100mg BID, dose decrease to 100 mg daily on 09/11/20 d/t arthralgias 04/10/2021 - Chemotherapy Zanubrutinib 160 mg BID Interval History: Monse Orona is a 70 y.o. female with a hx of IGVH unmutated, simple karyotype CLL, currently on zanubrutinib. She presents today for follow-up and evaluation. Since last seen, she shares that she has been doing alright. She complains of continued low energy and increased SOB/ROWE. Occasional dizziness with position changes. Arrived for blood transfusion recently for symptomatic anemia with hgb on outside labs <8.0 g/dl. Recheck at [facility] was 9.0 and she did not receive transfusion. She also notes some easy bruising. Denies any fevers, chills, night sweats, recent infections, unintentional weight loss, or increased lymphadenopathy. Tolerating Zanubrutinib better than other BTK inhibitors., no joint pains. Has decided that she will not proceed with COVID vaccination. Of note, She refers to use natural supplements (arnica) for joint pain, does take tylenol occasional but arnica seems to help more. Also takes medical marijuana occasionally- mostly salves and sublingual formulations. Receiving monthly IVIG locally in [place] and states this is scheduled if IGG <600. Requests that IGG be drawn every time she is here so it does not have to be repeated. ROS: Pertinent positive and negative systems are described in the HPI; all other systems are negative Past Medical History: Diagnosis Date Anemia 2012 Arrhythmia Arthritis Basal cell carcinoma 10/20/2001 face Bleeding disorder 2012 Bronchitis most recently 6 months ago. Chest pain 2015 Chronic lymphocytic leukemia 2010 Depression H/O cardiovascular stress test 2013 no cath unless progressive symptoms Hay fever 2015 Hives as manifestation of blood transfusion reaction 2012 HTN (hypertension) 2008 Hypogammaglobulinemia 11/07/2017 Measles childhood. Mumps childhood. 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 Pepe Marin COLONOSCOPY FOR COLORECTAL CANCER SCREENING LOW/AVERAGE RISK INDIVIDUAL 2009 BUNIONECTOMY Bilateral 2001 GRAFT PERIODONTAL MUCOSA Physical Exam: BP 129/59 (BP Position: Sitting) Pulse 100 Temp 97.7 F (36.5 C) (Oral) Resp 16 Ht 1.651 m (5' 5 ) Wt 58.1 kg (128 lb 1.6 oz) SpO2 99% BMI 21.32 kg/m Smoking Status Never Smoker ECOG Performance Status: 1 GEN: Well developed, well nourished, AAOx3. No apparent distress. Appropriate mood and affect for clinical situation. HEAD and NECK: Normocephalic, atraumatic. Conjunctiva non-injected. Sclera non-icteric. PERRL, EOMI. Neck supple. Oral mucosa is pink, moist, not inflamed and without lesions. CARDIO: Regular rate and rhythm, no murmurs, click or gallop. CHEST: Lungs are clear to auscultation bilaterally, no wheezes, rhonchi or rales. ABDOMEN: Soft, non-tender, non-distended, hepatosplenomegaly not appreciated. No mass. NEURO: Cranial nerves II-XII grossly intact, no focal deficits. SKIN: skin color, texture, turgor normal. Anicteric. No rash, lesions, masses. Skin is warm and dry. EXTREMITIES: No cyanosis. No calf tenderness. Trace pedal edema. Lymph Node examination: Location Right cm Left cm Cervical neg neg Supraclavicular neg neg Axillary neg neg Inguinal neg neg Femoral neg neg Results: CBC Lab Results Component Value Date WBC 136.04 (HH) 05/24/2021 HGB 9.0 (L) 05/24/2021 HCT 30.4 (L) 05/24/2021 PLATELET 162 05/24/2021 MCV 110.9 (H) 05/24/2021 EDIF Lab Results Component Value Date RBCDISTRIBU 16.0 (H) 05/24/2021 GRNLOCYT 1.9 05/24/2021 LYMPHOCYT 97.4 05/24/2021 MONOCYTELEC 0.4 05/24/2021 EOSINOPHILS 0.1 05/24/2021 BASOPHILS 0.1 05/24/2021 GRNLOCTYABS 6.0 02/10/2017 LYMPHOCYTABS 132.56 (H) 05/24/2021 MONOSABSOLU 0.8 02/10/2017 EOSINOPHLABS 0.19 05/24/2021 BASOPHILSABS 0.0 02/10/2017 PLATELET 162 05/24/2021 MPV 9.9 05/24/2021 Assessment/Plan: 1. CLL, IgVH unmutated: Dx in 2010. She had a BMBx done on 07/17/20. SF3B1 and XPO1 mutations same as previous. CLL >80%.Therapy for CLL was discussed with acalabrutinib or a clinical trial of novel BTK inhibitor LOXO 305, she elected to begin treatment with acalabrutinib 100mg BID on 08/29/20. She developed new hand/finger pain in early Sep, worsening back pain since starting acalabrutinib, pain did not improve with dose decrease to 100 mg daily on 09/11/20. She started Medrol DosePak 09/25/20. Hand and back pain responded to steroids but recurred. She reports this type of pain occurred with ibrutinib. She followed up with neurosurgery (s/p kyphoplasty in May), not concerned for new fracture, she was referred to osteoporosis clinic. On 12/18/20 she held acalabrutinib due to severe arthralgias. Since holding, she has had improvement in hand and back pain but has experienced progressive fatigue, adenopathy, and lymphocytosis. Her Hgb is 9.7 g/dl and she would benefit from resuming treatment. Discontinued acalabrutinib in 02/2021. Test claim for Zanubrutinib was previously placed and approved. She was provided further drug education and that hopefully arthralgias will be less severe on this BTKi. She initiated zanubrutinib on 04/10/21. I added that should she progress through zanubrutinib, I we can consider venetoclax/obinituzumab as an alternative treatment option. She presents today for follow-up and evaluation. She has been tolerating zanubrutinib fairly well and has experienced redistribution lymphocytosis noted with increased WBC. Her Hb has yet to improve and likely contributing to her ongoing fatigue/ROWE. Labs ordered at previous visit not c/w hemolysis. Ferritin WNL. Exact cause of anemia remains unknown. She started oral B12 for low normal B12 levels to see if this may help. Pt would like to avoid BM bx. Will continue treatment for additional month and revisit BM bx to further evaluate her anemia if needed. Continue weekly local labs. Heme: WBC 136.04, Hgb 9.0, Plt 162K 2. ID: Continue Valacyclovir 500 mg daily for VZV/HSV prophylaxis. IgG level is 533. We will monitor for persistent/recurrent infections. She states she is receiving IVIG locally in [place] when IGG < 600. Would like IGG drawn with every visit here. 3. Health Maintenance: Patient visits with PCP annually and Dermatology biannually. she is up to date with her vaccinations. We also suggest avoiding live vaccine, and continuing cancer screening for skin cancer, colon, and breast cancer. Her last colonoscopy was 15-20 years ago; the patient has been educated on the importance of primary care. Patient was recently diagnosed with osteopenia. Discussed with pharmacist and bisphosphonates are ok to take with zanubrutinib. 4. COVID-19: It was discussed with patient that she is at higher risk for more severe illness with COVID19 due to her CLL. Recommended vaccination. Pt declines. RTC in 1 month w/ weekly labs. Case and care plan discussed with Dr. Abdalla. Reviewed After Visit Summary with patient and family. Discussed any medication changes and recommendations from physician. All questions answered. Patient and family encouraged to call with any additional questions. documented in this encounter [facility] 06-05-2021 Instructions Nettie Casper RN - 06/05/2021 10:40 AM EDT YOUR PRIMARY TEAM Dr. Sarina Santoyo CNP - Nurse Practitioner Diana Dennis CNP - Nurse Practitioner Roxann Rollins RN - Primary Nurse Will Casper RN - Secondary Nurse Please contact our office if you develop a temperature of 100.4 or greater. CONTACT NUMBERS Clinic phone: [phone] Clinic fax: [phone] MEDICAL RECORDS The Release of Information (TA) area is staffed from 8:00 a.m. to 7:00 p.m. and is available for walk in requests from 8:00 a.m. to 4:[address] [facility] is responsible for answering requests for copies of medical records from various requestors such as insurance companies, attorneys, hospitals and patients. Please note it can take up to 2 weeks to complete your request. [phone]; [phone] (fax). FINANCIAL CONCERNS Any questions regarding billing for services or insurance coverage concerns should be directed to our billing department at [phone]. DISABILITY FORMS This category includes any form (STD, LTD, FMLA, cancer insurance policy) requiring information to be completed by a physician or nurse practitioner. The forms should be given to the clinic nurse. There is no fee associated with this request but note it may take 2 weeks to complete. The forms cannot be completed during a clinic visit or within 24 hours of your request. It is important to place the patient s name, employee s name, patient s date, date disability begins and ends, and any required signatures. Ask our team about the suggested recovery time. [employer] is a secure way to get access to your health records online. The medical information you will have access to within the [employer] program is only selected portions of your entire chart, such as basic laboratory results, summary medical history, visit history, and selected billing information. It will also allow you to communicate with your health care provider through email. To provide you with the best quality care available, we need to be able to discuss these results with you personally. If you are unable to obtain the results of a test that you can't find within the My Chart please feel free to call us and we will get back to you with that information. For non-emergent concerns, please send us a [employer] message but describe your issue fully. When sending a message to the provider, please know that these messages will be received and answered by the primary nurse practitioner. The nurse practitioner will consult your physician when needed. For questions or concerns regarding [employer] access or technical dificulties, please call [phone] or toll free at . __ Results for orders placed or performed in visit on 06/05/21 RETICULOCYTES Result Value Ref Range Retic Count 2.81 (H) 0.74 - 2.54 % Retic Absolute 0.0753 0.0324 - 0.1142 M/uL LACTATE DEHYDROGENASE Result Value Ref Range LD Total 183 100 - 190 U/L COMPREHENSIVE METABOLIC PANEL Result Value Ref Range Sodium 137 133 - 143 mmol/L Potassium 4.5 3.5 - 5.0 mmol/L Chloride 105 98 - 108 mmol/L BUN 21 7 - 22 mg/dL Creatinine 0.87 0.50 - 1.20 mg/dL Glucose 157 (H) 70 - 99 mg/dL Bilirubin Total 0.7 <1.5 mg/dL Albumin 4.2 3.5 - 5.0 g/dL Total Protein 6.6 6.4 - 8.3 g/dL AST 18 14 - 40 U/L ALP 54 32 - 126 U/L Calcium 9.5 8.6 - 10.5 mg/dL Bun/Crea Ratio 24 CO2 25 22 - 30 mmol/L ALT 12 9 - 48 U/L EST GFR,Non >=60 >=60 mL/min/1.73sqM EST GFR, >=60 >=60 mL/min/1.73sqM Osmolality (Calculated) 295 278 - 305 mOsm/kg Anion Gap 12 7 - 17 mmol/L CBC AND ELECTRONIC DIFF Result Value Ref Range WBC Count 170.55 (HH) 3.99 - 11.19 K/uL RBC Count 2.68 (L) 3.91 - 5.04 M/uL Hemoglobin 8.5 (L) 11.4 - 15.2 g/dL Hematocrit 30.0 (L) 34.9 - 44.3 % Mean Cell Volume 111.9 (H) 79.6 - 97.7 fL Mean Cell Hgb 31.7 25.9 - 33.9 pg Mean Cell Hgb Conc 28.3 (L) 31.4 - 35.9 g/dL RBC Distribution 15.9 (H) 10.8 - 14.9 % Platelet Count 208 150 - 393 K/uL Mean Platelet Volume 9.6 8.5 - 12.2 fL Segs + Bands Auto Immature Grans % Lymphocyte % Auto Monocyte % Auto Eosinophil % Auto Basophil % Auto Segs + Bands,Absolute Auto Immature Grans Absolute Abs Lymph Auto Abs Asotin Auto Abs Eos Auto Abs Baso Auto MANUAL DIFF Result Value Ref Range DIFF STATUS Manual Differential Bands Relative 0.0 % Segs Relative 2.0 % Lymph Relative 97.0 % [place]otin Relative 0.0 % Eos Relative 1.0 % Baso Relative 0.0 % Nucleated RBC 0.0 <=0.0 /100 WBC Segs & Bands, Absolute 3.41 1.64 - 7.28 K/uL Abs Lymph Manual 165.43 (H) 1.16 - 3.51 K/uL Abs Asotin Manual 0.00 (L) 0.22 - 0.87 K/uL Abs Eos Manual 1.71 (H) 0.00 - 0.42 K\uL Abs Baso Manual 0.00 0.00 - 0.15 K/uL RBC Morphology RBC INDICES CONFIRMED WITH MANUAL SLIDE REVIEW Platelet Estimate Automated platelet count confirmed by manual slide review documented in this encounter [facility] 01-31-2021 Note HNO ID: [id number] Author: Bharat Durbin MD Service: ? Author Type: Physician Type: Progress Notes Filed: 01/31/2021 11:57 AM Note Text: Bharat Durbin M.D. [facility] General Orthopedics - Orthopedic Spine Surgeon [address], [place] [address] [address] [facility] [address] [address], [place] [address] Phone: [phone] ([employer]) FAX: [phone] ([place]) SPINE SURGERY OUTPATIENT CONSULT SERVICE DATE: 01/31/2021 PCP: Savannah Rios MD REFERRING PROVIDER: Bharat Durbin MD [address] [facility] [address] CHIEF COMPLAINT: low back pain HISTORY OF PRESENT ILLNESS Monse Orona is a 70 year old female presenting alone. ? Ms. Orona presents to the office as a new patient with imaging of her thoracolumbar spine. She was evaluated by Dr. Trejo in her past for T12 compression fracture (with vertebroplasty 05/10/[address] Saldana.) She was referred to the osteoporosis clinic. She stated she began having low back pain in July after she was placed on Calquence for her CLL. Osteoporosis clinic then referred her to us. We saw her in office on 01/24/2021, where she reported haviing right sided low back pain radiating upward into her thoracic spine. She denied radiation to her legs. She denied balance issues, numbness or tingling. She stated the Osteoporosis clinic wanted to begin Fosomax; however, she needed clearance per her Oncologist. Her T score = -1.6 She also stopped taking her Calquence due to increasing pain however oncology planned to restart this in the next two months. She was active in PT, with plans to switch to aquatic therapy. We recommended new imaging. Today symptoms are unchanged. ? PREVIOUS CONSERVATIVE TREATMENTS: Physical Therapy >6 weeks (November 2020- December 2020) ? PREVIOUS SPINE SURGERIES: Vertebroplasty April 2020 The following portions of the patient's history were reviewed and updated as appropriate: allergies, current medications, past family history, past medical history, past social history, past surgical history and problem list. ACTIVE PROBLEM LIST FATIGUE OSTEOPENIA HYPERTENSION BENIGN Unspecified Vitamin D Deficiency Routine Medical Exam Svt (Supraventricular Tachycardia) (Hcc) Cll (Chronic Lymphocytic Leukemia) ([facility]) Anemia, Unspecified Drug Induced Neutropenia(288.03) Cough Cmc Arthritis, Thumb, Degenerative Rowe (Dyspnea On Exertion) Tibialis Posterior Tendon Rupture Hypogammaglobulinemia (Hcc) Permanent atrial fibrillation (HCC) At Risk for Stroke At Risk for Bleeding Associated With Anticoagulants History of Falling At Risk for Falling Essential Hypertension Rheumatoid Arthritis ([facility]) History of Syncope Presence of Watchman Left Atrial Appendage Closure Device T12 Compression Fracture ([facility]) Chronic Bilateral Low Back Pain Without Sciatica PAST MEDICAL HISTORY Diagnosis Date - Anemia, unspecified - Anticoagulant long-term use DOAC rivaroxaban (Xarelto); 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 - Asymptomatic varicose veins - At risk for bleeding associated with anticoagulants HAS-BLED = 1 (age > 65 yrs), but other risk factors include high risk for recurrent falls, chronic or recurrent anemia requiring blood transfusions due to cancer (leukemia), and need/desire to take NSAID RX for rheumatoid arthritis pain - At risk for falling history of frequent falling; high risk for future recurrent falling - At risk for stroke [id number] = 3 (HTN, age, female gender); s/p Watchman left atrial appendage closure device implantation as alternative to oral anticoagulation therapy for stroke prevention - Attention deficit disorder with hyperactivity(314.01) - Carpal tunnel syndrome - CLL (chronic lymphocytic leukemia) (HCC) 12/06/2011 diagnosed 12/2010 - Depressive disorder, not elsewhere classified - Essential hypertension - History of falling history of frequent falling, with injury - History of syncope 07/2018 - Hypoglycemia, unspecified - Leukocytosis - Osteoarthrosis, unspecified whether generalized or localized, unspecified site - Osteoporosis, unspecified - Other and unspecified nonspecific immunological findings - Other extrapyramidal disease and abnormal movement disorder - Paroxysmal supraventricular tachycardia (HCC) - Permanent atrial fibrillation (HCC) persistent, probably permanent, nonvalvular atrial fibrillation; asymptomatic or minimally symptomatic - Presence of Watchman left atrial appendage closure device 11/23/2019 [employer] Watchman left atrial appendage closure device implant 11/23/2019 - Rheumatoid arthritis (HCC) - Right bundle branch block PAST SURGICAL HISTORY Procedure Laterality Date - BACK SURGERY HX 04/2020 - PAST SURGICAL HISTORY OF gum surgery - PAST SURGICAL HISTORY OF 2002 bunionectomy - CHELSY 11/23/2019 - TE (more content not included)... [facility] 01-24-2021 Note HNO ID: [id number] Author: Bharat Durbin MD Service: ? Author Type: Physician Type: Progress Notes Filed: 01/24/2021 1:52 PM Note Text: Bharat Durbin M.D. [facility] Orthopedics - Orthopedic Spine Surgeon [address] [facility] [address], [facility] [address] [address] [facility] [address] [address] [facility] [facility] [address], [facility] [address] Phone: [phone] ([facility]) FAX: [phone] ([place]) SPINE SURGERY OUTPATIENT CONSULT SERVICE DATE: 01/24/2021 PCP: Savannah Rios MD REFERRING PROVIDER: Anika Wood PA-C [address] [facility] [address] CHIEF COMPLAINT: low back pain HISTORY OF PRESENT ILLNESS Monse Orona is a 70 year old female presenting alone. Ms. Orona presents to the office as a new patient with imaging of her lumbar spine. She is referred by the Osteoporosis Clinic. She has seen Dr. Trejo in her past for T12 compression fracture (with vertebroplasty 05/10/[address] Saldana.) She was referred to the osteoporosis clinic. She stated she began having low back pain after she was placed on Calquence for her CLL about 3 months ago. Today she states she has right sided low back pain which radiates upward into her thoracic spine. She denies radiation to her legs. She denies balance issues, numbness or tingling. She states the Osteoporosis clinic would like to begin Fosomax; however, she needs clearance per her Oncologist. Her T score = -1.6 She has also stopped taking her Calquence due to increasing pain however oncology plans to restart this in the next two months. She has been active in PT. They would like to switch her to aquatic therapy. PREVIOUS CONSERVATIVE TREATMENTS: Physical Therapy >6 weeks (November 2020- December 2020) PREVIOUS SPINE SURGERIES: Vertebroplasty April 2020 The following portions of the patient's history were reviewed and updated as appropriate: allergies, current medications, past family history, past medical history, past social history, past surgical history and problem list. ACTIVE PROBLEM LIST FATIGUE OSTEOPENIA HYPERTENSION BENIGN Unspecified Vitamin D Deficiency Routine Medical Exam Svt (Supraventricular Tachycardia) ([facility]) Cll (Chronic Lymphocytic Leukemia) ([facility]) Anemia, Unspecified Drug Induced Neutropenia(288.03) Cough Cmc Arthritis, Thumb, Degenerative Rowe (Dyspnea On Exertion) Tibialis Posterior Tendon Rupture Hypogammaglobulinemia (Hcc) Permanent atrial fibrillation (HCC) At Risk for Stroke At Risk for Bleeding Associated With Anticoagulants History of Falling At Risk for Falling Essential Hypertension Rheumatoid Arthritis ([facility]) History of Syncope Presence of Watchman Left Atrial Appendage Closure Device T12 Compression Fracture ([facility]) Chronic Bilateral Low Back Pain Without Sciatica PAST MEDICAL HISTORY Diagnosis Date - Anemia, unspecified - Anticoagulant long-term use DOAC rivaroxaban (Xarelto); 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 - Asymptomatic varicose veins - At risk for bleeding associated with anticoagulants HAS-BLED = 1 (age > 65 yrs), but other risk factors include high risk for recurrent falls, chronic or recurrent anemia requiring blood transfusions due to cancer (leukemia), and need/desire to take NSAID RX for rheumatoid arthritis pain - At risk for falling history of frequent falling; high risk for future recurrent falling - At risk for stroke [id number] = 3 (HTN, age, female gender); s/p Watchman left atrial appendage closure device implantation as alternative to oral anticoagulation therapy for stroke prevention - Attention deficit disorder with hyperactivity(314.01) - Carpal tunnel syndrome - CLL (chronic lymphocytic leukemia) (HCC) 12/06/2011 diagnosed 12/2010 - Depressive disorder, not elsewhere classified - Essential hypertension - History of falling history of frequent falling, with injury - History of syncope 07/2018 - Hypoglycemia, unspecified - Leukocytosis - Osteoarthrosis, unspecified whether generalized or localized, unspecified site - Osteoporosis, unspecified - Other and unspecified nonspecific immunological findings - Other extrapyramidal disease and abnormal movement disorder - Paroxysmal supraventricular tachycardia (HCC) - Permanent atrial fibrillation (HCC) persistent, probably permanent, nonvalvular atrial fibrillation; asymptomatic or minimally symptomatic - Presence of Watchman left atrial appendage closure device 11/23/2019 [employer] Watchman left atrial appendage closure device implant 11/23/2019 - Rheumatoid arthritis (HCC) - Right bundle branch block PAST SURGICAL HISTORY Procedure Laterality Date - BACK SURGERY HX 04/2020 - PAST SURGICAL HISTORY OF gum surgery - PAST SURGICAL HISTORY OF 2002 bunionectomy - CHELSY 11/23/2019 - CHELSY 01/11/2020 45-day post Watchman implant - TOTAL KNEE REPLACEMENT Left 2017 Dr. Pepe Marin (more content not included)... [facility] 01-17-2021 Note HNO ID: [id number] Author: Katelyn Ragland (Tech) Service: ? Author Type: Web Interface Developer Type: Progress Notes Filed: 01/18/2021 3:50 PM Note Text: Review of Systems: CONSTITUTIONAL: Denies fever, chills, myalgias, fatigue, weakness, unintentional weight loss or weight gain. NEURO: Denies headaches, weakness, numbness or tingling. HENT: Denies headaches, vision changes, blurred vision, epistaxis, nasal drainage, history of dentures/implants, tooth decay, history of gum disease, changes in oral health, dysphagia or jaw pain. CARDIOVASCULAR: HTN RESPIRATORY: Denies coughing, wheezing, dyspnea, history of asthma or COPD. GI: Denies dysphagia, nausea, vomiting, stomach pain, diarrhea, or constipation, or other gastrointestinal complaints. SKIN: Denies pruritis, rash, depigmentation, hair or nail changes. MUSCULOSKELETAL: Low back pain [facility] 01-17-2021 Note HNO ID: [id number] Author: Anika Wood Service: ? Author Type: Physician Certified Activities Director Type: Progress Notes Filed: 01/18/2021 3:50 PM Note Text: [facility] Bone Health Program New Patient Evaluation Impression: Monse Orona is a 70 year old White female with osteoporosis who is being seen today for a bone health evaluation. Last bone mineral density was 06/01/20. Risk factors include: age, race, postmenopausal, early menopause, CLL, RA, Height Loss, Balance problems, consumes 2-5 cups of caffeine per day, and fracture history of compression fracture T12. ASSESSMENT: 1. Age-related osteoporosis with current pathological fracture, initial encounter - ICD9: 733.10, 733.01, ICD10: M80.00XA (primary diagnosis) - PTH INTACT BLD - PROTEIN ELECTROPHORESIS SERUM W/INTERP - PROTEIN ELECT RND UR W/INTERP - PHOSPHORUS INORGANIC - MAGNESIUM BLD - CALCIUM 24 HR URINE 2. Compression fracture of T12 vertebra with routine healing, subsequent encounter - ICD9: V54.17, ICD10: S22.080D - PTH INTACT BLD - PROTEIN ELECTROPHORESIS SERUM W/INTERP - PROTEIN ELECT RND UR W/INTERP - PHOSPHORUS INORGANIC - MAGNESIUM BLD - CALCIUM 24 HR URINE - CONSULT TO ORTHOPAEDICS 3. Chronic right-sided low back pain, unspecified whether sciatica present - ICD9: 724.2, 338.29, ICD10: M54.5, G89.29 - PTH INTACT BLD - PROTEIN ELECTROPHORESIS SERUM W/INTERP - PROTEIN ELECT RND UR W/INTERP - PHOSPHORUS INORGANIC - MAGNESIUM BLD - CALCIUM 24 HR URINE - CONSULT TO ORTHOPAEDICS 4. History of bisphosphonate therapy - ICD9: V87.49, ICD10: Z92.29 - PTH INTACT BLD - PROTEIN ELECTROPHORESIS SERUM W/INTERP - PROTEIN ELECT RND UR W/INTERP - PHOSPHORUS INORGANIC - MAGNESIUM BLD - CALCIUM 24 HR URINE 5. Postmenopausal - ICD9: V49.81, ICD10: Z78.0 - PTH INTACT BLD - PROTEIN ELECTROPHORESIS SERUM W/INTERP - PROTEIN ELECT RND UR W/INTERP - PHOSPHORUS INORGANIC - MAGNESIUM BLD - CALCIUM 24 HR URINE 6. Early menopause - ICD9: 256.31, ICD10: E28.319 - PTH INTACT BLD - PROTEIN ELECTROPHORESIS SERUM W/INTERP - PROTEIN ELECT RND UR W/INTERP - PHOSPHORUS INORGANIC - MAGNESIUM BLD - CALCIUM 24 HR URINE 7. Height loss - ICD9: 781.91, ICD10: R29.890 - PTH INTACT BLD - PROTEIN ELECTROPHORESIS SERUM W/INTERP - PROTEIN ELECT RND UR W/INTERP - PHOSPHORUS INORGANIC - MAGNESIUM BLD - CALCIUM 24 HR URINE 8. CLL (chronic lymphocytic leukemia) ([facility]) - ICD9: 204.10, ICD10: C91.10 - PTH INTACT BLD - PROTEIN ELECTROPHORESIS SERUM W/INTERP - PROTEIN ELECT RND UR W/INTERP - PHOSPHORUS INORGANIC - MAGNESIUM BLD - CALCIUM 24 HR URINE 9. Rheumatoid arthritis, involving unspecified site, unspecified whether rheumatoid factor present ([facility]) - ICD9: 714.0, ICD10: M06.9 - PTH INTACT BLD - PROTEIN ELECTROPHORESIS SERUM W/INTERP - PROTEIN ELECT RND UR W/INTERP - PHOSPHORUS INORGANIC - MAGNESIUM BLD - CALCIUM 24 HR URINE 10. Balance problems - ICD9: 781.99, ICD10: R26.89 - PTH INTACT BLD - PROTEIN ELECTROPHORESIS SERUM W/INTERP - PROTEIN ELECT RND UR W/INTERP - PHOSPHORUS INORGANIC - MAGNESIUM BLD - CALCIUM 24 HR URINE - CONSULT TO ORTHOPAEDICS 11. Consumes 3 to 4 servings of caffeine per day - ICD9: V49.89, ICD10: Z78.9 - PTH INTACT BLD - PROTEIN ELECTROPHORESIS SERUM W/INTERP - PROTEIN ELECT RND UR W/INTERP - PHOSPHORUS INORGANIC - MAGNESIUM BLD - CALCIUM 24 HR URINE Plan Bone density is up to date. Will check lab work to rule out other causes contributing to fracture. 1. We discussed risks, benefits, side effects and administration of treatment options available for fracture prevention. Opting for Antiresorptive medication. 2. We also discussed the importance of diet and vitamin supplementation, lifestyle modifications, safety/fall precautions and regular weight bearing exercise as it pertains to bone health and fracture prevention. 3. I advised the patient to discuss osteoporosis medication options with her dentist. If patient decides to opt for an osteoporosis medication, I recommend letting her dentist know. - If patient is not currently seeing a dentist, I highly advise establishing care as soon as possible. 4. Patient expressed wanting to see someone for further evaluation of back pain symptoms. Consult placed today. 5. Follow up 1 month to discuss lab results and decide on tx - Patient expressed understanding of all information discussed and all questions were answered to apparent satisfaction. Referring Physician: Dr. Trejo Primary Care Physician: Dr. Rios Reason for Consultation: Patient is at risk for fracture. Needs Osteoporosis evaluation and counseling. HPI: Monse Orona is a 70 year old ambulatory independent White female with osteoporosis. she admits to being treated with osteoporosis medications in the past. States she was on Fosamax for at least 3 years over 30 years ago, but has not had any treatmetn sin (more content not included)... [facility] 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- Primary Chronic lymphoid leukemia, without mention of having achieved remission [facility] Diagnosis 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- Primary Chronic lymphoid leukemia, without mention of having achieved remission [facility] Diagnosis CLL (chronic lymphocytic leukemia)- Primary Chronic lymphoid leukemia, without mention of having achieved remission [facility] Diagnosis CLL (chronic lymphocytic leukemia)- Primary Chronic lymphoid leukemia, without mention of having achieved remission documented in this encounter [facility] Summary Purpose Family History No Family History Records FoundNo Family History Records FoundNo Family History Records FoundNo Family History Records FoundNo Family History Records Found Advance Directives No Advanced Directives Records FoundDocuments on File Type Date Recorded Patient Clinical Biostatistician Expl [facility] Power of Turkey Cleaner 04/16/2016 12:00 AM Advance Directives/Living Will 04/16/2016 12:00 AM Latest Code Status on File Code Status Date Activated Date Inactivated Comments DNRCC-ARREST 08/31/2016 1:01 PM 09/06/2016 3:[address] discussed Monse Orona's Do Not Resuscitate wishes with her. She is in agreement with this code status. Full Code 03/30/2016 4:47 PM 04/02/2016 8:24 PM Full Code-Unverified 03/30/2016 2:57 PM 03/30/2016 4:47 PM Latest Code Status on File Code Status Date Activated Date Inactivated Comments DNRCC-ARREST 08/31/2016 1:01 PM 09/06/2016 3:[address] discussed Monse Orona's Do Not Resuscitate wishes with her. She is in agreement with this code status. Code Status History Code Status Date Activated Date Inactivated Comments Full Code 03/30/2016 4:47 PM 04/02/2016 8:24 PM Full Code-Unverified 03/30/2016 2:57 PM 03/30/2016 4:47 PM Documents on File Type Date Recorded Patient Clinical Biostatistician [place] [facility] Power of Turkey Cleaner 04/16/2016 12:00 AM Advance Directives/Living Will 04/16/2016 12:00 AM Latest Code Status on File Code Status Date Activated Date Inactivated Comments DNRCC-ARREST 08/31/2016 1:01 PM 09/06/2016 3:14 PM I estephania leong discussed Monse Orona's Do Not Resuscitate wishes with her. She is in agreement with this code status. Code Status History Code Status Date Activated Date Inactivated Comments Full Code 03/30/2016 4:47 PM 04/02/2016 8:24 PM Full Code-Unverified 03/30/2016 2:57 PM 03/30/2016 4:47 PM Reason for Referral Specialty Diagnoses / Procedures Referred By Contluca t Referred To Contact Diagnoses CLL (chronic lymphocytic leukemia) Procedures BTK RESISTANCE MUTATION, BLOOD Bettina Santoyo APRN-MANAGER [employer]IV[employer] [address] [place] [address] Referral ID Status Reason Start Date Expiration Date V isits Requested Visits Authorized [id number] New Request 10/30/2023 11/23/2024 1 1 Additional Source Comments INFORMATION SOURCE (unrecogn ized section and content) DATE CREATED AUTHOR AUTHOR'S ORGANIZ ATION 02/02/2021 [facility] DATE CREATED AUTHOR AUTHOR'S ORGANIZ ATION 11/28/2021 [facility] DATE CREATED AUTHOR AUTHOR'S ORGANIZ ATION 12/30/2021 [facility] DATE CREATED AUTHOR AUTHOR'S ORGANIZ ATION 12/02/2023 [facility] Care Teams (unrecognized sec tion and content) Grounds Manager Relationship Specialty Start Date End Date Savannah Rios MD [address] [place] [address] PCP - General Family Medicine 01/05/19 Vitaly Ortega MD Cardiovascular Medicine 07/04/16 Master Kuo MD [address] [place] [address] Hematology 10/12/18 Cong Aguirre MB/CHB [address] [place] [address] Hematology 10/23/18 Ada Mckinney, MASTICATOR-MANAGER CIVIL [address] [place] [address] Certified Nurse Practitioner 09/11/20 Chris Avitia, [facility] [address] [place] [address] Pharmacist Pharmacist 04/12/[address], [facility],PharmD [address] [place] [address] Pharmacist 04/12/21 Vitaly Otto, [facility] [address] [place] [address] Pharmacist Pharmacist 04/12/21 Dr. Harsh Denton [address] [place] [address] Neurology 01/05/19 Grounds Manager Relationship Specialty Start Date End Date Savannah Rios MD [address] [place] [address] PCP - General Family Medicine 01/05/19 Vitaly Ortega MD Cardiovascular Medicine 07/04/16 Master Kuo MD [address] [place] [address] Hematology 10/12/18 Cong Aguirre MB/CHB [address] [place] [address] Hematology 10/23/18 Ada Mckinney, MASTICATOR-MANAGER CIVIL [address] [place] [address] Certified Nurse Practitioner 09/11/20 Chris Avitia, [facility] [address] [place] [address] Pharmacist Pharmacist 04/12/[address] RPh,PharmD [address] [place] [address] Pharmacist 04/12/21 Vitaly Otto, [facility] [address] [place] [address] Pharmacist Pharmacist 04/12/21 Dr. Harsh Denton [address] [place] [address] Neurology 01/05/19 Grounds Manager Relationship Specialty Start Date End Date Savannah Rios MD [address] [place] [address] PCP - General Family Medicine 01/05/19 Vitaly Ortega MD Cardiovascular Medicine 07/04/16 Master Kuo MD [address] [place] [address] Hematology 10/12/18 Cong Aguirre MB/KELLY [address] [place] [address] Hematology 10/23/18 Ada Mckinney, MASTICATOR-MANAGER CIVIL [address] [place] [phone] Certified Nurse Practitioner 09/11/20 Chris Avitia, [facility] [address] [place] [address] Pharmacist Pharmacist 04/12/[address] RPh,PharmD [address] [place] [address] Pharmacist 04/12/21 Vitaly Otto, NINI [address] [place] [address] Pharmacist Pharmacist 04/12/21 Dr. Harsh Denton [address] [place], [place] [address] Neurology 01/05/19 Grounds Manager Relationship Specialty Start Date End Date Savannah Rios MD [address] [place] [address] PCP - General Family Medicine 01/05/19 Vitaly Ortega MD Cardiovascular Medicine 07/04/16 Master Kuo MD [address] [place] [address] Hematology 10/12/18 Cong Aguirre MB/CHB [address] [place] [address] Hematology 10/23/18 Ada Mckinney, MASTICATOR-MANAGER CIVIL [address] [place] [phone] Certified Nurse Practitioner 09/11/20 Chris Avitia, [facility] [address] [place] [address] Pharmacist Pharmacist 04/12/[address], [facility],PharmD [address] [place] [address] Pharmacist 04/12/21 Vitaly Otto, [facility] [address] [place] [address] Pharmacist Pharmacist 04/12/21 Dr. Harsh Denton [address] [place] [address] Neurology 01/05/19 Grounds Manager Relationship Specialty Start Date End Date Savannah Rios MD [address] [place] [address] PCP - General Family Medicine 01/05/19 Vitaly Ortega MD Cardiovascular Disease 07/04/16 Master Kuo MD [address]th [place] [address] Hematology 10/12/18 Cong Aguirre MB/CHB [address] [place] [address] Hematology 10/23/18 Ada Mckinney, MASTICATOR-MANAGER [employer]IVIL [address] [place] [address] Certified Nurse Practitioner 09/11/20 Chris Avitia, [facility] [address] [place] [address] Pharmacist Pharmacist 04/12/[address], [facility],PharmD [address] [place] [address] Pharmacist 04/12/21 Vitaly Otto, [facility] [address] [place] [address] Pharmacist Pharmacist 04/12/21 Dr. Harsh Denton [address] [place] [address] Neurology 01/05/19 Grounds Manager Relationship Specialty Start Date End Date Savannah Rios MD [address] [place] [address] PCP - General Family Medicine 01/05/19 Vitaly Ortega MD Cardiovascular Disease 07/04/16 Master Kuo MD [address] [place] [address] Hematology 10/12/18 Cong Aguirre MB/CHB [address] [place] [address] Hematology 10/23/18 Ada Mckinney, MASTICATOR-MANAGER [employer]IV[employer] [address] [place] [address] Certified Nurse Practitioner 09/11/20 Chris Aivtia, [facility] [address] [place] [address] Pharmacist Pharmacist 04/12/[address] RPh,PharmD [address] [place] [address] Pharmacist 04/12/21 Vitaly Otto RPH [address] [place] [address] Pharmacist Pharmacist 04/12/21 Dr. Harsh Denton [address] [place] [address] Neurology 01/05/19 Grounds Manager Relationship Specialty Start Date End Date Savannah Rios MD [address] [place] [address] PCP - General Family Medicine 01/05/19 Vitaly Ortega MD Cardiovascular Disease 07/04/16 Master Kuo MD [address] [place] [address] Hematology 10/12/18 Cong Aguirre MB/CHB [address] [place] [address] Hematology 10/23/18 Ada Mckinney, MASTICATOR-MANAGER [employer]IV[employer] [address] [place] [phone] Certified Nurse Practitioner 09/11/20 Chris Avitia, RPH [address] [place] [address] Pharmacist Pharmacist 04/12/[address] RPh,PharmD [address] [place] [address] Pharmacist 04/12/21 Vitaly Otto RPH [address] [place] [address] Pharmacist Pharmacist 04/12/21 Dr. Harsh Denton [address] [place] [address] Neurology 01/05/19 Grounds Manager Relationship Specialty Start Date End Date Savannah Rios MD [address] [place] [address] PCP - General Family Medicine 01/05/19 Vitaly Ortega MD Cardiovascular Disease 07/04/16 Master Kuo MD [address] [place] [address] Hematology 10/12/18 Cong Aguirre MB/CHB [address] [place] [address] Hematology 10/23/18 Ada Mckinney, MASTICATOR-MANAGER [employer]IV[employer] [address] [place] [address] Certified Nurse Practitioner 09/11/20 Chris Avitia, [facility] [address] [place] [phone] Pharmacist Pharmacist 04/12/[address], [facility],PharmD [address] [place] [address] Pharmacist 04/12/21 Vitaly Otto, [facility] [address] [place] [address] Pharmacist Pharmacist 04/12/21 Dr. Harsh Denton [address] [place] [address] Neurology 01/05/19 Grounds Manager Relationship Specialty Start Date End Date Savannah Rios MD [address] [place] [address] PCP - General Family Medicine 01/05/19 Vitaly Ortega MD Cardiovascular Disease 07/04/16 Cong Aguirre MB/CHB [address] [place] [address] Hematology 10/23/18 Ada Mckinney, MASTICATOR-MANAGER [employer]IV[employer] [address] [place] [phone] Certified Nurse Practitioner 09/11/20 Chris Avitia, RP [address] [place] [address] Pharmacist Pharmacist 04/12/[address] RPh,PharmD [address] [place] [address] Pharmacist 04/12/21 Vitaly Otto, RPEstephania [address] [place] [address] Pharmacist Pharmacist 04/12/21 Sarina Abdalla MD [address] [place] [address] Hematology 10/08/22 Dr. Harsh Denton [address] [place] [address] Neurology 01/05/19 Grounds Manager Relationship Specialty Start Date End Date Savannah Rios MD [address] [place] [address] PCP - General Family Medicine 01/05/19 Vitaly Ortega MD Cardiovascular Disease 07/04/16 Cong Aguirre MB/CHB [address] [place] [address] Hematology 10/23/18 Ada Mckinney, MASTICATOR-MANAGER [employer] [address] [place] [address] Certified Nurse Practitioner 09/11/20 Chris Avitia RPEstephania [address] [address] Pharmacist Pharmacist 04/12/[address] RPh,PharmD [address] [place] [address] Pharmacist 04/12/21 Viatly Otto RPH [address] [place] [address] Pharmacist Pharmacist 04/12/21 Sarina Abdalla MD [address]th [place] [address] Hematology 10/08/22 Dr. Harsh Denton [address] [place] [address] Neurology 01/05/19 Grounds Manager Relationship Specialty Start Date End Date Savannah Rios MD [address] [place] [address] PCP - General Family Medicine 01/05/19 Vitaly Ortega MD Cardiovascular Disease 07/04/16 Cong Aguirre MB/KELLY [address] [place] [address] Hematology 10/23/18 Ada Mckinney, MASTICATOR-MANAGER CIVIL [address] [place] [phone] Certified Nurse Practitioner 09/11/20 Chris Avitia, [facility] [address] [place] [address] Pharmacist Pharmacist 04/12/[address], [facility],PharmD [address] [place] [address] Pharmacist 04/12/21 Vitaly Otto, [facility] [address] [place] [address] Pharmacist Pharmacist 04/12/21 Sarina Abdalla MD [address] [place] [address] Hematology 10/08/22 Dr. Harsh Denton [address] [place] [address] Neurology 01/05/19 Grounds Manager Relationship Specialty Start Date End Date Savannah Rios MD [address] [place] [address] PCP - General Family Medicine 01/05/19 Vitaly Ortega MD Cardiovascular Disease 07/04/16 Cong Aguirre MB/CHB [address] [place], [place] [address] Hematology 10/23/18 Ada Mckinney, MASTICATOR-MANAGER CIVIL [address] [place] [address] Certified Nurse Practitioner 09/11/20 Chris Avitia, [facility] [address] [place] [address] Pharmacist Pharmacist 04/12/[address], [facility],PharmD [address] [place] [address] Pharmacist 04/12/21 Vitaly Otto, [facility] [address] [place] [address] Pharmacist Pharmacist 04/12/21 Sarina Abdalla MD [address] [place] [address] Hematology 10/08/22 Dr. Harsh Denton [address] [place] [address] Neurology 01/05/19 Grounds Manager Relationship Specialty Start Date End Date Savannah Rios MD [address] [place], [place] [address] PCP - General Family Medicine 01/05/19 Vitaly Ortega MD Cardiovascular Disease 07/04/16 oCng Aguirre MB/KELLY [address] [place] [address] Hematology 10/23/18 Ada Mckinney, MASTICATOR-MANAGER CIVIL [address] [place] [address] Certified Nurse Practitioner 09/11/20 Chris Avitia, RPH [address] [place] [address] Pharmacist Pharmacist 04/12/[address] RPh,PharmD [address] [place] [address] Pharmacist 04/12/21 Vitaly Otto, RPH [address] [place] [address] Pharmacist Pharmacist 04/12/21 Sarina Abdalla MD [address] [place] [address] Hematology 10/08/22 Dr. Harsh Denton [address] [place] [address] Neurology 01/05/19 Grounds Manager Relationship Specialty Start Date End Date Savannah Rios MD [address] [place], [place] [address] PCP - General Family Medicine 01/05/19 Vitaly Ortega MD Cardiovascular Disease 07/04/16 Cong Aguirre MB/CHB [address] [place] [address] Hematology 10/23/18 Ada Mckinney, MASTICATOR-MANAGER CIVIL [address] [place] [phone] Certified Nurse Practitioner 09/11/20 Chris Avitia, RPH [address] [place] [address] Pharmacist Pharmacist 04/12/[address] RPh,PharmD [address] [place] [address] Pharmacist 04/12/21 Vitaly Otto, MARLYN [address] [place] [address] Pharmacist Pharmacist 04/12/21 Sarina Abdalla MD [address] [place] [phone] Hematology 10/08/22 Dr. Harsh Denton [address] [place], [place] [address] Neurology 01/05/19 Grounds Manager Relationship Specialty Start Date End Date Savannah Rios MD [address] [place] [address] PCP - General Family Medicine 01/05/19 Vitaly Ortega MD Cardiovascular Disease 07/04/16 Cong Aguirre MB/[facility] [address] [place] [address] Hematology 10/23/18 Ada Mckinney, MASTICATOR-MANAGER CIVIL [address] [place] [phone] Certified Nurse Practitioner 09/11/20 Chris Avitia, [facility] [address] [place] [address] Pharmacist Pharmacist 04/12/[address], [facility],PharmD [address] [place] [phone] Pharmacist 04/12/21 Vitaly Otto, [facility] [address] [place] [phone] Pharmacist Pharmacist 04/12/21 Sarina Abdalla MD [address] [place] [address] Hematology 10/08/22 Dr. Harsh Denton [address] [place], [place] [address] Neurology 01/05/19 Grounds Manager Relationship Specialty Start Date End Date Savannah Rios MD [address] [place] [address] PCP - General Family Medicine 01/05/19 Vitaly Ortega MD Cardiovascular Disease 07/04/16 Cong Aguirre MB/CHB [address] [place] [address] Hematology 10/23/18 Ada Mckinney, MASTICATOR-MANAGER CIVIL [address] [place] [phone] Certified Nurse Practitioner 09/11/20 Chris Avitia, [facility] [address] [facility] [address] [place] [address] Pharmacist Pharmacist 04/12/[address], [facility],PharmD [address] [place] [address] Pharmacist 04/12/21 Vitaly Otto, [facility] [address] [facility] [address] [place] [phone] Pharmacist Pharmacist 04/12/21 Sarina Abdalla MD [address] [place] [address] Hematology 10/08/22 Dr. Harsh Denton [address] [place] [address] Neurology 01/05/19 Grounds Manager Relationship Specialty Start Date End Date Savannah Rios MD [address] [place] [address] PCP - General Family Medicine 01/05/19 Vitaly Ortega MD Cardiovascular Disease 07/04/16 Cong Aguirre MB/CHB [address] [place] [address] Hematology 10/23/18 Ada Mckinney APRN-MANAGER CIVIL [address] [place] [address] Certified Nurse Practitioner 09/11/20 Chris Avitia [facility] [address] [place] [address] Pharmacist Pharmacist 04/12/[address] [facility],PharmD [address] [place] [address] Pharmacist 04/12/21 Vitaly Otto [facility] [address] [place] [address] Pharmacist Pharmacist 04/12/21 Sarina Abdalla MD [address] [place] [address] Hematology 10/08/22 Dr. Harsh Denton [address] [place] [address] Neurology 01/05/19 Reason for Visit (unrecogniz ed section and content) Reason Comments Follow-up Specialty Diagnoses / Procedures Referred By Contac t Referred To Contact Diagnoses CLL (chronic lymphocytic leukemia) Procedures BTK RESISTANCE MUTATION, BLOOD Bettina Santoyo, MASTICATOR-MANAGER CIVIL [address] [place] [address] Referral ID Status Reason Start Date Expiration Date V isits Requested Visits Authorized [id number] New Request 10/30/2023 11/23/2024 1 FOR RECORDS PERTAINING TO PATIENTS WHO ARE OR HAVE BEEN ENROLLED IN A CHEMICAL DEPENDENCY/SUBSTANCEABUSE PROGRAM, SOME INFORMATION MAY BE OMITTED. This clinical summary was aggregated from multiple sources. Caution should be exercised in using it in the provision of clinical care. This summary normalizes information from multiple sources, and as a consequence, information in this document may materially change the coding, format and clinical context of patient data. In addition, data may be omitted in some cases. CLINICAL DECISIONS SHOULD BE BASED ON THE PRIMARY CLINICAL RECORDS. [facility]. provides no warranty or guarantee of the accuracy or completeness of information in this document.
== END | disposition home or self-care (01) ==
LOC: SL 19:48
PROVIDERS: PCP Family Medicine; Referring Provider Physician Assistant Medical; Visit Provider Physician Assistant Medical
DX: G47.33 Obstructive sleep apnea (adult) (pediatric) (principal)

== ENCOUNTER → 2023-12-04 | Outpatient (CLI) | payer MEDICARE, OTHER, SELFPAY ==
--- NOTE | 2023-12-04 10:57 | ECHOD_ITS ---
Reason For Study: Nonrheumatic MV Insufficiency Procedure This was a 2D Doppler, Color Flow transthoracic echocardiogram. Exam performed in department. Left Ventricle Normal LV size. The left ventricular ejection fraction is 30 %. There is moderate to severe global hypokinesis of the left ventricle. Right Ventricle Normal RV size. Normal systolic function. Atria The left atrium is moderately enlarged. Normal right atrium. Mitral Valve Normal mitral valve. Mild (1+) eccentric mitral valve insufficiency. Tricuspid Valve Normal tricuspid valve. Mild tricuspid valve insufficiency. Pulmonary artery systolic pressure is 27 mmHg. Aortic Valve Normal aortic valve. Trisinus/trileaflet aortic valve. Mild (1+) aortic valve insufficiency. Pulmonic Valve Normal pulmonic valve. Great Vessels Normal aortic root. The pulmonary artery is normal size. Inferior vena cava collapse with respiration. Pericardium/Pleural No pericardial effusion. MMode/2D Measurements & Calculations LVIDd: 4.8 cm IVSd: 1.1 cm LA dimension: 4.9 cm LVIDs: 3.9 cm LVPWd: 1.00 cm RVDd: 3.2 cm FS: 17.9 % LAV(MOD-bp): 88.7 ml LVAd ap4: 20.0 cm2 SV(MOD-sp4): 21.8 ml LAV(MOD-bp) Indexed: 52.7 ml/m2 LVLd ap4: 6.2 cm LAV(MOD-sp2): 88.1 ml EDV(MOD-sp4): 54.7 ml LAV(MOD-sp4): 81.9 ml EDV(sp4-el): 54.2 ml LVAs ap4: 14.4 cm2 LVLs ap4: 5.7 cm ESV(MOD-sp4): 32.9 ml ESV(sp4-el): 31.1 ml EF(MOD-sp4): 39.8 % EF(sp4-el): 42.6 % SV(sp4-el): 23.1 ml LA A4 area: 25.3 cm2 RA A4 area: 18.7 cm2 Time Measurements MV dec time: 0.16 sec Doppler Measurements & Calculations MV E max thuy: 74.8 cm/sec MV V2 max: 95.2 cm/sec Ao V2 max: 104.4 cm/sec MV max P.6 mmHg Ao max P.4 mmHg MV V2 mean: 50.0 cm/sec Ao V2 mean: 77.2 cm/sec MV mean P.3 mmHg Ao mean P.7 mmHg MV V2 VTI: 17.8 cm Ao V2 VTI: 21.7 cm AI max thuy: 480.3 cm/sec LV V1 max: 58.3 cm/sec MR max thuy: 471.5 cm/sec AI max P.3 mmHg LV V1 max P.4 mmHg MR max P.9 mmHg MR mean thuy: 341.0 cm/sec AI dec slope: 247.7 cm/sec2 MR mean P.5 mmHg AI P1/2t: 567.9 msec MR VTI: 153.1 cm PA V2 max: 66.4 cm/sec TR max thuy: 240.9 cm/sec PA V2 mean: 50.9 cm/sec TR max P.2 mmHg ECHO/Echo Complete Interpretation Summary The left ventricular ejection fraction is 30 %. Normal LV size. There is moderate to severe global hypokinesis of the left ventricle. Mild (1+) eccentric mitral valve insufficiency. Mild (1+) aortic valve insufficiency. The left atrium is moderately enlarged. Compared to previous study, the left ventricular systolic function has worsened .. Ordering Physician: Ruchi Gonzalez Referring Physician: Ruchi Gonzalez Performed By: Billy Parsons RCS
== END | disposition home or self-care (01) ==
LOC: CVS 10:55
PROVIDERS: PCP Family Medicine; Referring Provider Physician Assistant Medical; Visit Provider Physician Assistant Medical
DX: I34.0 Nonrheumatic mitral (valve) insufficiency (principal); R06.09 Other forms of dyspnea; R53.83 Other fatigue; Z95.818 Presence of other cardiac implants and grafts; R06.02 Shortness of breath; G47.10 Hypersomnia, unspecified
CPT/HCPCS: 93306; 95810

== ENCOUNTER 2023-12-18 09:04 | Outpatient (RCR) | payer MEDICARE, OTHER, SELFPAY ==
[2023-08-17 00:10] VITALS: BMI 21.1
[2023-12-18 09:26] LABS: Absolute Lymphocyte Count 2.41 X10^3/uL (0.83-4.51); Absolute Neutrophil Count 3.7 X10^3/uL (2.0-7.7); Basophil# 0.05 X10^3/uL; Basophil% 0.7 % (0-1); Eosinophil# 0.14 X10^3/uL; Hematocrit 36.1 % (37-47); Hemoglobin 11.9 g/dL (12.0-15.0); Lymphocyte # 2.41 X10^3/ul (0.83-4.51); Lymphocyte % 35.2 % (19-41); Mean Corpuscular Hgb 30.4 pg (27.0-32.0); Mean Corpuscular Volume 92.1 fL (81-99); Mean Platelet Vol. 9.8 fl (6.2-12.0); Monocyte# 0.54 X10^3/uL; Monocyte% 7.9 % (0-10); NRBC Flagged by Analyzer 0 % (0-5); Neutrophil # 3.68 X10^3/uL (2.7-7.7); Neutrophil % 53.9 % (47-70); Platelet Count 197 K/mm3 (150-450); RBC Distribution Width CV 13.1 % (11.6-14.6); RBC Distribution Width SD 43.8 fl (35.1-43.9); Red Blood Count 3.92 M/mm3 (4.2-5.4); White Blood Count 6.8 K/mm3 (4.4-11.0)
[2023-12-19 05:08] LABS: Immunoglobulin G 565 mg/dL (586-1602)
== END 2024-01-15 23:59 ==
LOC: PAVLAB 09:04
PROVIDERS: PCP Family Medicine
DX: C91.10 Chronic lymphocytic leukemia of B-cell type not having achieved remission (principal)
CPT/HCPCS: 36415; 82784; 85025

== ENCOUNTER → 2023-12-25 | Outpatient (CLI) | payer MEDICARE, OTHER, SELFPAY | END | disposition home or self-care (01) | LOC: PSN 08:37 | PROVIDERS: PCP Family Medicine; Referring Provider Nurse Practitioner Acute Care; Visit Provider Nurse Practitioner Acute Care | DX: R06.09 Other forms of dyspnea (principal) | CPT/HCPCS: 94010; 94060; 94726; 94729 ==

== ENCOUNTER → 2023-12-26 | Outpatient (CLI) | payer MEDICARE, OTHER, SELFPAY ==
--- NOTE | 2023-12-26 14:45 | CT_ITS ---
STUDY: CT CHEST WITHOUT CONTRAST REASON FOR EXAM: Female, 73 years old. previously noted 4-5 mm nodule LLL RADIATION DOSAGE (If Supplied By Facility): CTDIvol = ( 6.67 ) mGy, DLP = ( 248.31 ) mGycm TECHNIQUE: Transaxial imaging was performed without the administration of intravenous contrast material. Multiplanar coronal and sagittal images were reformatted. Individualized dose optimization techniques were used for this CT. COMPARISON: Comparison is made with prior chest radiograph dated December 24, 2023. FINDINGS: CHEST Findings suggestive of scarring in both upper lobes. Slightly more prominent in the right lung apex. There is a 3.5 mm noncalcified nodule in the peripheral lateral aspect of the left lower lobe as seen on axial image #88. Minimal linear scarring at the lung bases. There is no demonstrated pleural abnormality. There are calcifications of the coronary arteries. There are small lymph nodes within the mediastinum, which are normal in size and morphology most compatible with reactive lymph hyperplasia. Normal hilar regions. Normal unenhanced pulmonary arteries. There is atherosclerotic calcification of the aortic arch with tortuosity and elongation of the aortic arch and descending thoracic aorta. There are multi-level degenerative changes of the thoracic spine. Increased kyphosis. Prior vertebroplasty of the L1 vertebrae with loss of height. There is no demonstrated abnormality of the visualized upper abdomen. CT/Chest without Contrast IMPRESSION: 3.5 mm noncalcified nodule in the peripheral lateral aspect of the left lower lobe. Twelve-month follow-up is recommended. Electronically Signed: Leo Arora MD at 15:30 EST ,
== END | disposition home or self-care (01) ==
LOC: CT 14:43
PROVIDERS: PCP Family Medicine; Referring Provider Nurse Practitioner Acute Care; Visit Provider Nurse Practitioner Acute Care
DX: R91.1 Solitary pulmonary nodule (principal)
CPT/HCPCS: 71250

== ENCOUNTER → 2023-12-30 | Outpatient (CLI) | payer MEDICARE, OTHER, SELFPAY ==
[2023-12-30 08:15] VITALS: PULSE 100; PULSE 88; PULSE 90; PULSE 93; PULSE 97; PULSE 98; PULSE 99; O2SAT 96; O2SAT 97; O2SAT 98; O2SAT 99
--- NOTE | 2023-12-30 09:47 | PCM.PSN.6M ---
PSN 6 Minute Walk Test 6 Minute Walk Test 6 Minute Walk Test: 6 Minute Walk Test PSN:6-Minute Walk Test Start: 12/30/23 08:37 Freq: Status: Active Protocol: [id number] Document 12/30/23 08:15 EW (Rec: 12/30/23 08:39 EW [id number]) 6 Minute Walk Test Date Performed 12/30/23 Time Performed 08:15 Height 5 ft 6 in Weight: 61.235 kg Weight in Pounds 135.[address]: Nettie Molina [employer] Assistive device used: None Pre-test Oxygen Delivery Method Room Air Pulse Ox 97 Pulse Rate (60-100) 88 Dyspnea Leighton Scale (0-10) 2 Exertion Leighton Scale (6-20) 6 1st minute Oxygen Delivery Method Room Air Pulse Ox 98 Pulse Rate (60-100) 93 2nd minute Oxygen Delivery Method Room Air Pulse Ox 96 Pulse Rate (60-100) 98 3rd minute Oxygen Delivery Method Room Air Pulse Ox 98 Pulse Rate (60-100) 97 4th minute Oxygen Delivery Method Room Air Pulse Ox 98 Pulse Rate (60-100) 100 5th minute Oxygen Delivery Method Room Air Pulse Ox 97 Pulse Rate (60-100) 90 6th minute Oxygen Delivery Method Room Air Pulse Ox 99 Pulse Rate (60-100) 99 Post-test Oxygen Delivery Method Room Air Pulse Ox 98 Pulse Rate (60-100) 99 Dyspnea Leighton Scale (0-10) 3 Exertion Leighton Scale (6-20) 11 Full Laps Walked 21 Partial Lap, Number of Tiles Walked 45 Total Distance Walked (ft) 1284 Interpretation Interpretation: The patient was able to ambulate 1284 feet over the course of 6 minutes on room air with no assistive devices or breaks. Patient did have a peak heart rate of 100 bpm. These findings are consistent with a normal walking oximetry. Recommendations Recommendations: No supplemental oxygen is indicated at this time.
== END | disposition home or self-care (01) ==
LOC: PSN 08:13
PROVIDERS: PCP Family Medicine; Referring Provider Nurse Practitioner Acute Care; Visit Provider Nurse Practitioner Acute Care
DX: R06.09 Other forms of dyspnea (principal)
CPT/HCPCS: 94618

== ENCOUNTER 2024-01-01 09:01 | Outpatient (CLI) | payer MEDICARE, OTHER, SELFPAY ==
[2024-01-01] MEDS: 0.9% NaCl Peripheral Flush Adult/Peds IV (09:11)
[2024-01-01] MEDS: 0.9% NaCl IVPB Med Flush (250 mL) 15 ML IV (09:14)
[2024-01-01] MEDS: Acetaminophen 325 MG Tablet 650 MG PO (09:15)
[2024-01-01] MEDS: DiphenhydrAMINE 50 MG/ML Syringe IV (09:20)
[2024-01-01 09:26] VITALS: BP 128/56; PULSE 80; RESP 16; TEMP 35.6; O2SAT 97; BMI 21.7
--- OUTSIDE RECORDS SUMMARY | 2024-01-01 09:33 | XMS RPT_ITS | CCD ---
Author Name Unknown Address [address] [place] [address] Organization [facility] Care Team Providers Care Projection Welding Machine Operator Name Role Phone PEPE MARIN Unavailable Unavailable [...] MD Unavailable Unavailable Master Kuo MD Unavailable [facility] MAGDA/Cong MENDOZA Unavailable [phone] Savannah Rios MD A Primary Care Provider Faye GARCIAN-SENIOR USER EXPERIENCE ARCHITECT, Ada R Unavailable [facility],PharmD, Chauncey Unavailable Unavai lable Otto [facility], Vitaly Unavailable [phone] Sadi [facility] W Unavailable Otto [facility], Vitaly Unavailable [phone] Vitaly Ortega MD Unavailable Unavailable Vitaly Ortega MD Unavailable Unavailable Master Kuo MD Unavailable [facility] MAGDA/Cong MENDOZA Unavailable Savannah Rios MD Primary Care Provider Faye EDGE BASTER-SENIOR USER EXPERIENCE ARCHITECT, Ada R Unavailable [phone] Sadi [facility], Chris W Unavailable [facility],PharmD, Chauncey Unavailable Unavai lable Otto [facility], Sassafras Unavailable [phone] Rm BENAVIDEZ, Sarina Moore Unavailable Shannon BENAVIDEZ, Sassafras Unavailable Unavailable [facility] MB/CHB, Cong Unavailable Gabriel BENAVIDEZ, Savannah Moore Primary Care Provider Faye [facility], Ada R Unavailable Sadi [facility], Chris W Unavailable [facility],PharmD, Chauncey Unavailable Unavai lable Otto [facility], Sassafras Unavailable Sarina Abdalla MD Unavailable [facility],PharmD, Chauncey Unavailable Unavai labtrace RIOS, SAVANNAH A [...] 14 tablet 0 10/31/2023 11/07/2023 Active amylase [id number] unt / lipase 9000 unt / protease [id number] unt oral capsule (20 sources) take 1 [...] for antineoplastic chemotherapy] Onset: 07-31-2018 07-31-2018 Unclassified (8 sources) New Patient Onset: 03-25-2023 03-25-2023 Unclassified (8 sources) Access to Medication(s) Onset: 03-25-2023 03-25-2023 Unclassified (8 sources) Safety: Avoid toxicity that would cause discontinuation Onset: 03-25-2023 03-25-2023 Unclassified (8 sources) Identify and eliminate barriers to patient adherence Onset: 03-25-2023 03-25-2023 Unclassified (8 sources) Ensure that patient is receiving therapeutic [...] 165.1 cm Sarina Abdalla MD Work Phone: [facility] 10-31-2023 09:49-0500 Body mass index (BMI) [Ratio] 22.96 kg/m2 Sarina Abdalla MD Work Phone: [facility] 10-31-2023 09:49-0500 Body temperature 97.3 [degF] Sarina Abdalla MD Work Phone: [facility] 10-31-2023 09:49-0500 Body weight 62.6 kg Sarina Abdalla MD Work Phone: [facility] 10-31-2023 09:49-0500 Diastolic blood pressure 70 mm[Hg] Sarina Abdalla MD Work Phone: [facility] 10-31-2023 09:49-0500 Heart rate 72 /min Sarina Abdalla MD Work Phone: [facility] 10-31-2023 09:49-0500 Respiratory rate 18 /min Sarina Abdalla MD Work Phone: [facility] 10-31-2023 09:49-0500 SaO2% (BldA) [Mass fraction] 99 % Sarina Abdalla MD Work Phone: [facility] 10-31-2023 09:49-0500 Systolic blood pressure 145 mm[Hg] Sarina Abdalla MD Work Phone: [facility] 10-08-2022 12:48-0500 Body height 165.1 cm Sarina Abdalla MD Work Phone: [facility] 10-08-2022 12:48-0500 Body mass index (BMI) [Ratio] 21.98 kg/m2 Sarina Abdalla MD Work Phone: [facility] 10-08-2022 12:48-0500 Body temperature 97.81 [degF] Sarina Abdalla MD Work Phone: [facility] 10-08-2022 12:48-0500 Body weight 59.92 kg Sarina Abdalla MD Work Phone: [facility] 10-08-2022 12:48-0500 Diastolic blood pressure 68 mm[Hg] Sarina Abdalla MD Work Phone: [facility] 10-08-2022 12:48-0500 Heart rate 72 /min Sarina Abdalla MD Work Phone: 4(156)591-060547 [address] 10-08-2022 12:48-0500 Respiratory rate 17 /min Sarina Abdalla MD Work Phone: [facility] 10-08-2022 12:48-0500 SaO2% (BldA) [Mass fraction] 98 % Sarina Abdalla MD Work Phone: [facility] 10-08-2022 12:48-0500 Systolic blood pressure 143 mm[Hg] Sarina Abdalla MD Work Phone: [facility] 07-09-2022 14:08-0400 Body height 165.1 cm Sarina Abdalla MD Work Phone: [facility] 07-09-2022 14:08-0400 Body mass index (BMI) [Ratio] 21.72 kg/m2 Sarina Abdalla MD Work Phone: [facility] 07-09-2022 14:08-0400 Body temperature 98.4 [degF] Sarina Abdalla MD Work Phone: [facility] 07-09-2022 14:08-0400 Body weight 59.19 kg Sarina Abdalla MD Work Phone: [facility] 07-09-2022 14:08-0400 Diastolic blood pressure 64 mm[Hg] Sarina Abdalla MD Work Phone: [facility] 07-09-2022 14:08-0400 Heart rate 90 /min Sarina Abdalla MD Work Phone: 9(783)930-226147 [address] 07-09-2022 14:08-0400 Respiratory rate 16 /min Sarina Abdalla MD Work Phone: 6(036)229-015752 [place] [address] 07-09-2022 14:08-0400 SaO2% (BldA) [Mass fraction] 98 % Sarina Abdalla MD Work Phone: 5(842)934-923552 [place] [address] 07-09-2022 14:08-0400 Systolic blood pressure 132 mm[Hg] Sarina Abdalla MD Work Phone: 7(379)654-621552 [place] [address] 04-09-2022 13:22-0400 Body height 165.1 cm Sarina Abdalla MD Work Phone: 8(539)294-388752 [place] [address] 04-09-2022 13:22-0400 Body mass index (BMI) [Ratio] 21.67 kg/m2 Sarina Abdalla MD Work Phone: 2(211)766-956352 [place] [address] 04-09-2022 13:22-0400 Body temperature 97.81 [degF] Sarina Abdalla MD Work Phone: 2(460)556-458952 [place] [address] 04-09-2022 13:22-0400 Body weight 59.06 kg Sarina Abdalla MD Work Phone: 3(485)192-005552 [place] [address] 04-09-2022 13:22-0400 Diastolic blood pressure 73 mm[Hg] Sarina Abdalla MD Work Phone: 4(215)567-899252 [place] [address] 04-09-2022 13:22-0400 Heart rate 73 /min Sarina Abdalla MD Work Phone: 3(723)880-814552 [place] [address] 04-09-2022 13:22-0400 Respiratory rate 16 /min Sarina Abdalla MD Work Phone: 7(902)750-543852 [place] [address] 04-09-2022 13:22-0400 SaO2% (BldA) [Mass fraction] 97 % Sarina Abdalla MD Work Phone: 6(826)866-073726 [place] [address] 04-09-2022 13:22-0400 Systolic blood pressure 144 mm[Hg] Sarina Abdalla MD Work Phone: 2(207)647-462252 [place] [address] 06-05-2021 10:28-0400 Body height 165.1 cm Sarina Abdalla MD Work Phone: 9(686)292-348852 [place] [address] 06-05-2021 10:28-0400 Body mass index (BMI) [Ratio] 21.32 kg/m2 Sarina Abdalla MD Work Phone: 1(459)351-940252 [place] [address] 06-05-2021 10:28-0400 Body temperature 97.7 [degF] Sarina Abdalla MD Work Phone: 9(388)147-517052 [place] [address] 06-05-2021 10:28-0400 Body weight 58.11 kg Sarina Abdalla MD Work Phone: 7(008)966-957452 [place] [address] 06-05-2021 10:28-0400 Diastolic blood pressure 59 mm[Hg] Sarina Abdalla MD Work Phone: 6(314)470-873152 [place] [address] 06-05-2021 10:28-0400 Heart rate 100 /min Sarina Abdalla MD Work Phone: 3(428)421-162952 [place] [address] 06-05-2021 10:28-0400 Respiratory rate 16 /min Sarina Abdalla MD Work Phone: 8(313)575-387352 [place] [address] 06-05-2021 10:28-0400 SaO2% (BldA) [Mass fraction] 99 % Sarina Abdalla MD Work Phone: 7(260)334-676952 [place] [address] 06-05-2021 10:28-0400 Systolic blood pressure 129 mm[Hg] Sarina Abdalla MD Work Phone: 1(091)716-609452 [place] [address] Encounters Encounter Date Encounter Type Care Provider Facility Start: 12-25-2023 ambulatory Chris W Yoana cheng [facility] Work Phone: Pharm[facility]patient [facility] Start: 12-25-2023 Patient encounter procedure Chris Ramirez Sadi [facility] Work Phone: [facility] Start: 11-28-2023 ambulatory Chauncey [facility]ingo [facility],PharmD [facility] [place] Start: 11-28-2023 Patient encounter procedure Chauncey Domingo [facility],PharmD Pharm[facility] Outpatient [facility] [place] Start: 10-31-2023 ambulatory SAVANNAH RIOS Facility:[facility] Start: 10-31-2023 End: 10-31-2023 Office outpatient visit 25 minutes Sarina Abdalla MD Work Phone: Division of Hematology & Oncology at [facility] Procedures Date Procedure Procedure Detail Performing Clinician Start: 10-31-2023 CBC AND ELECTRONIC DIFF Bettina N Santoyo EDGE BASTER-SENIOR USER EXPERIENCE ARCHITECT Work Phone: Start: 10-31-2023 Complete blood count with white cell differential, automated Bettina N Santoyo EDGE BASTER-SENIOR USER EXPERIENCE ARCHITECT Work Phone: Start: 10-31-2023 Comprehensive metabo lic panel Bettina Maryjane Santoyo EDGE BASTER-SENIOR USER EXPERIENCE ARCHITECT Work Phone: Start: 10-31-2023 DNA EXTRACTION, B-CELL Bettina Maryjane ArechigaSantoyo EDGE BASTER-SENIOR USER EXPERIENCE ARCHITECT Work Phone: Start: 10-31-2023 Unlisted molecular pathology procedure Bettina Maryjane Santoyo EDGE BASTER-SENIOR USER EXPERIENCE ARCHITECT Work Phone: Start: 10-08-2022 CBC AND ELECTRONIC DIFF Bettina N Santoyo EDGE BASTER-SENIOR USER EXPERIENCE ARCHITECT Work Phone: Start: 10-08-2022 Complete blood count with white cell differential, automated Bettina N Santoyo EDGE BASTER-SENIOR USER EXPERIENCE ARCHITECT Work Phone: Start: 10-08-2022 Comprehensive metabo lic panel Bettina Maryjane Santoyo EDGE BASTER-SENIOR USER EXPERIENCE ARCHITECT Work Phone: Start: 07-09-2022 CBC AND ELECTRONIC DIFF Bettina N Santoyo EDGE BASTER-SENIOR USER EXPERIENCE ARCHITECT Work Phone: Start: 07-09-2022 Complete blood count with white cell differential, automated Bettina N Santoyo EDGE BASTER-SENIOR USER EXPERIENCE ARCHITECT Work Phone: Start: 07-09-2022 Comprehensive metabo lic panel Bettina N Santoyo EDGE BASTER-SENIOR USER EXPERIENCE ARCHITECT Work Phone: Start: 04-09-2022 CBC AND ELECTRONIC DIFF Bettina N Santoyo EDGE BASTER-SENIOR USER EXPERIENCE ARCHITECT Work Phone: Start: 04-09-2022 Complete blood count with white cell differential, automated Bettina N Santoyo EDGE BASTER-SENIOR USER EXPERIENCE ARCHITECT Work Phone: Start: 04-09-2022 Comprehensive metabo lic panel Bettina N Santoyo EDGE BASTER-SENIOR USER EXPERIENCE ARCHITECT Work Phone: Start: 06-05-2021 CBC AND ELECTRONIC DIFF Bettina N Santyoo EDGE BASTER-SENIOR USER EXPERIENCE ARCHITECT Work Phone: Start: 06-05-2021 Complete blood count with white cell differential, automated Bettina N Santoyo EDGE BASTER-SENIOR USER EXPERIENCE ARCHITECT Work Phone: Start: 06-05-2021 Comprehensive metabo lic panel Bettina N Santoyo EDGE BASTER-SENIOR USER EXPERIENCE ARCHITECT Work Phone: Start: 06-05-2021 MANUAL DIFF Bettina N Santoyo EDGE BASTER-SENIOR USER EXPERIENCE ARCHITECT Work Phone: Start: 11-20-2020 Lipid 1996 panel - S mauricio or Plasma Vitaly Otto [facility] Work Phone: Start: 05-10-2020 Antibody screen Plan of Treatment Date Care Activity Detail Author Start: 11-20-2025 Fasting lipid profile LIPID SCREENING [facility] Start: 11-20-2025 Lipid panel LIPID SCREENING [facility] Start: 02-03-2024 End: 02-03-2024 Patient encounter procedure 02/03/2024 9:40 AM EDT Office Visit Division of Hematology & Oncology at The [address] [place] [address] Sarina Abdalla MD [address] [place] [id number] Division of Hematology & Oncology at [facility] Start: 10-31-2023 End: 10-31-2023 Patient encounter procedure 10/31/2023 10:20 AM EST Office Visit Division of Hematology & Oncology at [facility] [address] [place] [id number] Sarina Abdalla MD [address] [place] [address] Division of Hematology & Oncology at [facility] Start: 07-22-2023 End: 07-22-2023 Patient encounter procedure Division of Hematology & Oncology at [facility] Start: 07-18-2023 Influenza vaccination [facility] Start: 04-01-2023 End: 04-01-2023 Patient encounter procedure 04/01/2023 Office Visit Hematology Sarina Abdalla MD [address] [place] [address] Division of Hematology & Oncology Start: 12-31-2022 End: 12-31-2022 Patient encounter procedure 12/31/2022 Office Visit Hematology Sarina Abdalla MD [address] [place] [address] Division of Hematology & Oncology Start: 10-28-2022 End: 10-28-2022 ambulatory 10/28/2022 Telemed Clin Support Psychology Eduin Ovalle LISW [address] [place] [address] [facility] Start: 10-28-2022 End: 10-28-2022 Telemedicine consultation with patient 10/28/2022 Telemedicine Psychology Anabella Correia, EDGE BASTER-SENIOR USER EXPERIENCE ARCHITECT [address] [place] [address] [place] [address] [facility] Start: 10-08-2022 End: 10-08-2022 Patient encounter procedure 10/08/2022 Office Visit Hematology Sarina Abdalla MD [address] [place] [address] Division of Hematology & Oncology Start: 09-18-2022 End: 09-18-2022 ambulatory 09/18/2022 Telemed Clin Support Psychology Eduin Ovalle SMALL BUSINESS REPRESENTATIVE [address] [address] [facility] Start: 09-16-2022 Fasting lipid profile LIPID SCREENING [facility] Work Phone: Start: 08-15-2022 End: 08-15-2022 Telemedicine consultation with patient 08/15/2022 Telemedicine Psychology Anabella Correia, EDGE BASTER-SENIOR USER EXPERIENCE ARCHITECT [address] [address] [facility] Start: 08-14-2022 End: 08-14-2022 ambulatory 08/14/2022 Telemed Clin Support Psychology Eduin Ovalle SMALL BUSINESS REPRESENTATIVE [address] [address] [facility] Start: 08-13-2022 End: 08-13-2022 ambulatory 08/13/2022 Telemed Clin Support Multispecialty Siva Lemon, [facility] [address] [place], [place] [address] [facility] Start: 07-24-2022 End: 07-24-2022 ambulatory 07/24/2022 Telemed Clin Support Psychology Eduin Ovalle SMALL BUSINESS REPRESENTATIVE [address] [place] [address] [facility] Start: 07-19-2022 End: 07-19-2022 ambulatory 07/19/2022 Telemed Clin Support Multispecialty Sharon Chi, EDGE BASTER-SENIOR USER EXPERIENCE ARCHITECT [address] [facility] [address] [place] [address] Siva Lemon, [facility] [address] [place] [address] [facility] Start: 07-18-2022 Influenza vaccination [facility] Start: 07-09-2022 End: 07-09-2022 Patient encounter procedure 07/09/2022 Office Visit Hematology Sarina Abdalla MD [address] [place] [address] Division of Hematology & Oncology Start: 04-09-2022 End: 04-09-2023 OUTSIDE LAB ORDERS OUTSIDE LAB ORDERS Outside Labs Routine 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 Expected: 04/09/2022, Expires: 04/09/2023 [facility] Immunizations Immunization Date Immunization Notes Care Provider Fa [facility] 08-19-2016 influenza, injectabl e, quadrivalent, contains preservative; Translations: [INFLUENZA, INJECTABLE, QUADRIVALENT] Other Other [facility] Work Phone: 08-19-2016 influenza virus vacc ine, unspecified formulation Other Other [facility] Work Phone: 11-03-2013 influenza virus vacc ine, unspecified formulation Sarina Abdalla MD Work Phone: [facility] 12-16-2012 influenza virus vacc ine, unspecified formulation Sarina Abdalla MD Work Phone: [facility] 10-09-2011 pneumococcal polysaccharide vaccine, 23 valent Vitaly Otto [facility] Work Phone: [facility] 09-17-2010 influenza virus vacc ine, unspecified formulation Sarina Abdalla MD Work Phone: [facility] 09-05-2009 influenza virus vacc ine, unspecified formulation Sarina Abdalla MD Work Phone: [facility] Payers Date Payer Category Payer Unknown GENERIC PAYOR ME DICARE SUPPLEMENT [id number] 2019-Present [address] [place] [address] [id number] 2019 Unknown GENERIC PAYOR ME DICARE SUPPLEMENT [id number] 2019-Present [address] [facility] [place] [address] [id number] 2019 Unknown [id number] 2017 Medicare [id number] 2017 Medicare [id number] 2014 Medicare MEDICARE MEDICAR E A AND B [id number] 2014-Present [address] [place] [address] [id number] 2014 Medicare MEDICARE MEDICAR E A AND B [id number] 2014-Present [address] [place] [address] [id number] 2014 Medicare [id number] 1950 Unknown [id number] 1950 Unknown [id number] 1950 Unknown [id number] 1950 Unknown [id number] Social History Date Type Detail Facility Start: 10-03-2015 End: 05-12-2018 Tobacco smoking status NHIS Never smoker [facility] Work Phone: Start: 1950 Sex Assigned At Not on file [facility] Work Phone: Start: 10-03-2015 Tobacco use and exposure Never used [facility] Start: 05-09-2021 End: 11-05-2023 Alcohol intake Current non-drinker of alcohol (finding) [facility] Start: 05-09-2021 End: 08-15-2022 Alcohol intake [facility] Start: 01-16-2021 History SDOH Financial 3 [facility] Start: 01-16-2021 End: 08-15-2022 History SDOH Food Worry 1 [facility] Start: 01-16-2021 History SDOH Transpo rt Non-Med 2 [facility] Exposure to SARS-CoV -2 (event) Not sure [facility] Start: 08-15-2022 History SDOH Financial 5 [facility] Start: 10-18-2022 End: 10-28-2022 Exposure to SARS-CoV-2 (event) Unable to assess [facility] Start: 08-15-2022 End: 01-10-2023 Tobacco use panel [facility] How hard is it for y ou to pay for the very basics like food, housing, medical care, and heating Not hard at all [facility] (I/We) worried alvin er (my/our) food would run out before (I/we) got money to buy more. Never true [facility] Gender identity Identifies as fe male gender (finding) [facility] Goals Date Patient Goal Desired Activity /State Personal health goal Clinical Notes 01-17-2021 to 12-25-2023 Vibha Bernabe - 12/25/2023 9:56 AM Nida Aguirre - 12/25/2023 9:56 AM Cary Bernabe - 11/28/2023 11:32 AM Chase Thomas - 11/28/2023 11:32 AM Darren Abdalla MD - 10/31/2023 10:20 AM EST Note Date & Type Note Facility 12-25-2023 History of Present illness Narrative [facility]: Call Information: Date and Time of Contact: 12/25/2023 9:57 AM Method of Contact: By Phone Contact Type: Prescriptions Contactor: [facility] Contactee: Patient Contact Outcome: Left message Shipping/Pickup: Medication Name: Brukinsa 80mg caps Contact Info: Specialty ([place]) [phone] [facility] [phone] [facility] [phone] [facility] [phone] Bedside Delivery ([facility]) [phone] [facility]: Call Information: Date and Time of Contact: 12/26/2023 12:45 PM Method of Contact: By Phone Contact Type: Prescriptions Contactor: Patient Contactee: [facility] Shipping/Pickup: Medicare B Refill?: No Medication Name: Brukinsa 80mg Delivery Method: Ship Delivery Location: Home Signature Required: No Receive/Pickup Date: 12/26/2023 Shipping Address: [address] [place] [address] Contact Info: Specialty ([place]) [phone] [facility] [phone] [facility] [phone] [facility] [phone] Bedside Delivery ([facility]) [phone] documented in this encounter [facility] 11-28-2023 History of Present illness Narrative [facility]: Call Information: Date and Time of Contact: 11/28/2023 11:32 AM Method of Contact: By Phone Contact Type: Prescriptions Contactor: [facility] Contactee: Patient Contact Outcome: Left message Shipping/Pickup: Medication Name: Brukina 80mg caps Contact Info: Specialty ([place]) [phone] [facility] [phone] [facility] [phone] Ak[facility] [phone] Bedside Delivery ([facility]) [phone] [facility]: Call Information: Date and Time of Contact: 12/01/2023 3:51 PM Method of Contact: By Phone Contact Type: Prescriptions Contactor: Patient Contactee: [facility] Shipping/Pickup: Medicare B Refill?: No Medication Name: Brukinsa Delivery Method: Ship Delivery Location: Home Signature Required: No Receive/Pickup Date: 12/02/2023 Shipping Address: [address] [place] [address] Contact Info: Specialty ([place]) [phone] [facility] [phone] [facility] [phone] [facility] [phone] Bedside Delivery ([facility]) [phone] documented in this encounter [facility] 10-31-2023 History of Present illness Narrative HEMATOLOGY [...] 2011 on a clinical trial at the [facility]. This was complicated by anemia, thrombocytopenia and neutropenia. 2. Fludarabine, cyclophosphamide and rituximab in February 2012 for 4 cycles. Treatment was complicated by prolonged cytopenias and recurrent infections. Last 2 cycles required a 66% dose reduction. 3. [id number] Combination of [id number] and Ibrutinib - on combination 04/29/16-05/05/17 with [...] 2011 on a clinical trial at the [facility]. This was complicated by anemia, thrombocytopenia and neutropenia. 02/2012 - Chemotherapy Fludarabine, cyclophosphamide and rituximab in February 2012 for 4 cycles. Treatment was complicated by prolonged cytopenias and recurrent infections. Last 2 cycles required a 66% dose reduction. 04/2016 - 07/2018 Chemotherapy [id number] Combination of [id number] and Ibrutinib - on combination 04/29/16-05/05/17 with [...] states she is receiving IVIG locally in [place] when IGG < 600. Would like IGG [...] HTN and is establishing with a new city planning aide on 11/20/23. Otherwise she has been well. [...] states she is receiving IVIG locally in [place] when IGG < 600. She will follow [...] additional questions. documented in this encounter [facility] 10-31-2023 Instructions Roxann Rollins RN - 10/31/2023 10:20 AM EST YOUR PRIMARY TEAM Dr. Sarina Santoyo SENIOR USER EXPERIENCE ARCHITECT - Nurse Practitioner Diana Dennis SENIOR USER EXPERIENCE ARCHITECT - Nurse Practitioner Roxann Rollins RN - Primary Nurse Will Casper RN - Secondary Nurse CONTACT NUMBERS Clinic phone: [phone] Clinic fax: [phone] Please contact our office if you develop a temperature of 100.4 or greater. [facility] [employer] is a secure way to get access to your health records online. It will also allow you to communicate with your health care provider through email. For non-emergent concerns, please send us a [employer] message but describe your issue fully. When sending a message to the provider, please know that these messages will be received and answered by the primary nurse practitioner. The nurse practitioner will consult your physician when needed. Please note, [employer] is for non-urgent messages only. If you are reporting symptoms or changes in your condition, please call the clinic at [phone]. For questions or concerns regarding [employer] access or technical dificulties, please call [phone] or toll free at . MEDICAL RECORDS The Release of Information (TA) area is staffed from 8:00 a.m. to 7:00 p.m. and is available for walk in requests from 8:00 a.m. to 4:30 p.m. [facility] is responsible for answering requests for copies of medical records from various requestors such as insurance companies, attorneys, hospitals and patients. Please note it can take up to 2 weeks to complete your request. [phone]; [phone] (fax). FINANCIAL CONCERNS Any questions regarding billing for services or insurance coverage concerns should be directed to our Billing Department at [phone]. DISABILITY FORMS This category includes any form [...] Auto 2.43 1.16 - 3.51 K/uL Abs [place] Auto 0.55 0.22 - 0.87 K/uL Abs Eos Auto 0.13 0.00 - 0.42 K/uL Abs [place] Auto 0.04 0.00 - 0.15 K/uL *Note: Due to a large number of results and/or encounters for the requested time period, some results have not been displayed. A complete set of results can be found in Results Review. documented in this encounter [facility] 10-03-2023 History of Present illness Narrative [facility]: Call Information: Date and Time of Contact: 10/03/2023 11:07 AM Method of Contact: By Phone Contactor: [facility] Contactee: Patient Contact Outcome: Left message and Follow-up (Brukinsa RA/refill) Contact Info: Specialty ([place]) [phone] [facility] [phone] [facility] [phone] [place] [phone] Bedside Delivery ([facility]) [phone] [facility]ANC[facility]: Call Information: Method of Contact: By Phone Contact Type: Prescriptions Contactor: Patient Contactee: [facility] Shipping/Pickup: Medicare B Refill?: No Medication Name: Brukinsa Delivery Method: Air Delivery Location: Home Signature Required: No Mailing/Pickup Date: 10/08/2023 Shipping Address: [address] [place] [address] Pre-Verification/Specialty Assessment/Disease Mgt: Medication(s) Name: Brukinsa Lab [...] Review: Within normal limits Contact Info: Specialty ([place]) [phone] Xavi [phone] [facility] [phone] [place] [phone] Bedside Delivery ([facility]) [phone] documented in this encounter [facility] 06-13-2023 History of Present illness Narrative [facility]RE[facility]: Call Information: Date and Time of Contact: 06/13/2023 10:49 AM Method of Contact: By Phone Contact Type: Prescriptions Contactor: [facility] Contactee: Patient Contact Outcome: Left message and Follow-up (in 4 days (due to weekend)) Shipping/Pickup: Medication Name: Brukinsa 80mg Contact Info: Specialty ([place]) [phone] [facility] [phone] [facility] [phone] Ak[place] [phone] Bedside Delivery ([facility]) [phone] [facility]REACH ADVANCED: Call Information: Date and Time of Contact: 06/17/2023 9:49 AM Method of Contact: By Phone Contact Type: Prescriptions Contactor: [facility] Contactee: Patient Shipping/Pickup: Medicare B Refill?: No Medication Name: Brukinsa 80mg Delivery Method: Air Delivery Location: Home Signature Required: No Mailing/Pickup Date: 06/20/2023 Shipping Address: [address] [place] [address] Contact Info: Specialty ([place]) [phone] [facility] [phone] [facility] [phone] [place] [phone] Bedside Delivery ([facility]) [phone] [facility] History of Present illness Narrative [facility]REACH ADVANCED: Call Information: Date and Time of Contact: 05/19/2023 11:42 AM Method of Contact: By Phone Contact Type: Prescriptions Contactor: [facility] Contactee: Patient Contact Outcome: Left message and Follow-up (in 1-2 days) Shipping/Pickup: Medication Name: Brukinsa 80mg Contact Info: Specialty ([place]) [phone] [facility] [phone] [facility] [phone] [place] [phone] Bedside Delivery ([facility]) [phone] [facility]REACH ADVANCED: Call Information: Date and Time of Contact: 05/21/2023 9:04 AM Method of Contact: By Phone Contact Type: Prescriptions Contactor: [facility] Contactee: Patient Shipping/Pickup: Medicare B Refill?: No Medication Name: Brukinsa 80 mg Delivery Method: Air Delivery Location: Home Signature Required: No Mailing/Pickup Date: 05/22/2023 Shipping Address: [address] [place] [address] Contact Info: Specialty ([place]) [phone] [facility] [phone] [facility] [phone] [place] [phone] Bedside Delivery ([facility]) [phone] documented in this encounter [facility] 04-18-2023 History of Present illness Narrative [facility] OUTREACH ADVANCED: Call Information: Date and Time of Contact: 04/18/2023 11:34 AM Method of Contact: By Phone Contact Type: Prescriptions Contactor: [facility] Contactee: Patient Contact Outcome: Left message and Follow-up (in 4 days (due to weekend)) Shipping/Pickup: Medication Name: Brukinsa 80mg Contact Info: Specialty ([place]) [phone] [facility] [phone] [facility] [phone] [place] [phone] Bedside Delivery ([facility]) [phone] [facility]REACH ADVANCED: Call Information: Date and Time of Contact: 04/22/2023 11:20 AM Method of Contact: By Phone Contact Type: Prescriptions Contactor: [facility] Contactee: Patient Shipping/Pickup: Medicare B Refill?: No Medication Name: Brukinsa 80mg Delivery Method: Air Delivery Location: Home Signature Required: No Mailing/Pickup Date: 04/24/2023 Shipping Address: [address] [place] [address] Contact Info: Specialty ([place]anna) [phone] [facility] [phone] [facility] [phone] [place] [phone] Bedside Delivery ([facility]) [phone] documented in this encounter [facility] 03-17-2023 History of Present illness Narrative [facility] OUTREACH ADVANCED: Call Information: Date and Time of Contact: 03/17/2023 2:51 PM Method of Contact: By Phone Contact Type: Prescriptions (brukinsa) Contactor: [facility] Contactee: Patient Contact Outcome: Left message and Follow-up Contact Info: Specialty ([place]anna) [phone] [facility] [phone] [facility] [phone] Ak[place] [phone] Bedside Delivery ([facility]) [phone] [facility] OUTREACH ADVANCED: Call Information: Date and Time of Contact: 03/17/2023 4:47 PM Method of Contact: By Phone Contact Type: Prescriptions Contactor: Patient Contactee: [facility] Contact Outcome: Patient declined to fill Patient Declined Fill Detail/Reason: Has >2 weeks on hand. [facility] will follow up in 1 week. Shipping/Pickup: Medication Name: Brukinsa Contact Info: Specialty ([place]) [phone] [facility] [phone] [facility] [phone] [place] [phone] Bedside Delivery ([facility]) [phone] documented in this encounter [facility] 03-17-2023 History of Present illness Narrative [facility] OUTREACH ADVANCED: Call Information: Date and Time of Contact: 03/17/2023 2:51 PM Method of Contact: By Phone Contact Type: Prescriptions (brukinsa) Contactor: [facility] Contactee: Patient Contact Outcome: Left message and Follow-up Contact Info: Specialty ([place]) [phone] [facility] [phone] [facility] [phone] [place] [phone] Bedside Delivery ([facility]) [phone] [facility] OUTREACH ADVANCED: Call Information: Date and Time of Contact: 03/17/2023 4:47 PM Method of Contact: By Phone Contact Type: Prescriptions Contactor: Patient Contactee: [facility] Contact Outcome: Patient declined to fill Patient Declined Fill Detail/Reason: Has >2 weeks on hand. [facility] will follow up in 1 week. Shipping/Pickup: Medication Name: Brukinsa Contact Info: Specialty ([place]) [phone] [facility] [phone] [facility] [phone] [place] [phone] Bedside Delivery ([facility]) [phone] [facility] OUTREACH ADVANCED: Call Information: Date and Time of Contact: 03/25/2023 2:25 PM Method of Contact: By Phone Contact Type: Prescriptions and Services Contactor: [facility] Contactee: Patient Shipping/Pickup: Medicare B Refill?: No Medication Name: Brukinsa 80ng Delivery Method: Air Delivery Location: Home Signature Required: No Mailing/Pickup Date: 03/26/2023 Shipping Address: [address] [place] [address] Pre-Verification/Specialty Assessment/Disease Mgt: Medication(s) Name: Brukinsa 80mg [...] hgb. continue to monitor Contact Info: Specialty ([place]) [phone] [facility] [phone] [facility] [phone] [place] [phone] Bedside Delivery ([facility]) [phone] documented in this encounter [facility] 02-20-2023 History of Present illness Narrative [facility] OUTREACH ADVANCED: Contact Info: Specialty (Deanna) [phone] [facility] [phone] [facility] [phone] [place] [phone] Bedside Delivery ([facility]) [phone] documented in this encounter [facility] 12-27-2022 History of Present illness Narrative [facility] OUTREACH ADVANCED: Call Information: Date and Time of Contact: 12/27/2022 1:51 PM Method of Contact: By Phone Contact Type: Prescriptions Contactor: [facility] Contactee: Patient Contact Outcome: Left message and Follow-up (2-3 days) Shipping/Pickup: Medication Name: Bukinsa 80mg Contact Info: Specialty ([place]) [phone] [facility] [phone] [facility] [phone] [place] [phone] Bedside Delivery ([facility]) [phone] [facility] RX OUTREACH ADVANCED: Call Information: Date and Time of Contact: 12/30/2022 4:41 PM Method of Contact: By Phone Contact Type: Prescriptions Contactor: Patient Contactee: [facility] Shipping/Pickup: Medicare B Refill?: No Medication Name: Brukinsa 80mg caps Delivery Method: Air Delivery Location: Home Signature Required: No Mailing/Pickup Date: 01/01/2023 Shipping Address: [address] [place] [address]. [address] Delivery Details: Otl Contact Info: Specialty ([place]) [phone] [facility] [phone] [facility] [phone] [place] [phone] Bedside Delivery ([facility]) [phone] documented in this encounter [facility] 10-31-2022 History of Present illness Narrative [facility] OUTREACH ADVANCED: Call Information: Date and Time of Contact: 10/31/2022 10:58 AM Method of Contact: By Phone Contact Type: Prescriptions Contactor: [facility] Contactee: Patient Contact Outcome: Left message and Follow-up (in 4 days (due to weekend)) Shipping/Pickup: Medication Name: Brukinsa 80mg Contact Info: Specialty ([place]) [phone] Xavi [phone] [facility] [phone] [place] [phone] Bedside Delivery ([facility]) [phone] [facility] RX OUTREACH ADVANCED: Call Information: Date and Time of Contact: 11/01/2022 11:14 AM Method of Contact: By Phone Contact Type: Prescriptions Contactor: Patient Contactee: [facility] Shipping/Pickup: Medicare B Refill?: No Medication Name: Brukinsa Delivery Method: Air Delivery Location: Home Signature Required: No Mailing/Pickup Date: 11/01/2022 Shipping Address: [address] [place] [address] Contact Info: Specialty ([place]) [phone] [place] [phone] [facility] [phone] [place] [phone] Bedside Delivery ([facility]) [phone] documented in this encounter [facility] 10-08-2022 History of Present illness Narrative HEMATOLOGY [...] 2011 on a clinical trial at the [facility]. This was complicated by anemia, thrombocytopenia and neutropenia. 2. Fludarabine, cyclophosphamide and rituximab in February 2012 for 4 cycles. Treatment was complicated by prolonged cytopenias and recurrent infections. Last 2 cycles required a 66% dose reduction. 3. [id number] Combination of [id number] and Ibrutinib - on combination 04/29/16-05/05/17 with [...] 2011 on a clinical trial at the [facility]. This was complicated by anemia, thrombocytopenia and neutropenia. 02/2012 - Chemotherapy Fludarabine, cyclophosphamide and rituximab in February 2012 for 4 cycles. Treatment was complicated by prolonged cytopenias and recurrent infections. Last 2 cycles required a 66% dose reduction. 04/2016 - 07/2018 Chemotherapy [id number] Combination of [id number] and Ibrutinib - on combination 04/29/16-05/05/17 with [...] states she is receiving IVIG locally in [place] when IGG < 600. Would like IGG [...] Abdalla MD Hematology documented in this encounter [facility] 10-08-2022 Instructions Roxann Rollins RN - 10/08/2022 12:00 PM EST YOUR PRIMARY TEAM Dr. Sarina Santoyo SENIOR USER EXPERIENCE ARCHITECT - Nurse Practitioner Diana Dennis SENIOR USER EXPERIENCE ARCHITECT - Nurse Practitioner Roxann Rollins RN - Primary Nurse Will Casper RN Please contact our office if you develop a temperature of 100.4 or greater. CONTACT NUMBERS Clinic phone: [phone] [facility] fax: [phone] MEDICAL RECORDS The Release of Information (TA) area is staffed from 8:00 a.m. to 7:00 p.m. and is available for walk in requests from 8:00 a.m. to 4:30 p.m. [facility] is responsible for answering requests for copies of medical records from various requestors such as insurance companies, attorneys, hospitals and patients. Please note it can take up to 2 weeks to complete your request. [phone]; [phone] (fax). FINANCIAL CONCERNS Any questions regarding billing for services or insurance coverage concerns should be directed to our billing department at [phone]. DISABILITY FORMS This category includes any form [...] our team about the suggested recovery time. [employer] is a secure way to get access to your health records online. The medical information you will have access to within the Web Performance program is only selected portions of your [...] For non-emergent concerns, please send us a Web Performance message but describe your issue fully. When sending a message to the provider, please know that these messages will be received and answered by the primary nurse practitioner. The nurse practitioner will consult your physician when needed. For questions or concerns regarding Web Performance access or technical dificulties, please call [phone] or toll free at . __ Results [...] Auto 3.04 1.16 - 3.51 K/uL Abs [place] Auto 0.45 0.22 - 0.87 K/uL Abs [place] Auto 0.10 0.00 - 0.42 K/uL Abs [place] Auto <0.04 0.00 - 0.15 K/uL documented in this encounter [facility] 10-03-2022 History of Present illness Narrative [facility] OUTREACH ADVANCED: Call Information: Date and Time of Contact: 10/03/2022 12:05 PM Method of Contact: By Phone Contact Type: Prescriptions Contactor: [facility] Contactee: Patient Contact Outcome: Left message and Follow-up (follow up in 3 days due to the weekend) Shipping/Pickup: Medication Name: Brukinsa 80 mg Contact Info: Specialty ([place]) [phone] [facility] [phone] [facility] [phone] [facility] [phone] Bedside Delivery ([facility]) [phone] [facility] RX OUTREACH ADVANCED: Call Information: Date and Time of Contact: 10/04/2022 3:44 PM Method of Contact: By Phone Contact Type: Prescriptions Contactor: [facility] Contactee: Patient Shipping/Pickup: Medicare B Refill?: No Medication Name: Brukinsa 80mg Delivery Method: Air Delivery Location: Home Signature Required: No Mailing/Pickup Date: 10/08/2022 Shipping Address: [address] [place] [address] Contact Info: Specialty ([place]) [phone] [facility] [phone] [facility] [phone] [place] [phone] Bedside Delivery ([facility]) [phone] documented in this encounter [facility] 09-04-2022 History of Present illness Narrative [facility] RX OUTREACH ADVANCED: Call Information: Date and Time of Contact: 09/04/2022 1:51 PM Method of Contact: By Phone Contact Type: Prescriptions Contactor: [facility] Contactee: Patient Contact Outcome: Left message and Follow-up (in 1-2 days) Shipping/Pickup: Medication Name: Brukinsa 80mg Contact Info: Specialty ([place]) [phone] [facility] [phone] [facility] [phone] [place] [phone] Bedside Delivery ([facility]) [phone] [facility] RX OUTREACH ADVANCED: Call Information: Date and Time of Contact: 09/06/2022 11:21 AM Method of Contact: By Phone Contact Type: Prescriptions Contactor: [facility] Contactee: Patient Shipping/Pickup: Medicare B Refill?: No Medication Name: Brukinsa 80mg Delivery Method: Air Delivery Location: Home Signature Required: No Mailing/Pickup Date: 09/10/2022 Shipping Address: [address] [place] [address] Contact Info: Specialty ([place]) [phone] [facility] [phone] [facility] [phone] [place] [phone] Bedside Delivery ([facility]) [phone] documented in this encounter [facility] 08-06-2022 History of Present illness Narrative [facility] RX OUTREACH ADVANCED: Call Information: Date and Time of Contact: 08/06/2022 10:35 AM Method of Contact: By Phone Contact Type: Prescriptions Contactor: [facility] Contactee: Patient Contact Outcome: Left message and Follow-up (in 1-3 days) Shipping/Pickup: Medication Name: Brukinsa 80mg Contact Info: Specialty ([place]) [phone] [facility] [phone] [facility] [phone] [place] [phone] Bedside Delivery ([facility]) [phone] [facility] RX OUTREACH ADVANCED: Call Information: Date and Time of Contact: 08/09/2022 9:50 AM Method of Contact: By Phone Contact Type: Prescriptions Contactor: [facility] Contactee: Patient Shipping/Pickup: Medicare B Refill?: No Medication Name: Brukinsa 80mg Delivery Method: Air Delivery Location: Home Signature Required: No Mailing/Pickup Date: 08/12/2022 Shipping Address: [address] [place] [address] Contact Info: Specialty ([place]) [phone] [facility] [phone] [facility] [phone] [place] [phone] Bedside Delivery ([facility]) [phone] [facility] ([facility]) Note: The [...] advised not to take quercetin. Chris Avitia RPH Specialty ([place]) [phone] [facility] [phone] [facility] [phone] [place] [phone] [place] [phone] [place] [phone] [facility] Delivery ([facility]) [phone] documented in this encounter [facility] 07-09-2022 History of Present illness Narrative Summary: [...] 2011 on a clinical trial at the [facility]. This was complicated by anemia, thrombocytopenia and neutropenia. 2. Fludarabine, cyclophosphamide and rituximab in February 2012 for 4 cycles. Treatment was complicated by prolonged cytopenias and recurrent infections. Last 2 cycles required a 66% dose reduction. 3. [id number] Combination of [id number] and Ibrutinib - on combination 04/29/16-05/05/17 with [...] 2011 on a clinical trial at the [facility]. This was complicated by anemia, thrombocytopenia and neutropenia. 02/2012 - Chemotherapy Fludarabine, cyclophosphamide and rituximab in February 2012 for 4 cycles. Treatment was complicated by prolonged cytopenias and recurrent infections. Last 2 cycles required a 66% dose reduction. 04/2016 - 07/2018 Chemotherapy [id number] Combination of [id number] and Ibrutinib - on combination 04/29/16-05/05/[address] but MRD(+). She continued ibrutinib since until 07/2018 when it was stopped for atrial fibrillation 08/21/2020 - 12/18/2020 Chemotherapy Acalabrutinib 100mg BID, dose decrease to 100 mg daily on 09/11/20 d/t arthralgias 04/10/2021 - Chemotherapy Zanubrutinib 160 mg BID Interval History: Ms. Monse Oroan is a 71 y.o. female with a [...] states she is receiving IVIG locally in [place] when IGG < 600. Would like IGG [...] issues. RTC in 3 months. Documented by Shae, Dennis Paulino, for Dr. Sarina Abdalla on [...] Abdalla MD Hematology documented in this encounter [facility] 07-09-2022 Instructions Nettie Casper RN - 07/09/2022 2:20 PM EDT YOUR PRIMARY TEAM Dr. Sarina Santoyo CNP - Nurse Practitioner Diana Dennis CNP - Nurse Practitioner Roxann Rollins RN - Primary Nurse Will Casper RN - Secondary Nurse Please contact our office if you develop a temperature of 100.4 or greater. CONTACT NUMBERS Clinic phone: [phone] Clinic fax: [phone] MEDICAL RECORDS The Release of Information (TA) area is staffed from 8:00 a.m. to 7:00 p.m. and is available for walk in requests from 8:00 a.m. to 4:30 p.m. [facility] is responsible for answering requests for copies of medical records from various requestors such as insurance companies, attorneys, hospitals and patients. Please note it can take up to 2 weeks to complete your request. [phone]; [phone] (fax). FINANCIAL CONCERNS Any questions regarding billing for services or insurance coverage concerns should be directed to our billing department at [phone]. DISABILITY FORMS This category includes any form [...] our team about the suggested recovery time. [employer] is a secure way to get access to your health records online. The medical information you will have access to within the [employer] Performance program is only selected portions of your [...] For non-emergent concerns, please send us a [employer] Performance message but describe your issue fully. When sending a message to the provider, please know that these messages will be received and answered by the primary nurse practitioner. The nurse practitioner will consult your physician when needed. For questions or concerns regarding Web [employer] access or technical dificulties, please call [phone] or toll free at . __ Results [...] Auto 3.34 1.16 - 3.51 K/uL Abs [place] Auto 0.56 0.22 - 0.87 K/uL Abs Eos Auto 0.16 0.00 - 0.42 K/uL Abs [place] Auto <0.04 0.00 - 0.15 K/uL documented in this encounter [facility] 05-09-2022 History of Present illness Narrative [facility] OUTREACH ADVANCED: Call Information: Date and Time of Contact: 05/09/2022 11:47 AM Method of Contact: By Phone Contact Type: Prescriptions Contactor: [facility] Contactee: Patient Shipping/Pickup: Medication Name: Brukinsa Contact Info: Specialty ([place]) [phone] [facility] [phone] [facility] [phone] [place] [phone] Bedside Delivery ([facility]) [phone] [facility] RX OUTREACH ADVANCED: Call Information: Date and Time of Contact: 05/09/2022 1:44 PM Method of Contact: By Phone Contact Type: Prescriptions Contactor: [facility] Contactee: Patient Shipping/Pickup: Medicare B Refill?: No Medication Name: Brukinsa 80mg Delivery Method: Air Delivery Location: Home Signature Required: No Mailing/Pickup Date: 05/13/2022 Shipping Address: [address] [place] [address] Contact Info: Specialty ([place]) [phone] [facility] [phone] [facility] [phone] [place] [phone] Bedside Delivery ([facility]) [phone] documented in this encounter [facility] 04-09-2022 History of Present illness Narrative Summary: [...] 2011 on a clinical trial at the [facility]. This was complicated by anemia, thrombocytopenia and neutropenia. 2. Fludarabine, cyclophosphamide and rituximab in February 2012 for 4 cycles. Treatment was complicated by prolonged cytopenias and recurrent infections. Last 2 cycles required a 66% dose reduction. 3. [id number] Combination of [id number] and Ibrutinib - on combination 04/29/16-05/05/17 with [...] 2011 on a clinical trial at the [facility]. This was complicated by anemia, thrombocytopenia and neutropenia. 02/2012 - Chemotherapy Fludarabine, cyclophosphamide and rituximab in February 2012 for 4 cycles. Treatment was complicated by prolonged cytopenias and recurrent infections. Last 2 cycles required a 66% dose reduction. 04/2016 - 07/2018 Chemotherapy [id number] Combination of [id number] and Ibrutinib - on combination 04/29/16-05/05/17 with [...] states she is receiving IVIG locally in [place] when IGG < 600. Would like IGG [...] medical record entries made by the Shae Trina Castillo, were at my direction and personally dictated by me, Sarina Abdalla. I have reviewed the chart and agree that the record accurately reflects my personal performance of the history, physical exam, assessment and plan. I have also personally directed, reviewed, and agree with the discharge instructions. Sarina Abdalla MD Hematology documented in this encounter [facility] 04-09-2022 Instructions Nettie Casper, PLACIDO - 04/09/2022 1:36 PM EDT YOUR PRIMARY TEAM Dr. Sarina Santoyo, SHANNON - Nurse Practitioner Diana Dennis CNP - Nurse Practitioner Roxann Rollins RN - Primary Nurse Will Casper RN - Secondary Nurse Please contact our office if you develop a temperature of 100.4 or greater. CONTACT NUMBERS Clinic phone: [phone] Clinic fax: [phone] MEDICAL RECORDS The Release of Information (TA) area is staffed from 8:00 a.m. to 7:00 p.m. and is available for walk in requests from 8:00 a.m. to 4:30 p.m. [facility] is responsible for answering requests for copies of medical records from various requestors such as insurance companies, attorneys, hospitals and patients. Please note it can take up to 2 weeks to complete your request. [phone]; [phone] (fax). FINANCIAL CONCERNS Any questions regarding billing for services or insurance coverage concerns should be directed to our billing department at [phone]. DISABILITY FORMS This category includes any form [...] our team about the suggested recovery time. [facility] Donna Martinez is a secure way to get access to your health records online. The medical information you will have access to within the Web Performance program is only selected portions of your [...] For non-emergent concerns, please send us a Web Performance message but describe your issue fully. When sending a message to the provider, please know that these messages will be received and answered by the primary nurse practitioner. The nurse practitioner will consult your physician when needed. For questions or concerns regarding Web Performance access or technical dificulties, please call [phone] or toll free at . __ Results [...] 4.76 (H) 1.16 - 3.51 K/uL Abs [place] Auto 0.57 0.22 - 0.87 K/uL Abs Eos Auto 0.25 0.00 - 0.42 K/uL Abs Baso Auto 0.04 0.00 - 0.15 K/uL documented in this encounter [facility] 03-15-2022 History of Present illness Narrative [facility] Note: The patient is out of refills on Brukinsa 80mg. Please send a new prescription to [facility], if appropriate. Chris Avitia, [facility] Specialty ([place]) [phone] [facility] [phone] [facility] [phone] Ak[place] [phone] [place] [phone] Bedside Delivery ([facility]) [phone] [facility] RX OUTREACH ADVANCED: Call Information: Date and Time of Contact: 03/18/2022 1:05 PM Method of Contact: By Phone Contact Type: Prescriptions Contactor: [facility] Contactee: Patient Shipping/Pickup: Medicare B Refill?: No Medication Name: Brukinsa 80mg Delivery Method: Air Delivery Location: Home Signature Required: No Mailing/Pickup Date: 03/19/2022 Shipping Address: [address] [place] [address] Contact Info: Specialty ([place]) [phone] [facility] [phone] [facility] [phone] [place] [phone] Bedside Delivery ([facility]) [phone] documented in this encounter [facility] 07-09-2021 History of Present illness Narrative [facility] OUTREACH: Call Information: Date and Time of Contact: 07/11/2021 2:17 PM Method of Contact: By Phone Contact Type: Prescriptions Contactor: [facility] Contactee: Patient Shipping/Pickup: Mailing/Pickup Date: 07/12/2021 Medicare B Refill: No Medication Name: brukinsa Delivery Method: Air Delivery Location: Home Signature Required: No Shipping Address: [address] [place] [address] Contact Info: Specialty ([place]) [phone] [facility] [phone] [facility] [phone] [place] [phone] Bedside Delivery ([facility]) [phone] [facility] RX OUTREACH: Call Information: Date and Time of Contact: 07/11/2021 10:51 AM Method of Contact: By Phone Contact Type: Prescriptions Contactor: [facility] Contactee: Patient Contact Outcome: Left message and Follow-up (brukinsa refill ) Contact Info: Specialty ([place]) [phone] [facility] [phone] [facility] [phone] [place] [phone] Bedside Delivery ([facility]) [phone] [facility] RX OUTREACH: Call Information: Date and Time of Contact: 07/09/2021 2:27 PM Method of Contact: By Phone Contact Type: Prescriptions Contactor: [facility] Contactee: Patient Contact Outcome: Left message and Follow-up (in 1 to 2 days) Shipping/Pickup: Medication Name: Brukinsa 80mg Contact Info: Specialty ([place]) [phone] [facility] [phone] [facility] [phone] [place] [phone] Bedside Delivery ([facility]) [phone] [facility] History of Present illness Narrative [facility] OUTREACH: Call Information: Date and Time of Contact: 06/12/2021 12:31 PM Method of Contact: By Phone Contact Type: Prescriptions Contactor: [facility] Contactee: Patient Shipping/Pickup: Mailing/Pickup Date: 06/14/2021 Medicare B Refill: No Medication Name: Brukinsa Delivery Method: Air Delivery Location: Home Signature Required: No Shipping Address: [address] [place] [address] Contact Info: Specialty ([place]) [phone] [facility] [phone] [facility] [phone] [place] [phone] Bedside Delivery ([facility]) [phone] [facility] RX OUTREACH: Call Information: Date and Time of Contact: 06/08/2021 3:26 PM Method of Contact: By Phone Contact Type: Prescriptions Contactor: [facility] Contactee: Patient Contact Outcome: Left message and Follow-up (in 3-5 days (due to weekend)) Shipping/Pickup: Medication Name: Brukinsa 80mg Contact Info: Specialty ([place]) [phone] [place] [phone] [facility] [phone] [place] [phone] Bedside Delivery ([facility]) [phone] documented [facility] History of Present illness Narrative Attending [...] 208K Hx of Afib: Continue follow-up with city planning aide. She will follow with her primary care [...] 2011 on a clinical trial at the [facility]. This was complicated by anemia, thrombocytopenia and neutropenia. 2. Fludarabine, cyclophosphamide and rituximab in February 2012 for 4 cycles. Treatment was complicated by prolonged cytopenias and recurrent infections. Last 2 cycles required a 66% dose reduction. 3. [id number] Combination of [id number] and Ibrutinib - on combination 04/29/16-05/05/17 with [...] were detected. She had IVIG locally in [place] and had kyphoplasty at [facility] on 05/10/20. On 05/10/20, wbc was 14.6, [...] on 07/19/20. She returned to the [facility] on 07/25/20 - she had 1 cm [...] 2011 on a clinical trial at the [facility]. This was complicated by anemia, thrombocytopenia and neutropenia. 02/2012 - Chemotherapy Fludarabine, cyclophosphamide and rituximab in February 2012 for 4 cycles. Treatment was complicated by prolonged cytopenias and recurrent infections. Last 2 cycles required a 66% dose reduction. 04/2016 - 07/2018 Chemotherapy [id number] Combination of [id number] and Ibrutinib - on combination 04/29/16-05/05/17 with [...] sublingual formulations. Receiving monthly IVIG locally in [place] and states this is scheduled if IGG [...] states she is receiving IVIG locally in [place] when IGG < 600. Would like IGG [...] any additional questions. documented in this encounter [facility] 06-05-2021 Instructions Nettie Casper RN - 06/05/2021 10:40 AM EDT YOUR PRIMARY TEAM Dr. Sarina Santoyo CNP - Nurse Practitioner Diana Dennis CNP - Nurse Practitioner Roxann Rollins RN - Primary Nurse Will Casper RN - Secondary Nurse Please contact our office if you develop a temperature of 100.4 or greater. CONTACT NUMBERS Clinic phone: [phone] Clinic fax: [phone] MEDICAL RECORDS The Release of Information (TA) area is staffed from 8:00 a.m. to 7:00 p.m. and is available for walk in requests from 8:00 a.m. to 4:30 p.m. [facility] is responsible for answering requests for copies of medical records from various requestors such as insurance companies, attorneys, hospitals and patients. Please note it can take up to 2 weeks to complete your request. [phone]; [phone] (fax). FINANCIAL CONCERNS Any questions regarding billing for services or insurance coverage concerns should be directed to our billing department at [phone]. DISABILITY FORMS This category includes any form [...] our team about the suggested recovery time. [employer] is a secure way to get access to your health records online. The medical information you will have access to within the Web Performance program is only selected portions of your [...] For non-emergent concerns, please send us a Web Performance message but describe your issue fully. When sending a message to the provider, please know that these messages will be received and answered by the primary nurse practitioner. The nurse practitioner will consult your physician when needed. For questions or concerns regarding Web Performance access or technical dificulties, please call [phone] or toll free at . __ Results [...] Immature Grans Absolute Abs Lymph Auto Abs [place] Auto Abs Eos Auto Abs Baso Auto MANUAL DIFF Result Value Ref Range DIFF STATUS Manual Differential Bands Relative 0.0 % Segs Relative 2.0 % Lymph Relative 97.0 % [place] Relative 0.0 % Eos Relative 1.0 % Baso Relative 0.0 % Nucleated RBC 0.0 <=0.0 /100 WBC Segs & Bands, Absolute 3.41 1.64 - 7.28 K/uL Abs Lymph Manual 165.43 (H) 1.16 - 3.51 K/uL Abs [place] Manual 0.00 (L) 0.22 - 0.87 K/uL Abs Eos Manual 1.71 (H) 0.00 - 0.42 K\uL Abs Baso Manual 0.00 0.00 - 0.15 K/uL RBC Morphology RBC INDICES CONFIRMED WITH MANUAL SLIDE REVIEW Platelet Estimate Automated platelet count confirmed by manual slide review documented in this encounter [facility] 01-31-2021 Note HNO ID: [id number] Author: Bharat Durbin MD Service: ? Author Type: Physician Type: Progress Notes Filed: 01/31/2021 11:57 AM Note Text: Bharat Durbin M.D. [facility] General Orthopedics - Orthopedic Spine Surgeon [address], [place] [address] [place] [address], [place] [address] Phone: [phone] ([employer]) FAX: [phone] ([place]) SPINE SURGERY OUTPATIENT CONSULT SERVICE DATE: 01/31/2021 PCP: Savannah Rios MD REFERRING PROVIDER: Bharat Durbin MD [address] [place] [address] CHIEF COMPLAINT: low back pain HISTORY OF [...] (Supraventricular Tachycardia) (Hcc) Cll (Chronic Lymphocytic Leukemia) (Hcc) Anemia, Unspecified Drug Induced Neutropenia(288.03) Cough Cmc Arthritis, Thumb, Degenerative Rowe (Dyspnea On Exertion) Tibialis Posterior Tendon Rupture Hypogammaglobulinemia (Hcc) Permanent atrial fibrillation (HCC) At Risk for Stroke At Risk for Bleeding Associated With Anticoagulants History of Falling At Risk for Falling Essential Hypertension Rheumatoid Arthritis (Hcc) History of Syncope Presence of Watchman Left Atrial Appendage Closure Device T12 Compression Fracture (Hcc) Chronic Bilateral Low Back Pain Without Sciatica PAST MEDICAL HISTORY Diagnosis Date - Anemia, unspecified - Anticoagulant long-term use DOAC rivaroxaban (Xarelto); risk:benefit of middle or intermediate 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 [facility] 01-24-2021 Note HNO ID: [id number] Author: Bharat Durbin MD Service: ? Author Type: Physician Type: Progress Notes Filed: 01/24/2021 1:52 PM Note Text: Bharat Durbin M.D. [facility] Orthopedics - Orthopedic Spine Surgeon [address], [place] [address] [address] [place] [address] [address], [place] [address] Phone: [phone] ([facility]) FAX: [phone] ([place]) SPINE SURGERY OUTPATIENT CONSULT SERVICE DATE: 01/24/2021 PCP: Savannah Rios MD REFERRING PROVIDER: Anika Wood PA-C [address] [facility] [facility] [address] CHIEF COMPLAINT: low back pain HISTORY OF [...] (Supraventricular Tachycardia) (Hcc) Cll (Chronic Lymphocytic Leukemia) (Hcc) Anemia, Unspecified Drug Induced Neutropenia(288.03) Cough Cmc Arthritis, Thumb, Degenerative Rowe (Dyspnea On Exertion) Tibialis Posterior Tendon Rupture Hypogammaglobulinemia (Hcc) Permanent atrial fibrillation (HCC) At Risk for Stroke At Risk for Bleeding Associated With Anticoagulants History of Falling At Risk for Falling Essential Hypertension Rheumatoid Arthritis (Hcc) History of Syncope Presence of Watchman Left Atrial Appendage Closure Device T12 Compression Fracture (Hcc) Chronic Bilateral Low Back Pain Without Sciatica PAST MEDICAL HISTORY Diagnosis Date - Anemia, unspecified - Anticoagulant long-term use DOAC rivaroxaban (Xarelto); risk:benefit of longterm oral anticoagulation therapy is not favorable - [...] recurrent falling - At risk for stroke [id number] = 3 (HTN, age, female gender); s/p [...] Watchman left atrial appendage closure device 11/23/2019 [employer] Watchman left atrial appendage closure device [...] [place] (more content not included)... [facility] 01-17-2021 Note HNO ID: [id number] Author: Katelyn Ragland (Tech) Service: ? Author Type: Juvenile Probation Officer Type: Progress Notes Filed: 01/18/2021 3:50 PM [...] changes. MUSCULOSKELETAL: Low back pain [facility] 01-17-2021 Note HNO ID: [id number] Author: Anika Wood Service: ? Author Type: Physician Baggagemaster Type: Progress Notes Filed: 01/18/2021 3:50 PM Note Text: [facility] New Patient Evaluation Impression: [...] HR URINE 8. CLL (chronic lymphocytic leukemia) ([facility]) - ICD9: 204.10, ICD10: C91.10 - PTH INTACT BLD - PROTEIN ELECTROPHORESIS SERUM W/INTERP - PROTEIN ELECT RND UR W/INTERP - PHOSPHORUS INORGANIC - MAGNESIUM BLD - CALCIUM 24 HR URINE 9. Rheumatoid arthritis, involving unspecified site, unspecified whether rheumatoid factor present (HCC) - ICD9: 714.0, ICD10: M06.9 - PTH [...] sin (more content not included)... [facility] 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- Primary Chronic lymphoid leukemia, without mention of having achieved remission [facility] Diagnosis 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- Primary Chronic lymphoid leukemia, without mention of having achieved remission [facility] Diagnosis CLL (chronic lymphocytic leukemia)- Primary Chronic lymphoid leukemia, without mention of having achieved remission [facility] Diagnosis CLL (chronic lymphocytic leukemia)- Primary Chronic lymphoid leukemia, without mention of having achieved remission documented in this encounter [facility] Summary Purpose Family History No Family History Records FoundNo Family History Records FoundNo Family History Records FoundNo Family History Records FoundNo Family History Records Found Advance Directives Documents on File Type Date Recorded Patient 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 She is in agreement with this code status. Code Status History Code Status Date Activated Date Inactivated Comments Full Code 03/30/2016 4:47 PM 04/02/2016 8:24 PM Full Code-Unverified 03/30/2016 2:57 PM 03/30/2016 4:47 PM Reason for Referral Specialty Diagnoses / Procedures Referred By Contac t Referred To Contact Diagnoses CLL (chronic lymphocytic leukemia) Procedures BTK RESISTANCE MUTATION, BLOOD SantoyoBettina, EDGE BASTER-SENIOR USER EXPERIENCE ARCHITECT [address] [place] [address] Referral ID Status Reason Start Date Expiration Date V isits Requested Visits Authorized [id number] New Request 10/30/2023 11/23/2024 1 1 Additional Source Comments INFORMATION SOURCE (unrecogn ized section and content) DATE CREATED AUTHOR AUTHOR'S ORGANIZ ATION [facility] DATE CREATED AUTHOR AUTHOR'S ORGANIZ ATION 11/28/2021 [facility] DATE CREATED AUTHOR AUTHOR'S ORGANIZ ATION 12/30/2021 [facility] DATE CREATED AUTHOR AUTHOR'S ORGANIZ ATION 12/07/2023 [facility] Care Teams (unrecognized sec tion and content) Projection Welding Machine Operator Relationship Specialty Start Date End Date Savannah Rios MD [address] [place], [place] [id number] PCP - General Family Medicine 01/05/19 Vitaly Ortega MD Cardiovascular Medicine 07/04/16 Master Kuo MD [address] [place] [address] Hematology 10/12/18 Cong Aguirre MB/CHB [address] [place], [place] [id number] Hematology 10/23/18 Ada Mckinney, EDGE BASTER-SENIOR USER EXPERIENCE ARCHITECT [address] [place] [phone] Certified Nurse Practitioner 09/11/20 Chris Avitia, MARLYN [address] [place] [address] Pharmacist Pharmacist 04/12/[address] RPh,PharmD [address] [place] [phone] Pharmacist 04/12/21 Vitaly Otto [facility] [address] [place] [address] Pharmacist Pharmacist 04/12/21 Dr. Harsh Denton [address] [place] [address] Neurology 01/05/19 Projection Welding Machine Operator Relationship Specialty Start Date End Date Savannah Rios MD [address] [place] [address] PCP - General Family Medicine 01/05/19 Vitaly Ortega MD Cardiovascular Medicine 07/04/16 Master Kuo MD [address] [place] [address] Hematology 10/12/18 Cong Aguirre MB/CHB [address] [place] [address] Hematology 10/23/18 Ada Mckinney, EDGE BASTER-SENIOR USER EXPERIENCE ARCHITECT [address] [place] [phone] Certified Nurse Practitioner 09/11/20 Chris Avitia Estephania [address] [address] Pharmacist Pharmacist 04/12/[address] RPh,PharmD [address] [place], [place] [phone] Pharmacist 04/12/21 Vitaly Otto [facility] [address] [place] [address] [place] [address] Pharmacist Pharmacist 04/12/21 Dr. Harsh Denton [address] [place] [address] Neurology 01/05/19 Projection Welding Machine Operator Relationship Specialty Start Date End Date Savannah Rios MD [address] [place] [address] PCP - General Family Medicine 01/05/19 Vitaly Ortega MD Cardiovascular Medicine 07/04/16 Master Kuo MD [address] [place] [address] Hematology 10/12/18 Cong Aguirre MB/CHB [address] [place] [address] Hematology 10/23/18 Ada Mckinney, EDGE BASTER-SENIOR USER EXPERIENCE ARCHITECT [address] [place] [phone] Certified Nurse Practitioner 09/11/20 Chris Avitia, [facility] [address] [place] [address] Pharmacist Pharmacist 04/12/[address], [facility],PharmD [address] [place] [address] Pharmacist 04/12/21 Vitaly Otto, [facility] [address] [place] [address] Pharmacist Pharmacist 04/12/21 Dr. Harsh Denton [address] [place], [place] [address] Neurology 01/05/19 Projection Welding Machine Operator Relationship Specialty Start Date End Date Savannah Rios MD [address] [place] [address] PCP - General Family Medicine 01/05/19 Vitaly Ortega MD Cardiovascular Medicine 07/04/16 Master Kuo MD [address] [place] [address] Hematology 10/12/18 Cong Aguirre MB/CHB [address] [place] [address] Hematology 10/23/18 Ada Mckinney, EDGE BASTER-SENIOR USER EXPERIENCE ARCHITECT [address] [place] [address] Certified Nurse Practitioner 09/11/20 Chris Avitia, [facility] [address] [place] [address] Pharmacist Pharmacist 04/12/[address], [facility],PharmD [address] [place] [address] Pharmacist 04/12/21 Vitaly Otto, [facility] [address] [place] [address] Pharmacist Pharmacist 04/12/21 Dr. Harsh Denton [address] [place] [address] Neurology 01/05/19 Projection Welding Machine Operator Relationship Specialty Start Date End Date Savannah Rios MD [address] [place] [address] PCP - General Family Medicine 01/05/19 Vitaly Ortega MD Cardiovascular Disease 07/04/16 Master Kuo MD [address] [place] [address] Hematology 10/12/18 Cong Aguirre MB/CHB [address] [place] [address] Hematology 10/23/18 Ada Mckinney, EDGE BASTER-SENIOR USER EXPERIENCE ARCHITECT [address] [place] [phone] Certified Nurse Practitioner 09/11/20 Chris Avitia, RP [address] [place] [address] Pharmacist Pharmacist 04/12/[address] RPh,PharmD [address] [place] [address] Pharmacist 04/12/21 Vitaly Otto, RPEstephania [address] [place] [address] Pharmacist Pharmacist 04/12/21 Dr. Harsh Denton [address] [place] [address] Neurology 01/05/19 Projection Welding Machine Operator Relationship Specialty Start Date End Date Savannah Rios MD [address] [place] [address] PCP - General Family Medicine 01/05/19 Vitaly Ortega MD Cardiovascular Disease 07/04/16 Master Kuo MD [address] [place] [address] Hematology 10/12/18 Cong Aguirre MB/CHB [address] [place] [address] Hematology 10/23/18 Ada Mckinney, EDGE BASTER-SENIOR USER EXPERIENCE ARCHITECT [address] [place] [phone] Certified Nurse Practitioner 09/11/20 Chris Avitia RPH [address] [place] [address] Pharmacist Pharmacist 04/12/[address] RPh,PharmD [address] [place] [address] Pharmacist 04/12/21 Vitaly Otto RPH [address] [place] [address] Pharmacist Pharmacist 04/12/21 Dr. Harsh Denton [address] [place] [address] Neurology 01/05/19 Projection Welding Machine Operator Relationship Specialty Start Date End Date Savannah Rios MD [address] [place] [address] PCP - General Family Medicine 01/05/19 Vitaly Ortega MD Cardiovascular Disease 07/04/16 Master Kuo MD [address] [place] [address] Hematology 10/12/18 Cong Aguirre MB/CHB [address] [place] [address] Hematology 10/23/18 Ada Mckinney, [employer] B[employer]ER-SENIOR USER EXPERIENCE ARCHITECT [address] [place] [phone] Certified Nurse Practitioner 09/11/20 Chris Avitia, [facility] [address] [place] [phone] Pharmacist Pharmacist 04/12/[address], [facility],PharmD [address] [place] [address] Pharmacist 04/12/21 Vitaly Otto, [facility] [address] [place] [address] Pharmacist Pharmacist 04/12/21 Dr. Harsh Denton [address] [place] [address] Neurology 01/05/19 Projection Welding Machine Operator Relationship Specialty Start Date End Date Savannah Rios MD [address] [place] [address] PCP - General Family Medicine 01/05/19 Vitaly Ortega MD Cardiovascular Disease 07/04/16 Master Kuo MD [address] [place] [address] Hematology 10/12/18 Cong Aguirre MB/CHB [address] [place] [address] Hematology 10/23/18 Ada Mckinney, [employer] B[employer]-SENIOR USER EXPERIENCE ARCHITECT [address] [place] [address] Certified Nurse Practitioner 09/11/20 Chris Avitia, [facility] [address] [place] [address] Pharmacist Pharmacist 04/12/[address] [facility],PharmD [address] [place] [address] Pharmacist 04/12/21 Vitaly Otto, [facility] [address] [place] [address] Pharmacist Pharmacist 04/12/21 Dr. Harsh Denton [address] [place] [address] Neurology 01/05/19 Projection Welding Machine Operator Relationship Specialty Start Date End Date Savannah Rios MD [address] [place] [address] PCP - General Family Medicine 01/05/19 Vitaly Ortega MD Cardiovascular Disease 07/04/16 Cong Aguirre MB/CHB [address] [place] [address] Hematology 10/23/18 Ada Mckinney, [employer]-SENIOR USER EXPERIENCE ARCHITECT [address] [place] [address] Certified Nurse Practitioner 09/11/20 Chris Avitia, [facility] [address] [place] [address] Pharmacist Pharmacist 04/12/[address] RPh,PharmD [address] [place] [address] Pharmacist 04/12/21 Vitaly Otto, [facility] [address] [place] [phone] Pharmacist Pharmacist 04/12/21 Sarina Abdalla MD [address] [place] [phone] Hematology 10/08/22 Dr. Harsh Denton [address] [place] [address] Neurology 01/05/19 Projection Welding Machine Operator Relationship Specialty Start Date End Date Savannah Rios MD [address] [place] [address] PCP - General Family Medicine 01/05/19 Vitaly Ortega MD Cardiovascular Disease 07/04/16 Cong Aguirre MB/CHB [address] [place] [address] Hematology 10/23/18 Ada Mckinney, [employer]-SENIOR USER EXPERIENCE ARCHITECT [address] [place] [phone] Certified Nurse Practitioner 09/11/20 Chris Avitia, H [address] [place] [address] Pharmacist Pharmacist 04/12/[address] RPh,PharmD [address] [place] [address] Pharmacist 04/12/21 Vitaly Otto RPH [address] [place] [address] Pharmacist Pharmacist 04/12/21 Sarina Abdalla MD [address] [place] [phone] Hematology 10/08/22 Dr. Harsh Denton [address] [facility] [address] Neurology 01/05/19 Projection Welding Machine Operator Relationship Specialty Start Date End Date Savannah Rios MD [address] [place], [place] [id number] PCP - General Family Medicine 01/05/19 Vitaly Ortega MD Cardiovascular Disease 07/04/16 Cong Aguirre MB/CHB [address] [place] [address] Hematology 10/23/18 Ada Mckinney, [employer] B[employer]ER-SENIOR USER EXPERIENCE ARCHITECT [address] [place] [phone] Certified Nurse Practitioner 09/11/20 Chris Avitia, [facility] [address] [place] [address] Pharmacist Pharmacist 04/12/[address], [facility],PharmD [address] [place] [address] Pharmacist 04/12/21 Vitaly Otto, [facility] [address] [place] [address] Pharmacist Pharmacist 04/12/21 Sarina Abdalla MD [address] [place] [address] Hematology 10/08/22 Dr. Harsh Denton [address] [place] [address] Neurology 01/05/19 Projection Welding Machine Operator Relationship Specialty Start Date End Date Savannah Rios MD [address] [place], [place] [id number] PCP - General Family Medicine 01/05/19 Vitaly Ortega MD Cardiovascular Disease 07/04/16 Cong Aguirre MB/CHB [address] [place] [address] Hematology 10/23/18 Ada Mckinney, [employer]ER-SENIOR USER EXPERIENCE ARCHITECT [address] [place] [phone] Certified Nurse Practitioner 09/11/20 Chris Avitia, [facility] [address] [place] [address] Pharmacist Pharmacist 04/12/[address] RPh,PharmD [address] [place] [address] Pharmacist 04/12/21 Vitaly Otto [facility] [address] [place] [address] Pharmacist Pharmacist 04/12/21 Sarina Abdalla MD [address] [place] [address] Hematology 10/08/22 Dr. Harsh Denton [address] [place] [address] Neurology 01/05/19 Projection Welding Machine Operator Relationship Specialty Start Date End Date Savannah Rios MD [address] [place], [place] [id number] PCP - General Family Medicine 01/05/19 Vitaly Ortega MD Cardiovascular Disease 07/04/16 Cong Aguirre MB/CHB [address] [place] [address] Hematology 10/23/18 Ada Mckinney, [employer]ER-SENIOR USER EXPERIENCE ARCHITECT [address] [place] [address] Certified Nurse Practitioner 09/11/20 Chris Avitia, [facility] [address] Room [place] [phone] Pharmacist Pharmacist 04/12/[address] RPh,PharmD [address] [place], [place] [phone] Pharmacist 04/12/21 Vitaly Otto, [facility] [address] [place] [address] Pharmacist Pharmacist 04/12/21 Sarina Abdalla MD [address] [place] [address] Hematology 10/08/22 Dr. Harsh Denton [address] [place] [address] Neurology 01/05/19 Projection Welding Machine Operator Relationship Specialty Start Date End Date Savannah Rios MD [address] [place] [address] PCP - General Family Medicine 01/05/19 Vitaly Ortega MD Cardiovascular Disease 07/04/16 Cong Aguirre MB/CHB [address] [place] [address] Hematology 10/23/18 Ada Mckinney, [employer]ER-SENIOR USER EXPERIENCE ARCHITECT [address] [place] [phone] Certified Nurse Practitioner 09/11/20 Chris Avitia, [facility] [address] [place] [address] Pharmacist Pharmacist 04/12/[address], [facility],PharmD [address] [place] [address] Pharmacist 04/12/21 Vitaly Otto, [facility] [address] [place] [address] Pharmacist Pharmacist 04/12/21 Sarina Abdalla MD [address] [place] [address] Hematology 10/08/22 Dr. Harsh Denton [address] [place], [place] [address] Neurology 01/05/19 Projection Welding Machine Operator Relationship Specialty Start Date End Date Savannah Rios MD [address] [place], [place] [address] PCP - General Family Medicine 01/05/19 Vitaly Ortega MD Cardiovascular Disease 07/04/16 Cong Aguirre MB/CHB [address] [place] [address] Hematology 10/23/18 Ada Mckinney, [employer] B[employer]ER-SENIOR USER EXPERIENCE ARCHITECT [address] [place] [phone] Certified Nurse Practitioner 09/11/20 Chris Avitia, [facility] [address] [place] [phone] Pharmacist Pharmacist 04/12/[address] [facility],PharmD [address] [place] [address] Pharmacist 04/12/21 Vitaly Otto, [facility] [address] [place] [address] Pharmacist Pharmacist 04/12/21 Sarina Abdalla MD [address] [place] [address] Hematology 10/08/22 Dr. 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 Specialty Start Date End Date Savannah Rios MD [address] [place] [address] PCP - General Family Medicine 01/05/19 Vitaly Ortega MD Cardiovascular Disease 07/04/16 Cong Aguirre MB/CHB [address] [place] [address] Hematology 10/23/18 Ada Mckinney, [employer] B[employer]ER-SENIOR USER EXPERIENCE ARCHITECT [facility] [place] [phone] Certified Nurse Practitioner 09/11/20 Chris Avitia [facility] [address] [place] [address] Pharmacist Pharmacist 04/12/[address], [facility],PharmD [address] [place] [address] Pharmacist 04/12/21 [facility] [address] [place] [phone] Pharmacist Pharmacist 04/12/21 Sarina Abdalla MD [address] [place] [address] Hematology 10/08/22 Dr. 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 Start Date End Date Savannah Rios MD [address] [place] [address] PCP - General Family Medicine 01/05/19 Vitaly Ortega MD Cardiovascular Disease 07/04/16 Cong Aguirre MB/CHB [address] [place] [address] Hematology 10/23/18 Ada Mckinney, [employer] B[employer]ER-SENIOR USER EXPERIENCE ARCHITECT [address] [place] [phone] Certified Nurse Practitioner 09/11/20 Chris Avitia, [facility] [address] [place] [address] Pharmacist Pharmacist 04/12/[address], [facility],PharmD [address] [place] [phone] Pharmacist 04/12/21 Vitaly Otto, [facility] [address] [place] [address] Pharmacist Pharmacist 04/12/21 Sarina Abdalla MD [address] [place] [address] Hematology 10/08/22 Dr. 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 Specialty Start Date End Date Savannah Rios MD [address] [place] [address] PCP - General Family Medicine 01/05/19 Vitaly Ortega MD Cardiovascular Disease 07/04/16 Cong Aguirre MB/CHB [address] [place] [address] Hematology 10/23/18 Ada Mckinney, [employer] B[employer]ER-SENIOR USER EXPERIENCE ARCHITECT [address] [place] [phone] Certified Nurse Practitioner 09/11/20 Chris Avitia [facility] [address] [place] [address] Pharmacist Pharmacist 04/12/[address], [facility],PharmD [address] [place] [address] Pharmacist 04/12/21 Vitaly Otto, [facility] [address] [place] [address] Pharmacist Pharmacist 04/12/21 Sarina Abdalla MD [address] [place] [address] Hematology 10/08/22 Dr. Harsh Denton [address] [place] [address] Neurology 01/05/19 Reason for Visit (unrecogniz ed section and content) Reason Comments Follow-up Specialty Diagnoses / Procedures Referred By Contac t Referred To Contact Diagnoses CLL (chronic lymphocytic leukemia) Procedures BTK RESISTANCE MUTATION, BLOOD Bettina Santoyo, [employer] B[employer]ER-SENIOR USER EXPERIENCE ARCHITECT [address] [place] [address] Referral ID Status Reason Start Date Expiration Date V isits Requested Visits Authorized [id number] New Request 10/30/2023 11/23/2024 1 FOR RECORDS [...] BE BASED ON THE PRIMARY CLINICAL RECORDS. [employer] provides no warranty or guarantee of the accuracy or completeness of information in this document.
[2024-01-01] MEDS: Immune Globulin 20 gm Premixed Solution 28.5 BAG IV (09:44)
== END 2024-01-01 09:02 | disposition home or self-care (01) ==
PROVIDERS: PCP Family Medicine
DX: C91.10 Chronic lymphocytic leukemia of B-cell type not having achieved remission (principal); D80.1 Nonfamilial hypogammaglobulinemia
CPT/HCPCS: 96365; 96366; 96375; J7050; A4216; J1568

== ENCOUNTER → 2024-01-01 | Outpatient (CLI) | payer MEDICARE, OTHER, SELFPAY ==
[2024-01-01] MEDS: Zolpidem Tartrate 5 MG Tablet PO (21:36)
== END | disposition home or self-care (01) ==
LOC: SL 19:54
PROVIDERS: PCP Family Medicine; Visit Provider Nurse Practitioner Acute Care
DX: C91.10 Chronic lymphocytic leukemia of B-cell type not having achieved remission (principal); D80.1 Nonfamilial hypogammaglobulinemia; G47.33 Obstructive sleep apnea (adult) (pediatric)
CPT/HCPCS: 96365; 96366; 96375; 95810; J7050; A4216; J1568

== ENCOUNTER 2024-01-05 07:25 | Day surgery (SDC) | payer MEDICARE, OTHER, SELFPAY ==
--- NOTE | 2023-12-24 14:59 | RAD_ITS ---
INDICATION: Dyspnea on exertion EXAMINATION/TECHNIQUE: X-RAY - XR Chest 2 Views COMPARISON: 08/27/2016 FINDINGS: LINES/DEVICES: None. LUNGS: No consolidation, edema or effusion. No pneumothorax. MEDIASTINUM AND CARDIOVASCULAR STRUCTURES: Cardiac silhouette not enlarged. Central airways and mediastinal contour are unremarkable. Left atrial appendage occlusion device present. BONES AND SOFT TISSUES: Stable scoliosis. Interval kyphoplasty lower thoracic vertebral body. No acute bony pathology. RAD/Chest PA and Lateral IMPRESSION: No radiographic evidence of acute cardiopulmonary disease. Electronically Signed: Chad Mckeon MD at 0:18 EST ,
[2023-12-24 15:27] LABS: Absolute Lymphocyte Count 2.48 X10^3/uL (0.83-4.51); Absolute Neutrophil Count 2.1 X10^3/uL (2.0-7.7); Basophil# 0.02 X10^3/uL; Basophil% 0.4 % (0-1); Eosinophil# 0.09 X10^3/uL; Eosinophils% 1.8 % (0-5); Hematocrit 33.4 % (37-47); Hemoglobin 11.4 g/dL (12.0-15.0); Lymphocyte # 2.48 X10^3/ul (0.83-4.51); Lymphocyte % 48.2 % (19-41); Mean Corp Hgb Conc 34.1 g/dL (32-36); Mean Corpuscular Hgb 30.6 pg (27.0-32.0); Mean Corpuscular Volume 89.5 fL (81-99); Mean Platelet Vol. 10.4 fl (6.2-12.0); Monocyte# 0.41 X10^3/uL; NRBC Flagged by Analyzer 0 % (0-5); Neutrophil # 2.11 X10^3/uL (2.7-7.7); Platelet Count 228 K/mm3 (150-450); RBC Distribution Width CV 12.8 % (11.6-14.6); Red Blood Count 3.73 M/mm3 (4.2-5.4); White Blood Count 5.1 K/mm3 (4.4-11.0)
[2023-12-24 15:46] LABS: Anion Gap 5 (5-15); BUN 14 mg/dL (7-18); BUN/Creat Ratio 14.2 RATIO (10-20); Calcium,Total 9.4 mg/dL (8.5-10.1); Chloride 109 mmol/L (98-107); Creatinine, Serum 0.99 mg/dL (0.55-1.02); EST Glomerular Filtration Rate 58 mL/min (>60); Est Glom Filt Rate - Afr Amer 71 mL/min (>60); Glucose 98 mg/dL (74-106); Potassium 4.2 mmol/L (3.5-5.1); Sodium Level 137 mmol/L (136-145)
[2023-12-25 10:30] LABS: Prothrombin Time (Protime)PT. 13.4 SECONDS (11.7-14.9)
[2023-12-25 10:31] LABS: Partial Thromboplast Time 24.6 Seconds (24.1-36.2)
--- NOTE | 2023-12-30 14:44 | PCM.HP.BLA ---
History and Physical Date of Admission: 01/05/24 Brooklynn Orona is a 73-year-old white female who presents today for a heart catheterization. She has a a history of atrial fibrillation status post Watchman device, MR, hyperlipidemia, and hypertension superimposed upon a history of CLL. Echocardiogram on 12/04/2023 showed reduced ejection fraction at 30% with moderate to severe global hypokinesis of left ventricle. Pt notes that she has been more SOB and fatigued over the last year. She has no energy. She finds that since can no longer walk up an incline. She does use medical marijuana to help her sleep. She only sleeps 6 hours and it is interrupted. She uses this for pain/depression/ cant sleep. She does not have any chest pain. She is in Afib all the time, her watch tells her she is in this. She does not have any lightheadedness/dizziness. She does have balance issues. She does have leg cramps and does use Mg. 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 Is patient in pain?: No Allergies No Known Allergies Allergy (Verified 11/19/23 10:56) Medications See EMR [facility] Medical History Abnormal echocardiogram Anemia Attention deficit disorder with hyperactivity BCC (basal cell carcinoma) Bleeding disorder Chronic atrial fibrillation CLL (chronic lymphoid leukemia) in relapse Contact with or exposure to other viral diseases Cough Daytime somnolence Depressive disorder Essential hypertension History of bronchitis History of pneumonia Hives as manifestation of blood transfusion reaction Hyperlipidemia Hypogammaglobulinemia, acquired Longstanding persistent atrial fibrillation Lower extremity weakness Measles Mitral insufficiency Mitral valve insufficiency Nocturia Osteoarthritis Osteoporosis Personal history of CLL (chronic lymphocytic leukemia) Presence of Watchman left atrial appendage closure device (~11/2019) RBBB Rheumatoid arthritis Right carpal tunnel syndrome SCC (squamous cell carcinoma) Sinus congestion Sinusitis T12 vertebral fracture Tibialis posterior tendon rupture Surgical History H/O vertebroplasty History of bunionectomy of both great toes History of Moh's micrographic surgery for skin cancer History of total left knee replacement (TKR) Family History Father Hypertension CAD (coronary artery disease) Myocardial infarctionMother CVA (cerebral vascular accident) Hypertension CAD (coronary artery disease) Myocardial infarction Social History Smoking Status: Never smoker alcohol intake: never substance use type: marijuana and other details: Has a medical marijuana caffeine: Yes Type: coffee Number of servings: 3 ROS Const Const: Positive for fatigue, daytime sleepiness and difficulty sleeping; Negative for weakness, fever(s) or headache(s) Eyes Eyes: Negative for blind spots, loss of peripheral vision or transient loss of vision ENT ENT: Negative for headache(s), dizziness, tinnitus, Nosebleed/epistaxis or balance problems Cardio Chest Pain: No Palpitations: No Edema: None Muscle aches with walking: None Resp Respiratory: Positive for SOB with activity; Negative for SOB at rest, SOB orthopnea\SOB lying down or Cough GI GI: Negative nausea, vomiting, heartburn or vomiting blood/hematemesis : Negative for hematuria Musc Musc: Positive for muscle aches/ myalgia; Negative for muscle weakness, joint pain or balance problems Neuro Neuro: Negative for dizziness, lightheadedness, near syncope, syncope, orthostatic symptoms, headache(s) or weakness Jesse Hematologic/Lymphatic: Negative for easy bleeding Endo Endo: Positive for fatigue Cardiology Exam Const Appearance: cooperative, no acute distress and well developed Orientation: alert, awake and oriented x3 Head Head: normocephalic and atraumatic Mouth: moist mucous membranes Eyes General: appearance normal, both eyes and all related structures Conjunctivae: conjunctivae normal Pupils: PERRL EOM: EOM intact bilaterally Neck Neck: normal visual inspection, no lymphadenopathy and no JVD Carotids: Negative bruit Neck Mass: Negative Neck mass Chest Chest inspection: normal inspection of the chest and symmetric chest movement Auscultation: Bilateral: Clear to Auscultation Cardio Palpation: normal PMI Rate: regular rate Rhythm: regular rhythm Heart sounds: S1 normal and S2 normal; Negative rub, gallop or murmur GI GI: normal to inspection, soft, no hepatosplenomegaly and bowel sounds present; Negative tender Neuro General: patient alert, patient awake, patient oriented x3, CN's II-XI intact bilaterally and moves all extremities Extremities Pulses: Normal: Right Posterior Tibial Pulse, Left Posterior Tibial Pulse, Right Radial Pulse and Left Radial Pulse Lower Extremity Edema: None: Bilateral Psych Psychological: normal affect Supplemental Info Supplemental Information Echocardiogram 08/2022: Left ventricular systolic function is lower limits of normal. The estimated ejection fraction is 50 %. The global longitudinal strain = -12% (abnormal). Apical false tendon noted. The left atrium is severely enlarged. The right atrium is moderately enlarged. Mild diffuse mitral valve thickening. Moderately severe (3+) eccentric mitral valve insufficiency. Moderate (2+) tricuspid valve insufficiency. Mild diffuse aortic valve thickening. Mild (1+) eccentric aortic valve insufficiency. Right ventricular systolic pressure estimated to be 29 mmHg. Diastolic function is indeterminate. Echocardiogram: 09/12/2021 Left ventricular systolic function is normal. The estimated ejection fraction is 55 %. Apical false tendon noted. The left atrium is moderately enlarged. The right atrium is mildly enlarged. Mild diffuse mitral valve thickening. Mild-Moderate (1-2+) mitral valve insufficiency. Mild to moderate (1-2+) tricuspid valve insufficiency. Mild diffuse aortic valve thickening. Mild (1+) aortic valve insufficiency. Right ventricular systolic pressure estimated to be 26 mmHg. Unable to assess diastolic dysfunction. Stress Test Report Date: 09-24-2022 Procedure: Pharmacologic stress nuclear imaging study Indications: Atrial fibrillation; status post left atrial appendage occluder device; hyperlipidemia; hypertension Consent: Per the patient Procedure: The patient underwent pharmacologic (Regadenoson 0.4mg ) evaluation with a peak heart rate of 97 beats per minute (65%predicted maximal heart rate) and a resting blood pressure of 120/72 mmHg and a peak blood pressure of 120/72 mmHg. The baseline ECG demonstrated atrial fibrillation; nonspecific ST/T wave abnormality. The peak pharmacologic ECG demonstrated continued nonspecific ST/T wave abnormality. There was a rare PVC during recovery. There was no complaint of chest discomfort during pharmacologic infusion or recovery. The examination was discontinued secondary to completion of protocol. Impression: 1. Pharmacologic (Regadenoson) evaluation 2. Peak pharmacologic ECG with continued nonspecific ST/T wave abnormality. 3. There was a rare PVC during recovery. 4. Nuclear images pending Myocardial perfusion imaging study: Technique: The patient was injected with 10.8 millicuries of technetium 99m Cardiolite and subsequently rest SPECT Cardiolite nuclear imaging was obtained in the horizontal long, vertical long, and short axis views. The patient underwent pharmacologic (Regadenoson) evaluation with a peak heart rate of 97 beats per minute (65% percent predicted maximal heart rate) and a resting blood pressure of 120/72 mmHg and a peak blood pressure of 120/72 mmHg. The patient was injected with 31.9 millicuries of technetium 99m Cardiolite and subsequently stress SPECT Cardiolite nuclear imaging was obtained in the horizontal long, vertical long, and short axis views. A gated Cardiolite study at peak stress was obtained. Interpretation: Rest and stress SPECT Cardiolite nuclear imaging status post realignment, normalization, and attenuation correction demonstrate relative uniform tracer uptake and myocardial perfusion appearing within normal limits. There is end systolic thickening and brightening. The gated Cardiolite study demonstrates myocardial thickening and inward wall motion. The reported LVEF is 62%. Impression: 1. Rest and stress SPECT Cardiolite nuclear imaging demonstrate relative uniform tracer uptake and myocardial perfusion appearing within normal limits. 2. The gated Cardiolite study reports an LVEF of 62%. Assessment and Plan Assessment and Plan (1) Chronic atrial fibrillation: Status: Chronic Plan: At the present time she remains in atrial fibrillation. She does have a watchman device in place. Overall she has been doing well. (2) Mitral valve insufficiency: Status: Acute Plan: On account of worsening shortness of breath, she underwent echocardiogram on 12/04/2023 that showed ejection unction of 30% with mild to severe global hypokinesis of left ventricle. She was noted to have mild mitral valve insufficiency. Echocardiogram in August 2022 showed ejection fraction of 50%. On account of worsening EF, she will proceed with heart catheterization to assess CAD component. She currently follows with [facility] oncology team. On account of reduced ejection fraction, oncology medication was placed on hold in case contributing to reduced EF. (3) Essential hypertension: Status: Chronic Plan: With her fatigue, her atenolol was reduced to 25 mg p.o. twice daily (4) Fatigue: Status: Acute Plan: She underwent laboratory testing at last office visit that was generally nonrevealing.
--- NOTE | 2024-01-05 07:27 | EKG12_ITS ---
Test Reason : PRE OP Blood Pressure : / mmHG Vent. Rate : 092 BPM Atrial Rate : 089 BPM P-R Int : 000 ms QRS Dur : 096 ms QT Int : 382 ms P-R-T Axes : 000 039 238 degrees QTc Int : [address] & T wave abnormality, consider lateral ischemia or digitalis effect Prolonged QT Abnormal ECG When compared with ECG of 27-AUG-2016 14:04, T wave inversion more evident in Lateral leads Confirmed by NYA BENAVIDEZ, JUNIOR ([id number]), news video editor ZACHARY AMADOR ([id number]) on 01/06/2024 9:36:54 AM Referred By: Junior Boykin Confirmed By:JUNIOR BOYKIN MD
[2024-01-05 07:29] VITALS: BMI 22.8
--- OUTSIDE RECORDS SUMMARY | 2024-01-05 07:32 | XMS RPT_ITS | CCD ---
Author Name Unknown Address [address] [place] [address] Organization [facility] Care Team Providers Care Freelance Court Reporter Name Role Phone PEPE MARIN Unavailable Unavailable [...] MD Unavailable Unavailable Master Kuo MD Unavailable [facility] MAGDA/Cong MENDOZA Unavailable [phone] Savannah Rios MD A Primary Care Provider Faye GARCIAN-DIGITAL PHOTO PRINTER, Ada R Unavailable [facility] Un[facility] [phone] Domingo [facility],PharmD, Chauncey Unavailable Unavai lable Otto [facility], Vitaly Unavailable Sadi [facility] W Unavailable Otto [facility], Vitaly Unavailable Vitaly Ortega MD Unavailable Unavailable Vitaly Ortega MD Unavailable Unavailable Master Kuo MD Unavailable [facility] MAGDA/Cong MENDOZA Unavailable [phone] Savannah Rios MD Primary Care Provider Faye IMPORT/EXPORT ANALYST-DIGITAL PHOTO PRINTER, Ada R Unavailable [phone] Sadi [facility], Chris W Unavailable Domingo [facility],PharmD, Chauncey Unavailable Unavai lable Otto [facility], [place] Unavailable [phone] Rm BENAVIDEZ, Sarina Moore Unavailable Shannon BENAVIDEZ, [place] Unavailable Unavailable [facility] MB/CHB, Cong Unavailable Gabriel BENAVIDEZ, Savannah Moore Primary Care Provider Faye IMPORT/EXPORT ANALYST[facility], Ada R Unavailable [phone] Sadi [facility], Chris W Unavailable [phone] Domingo [facility],PharmD, Chauncey Unavailable Unavai lable Otto [facility], [place] Unavailable [phone] Sarina Abdalla MD Unavailable Domingo [facility],PharmD, Chauncey Unavailable Unavai labtrace RIOS, SAVANNAH A Referring Unavailable RIOS, SAVANNAH A Primary Care Unavailable RM, SARNIA A Attending Unavailable RIOS, SAVANNAH A Referring [...] 14 tablet 0 10/31/2023 11/07/2023 Active amylase 006350 unt / lipase 9000 unt / protease [id number] unt oral capsule (20 sources) take 1 [...] 165.1 cm Sarina Abdalla MD Work Phone: [facility] 10-31-2023 09:49-0500 Body mass index (BMI) [Ratio] 22.96 kg/m2 Sarina Abdalla MD Work Phone: [facility] 10-31-2023 09:49-0500 Body temperature 97.3 [degF] Sarina Abdalla MD Work Phone: [facility] 10-31-2023 09:49-0500 Body weight 62.6 kg Sarina Abdalla MD Work Phone: [facility] 10-31-2023 09:49-0500 Diastolic blood pressure 70 mm[Hg] Sarina Abdalla MD Work Phone: [facility] 10-31-2023 09:49-0500 Heart rate 72 /min Sarina Abdalla MD Work Phone: [facility] 10-31-2023 09:49-0500 Respiratory rate 18 /min Sarina Abdalla MD Work Phone: [facility] 10-31-2023 09:49-0500 SaO2% (BldA) [Mass fraction] 99 % Sarina Abdalla MD Work Phone: [facility] 10-31-2023 09:49-0500 Systolic blood pressure 145 mm[Hg] Sarina Abdalla MD Work Phone: [facility] 10-08-2022 12:48-0500 Body height 165.1 cm Sarina Abdalla MD Work Phone: [facility] 10-08-2022 12:48-0500 Body mass index (BMI) [Ratio] 21.98 kg/m2 Sarina Abdalla MD Work Phone: [facility] 10-08-2022 12:48-0500 Body temperature 97.81 [degF] Sarina Abdalla MD Work Phone: [facility] 10-08-2022 12:48-0500 Body weight 59.92 kg Sarina Abdalla MD Work Phone: [facility] 10-08-2022 12:48-0500 Diastolic blood pressure 68 mm[Hg] Sarina Abdalla MD Work Phone: [facility] 10-08-2022 12:48-0500 Heart rate 72 /min Sarina Abdalla MD Work Phone: 2(644)600-569773 [address] 10-08-2022 12:48-0500 Respiratory rate 17 /min Sarina Abdalla MD Work Phone: [facility] 10-08-2022 12:48-0500 SaO2% (BldA) [Mass fraction] 98 % Sarina Abdalla MD Work Phone: [facility] 10-08-2022 12:48-0500 Systolic blood pressure 143 mm[Hg] Sarina Abdalla MD Work Phone: [facility] 07-09-2022 14:08-0400 Body height 165.1 cm Sarina Abdalla MD Work Phone: [facility] 07-09-2022 14:08-0400 Body mass index (BMI) [Ratio] 21.72 kg/m2 Sarina Abdalla MD Work Phone: [facility] 07-09-2022 14:08-0400 Body temperature 98.4 [degF] Sarina Abdalla MD Work Phone: [facility] 07-09-2022 14:08-0400 Body weight 59.19 kg Sarina Abdalla MD Work Phone: [facility] 07-09-2022 14:08-0400 Diastolic blood pressure 64 mm[Hg] Sarina Abdalla MD Work Phone: [facility] 07-09-2022 14:08-0400 Heart rate 90 /min Sarina Abdalla MD Work Phone: 6(472)408-134373 [address] 07-09-2022 14:08-0400 Respiratory rate 16 /min Sarina Abdalla MD Work Phone: 2(915)243-917499 [place] [address] 07-09-2022 14:08-0400 SaO2% (BldA) [Mass fraction] 98 % Sarina Abdalla MD Work Phone: 2(445)145-369399 [place] [address] 07-09-2022 14:08-0400 Systolic blood pressure 132 mm[Hg] Sarina Abdalla MD Work Phone: 3(099)959-410799 [place] [address] 04-09-2022 13:22-0400 Body height 165.1 cm Sarina Abdalla MD Work Phone: 3(209)715-900199 [place] [address] 04-09-2022 13:22-0400 Body mass index (BMI) [Ratio] 21.67 kg/m2 Sarina Abdalla MD Work Phone: 5(884)453-912399 [place] [address] 04-09-2022 13:22-0400 Body temperature 97.81 [degF] Sarina Abdalla MD Work Phone: 7(732)054-362799 [place] [address] 04-09-2022 13:22-0400 Body weight 59.06 kg Sarina Abdalla MD Work Phone: 3(658)709-968799 [place] [address] 04-09-2022 13:22-0400 Diastolic blood pressure 73 mm[Hg] Sarina Abdalla MD Work Phone: 8(539)378-542799 [place] [address] 04-09-2022 13:22-0400 Heart rate 73 /min Sarina Abdalla MD Work Phone: 5(883)472-313499 [place] [address] 04-09-2022 13:22-0400 Respiratory rate 16 /min Sarina Abdalla MD Work Phone: 3(628)940-171999 [place] [address] 04-09-2022 13:22-0400 SaO2% (BldA) [Mass fraction] 97 % Sarina Abdalla MD Work Phone: 5(986)852-513888 [place] [address] 04-09-2022 13:22-0400 Systolic blood pressure 144 mm[Hg] Sarina Abdalla MD Work Phone: 5(698)306-845099 [place] [address] 06-05-2021 10:28-0400 Body height 165.1 cm Sarina Abdalla MD Work Phone: 6(109)810-144699 [place] [address] 06-05-2021 10:28-0400 Body mass index (BMI) [Ratio] 21.32 kg/m2 Sarina Abdalla MD Work Phone: 4(866)915-129099 [place] [address] 06-05-2021 10:28-0400 Body temperature 97.7 [degF] Sarina Abdalla MD Work Phone: 7(173)782-543299 [place] [address] 06-05-2021 10:28-0400 Body weight 58.11 kg Sarina Abdalla MD Work Phone: 9(792)830-585099 [place] [address] 06-05-2021 10:28-0400 Diastolic blood pressure 59 mm[Hg] Sarina Abdalla MD Work Phone: 4(021)538-157299 [place] [address] 06-05-2021 10:28-0400 Heart rate 100 /min Sarina Abdalla MD Work Phone: 4(398)241-076999 [place] [address] 06-05-2021 10:28-0400 Respiratory rate 16 /min Sarina Abdalla MD Work Phone: 9(023)491-979199 [place] [address] 06-05-2021 10:28-0400 SaO2% (BldA) [Mass fraction] 99 % Sarina Abdalla MD Work Phone: 8(425)127-548999 [place] [address] 06-05-2021 10:28-0400 Systolic blood pressure 129 mm[Hg] Sarina Abdalla MD Work Phone: 0(070)523-197999 [place] [address] Encounters Encounter Date Encounter Type Care Provider Facility Start: 12-25-2023 ambulatory Chris W Yoana cheng [facility] Work Phone: [facility] Start: 12-25-2023 Patient encounter procedure Chris Ramirez Sadi [facility] Work Phone: [facility] Start: 11-28-2023 ambulatory Chauncey Domingo [facility],PharmD Pharm[facility] Out[facility] [place] Start: 11-28-2023 Patient encounter procedure Chauncey Domingo [facility],PharmD [facility] Out[facility] [place] Start: 10-31-2023 ambulatory SAVANNAH RIOS Facility:[facility] Start: 10-31-2023 End: 10-31-2023 Office outpatient visit 25 minutes Sarina Abdalla MD Work Phone: Division of Hematology & Oncology at [facility] Care Procedures Date Procedure Procedure Detail Performing Clinician Start: 10-31-2023 CBC AND ELECTRONIC DIFF Bettina N Santoyo IMPORT/EXPORT ANALYST-DIGITAL PHOTO PRINTER Work Phone: Start: 10-31-2023 Complete blood count with white cell differential, automated Bettina N Santoyo IMPORT/EXPORT ANALYST-DIGITAL PHOTO PRINTER Work Phone: Start: 10-31-2023 Comprehensive metabo lic panel Bettina Maryjane Santoyo IMPORT/EXPORT ANALYST-DIGITAL PHOTO PRINTER Work Phone: Start: 10-31-2023 DNA EXTRACTION, B-CELL Bettina Maryjane ArechigaSantoyo IMPORT/EXPORT ANALYST-DIGITAL PHOTO PRINTER Work Phone: Start: 10-31-2023 Unlisted molecular pathology procedure Bettina Maryjane Santoyo IMPORT/EXPORT ANALYST-DIGITAL PHOTO PRINTER Work Phone: Start: 10-08-2022 CBC AND ELECTRONIC DIFF Bettina N Santoyo IMPORT/EXPORT ANALYST-DIGITAL PHOTO PRINTER Work Phone: Start: 10-08-2022 Complete blood count with white cell differential, automated Bettina N Santoyo IMPORT/EXPORT ANALYST-DIGITAL PHOTO PRINTER Work Phone: Start: 10-08-2022 Comprehensive metabo lic panel Bettina Maryjane Santoyo IMPORT/EXPORT ANALYST-DIGITAL PHOTO PRINTER Work Phone: Start: 07-09-2022 CBC AND ELECTRONIC DIFF Bettina N Santoyo IMPORT/EXPORT ANALYST-DIGITAL PHOTO PRINTER Work Phone: Start: 07-09-2022 Complete blood count with white cell differential, automated Bettina N Santoyo IMPORT/EXPORT ANALYST-DIGITAL PHOTO PRINTER Work Phone: Start: 07-09-2022 Comprehensive metabo lic panel Bettina N Santoyo IMPORT/EXPORT ANALYST-DIGITAL PHOTO PRINTER Work Phone: Start: 04-09-2022 CBC AND ELECTRONIC DIFF Bettina N Santoyo IMPORT/EXPORT ANALYST-DIGITAL PHOTO PRINTER Work Phone: Start: 04-09-2022 Complete blood count with white cell differential, automated Bettina N Santoyo IMPORT/EXPORT ANALYST-DIGITAL PHOTO PRINTER Work Phone: Start: 04-09-2022 Comprehensive metabo lic panel Bettina N Santoyo IMPORT/EXPORT ANALYST-DIGITAL PHOTO PRINTER Work Phone: Start: 06-05-2021 CBC AND ELECTRONIC DIFF Bettina N Santoyo IMPORT/EXPORT ANALYST-DIGITAL PHOTO PRINTER Work Phone: Start: 06-05-2021 Complete blood count with white cell differential, automated Bettina N Santoyo IMPORT/EXPORT ANALYST-DIGITAL PHOTO PRINTER Work Phone: Start: 06-05-2021 Comprehensive metabo lic panel Bettina N Santoyo IMPORT/EXPORT ANALYST-DIGITAL PHOTO PRINTER Work Phone: Start: 06-05-2021 MANUAL DIFF Bettina N Santoyo IMPORT/EXPORT ANALYST-DIGITAL PHOTO PRINTER Work Phone: Start: 11-20-2020 Lipid 1996 panel - S mauricio or Plasma Vitaly Otto [facility] Work Phone: Start: 05-10-2020 Antibody screen Plan of Treatment Date Care Activity Detail Author Start: 11-20-2025 Fasting lipid profile LIPID SCREENING [facility] Start: 11-20-2025 Lipid panel LIPID SCREENING [facility] Start: 02-03-2024 End: 02-03-2024 Patient encounter procedure 02/03/2024 9:40 AM EDT Office Visit Division of Hematology & Oncology at The [address] [place] [address] Sarina Abdalla MD [address] [place] [phone] Division of Hematology & Oncology at [facility] Start: 10-31-2023 End: 10-31-2023 Patient encounter procedure 10/31/2023 10:20 AM EST Office Visit Division of Hematology & Oncology at [facility] [address] [place] [phone] Sarina Abdalla MD [address] [place] [address] Division of Hematology & Oncology at [facility] Start: 07-22-2023 End: 07-22-2023 Patient encounter procedure Division of Hematology & Oncology at [facility] Start: 07-18-2023 Influenza vaccination [facility] Start: 04-01-2023 End: 04-01-2023 Patient encounter procedure 04/01/2023 Office Visit Hematology Sarina Abdalla MD [address] [place] [address] Division of Hematology & Oncology Start: 12-31-2022 End: 12-31-2022 Patient encounter procedure 12/31/2022 Office Visit Hematology Sarina Abdalla MD [address] [place] [address] Division of Hematology & Oncology Start: 10-28-2022 End: 10-28-2022 ambulatory 10/28/2022 Telemed Clin Support Psychology Eduin Ovalle LISW [address] [place] [address] [facility] Psychosocial Oncology Start: 10-28-2022 End: 10-28-2022 Telemedicine consultation with patient 10/28/2022 Telemedicine Psychology Anabella Correia, IMPORT/EXPORT ANALYST-DIGITAL PHOTO PRINTER [address] [place] [address] [place] [address] [facility] Start: 10-08-2022 End: 10-08-2022 Patient encounter procedure 10/08/2022 Office Visit Hematology Sarina Abdalla MD [address] [place] [address] Division of Hematology & Oncology Start: 09-18-2022 End: 09-18-2022 ambulatory 09/18/2022 Telemed Clin Support Psychology Eduin Ovalle SIGNAL REPAIRER [address] [address] [facility] Start: 09-16-2022 Fasting lipid profile LIPID SCREENING [facility] Work Phone: Start: 08-15-2022 End: 08-15-2022 Telemedicine consultation with patient 08/15/2022 Telemedicine Psychology Anabella Correia, IMPORT/EXPORT ANALYST-DIGITAL PHOTO PRINTER [address] [address] [facility] Start: 08-14-2022 End: 08-14-2022 ambulatory 08/14/2022 Telemed Clin Support Psychology Eduin Ovalle SIGNAL REPAIRER [address] [address] [facility] Start: 08-13-2022 End: 08-13-2022 ambulatory 08/13/2022 Telemed Clin Support Multispecialty Siva Lemon, [facility] [address] [place], [place] [address] [facility] Start: 07-24-2022 End: 07-24-2022 ambulatory 07/24/2022 Telemed Clin Support Psychology Eduin Ovalle SIGNAL REPAIRER [address] [place] [address] [facility] Start: 07-19-2022 End: 07-19-2022 ambulatory 07/19/2022 Telemed Clin Support Multispecialty Sharon Chi, IMPORT/EXPORT ANALYST-DIGITAL PHOTO PRINTER [address] [facility] [address] [place] [address] Siva Lemon, [facility] [address] [place] [address] [facility] Start: 07-18-2022 Influenza vaccination [facility] Start: 07-09-2022 End: 07-09-2022 Patient encounter procedure 07/09/2022 Office Visit Hematology Sarina Abdalla MD [address] [place] [address] Division of Hematology & Oncology Start: 04-09-2022 End: 04-09-2023 OUTSIDE LAB ORDERS OUTSIDE LAB ORDERS Outside Labs Routine 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 Expected: 04/09/2022, Expires: 04/09/2023 [facility] Immunizations Immunization Date Immunization Notes Care Provider [facility] 08-19-2016 influenza, injectabl e, quadrivalent, contains preservative; Translations: [INFLUENZA, INJECTABLE, QUADRIVALENT] Other Other [facility] Work Phone: 08-19-2016 influenza virus vacc ine, unspecified formulation Other Other [facility] Work Phone: 11-03-2013 influenza virus vacc ine, unspecified formulation Sarina Abdalla MD Work Phone: [facility] 12-16-2012 influenza virus vacc ine, unspecified formulation Sarina Abdalla MD Work Phone: [facility] 10-09-2011 pneumococcal polysaccharide vaccine, 23 valent Vitaly Otto [facility] Work Phone: [facility] 09-17-2010 influenza virus vacc ine, unspecified formulation Sarina Abdalla MD Work Phone: [facility] 09-05-2009 influenza virus vacc ine, unspecified formulation Sarina Abdalla MD Work Phone: [facility] Payers Date Payer Category Payer Unknown GENERIC PAYOR ME DICARE SUPPLEMENT [id number] 2019-Present [address] [place] [address] [id number] 2019 Unknown GENERIC PAYOR ME DICARE SUPPLEMENT [id number] 2019-Present [address] [place] [address] [id number] 2019 Unknown [id number] 2017 Medicare [id number] 2017 Medicare [id number] 2014 Medicare MEDICARE MEDICAR E A AND B [id number] 2014-Present [address] [place] [address] [id number] 2014 Medicare MEDICARE MEDICAR E A AND B [id number] 2014-Present [address] [place] [address] [id number] 2014 Medicare [id number] 1950 Unknown [id number] 1950 Unknown [id number] 1950 Unknown [id number] 1950 Unknown [id number] Social History Date Type Detail Facility Start: 10-03-2015 End: 05-12-2018 Tobacco smoking status NHIS Never smoker [facility] Work Phone: Start: 1950 Sex Assigned At Not on file [facility] Work Phone: Start: 10-03-2015 Tobacco use and exposure Never used [facility] Start: 05-09-2021 End: 11-05-2023 Alcohol intake Current non-drinker of alcohol (finding) [facility] Start: 05-09-2021 End: 08-15-2022 Alcohol intake [facility] Start: 01-16-2021 History SDOH Financial 3 [facility] Start: 01-16-2021 End: 08-15-2022 History SDOH Food Worry 1 [facility] Start: 01-16-2021 History SDOH Transpo rt Non-Med 2 [facility] Exposure to SARS-CoV -2 (event) Not sure [facility] Start: 08-15-2022 History SDOH Financial 5 [facility] Start: 10-18-2022 End: 10-28-2022 Exposure to SARS-CoV-2 (event) Unable to assess [facility] Start: 08-15-2022 End: 01-10-2023 Tobacco use panel [facility] How hard is it for y ou to pay for the very basics like food, housing, medical care, and heating Not hard at all [facility] (I/We) worried alvni er (my/our) food would run out before (I/we) got money to buy more. Never true [facility] Gender identity Identifies as fe male gender (finding) [facility] Goals Date Patient Goal Desired Activity /State [...] Name: Brukinsa 80mg caps Contact Info: Specialty ([place]) [phone] [facility] [phone] [facility] [phone] Akira [phone] Bedside Delivery ([facility]) [phone] [facility] RX OUTREACH ADVANCED: Call Information: Date and Time of Contact: 12/26/2023 12:45 PM Method of Contact: By Phone Contact Type: Prescriptions Contactor: Patient Contactee: [facility] OP Shipping/Pickup: Medicare B Refill?: No Medication Name: Brukinsa 80mg Delivery Method: Ship Delivery Location: Home Signature Required: No Receive/Pickup Date: 12/26/2023 Shipping Address: [address] [place] [address] Contact Info: Specialty ([place]) [phone] [facility] [phone] [facility] [phone] Akira [phone] Bedside Delivery ([facility]) [phone] documented in this encounter [facility] 11-28-2023 History of Present illness Narrative [facility] RX OUTREACH ADVANCED: Call Information: Date and Time of Contact: 11/28/2023 11:32 AM Method of Contact: By Phone Contact Type: Prescriptions Contactor: [facility] OP Contactee: Patient Contact Outcome: Left message Shipping/Pickup: Medication Name: Brukina 80mg caps Contact Info: Specialty ([place]) [phone] [facility] [phone] [facility] [phone] Akira [phone] Bedside Delivery ([facility]) [phone] [facility] RX OUTREACH ADVANCED: Call Information: Date and Time of Contact: 12/01/2023 3:51 PM Method of Contact: By Phone Contact Type: Prescriptions Contactor: Patient Contactee: [facility] OP Shipping/Pickup: Medicare B Refill?: No Medication Name: Brukinsa Delivery Method: Ship Delivery Location: Home Signature Required: No Receive/Pickup Date: 12/02/2023 Shipping Address: [address] [place] [address] Contact Info: Specialty ([place]) [phone] [facility] [phone] [facility] [phone] Akira [phone] Bedside Delivery ([facility]) [phone] documented in this encounter [facility] 10-31-2023 History of Present illness Narrative HEMATOLOGY [...] 2011 on a clinical trial at the [facility]. This was complicated by anemia, thrombocytopenia and neutropenia. 2. Fludarabine, cyclophosphamide and rituximab in February 2012 for 4 cycles. Treatment was complicated by prolonged cytopenias and recurrent infections. Last 2 cycles required a 66% dose reduction. 3. [id number] Combination of [id number] and Ibrutinib - on combination 04/29/16-05/05/17 with [...] 2011 on a clinical trial at the [facility]. This was complicated by anemia, thrombocytopenia and neutropenia. 02/2012 - Chemotherapy Fludarabine, cyclophosphamide and rituximab in February 2012 for 4 cycles. Treatment was complicated by prolonged cytopenias and recurrent infections. Last 2 cycles required a 66% dose reduction. 04/2016 - 07/2018 Chemotherapy [id number] Combination of [id number] and Ibrutinib - on combination 04/29/16-05/05/17 with [...] states she is receiving IVIG locally in [place] when IGG < 600. Would like [...] HTN and is establishing with a new retail seasonal specialist on 11/20/23. Otherwise she has been well. [...] states she is receiving IVIG locally in [place] when IGG < 600. She will [...] additional questions. documented in this encounter [facility] 10-31-2023 Instructions Roxann Rollins RN - 10/31/2023 10:20 AM EST YOUR PRIMARY TEAM Dr. Sarina Santoyo DIGITAL PHOTO PRINTER - Nurse Practitioner Diana Dennis DIGITAL PHOTO PRINTER - Nurse Practitioner Roxann Rollins RN - Primary Nurse Will Casper RN - Secondary Nurse CONTACT NUMBERS Clinic phone: [phone] Clinic fax: [phone] Please contact our office if you develop a temperature of 100.4 or greater. [facility] is a secure way to get access to your health records online. It will also allow you to communicate with your health care provider through email. For non-emergent concerns, please send us a RADLIVE message but describe your issue fully. When sending a message to the provider, please know that these messages will be received and answered by the primary nurse practitioner. The nurse practitioner will consult your physician when needed. Please note, RADLIVE is for non-urgent messages only. If you are reporting symptoms or changes in your condition, please call the clinic at [phone]. For questions or concerns regarding RADLIVE access or technical dificulties, please call [phone] or toll free at . MEDICAL RECORDS The Release of Information (TA) area is staffed from 8:00 a.m. to 7:00 p.m. and is available for walk in requests from 8:00 a.m. to 4:30 p.m. [facility] is responsible for answering requests for copies of medical records from various requestors such as insurance companies, attorneys, hospitals and patients. Please note it can take up to 2 weeks to complete your request. [phone]; [phone] (fax). FINANCIAL CONCERNS Any questions regarding billing for services or insurance coverage concerns should be directed to our Billing Department at [phone]. DISABILITY FORMS This category includes any form [...] Auto 2.43 1.16 - 3.51 K/uL Abs Morrison Auto 0.55 0.22 - 0.87 K/uL Abs Eos Auto 0.13 0.00 - 0.42 K/uL Abs Baso Auto 0.04 0.00 - 0.15 K/uL *Note: Due to a large number of results and/or encounters for the requested time period, some results have not been displayed. A complete set of results can be found in Results Review. documented in this encounter [facility] 10-03-2023 History of Present illness Narrative [facility] RX OUTREACH ADVANCED: Call Information: Date and Time of Contact: 10/03/2023 11:07 AM Method of Contact: By Phone Contactor: [facility] OP Contactee: Patient Contact Outcome: Left message and Follow-up (Brukinsa RA/refill) Contact Info: Specialty ([place]) [phone] [facility] [phone] [facility] [facility] [phone] Ak[place] [phone] Bedside Delivery ([facility]) [phone] [facility]RE[facility] ADV[facility]: Call Information: Method of Contact: By Phone Contact Type: Prescriptions Contactor: Patient Contactee: [facility] Shipping/Pickup: Medicare B Refill?: No Medication Name: Brukinsa Delivery Method: Air Delivery Location: Home Signature Required: No Mailing/Pickup Date: 10/08/2023 Shipping Address: [address] [place] [address] Pre-Verification/Specialty Assessment/Disease Mgt: Medication(s) Name: Brukinsa Lab [...] Review: Within normal limits Contact Info: Specialty ([place]) [phone] Xavi [phone] [facility] [phone] Akira [phone] Bedside Delivery ([facility]) [phone] documented in this encounter [facility] 06-13-2023 History of Present illness Narrative [facility]REACH ADVANC[facility]: Call Information: Date and Time of Contact: 06/13/2023 10:49 AM Method of Contact: By Phone Contact Type: Prescriptions Contactor: [facility] Contactee: Patient Contact Outcome: Left message and Follow-up (in 4 days (due to weekend)) Shipping/Pickup: Medication Name: Brukinsa 80mg Contact Info: Specialty ([place]) [phone] [facility] [phone] [facility] [phone] Akira [phone] Bedside Delivery ([facility]) [phone] [facility]REACH [facility]: Call Information: Date and Time of Contact: 06/17/2023 9:49 AM Method of Contact: By Phone Contact Type: Prescriptions Contactor: [facility] Contactee: Patient Shipping/Pickup: Medicare B Refill?: No Medication Name: Brukinsa 80mg Delivery Method: Air Delivery Location: Home Signature Required: No Mailing/Pickup Date: 06/20/2023 Shipping Address: [address] [place] [address] Contact Info: Specialty ([place]) [phone] [facility] [phone] [facility] [phone] Akira [phone] Bedside Delivery ([facility]) [phone] documented in this encounter [facility] 05-19-2023 History of Present illness Narrative [facility] OUTREACH ADVANCED: Call Information: Date and Time of Contact: 05/19/2023 11:42 AM Method of Contact: By Phone Contact Type: Prescriptions Contactor: [facility] Contactee: Patient Contact Outcome: Left message and Follow-up (in 1-2 days) Shipping/Pickup: Medication Name: Brukinsa 80mg Contact Info: Specialty ([place]) [phone] [facility] [phone] [facility] [phone] Akira [phone] Bedside Delivery ([facility]) [phone] [facility]REACH ADVANCED: Call Information: Date and Time of Contact: 05/21/2023 9:04 AM Method of Contact: By Phone Contact Type: Prescriptions Contactor: [facility] Contactee: Patient Shipping/Pickup: Medicare B Refill?: No Medication Name: Brukinsa 80 mg Delivery Method: Air Delivery Location: Home Signature Required: No Mailing/Pickup Date: 05/22/2023 Shipping Address: [address] [place] [address] Contact Info: Specialty ([place]) [phone] [facility] [phone] [facility] [phone] Akira [phone] Bedside Delivery ([facility]) [phone] documented in this encounter [facility] 04-18-2023 History of Present illness Narrative [facility] OUTREACH ADVANCED: Call Information: Date and Time of Contact: 04/18/2023 11:34 AM Method of Contact: By Phone Contact Type: Prescriptions Contactor: [facility] Contactee: Patient Contact Outcome: Left message and Follow-up (in 4 days (due to weekend)) Shipping/Pickup: Medication Name: Brukinsa 80mg Contact Info: Specialty ([place]) [phone] [facility] [phone] [facility] [phone] Akira [phone] Bedside Delivery ([facility]) [phone] [facility] OUTREACH ADVANCED: Call Information: Date and Time of Contact: 04/22/2023 11:20 AM Method of Contact: By Phone Contact Type: Prescriptions Contactor: [facility] Contactee: Patient Shipping/Pickup: Medicare B Refill?: No Medication Name: Brukinsa 80mg Delivery Method: Air Delivery Location: Home Signature Required: No Mailing/Pickup Date: 04/24/2023 Shipping Address: [address] [place] [address] Contact Info: Specialty ([place]) [phone] [facility] [phone] [facility] [phone] Akira [phone] Bedside Delivery ([facility]) [phone] documented in this encounter [facility] 03-17-2023 History of Present illness Narrative [facility] OUTREACH ADVANCED: Call Information: Date and Time of Contact: 03/17/2023 2:51 PM Method of Contact: By Phone Contact Type: Prescriptions (brukinsa) Contactor: [facility] Contactee: Patient Contact Outcome: Left message and Follow-up Contact Info: Specialty ([place]) [phone] [facility] [phone] [facility] [phone] Akira [phone] Bedside Delivery ([facility]) [phone] [facility] OUTREACH ADVANCED: Call Information: Date and Time of Contact: 03/17/2023 4:47 PM Method of Contact: By Phone Contact Type: Prescriptions Contactor: Patient Contactee: [facility] Contact Outcome: Patient declined to fill Patient Declined Fill Detail/Reason: Has >2 weeks on hand. [facility] will follow up in 1 week. Shipping/Pickup: Medication Name: Brukinsa Contact Info: Specialty ([place]) [phone] [facility] [phone] [facility] [phone] Akira [phone] Bedside Delivery ([facility]) [phone] documented in this encounter [facility] 03-17-2023 History of Present illness Narrative [facility] RX OUTREACH ADVANCED: Call Information: Date and Time of Contact: 03/17/2023 2:51 PM Method of Contact: By Phone Contact Type: Prescriptions (brukinsa) Contactor: [facility] Contactee: Patient Contact Outcome: Left message and Follow-up Contact Info: Specialty ([place]) [phone] [facility] [phone] [facility] [phone] Akira [phone] Bedside Delivery ([facility]) [phone] [facility] RX OUTREACH ADVANCED: Call Information: Date and Time of Contact: 03/17/2023 4:47 PM Method of Contact: By Phone Contact Type: Prescriptions Contactor: Patient Contactee: [facility] Contact Outcome: Patient declined to fill Patient Declined Fill Detail/Reason: Has >2 weeks on hand. [facility] will follow up in 1 week. Shipping/Pickup: Medication Name: Brukinsa Contact Info: Specialty ([place]) [phone] [facility] [phone] [facility] [phone] Akira [phone] Bedside Delivery ([facility]) [phone] [facility] OUTREACH ADVANCED: Call Information: Date and Time of Contact: 03/25/2023 2:25 PM Method of Contact: By Phone Contact Type: Prescriptions and Services Contactor: [facility] Contactee: Patient Shipping/Pickup: Medicare B Refill?: No Medication Name: Brukinsa 80ng Delivery Method: Air Delivery Location: Home Signature Required: No Mailing/Pickup Date: 03/26/2023 Shipping Address: [address] [place] [address] Pre-Verification/Specialty Assessment/Disease Mgt: Medication(s) Name: Brukinsa 80mg [...] hgb. continue to monitor Contact Info: Specialty ([place]) [phone] [facility] [phone] [facility] [phone] Akira [phone] Bedside Delivery ([facility]) [phone] documented in this encounter [facility] 02-20-2023 History of Present illness Narrative [facility] OUTREACH ADVANCED: Contact Info: Specialty ([place]) [phone] [facility] [phone] [facility] [phone] Akira [phone] Bedside Delivery ([facility]) [phone] documented in this encounter [facility] 12-27-2022 History of Present illness Narrative [facility] RX OUTREACH ADVANCED: Call Information: Date and Time of Contact: 12/27/2022 1:51 PM Method of Contact: By Phone Contact Type: Prescriptions Contactor: [facility] Contactee: Patient Contact Outcome: Left message and Follow-up (2-3 days) Shipping/Pickup: Medication Name: Bukinsa 80mg Contact Info: Specialty ([place]) [phone] [facility] [phone] [facility] [phone] Akira [phone] Bedside Delivery ([facility]) [phone] [facility] OUTREACH ADVANCED: Call Information: Date and Time of Contact: 12/30/2022 4:41 PM Method of Contact: By Phone Contact Type: Prescriptions Contactor: Patient Contactee: [facility] Shipping/Pickup: Medicare B Refill?: No Medication Name: Brukinsa 80mg caps Delivery Method: Air Delivery Location: Home Signature Required: No Mailing/Pickup Date: 01/01/2023 Shipping Address: [address] [place] [address]. [address] Delivery Details: Otl Contact Info: Specialty ([place]) [phone] [facility] [phone] [facility] [phone] Akira [phone] Bedside Delivery ([facility]) [phone] documented in this encounter [facility] 10-31-2022 History of Present illness Narrative [facility] RX OUTREACH ADVANCED: Call Information: Date and Time of Contact: 10/31/2022 10:58 AM Method of Contact: By Phone Contact Type: Prescriptions Contactor: [facility] Contactee: Patient Contact Outcome: Left message and Follow-up (in 4 days (due to weekend)) Shipping/Pickup: Medication Name: Brukinsa 80mg Contact Info: Specialty ([place]) [phone] Xavi [phone] [facility] [phone] Akira [phone] Bedside Delivery ([facility]) [phone] [facility] RX OUTREACH ADVANCED: Call Information: Date and Time of Contact: 11/01/2022 11:14 AM Method of Contact: By Phone Contact Type: Prescriptions Contactor: Patient Contactee: [facility] Shipping/Pickup: Medicare B Refill?: No Medication Name: Brukinsa Delivery Method: Air Delivery Location: Home Signature Required: No Mailing/Pickup Date: 11/01/2022 Shipping Address: [address] [place] [address] Contact Info: Specialty ([place]) [phone] Xavi [phone] [facility] [phone] Ak[place] [phone] Bedside Delivery ([facility]) [phone] documented in this encounter [facility] 10-08-2022 History of Present illness Narrative HEMATOLOGY CLINIC NOTE Attending: Sarina Abdalla MD Date of Encounter: 10/08/22 Chief Complaint Patient presents with Follow-up History of Present Ilness: Ms. Mones Orona is seen for CLL, IGVH unmutated, simple karyotype diagnosed in 2014, currently on zanubrutinib. She was initially diagnosed with CLL in December 2010 when she was found to have lymphocytosis on routine blood test. Treatment History: 1. Veltuzumab antibody treatment for 8 weeks in December 2011 on a clinical trial at the [facility]. This was complicated by anemia, thrombocytopenia and neutropenia. 2. Fludarabine, cyclophosphamide and rituximab in February 2012 for 4 cycles. Treatment was complicated by prolonged cytopenias and recurrent infections. Last 2 cycles required a 66% dose reduction. 3. [id number] Combination of [id number] and Ibrutinib - on combination 04/29/16-05/05/17 with [...] 2011 on a clinical trial at the [facility]. This was complicated by anemia, thrombocytopenia and neutropenia. 02/2012 - Chemotherapy Fludarabine, cyclophosphamide and rituximab in February 2012 for 4 cycles. Treatment was complicated by prolonged cytopenias and recurrent infections. Last 2 cycles required a 66% dose reduction. 04/2016 - 07/2018 Chemotherapy [id number] Combination of [id number] and Ibrutinib - on combination 04/29/16-05/05/17 with [...] states she is receiving IVIG locally in [place] when IGG < 600. Would like [...] Abdalla MD Hematology documented in this encounter [facility] 10-08-2022 Instructions Roxann Rollins RN - 10/08/2022 12:00 PM EST YOUR PRIMARY TEAM Dr. Sarina Santoyo DIGITAL PHOTO PRINTER - Nurse Practitioner Diana Dennis DIGITAL PHOTO PRINTER - Nurse Practitioner Roxann Rollins RN - Primary Nurse Will Casper RN Please contact our office if you develop a temperature of 100.4 or greater. CONTACT NUMBERS Clinic phone: [phone] [facility] fax: [phone] MEDICAL RECORDS The Release of Information (TA) area is staffed from 8:00 a.m. to 7:00 p.m. and is available for walk in requests from 8:00 a.m. to 4:30 p.m. [facility] is responsible for answering requests for copies of medical records from various requestors such as insurance companies, attorneys, hospitals and patients. Please note it can take up to 2 weeks to complete your request. [phone]; [phone] (fax). FINANCIAL CONCERNS Any questions regarding billing for services or insurance coverage concerns should be directed to our billing department at [phone]. DISABILITY FORMS This category includes any form [...] our team about the suggested recovery time. [employer] is a secure way to get access to your health records online. The medical information you will have access to within the RADLIVE program is only selected portions of your [...] For non-emergent concerns, please send us a RADLIVE message but describe your issue fully. When sending a message to the provider, please know that these messages will be received and answered by the primary nurse practitioner. The nurse practitioner will consult your physician when needed. For questions or concerns regarding [employer]IVE access or technical dificulties, please call [phone] or toll free at . __ Results [...] Auto 3.04 1.16 - 3.51 K/uL Abs Morrison Auto 0.45 0.22 - 0.87 K/uL Abs Eos Auto 0.10 0.00 - 0.42 K/uL Abs Baso Auto <0.04 0.00 - 0.15 K/uL documented in this encounter [facility] 10-03-2022 History of Present illness Narrative [facility] RX OUTREACH ADVANCED: Call Information: Date and Time of Contact: 10/03/2022 12:05 PM Method of Contact: By Phone Contact Type: Prescriptions Contactor: [facility] Contactee: Patient Contact Outcome: Left message and Follow-up (follow up in 3 days due to the weekend) Shipping/Pickup: Medication Name: Brukinsa 80 mg Contact Info: Specialty ([place]) [phone] [facility] [phone] [facility] [phone] [facility] [phone] Bedside Delivery ([facility]) [phone] [facility] RX OUTREACH ADVANCED: Call Information: Date and Time of Contact: 10/04/2022 3:44 PM Method of Contact: By Phone Contact Type: Prescriptions Contactor: [facility] Contactee: Patient Shipping/Pickup: Medicare B Refill?: No Medication Name: Brukinsa 80mg Delivery Method: Air Delivery Location: Home Signature Required: No Mailing/Pickup Date: 10/08/2022 Shipping Address: [address] [place] [address] Contact Info: Specialty ([place]) [phone] [facility] [phone] [facility] [phone] Akira [phone] Bedside Delivery ([facility]) [phone] documented in this encounter [facility] 09-04-2022 History of Present illness Narrative [facility] RX OUTREACH ADVANCED: Call Information: Date and Time of Contact: 09/04/2022 1:51 PM Method of Contact: By Phone Contact Type: Prescriptions Contactor: [facility] Contactee: Patient Contact Outcome: Left message and Follow-up (in 1-2 days) Shipping/Pickup: Medication Name: Brukinsa 80mg Contact Info: Specialty ([place]) [phone] [facility] [phone] [facility] [phone] Akira [phone] Bedside Delivery ([facility]) [phone] [facility] RX OUTREACH ADVANCED: Call Information: Date and Time of Contact: 09/06/2022 11:21 AM Method of Contact: By Phone Contact Type: Prescriptions Contactor: [facility] Contactee: Patient Shipping/Pickup: Medicare B Refill?: No Medication Name: Brukinsa 80mg Delivery Method: Air Delivery Location: Home Signature Required: No Mailing/Pickup Date: 09/10/2022 Shipping Address: [address] [place] [address] Contact Info: Specialty ([place]) [phone] [facility] [phone] [facility] [phone] Ak[place] [phone] Bedside Delivery ([facility]) [phone] documented in this encounter [facility] 08-06-2022 History of Present illness Narrative [facility] RX OUTREACH ADVANCED: Call Information: Date and Time of Contact: 08/06/2022 10:35 AM Method of Contact: By Phone Contact Type: Prescriptions Contactor: [facility] Contactee: Patient Contact Outcome: Left message and Follow-up (in 1-3 days) Shipping/Pickup: Medication Name: Brukinsa 80mg Contact Info: Specialty ([place]) [phone] [facility] [phone] [facility] [phone] Ak[place] [phone] Bedside Delivery ([facility]) [phone] [facility] RX OUTREACH ADVANCED: Call Information: Date and Time of Contact: 08/09/2022 9:50 AM Method of Contact: By Phone Contact Type: Prescriptions Contactor: [facility] Contactee: Patient Shipping/Pickup: Medicare B Refill?: No Medication Name: Brukinsa 80mg Delivery Method: Air Delivery Location: Home Signature Required: No Mailing/Pickup Date: 08/12/2022 Shipping Address: [address] [place] [address] Contact Info: Specialty ([place]) [phone] [facility] [phone] [facility] [phone] Ak[place] [phone] Bedside Delivery ([facility]) [phone] [facility] ([facility]) Note: The [...] to take quercetin. Chris Avitia RPH Specialty ([place]) [phone] [facility] [phone] [facility] [phone] [place] [phone] [place] [phone] [facility] [phone] Bedside Delivery ([facility]) [phone] documented in this encounter [facility] 07-09-2022 History of Present illness Narrative Summary: [...] 2011 on a clinical trial at the [facility]. This was complicated by anemia, thrombocytopenia and neutropenia. 2. Fludarabine, cyclophosphamide and rituximab in February 2012 for 4 cycles. Treatment was complicated by prolonged cytopenias and recurrent infections. Last 2 cycles required a 66% dose reduction. 3. [id number] Combination of [id number] and Ibrutinib - on combination 04/29/16-05/05/17 with [...] 2011 on a clinical trial at the [facility]. This was complicated by anemia, thrombocytopenia and neutropenia. 02/2012 - Chemotherapy Fludarabine, cyclophosphamide and rituximab in February 2012 for 4 cycles. Treatment was complicated by prolonged cytopenias and recurrent infections. Last 2 cycles required a 66% dose reduction. 04/2016 - 07/2018 Chemotherapy [id number] Combination of [id number] and Ibrutinib - on combination 04/29/16-05/05/17 with [...] states she is receiving IVIG locally in [place] when IGG < 600. Would like [...] MD Hematology documented in this encounter [facility] 07-09-2022 Instructions Nettie Casper RN - 07/09/2022 2:20 PM EDT YOUR PRIMARY TEAM Dr. Sarina Santoyo CNP - Nurse Practitioner Diana Dennis CNP - Nurse Practitioner Roxann Rollins RN - Primary Nurse Will Casper RN - Secondary Nurse Please contact our office if you develop a temperature of 100.4 or greater. CONTACT NUMBERS Clinic phone: [phone] Clinic fax: [phone] MEDICAL RECORDS The Release of Information (TA) area is staffed from 8:00 a.m. to 7:00 p.m. and is available for walk in requests from 8:00 a.m. to 4:30 p.m. [facility] is responsible for answering requests for copies of medical records from various requestors such as insurance companies, attorneys, hospitals and patients. Please note it can take up to 2 weeks to complete your request. [phone]; [phone] (fax). FINANCIAL CONCERNS Any questions regarding billing for services or insurance coverage concerns should be directed to our billing department at [phone]. DISABILITY FORMS This category includes any form [...] our team about the suggested recovery time. [employer] is a secure way to get access to your health records online. The medical information you will have access to within the RADLIVE program is only selected portions of your [...] For non-emergent concerns, please send us a RADLIVE message but describe your issue fully. When sending a message to the provider, please know that these messages will be received and answered by the primary nurse practitioner. The nurse practitioner will consult your physician when needed. For questions or concerns regarding [facility]IVE access or technical dificulties, please call [phone] or toll free at . __ Results [...] Auto 3.34 1.16 - 3.51 K/uL Abs Morrison Auto 0.56 0.22 - 0.87 K/uL Abs Eos Auto 0.16 0.00 - 0.42 K/uL Abs Baso Auto <0.04 0.00 - 0.15 K/uL documented in this encounter [facility] 05-09-2022 History of Present illness Narrative [facility] RX OUTREACH ADVANCED: Call Information: Date and Time of Contact: 05/09/2022 11:47 AM Method of Contact: By Phone Contact Type: Prescriptions Contactor: [facility] Contactee: Patient Shipping/Pickup: Medication Name: Brukinsa Contact Info: Specialty ([place]) [phone] [facility] [phone] [facility] [phone] [place] [phone] Bedside Delivery ([facility]) [phone] [facility] RX OUTREACH ADVANCED: Call Information: Date and Time of Contact: 05/09/2022 1:44 PM Method of Contact: By Phone Contact Type: Prescriptions Contactor: [facility] Contactee: Patient Shipping/Pickup: Medicare B Refill?: No Medication Name: Brukinsa 80mg Delivery Method: Air Delivery Location: Home Signature Required: No Mailing/Pickup Date: 05/13/2022 Shipping Address: [address] [place] [address] Contact Info: Specialty ([place]) [phone] [facility] [phone] [facility] [phone] Akira [phone] Bedside Delivery ([facility]) [phone] documented in this encounter [facility] 04-09-2022 History of Present illness Narrative Summary: [...] 2011 on a clinical trial at the [facility]. This was complicated by anemia, thrombocytopenia and neutropenia. 2. Fludarabine, cyclophosphamide and rituximab in February 2012 for 4 cycles. Treatment was complicated by prolonged cytopenias and recurrent infections. Last 2 cycles required a 66% dose reduction. 3. [id number] Combination of [id number] and Ibrutinib - on combination 04/29/16-05/05/17 with [...] 2011 on a clinical trial at the [facility]. This was complicated by anemia, thrombocytopenia and neutropenia. 02/2012 - Chemotherapy Fludarabine, cyclophosphamide and rituximab in February 2012 for 4 cycles. Treatment was complicated by prolonged cytopenias and recurrent infections. Last 2 cycles required a 66% dose reduction. 04/2016 - 07/2018 Chemotherapy [id number] Combination of [id number] and Ibrutinib - on combination 04/29/16-05/05/17 with [...] states she is receiving IVIG locally in [place] when IGG < 600. Would like [...] Abdalla MD Hematology documented in this encounter [facility] 04-09-2022 Instructions Nettie Casper, PLACIDO - 04/09/2022 1:36 PM EDT YOUR PRIMARY TEAM Dr. Sarina Santoyo, SHANNON - Nurse Practitioner Diana Dennis CNP - Nurse Practitioner Roxann Rollins RN - Primary Nurse Will Casper RN - Secondary Nurse Please contact our office if you develop a temperature of 100.4 or greater. CONTACT NUMBERS Clinic phone: [phone] Clinic fax: [phone] MEDICAL RECORDS The Release of Information (TA) area is staffed from 8:00 a.m. to 7:00 p.m. and is available for walk in requests from 8:00 a.m. to 4:30 p.m. [facility] is responsible for answering requests for copies of medical records from various requestors such as insurance companies, attorneys, hospitals and patients. Please note it can take up to 2 weeks to complete your request. [phone]; [phone] (fax). FINANCIAL CONCERNS Any questions regarding billing for services or insurance coverage concerns should be directed to our billing department at [phone]. DISABILITY FORMS This category includes any form [...] our team about the suggested recovery time. [facility] Donna Martinez is a secure way to get access to your health records online. The medical information you will have access to within the RADLIVE program is only selected portions of your [...] For non-emergent concerns, please send us a RADLIVE message but describe your issue fully. When sending a message to the provider, please know that these messages will be received and answered by the primary nurse practitioner. The nurse practitioner will consult your physician when needed. For questions or concerns regarding RADLIVE access or technical dificulties, please call [phone] or toll free at . __ Results [...] 4.76 (H) 1.16 - 3.51 K/uL Abs Morrison Auto 0.57 0.22 - 0.87 K/uL Abs Eos Auto 0.25 0.00 - 0.42 K/uL Abs Baso Auto 0.04 0.00 - 0.15 K/uL documented in this encounter [facility] 03-15-2022 History of Present illness Narrative [facility] Note: The patient is out of refills on Brukinsa 80mg. Please send a new prescription to [facility], if appropriate. Chris Avitia, [facility] Specialty ([place]) [phone] [facility] [phone] [facility] [phone] Akira [phone] [place] [phone] Bedside Delivery ([facility]) [phone] [facility] RX OUTREACH ADVANCED: Call Information: Date and Time of Contact: 03/18/2022 1:05 PM Method of Contact: By Phone Contact Type: Prescriptions Contactor: [facility] Contactee: Patient Shipping/Pickup: Medicare B Refill?: No Medication Name: Brukinsa 80mg Delivery Method: Air Delivery Location: Home Signature Required: No Mailing/Pickup Date: 03/19/2022 Shipping Address: [address] [place] [address] Contact Info: Specialty ([place]) [phone] [facility] [phone] [facility] [phone] Akira [phone] Bedside Delivery ([facility]) [phone] documented in this encounter [facility] 07-09-2021 History of Present illness Narrative [facility] RX OUTREACH: Call Information: Date and Time of Contact: 07/11/2021 2:17 PM Method of Contact: By Phone Contact Type: Prescriptions Contactor: [facility] Contactee: Patient Shipping/Pickup: Mailing/Pickup Date: 07/12/2021 Medicare B Refill: No Medication Name: brukinsa Delivery Method: Air Delivery Location: Home Signature Required: No Shipping Address: [address] [place] [address] Contact Info: Specialty ([place]) [phone] [facility] [phone] [facility] [phone] Akira [phone] Bedside Delivery ([facility]) [phone] [facility] RX OUTREACH: Call Information: Date and Time of Contact: 07/11/2021 10:51 AM Method of Contact: By Phone Contact Type: Prescriptions Contactor: [facility] Contactee: Patient Contact Outcome: Left message and Follow-up (brukinsa refill ) Contact Info: Specialty ([place]) [phone] [facility] [phone] [facility] [phone] Akira [phone] Bedside Delivery ([facility]) [phone] [facility] RX OUTREACH: Call Information: Date and Time of Contact: 07/09/2021 2:27 PM Method of Contact: By Phone Contact Type: Prescriptions Contactor: [facility] Contactee: Patient Contact Outcome: Left message and Follow-up (in 1 to 2 days) Shipping/Pickup: Medication Name: Brukinsa 80mg Contact Info: Specialty ([place]) [phone] [facility] [phone] [facility] [phone] Akira [phone] Bedside Delivery ([facility]) [phone] documented in this encounter [facility] History of Present illness Narrative [facility] RX OUTREACH: Call Information: Date and Time of Contact: 06/12/2021 12:31 PM Method of Contact: By Phone Contact Type: Prescriptions Contactor: [facility] Contactee: Patient Shipping/Pickup: Mailing/Pickup Date: 06/14/2021 Medicare B Refill: No Medication Name: Brukinsa Delivery Method: Air Delivery Location: Home Signature Required: No Shipping Address: [address] [place] [address] Contact Info: Specialty ([place]) [phone] [facility] [phone] [facility] [phone] Akira [phone] Bedside Delivery ([facility]) [phone] [facility] RX OUTREACH: Call Information: Date and Time of Contact: 06/08/2021 3:26 PM Method of Contact: By Phone Contact Type: Prescriptions Contactor: [facility] Contactee: Patient Contact Outcome: Left message and Follow-up (in 3-5 days (due to weekend)) Shipping/Pickup: Medication Name: Brukinsa 80mg Contact Info: Specialty ([place]) [phone] [place] [phone] [facility] [phone] Akira [phone] Bedside Delivery ([facility]) [phone] documented in this encounter [facility] 06[facility]21 History of Present illness Narrative Attending [...] 208K Hx of Afib: Continue follow-up with retail seasonal specialist. She will follow with her primary care [...] 2011 on a clinical trial at the [facility]. This was complicated by anemia, thrombocytopenia and neutropenia. 2. Fludarabine, cyclophosphamide and rituximab in February 2012 for 4 cycles. Treatment was complicated by prolonged cytopenias and recurrent infections. Last 2 cycles required a 66% dose reduction. 3. [id number] Combination of [id number] and Ibrutinib - on combination 04/29/16-05/05/17 with [...] were detected. She had IVIG locally in [place] and had kyphoplasty at [facility] on 05/10/20. On 05/10/20, wbc [...] mg on 07/19/20. She returned to the [facility] on 07/25/20 - she had 1 cm [...] 2011 on a clinical trial at the [facility]. This was complicated by anemia, thrombocytopenia and neutropenia. 02/2012 - Chemotherapy Fludarabine, cyclophosphamide and rituximab in February 2012 for 4 cycles. Treatment was complicated by prolonged cytopenias and recurrent infections. Last 2 cycles required a 66% dose reduction. 04/2016 - 07/2018 Chemotherapy [id number] Combination of [id number] and Ibrutinib - on combination 04/29/16-05/05/17 with [...] sublingual formulations. Receiving monthly IVIG locally in [place] and states this is scheduled if [...] states she is receiving IVIG locally in [place] when IGG < 600. Would like [...] any additional questions. documented in this encounter [facility] 06-05-2021 Instructions Nettie Casper RN - 06/05/2021 10:40 AM EDT YOUR PRIMARY TEAM Dr. Sarina Santoyo CNP - Nurse Practitioner Diana Dennis CNP - Nurse Practitioner Roxann Rollins RN - Primary Nurse Will Casper RN - Secondary Nurse Please contact our office if you develop a temperature of 100.4 or greater. CONTACT NUMBERS Clinic phone: [phone] Clinic fax: [phone] MEDICAL RECORDS The Release of Information (TA) area is staffed from 8:00 a.m. to 7:00 p.m. and is available for walk in requests from 8:00 a.m. to 4:30 p.m. [facility] is responsible for answering requests for copies of medical records from various requestors such as insurance companies, attorneys, hospitals and patients. Please note it can take up to 2 weeks to complete your request. [phone]; [phone] (fax). FINANCIAL CONCERNS Any questions regarding billing for services or insurance coverage concerns should be directed to our billing department at [phone]. DISABILITY FORMS This category includes any form [...] our team about the suggested recovery time. [employer] is a secure way to get access to your health records online. The medical information you will have access to within the RADLIVE program is only selected portions of your [...] For non-emergent concerns, please send us a RADLIVE message but describe your issue fully. When sending a message to the provider, please know that these messages will be received and answered by the primary nurse practitioner. The nurse practitioner will consult your physician when needed. For questions or concerns regarding RADLIVE access or technical dificulties, please call [phone] or toll free at . __ Results [...] Immature Grans Absolute Abs Lymph Auto Abs Morrison Auto Abs Eos Auto Abs Baso Auto MANUAL DIFF Result Value Ref Range DIFF STATUS Manual Differential Bands Relative 0.0 % Segs Relative 2.0 % Lymph Relative 97.0 % Morrison Relative 0.0 % Eos Relative 1.0 % Baso Relative 0.0 % Nucleated RBC 0.0 <=0.0 /100 WBC Segs & Bands, Absolute 3.41 1.64 - 7.28 K/uL Abs Lymph Manual 165.43 (H) 1.16 - 3.51 K/uL Abs Morrison Manual 0.00 (L) 0.22 - 0.87 K/uL Abs Eos Manual 1.71 (H) 0.00 - 0.42 K\uL Abs Baso Manual 0.00 0.00 - 0.15 K/uL RBC Morphology RBC INDICES CONFIRMED WITH MANUAL SLIDE REVIEW Platelet Estimate Automated platelet count confirmed by manual slide review documented in this encounter [facility] 01-31-2021 Note HNO ID: [id number] Author: Bharat Durbin MD Service: ? Author Type: Physician Type: Progress Notes Filed: 01/31/2021 11:57 AM Note Text: Bharat Durbin M.D. [facility] General Orthopedics - Orthopedic Spine Surgeon [address], [place] [address] [place] [address], [place] [address] Phone: [phone] ([employer]) FAX: [phone] ([place]) SPINE SURGERY OUTPATIENT CONSULT SERVICE DATE: 01/31/2021 PCP: Savannah Rios MD REFERRING PROVIDER: Bharat Durbin MD [address] [place] [address] CHIEF COMPLAINT: low back pain HISTORY OF [...] long-term use DOAC rivaroxaban (Xarelto); risk:benefit of oysterman oral anticoagulation therapy is not favorable - [...] recurrent falling - At risk for stroke [id number] = 3 (HTN, age, female gender); s/p [...] Watchman left atrial appendage closure device 11/23/2019 [employer] Watchman left atrial appendage closure device implant 11/23/2019 - Rheumatoid arthritis (HCC) - Right bundle branch block PAST SURGICAL HISTORY Procedure Laterality Date - BACK SURGERY HX 04/2020 - PAST SURGICAL HISTORY OF gum surgery - PAST SURGICAL HISTORY OF 2002 bunionectomy - CHELSY 11/23/2019 - TE (more content not included)... [facility] 01-24-2021 Note HNO ID: [id number] Author: Bharat Durbin MD Service: ? Author Type: Physician Type: Progress Notes Filed: 01/24/2021 1:52 PM Note Text: Bharat Durbin M.D. [facility] Orthopedics - Orthopedic Spine Surgeon [address], [place] [address] [address] [place] [address] [address], [place] [address] Phone: [phone] ([facility]) FAX: [phone] ([place]) SPINE SURGERY OUTPATIENT CONSULT SERVICE DATE: 01/24/2021 PCP: Savannah Rios MD REFERRING PROVIDER: Anika Wood PA-C [address] [facility] [address] CHIEF COMPLAINT: low back pain HISTORY OF [...] long-term use DOAC rivaroxaban (Xarelto); risk:benefit of shelter oral anticoagulation therapy is not favorable - [...] recurrent falling - At risk for stroke [id number] = 3 (HTN, age, female gender); s/p [...] Watchman left atrial appendage closure device 11/23/2019 [employer] Watchman left atrial appendage closure device [...] Dr. Pepe Marin (more content not included)... [facility] 01-17-2021 Note HNO ID: [id number] Author: Katelyn Ragland (Tech) Service: ? Author Type: Quantitative Analyst Marketing Type: Progress Notes Filed: 01/18/2021 3:50 PM [...] or nail changes. MUSCULOSKELETAL: Low back pain [facility] 01-17-2021 Note HNO ID: [id number] Author: Anika Wood Service: ? Author Type: Physician Certified Phlebotomist Type: Progress Notes Filed: 01/18/2021 3:50 PM Note Text: [facility] Program New Patient Evaluation [...] HR URINE 8. CLL (chronic lymphocytic leukemia) ([facility]) - ICD9: 204.10, ICD10: C91.10 - PTH [...] answered to apparent satisfaction. Referring Physician: Dr. Terjo Primary Care Physician: Dr. Rios Reason for [...] any treatmetn sin (more content not included)... [facility] 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- Primary Chronic lymphoid leukemia, without mention of having achieved remission [facility] 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- Primary Chronic lymphoid leukemia, without mention of having achieved remission [facility] Diagnosis CLL (chronic lymphocytic leukemia)- Primary Chronic lymphoid leukemia, without mention of having achieved remission [facility] Diagnosis CLL (chronic lymphocytic leukemia)- Primary Chronic lymphoid leukemia, without mention of having achieved remission documented in this encounter [facility] Summary Purpose Family History No Family History Records FoundNo Family History Records FoundNo Family History Records FoundNo Family History Records FoundNo Family History Records Found Advance Directives Documents on File Type Date Recorded Patient Bung Dropper Expl [facility] Power of Marine Electrician Apprentice 04/16/2016 12:00 AM Advance Directives/Living Will 04/16/2016 [...] Documents on File Type Date Recorded Patient Bung Dropper Expl [facility] Power of Marine Electrician Apprentice 04/16/2016 12:00 AM Advance Directives/Living Will 04/16/2016 [...] leukemia) Procedures BTK RESISTANCE MUTATION, BLOOD SantoyoBettina, IMPORT/EXPORT ANALYST-DIGITAL PHOTO PRINTER [address] [place] [address] Referral ID Status Reason Start Date Expiration Date V isits Requested Visits Authorized [id number] New Request 10/30/2023 11/23/2024 1 1 Additional Source Comments INFORMATION SOURCE (unrecogn ized section and content) DATE CREATED AUTHOR AUTHOR'S ORGANIZ ATION [facility] DATE CREATED AUTHOR AUTHOR'S ORGANIZ ATION 11/28/2021 [facility] DATE CREATED AUTHOR AUTHOR'S ORGANIZ ATION 12/30/2021 [facility] DATE CREATED AUTHOR AUTHOR'S ORGANIZ ATION 12/07/2023 [facility] Care Teams (unrecognized sec tion and content) Freelance [address] Reporter Relationship Specialty Start Date End Date Savannah Rios MD [address] [place], [place] [id number] PCP - General Family Medicine 01/05/19 Vitaly Ortega MD Cardiovascular Medicine 07/04/16 Master Kuo MD [address] [place] [address] Hematology 10/12/18 Cong Aguirre MB/CHB [address] [place], [place] [id number] Hematology 10/23/18 Ada Mckinney, IMPORT/EXPORT ANALYST-DIGITAL PHOTO PRINTER [address] [place] [phone] Certified Nurse Practitioner 09/11/20 Chris Avitia, MARLYN [address] [place] [address] Pharmacist Pharmacist 04/12/[address] RPh,PharmD [address] [place] [phone] Pharmacist 04/12/21 Vitaly Otto [facility] [address] [place] [address] Pharmacist Pharmacist 04/12/21 Dr. Harsh Denton [address] [place] [address] Neurology 01/05/[address] Reporter Relationship Specialty Start Date End Date Savannah Rios MD [address] [place] [address] PCP - General Family Medicine 01/05/19 Vitaly Ortega MD Cardiovascular Medicine 07/04/16 Master Kuo MD [address] [place] [address] Hematology 10/12/18 Cong Aguirre MB/CHB [address] [place] [address] Hematology 10/23/18 Ada Mckinney, IMPORT/EXPORT ANALYST-DIGITAL PHOTO PRINTER [address] [place] [phone] Certified Nurse Practitioner 09/11/20 Chris Avitia Estephania [address] [address] Pharmacist Pharmacist 04/12/[address] RPh,PharmD [address] [place], [place] [phone] Pharmacist 04/12/21 Vitaly Otto [facility] [address] [place] [address] Pharmacist Pharmacist 04/12/21 Dr. Harsh Denton [address] [place] [address] Neurology 01/05/[address] Reporter Relationship Specialty Start Date End Date Savannah Rios MD [address] [place] [address] PCP - General Family Medicine 01/05/19 Vitaly Ortega MD Cardiovascular Medicine 07/04/16 Master Kuo MD [address] [place] [address] Hematology 10/12/18 Cong Aguirre MB/CHB [address] [place] [address] Hematology 10/23/18 Ada Mckinney, IMPORT/EXPORT ANALYST-DIGITAL PHOTO PRINTER [address] [place] [phone] Certified Nurse Practitioner 09/11/20 Chris Avitia, [facility] [address] [place] [address] Pharmacist Pharmacist 04/12/[address], [facility],PharmD [address] [place] [address] Pharmacist 04/12/21 Vitaly Otto, [facility] [address] [place] [address] Pharmacist Pharmacist 04/12/21 Dr. Harsh Denton [address] [place], [place] [address] Neurology 01/05/[address] Reporter Relationship Specialty Start Date End Date Savannah Rios MD [address] [place] [address] PCP - General Family Medicine 01/05/19 Vitaly Ortega MD Cardiovascular Medicine 07/04/16 Master Kuo MD [address] [place] [address] Hematology 10/12/18 Cong Aguirre MB/CHB [address] [place] [address] Hematology 10/23/18 Ada Mckinney, IMPORT/EXPORT ANALYST-DIGITAL PHOTO PRINTER [address] [place] [address] Certified Nurse Practitioner 09/11/20 Chris Avitia, [facility] [address] [place] [address] Pharmacist Pharmacist 04/12/[address], [facility],PharmD [address] [place] [address] Pharmacist 04/12/21 Vitaly Otto, [facility] [address] [place] [address] Pharmacist Pharmacist 04/12/21 Dr. Harsh Denton [address] [place] [address] Neurology 01/05/[address] Reporter Relationship Specialty Start Date End Date Savannah Rios MD [address] [place] [address] PCP - General Family Medicine 01/05/19 Vitaly Ortega MD Cardiovascular Disease 07/04/16 Master Kuo MD [address] [place] [address] Hematology 10/12/18 Cong Aguirre MB/CHB [address] [place] [address] Hematology 10/23/18 Ada Mckinney, IMPORT/EXPORT ANALYST-DIGITAL PHOTO PRINTER [address] [place] [phone] Certified Nurse Practitioner 09/11/20 Chris Avitia, RP [address] [place] [address] Pharmacist Pharmacist 04/12/[address] RPh,PharmD [address] [place] [address] Pharmacist 04/12/21 Vitaly Otto, RPEstephania [address] [place] [address] Pharmacist Pharmacist 04/12/21 Dr. Harsh Denton [address] [place] [address] Neurology 01/05/[address] Reporter Relationship Specialty Start Date End Date Savannah Rios MD [address] [place] [address] PCP - General Family Medicine 01/05/19 Vitaly Ortega MD Cardiovascular Disease 07/04/16 Master Kuo MD [address] [place] [address] Hematology 10/12/18 Cong Aguirre MB/CHB [address] [place] [address] Hematology 10/23/18 Ada Mckinney, IMPORT/EXPORT ANALYST-DIGITAL PHOTO PRINTER [address] [place] [phone] Certified Nurse Practitioner 09/11/20 Chris Avitia RPH [address] [place] [address] Pharmacist Pharmacist 04/12/[address] RPh,PharmD [address] [place] [address] Pharmacist 04/12/21 Vitaly Otto RPH [address] [place] [address] Pharmacist Pharmacist 04/12/21 Dr. Harsh Denton [address] [place] [address] Neurology 01/05/[address] Reporter Relationship Specialty Start Date End Date Savannah Rios MD [address] [place] [address] PCP - General Family Medicine 01/05/19 Vitaly Ortega MD Cardiovascular Disease 07/04/16 Master Kuo MD [address] [place] [address] Hematology 10/12/18 Cong Aguirre MB/CHB [address] [place] [address] Hematology 10/23/18 Ada Mckinney, IMPORT/EXPORT ANALYST-DIGITAL PHOTO PRINTER [address] [place] [phone] Certified Nurse Practitioner 09/11/20 Chris Avitia, [facility] [address] [place] [phone] Pharmacist Pharmacist 04/12/[address], [facility],PharmD [address] [place] [address] Pharmacist 04/12/21 Vitaly Otto, [facility] [address] [place] [address] Pharmacist Pharmacist 04/12/21 Dr. Harsh Denton [address] [place] [address] Neurology 01/05/[address] Reporter Relationship Specialty Start Date End Date Savannah Rios MD [address] [place] [address] PCP - General Family Medicine 01/05/19 Vitaly Ortega MD Cardiovascular Disease 07/04/16 Master Kuo MD [address] [place] [address] Hematology 10/12/18 Cong Aguirre MB/CHB [address] [place] [address] Hematology 10/23/18 Ada Mckinney, IMPORT/EXPORT ANALYST-DIGITAL PHOTO PRINTER [address] [place] [address] Certified Nurse Practitioner 09/11/20 Chris Avitia, [facility] [address] [place] [address] Pharmacist Pharmacist 04/12/[address] [facility],PharmD [address] [place] [address] Pharmacist 04/12/21 Vitaly Otto, [facility] [address] [place] [address] Pharmacist Pharmacist 04/12/21 Dr. Harsh Denton [address] [place] [address] Neurology 01/05/[address] Reporter Relationship Specialty Start Date End Date Savannah Rios MD [address] [place] [address] PCP - General Family Medicine 01/05/19 Vitaly Ortega MD Cardiovascular Disease 07/04/16 Cong Aguirre MB/CHB [address] [place] [address] Hematology 10/23/18 Ada Mckinney, IMPORT/EXPORT ANALYST-DIGITAL PHOTO PRINTER [address] [place] [address] Certified Nurse Practitioner 09/11/20 Chris Avitia, [facility] [address] [place] [address] Pharmacist Pharmacist 04/12/[address] RPh,PharmD [address] [place] [address] Pharmacist 04/12/21 Vitaly Otto, [facility] [address] [place] [phone] Pharmacist Pharmacist 04/12/21 Sarina Abdalla MD [address] [place] [address] Hematology 10/08/22 Dr. Harsh Denton [address] [place] [address] Neurology 01/05/[address] Reporter Relationship Specialty Start Date End Date Savannah Rios MD [address] [place] [address] PCP - General Family Medicine 01/05/19 Vitaly Ortega MD Cardiovascular Disease 07/04/16 Cong Aguirre MB/CHB [address] [place] [address] Hematology 10/23/18 Ada Mckinney, IMPORT/EXPORT ANALYST-DIGITAL PHOTO PRINTER [address] [place] [phone] Certified Nurse Practitioner 09/11/20 Chris Avitia, H [address] [place] [address] Pharmacist Pharmacist 04/12/[address] RPh,PharmD [address] [place] [address] Pharmacist 04/12/21 Vitaly Otto RPH [address] [place] [address] Pharmacist Pharmacist 04/12/21 Sarina Abdalla MD [address] [place] [phone] Hematology 10/08/22 Dr. Harsh Denton [address] [facility] [place] [address] Neurology 01/05/[address] Reporter Relationship Specialty Start Date End Date Savannah Rios MD [address] [place], [place] [address] PCP - General Family Medicine 01/05/19 Vitaly Ortega MD Cardiovascular Disease 07/04/16 Cong Aguirre MB/CHB [address] [place] [address] Hematology 10/23/18 Ada Mckinney, IMPORT/EXPORT ANALYST-DIGITAL PHOTO PRINTER [address] [place] [phone] Certified Nurse Practitioner 09/11/20 Chris Avitia, [facility] [address] [place] [address] Pharmacist Pharmacist 04/12/[address], [facility],PharmD [address] [place] [address] Pharmacist 04/12/21 Vitaly Otto, [facility] [address] [place] [address] Pharmacist Pharmacist 04/12/21 Sarina Abdalla MD [address]th [place] [address] Hematology 10/08/22 Dr. Harsh Denton [address] [place] [address] Neurology 01/05/[address] Reporter Relationship Specialty Start Date End Date Savannah Rios MD [address] [place], [place] [id number] PCP - General Family Medicine 01/05/19 Vitaly Ortega MD Cardiovascular Disease 07/04/16 Cong Aguirre MB/CHB [address] [place] [address] Hematology 10/23/18 Ada Mckinney, IMPORT/EXPORT ANALYST-DIGITAL PHOTO PRINTER [address] [place] [phone] Certified Nurse Practitioner 09/11/20 Chris Avitia, [facility] [address] [place] [address] Pharmacist Pharmacist 04/12/[address] RPh,PharmD [address] [place] [address] Pharmacist 04/12/21 Vitaly Otto [facility] [address] [place] [address] Pharmacist Pharmacist 04/12/21 Sarina Abdalla MD [address] [place] [address] Hematology 10/08/22 Dr. Harsh Denton [address] [place] [address] Neurology 01/05/[address] Reporter Relationship Specialty Start Date End Date Savannah Rios MD [address] [place], [place] [id number] PCP - General Family Medicine 01/05/19 Vitaly Ortega MD Cardiovascular Disease 07/04/16 Cong Aguirre MB/CHB [address] [place] [address] Hematology 10/23/18 Ada Mckinney, IMPORT/EXPORT ANALYST-DIGITAL PHOTO PRINTER [address] [place] [address] Certified Nurse Practitioner 09/11/20 Chris Avitia, [facility] [address] Room [place] [id number] Pharmacist Pharmacist 04/12/[address] RPh,PharmD [address] [place], [place] [phone] Pharmacist 04/12/21 Vitaly Otto, [facility] [address] [place] [address] Pharmacist Pharmacist 04/12/21 Sarina Abdalla MD [address] [place] [address] Hematology 10/08/22 Dr. Harsh Denton [address] [place] [address] Neurology 01/05/[address] Reporter Relationship Specialty Start Date End Date Savannah Rios MD [address] [place] [address] PCP - General Family Medicine 01/05/19 Vitaly Ortega MD Cardiovascular Disease 07/04/16 Cong Aguirre MB/CHB [address] [place] [address] Hematology 10/23/18 Ada Mckinney, IMPORT/EXPORT ANALYST-DIGITAL PHOTO PRINTER [address] [place] [phone] Certified Nurse Practitioner 09/11/20 Chris Avitia, [facility] [address] [place] [address] Pharmacist Pharmacist 04/12/[address], [facility],PharmD [address] [place] [address] Pharmacist 04/12/21 Vitaly Otto, [facility] [address] [place] [address] Pharmacist Pharmacist 04/12/21 Sarina Abdalla MD [address] 5th [place] [address] Hematology 10/08/22 Dr. Harsh Denton [address] [place], [place] [address] Neurology 01/05/[address] Reporter Relationship Specialty Start Date End Date Savannah Rios MD [address] [place], [place] [address] PCP - General Family Medicine 01/05/19 Vitaly Ortega MD Cardiovascular Disease 07/04/16 Cong Aguirre MB/CHB [address] [place] [address] Hematology 10/23/18 Ada Mckinney, IMPORT/EXPORT ANALYST-DIGITAL PHOTO PRINTER [address] [place] [phone] Certified Nurse Practitioner 09/11/20 Chris Avitia, [facility] [address] [place] [phone] Pharmacist Pharmacist 04/12/[address] [facility],PharmD [address] [place] [address] Pharmacist 04/12/21 Vitaly Otto, [facility] [address] [place] [address] Pharmacist Pharmacist 04/12/21 Sarina Abdalla MD [address] [place] [address] Hematology 10/08/22 Dr. Harsh Denton [address] [facility] [place], [place] [address] Neurology 01/05/[address] Reporter Relationship Specialty Start Date End Date Savannah Rios MD [address] [place] [address] PCP - General Family Medicine 01/05/19 Vitaly Ortega MD Cardiovascular Disease 07/04/16 Cong Aguirre MB/CHB [address] [place] [address] Hematology 10/23/18 Ada Mckinney, IMPORT/EXPORT ANALYST-DIGITAL PHOTO PRINTER [facility] [place] [phone] Certified Nurse Practitioner 09/11/20 Chris Avitia [facility] [address] [facility] [address] [place] [address] Pharmacist Pharmacist 04/12/[address], [facility],PharmD [address] [place] [address] Pharmacist 04/12/21 [facility] [address] [facility] Room [address] [place] [phone] Pharmacist Pharmacist 04/12/21 Sarina Abdalla MD [address] [place] [address] Hematology 10/08/22 Dr. Harsh Denton [address] [place] [address] Neurology 01/05/[address] Reporter Relationship Specialty Start Date End Date Savannah Rios MD [address] [place] [address] PCP - General Family Medicine 01/05/19 Vitaly Ortega MD Cardiovascular Disease 07/04/16 Cong Aguirre MB/CHB [address] [place] [address] Hematology 10/23/18 Ada Mckinney, IMPORT/EXPORT ANALYST-DIGITAL PHOTO PRINTER [address] [place] [phone] Certified Nurse Practitioner 09/11/20 Chris Avitia, [facility] [address] [place] [address] Pharmacist Pharmacist 04/12/[address], [facility],PharmD [address] [place] [phone] Pharmacist 04/12/21 Vitaly Otto, [facility] [address] [place] [address] Pharmacist Pharmacist 04/12/21 Sarina Abdalla MD [address] [place] [address] Hematology 10/08/22 Dr. Harsh Denton [address] [place] [address] Neurology 01/05/[address] Reporter Relationship Specialty Start Date End Date Savannah Rios MD [address] [place] [address] PCP - General Family Medicine 01/05/19 Vitaly Ortega MD Cardiovascular Disease 07/04/16 Cong Aguirre MB/CHB [address] [place] [address] Hematology 10/23/18 Ada Mckinney, IMPORT/EXPORT ANALYST-DIGITAL PHOTO PRINTER [address] [place] [phone] Certified Nurse Practitioner 09/11/20 Chris Avitia [facility] [address] [facility] [address] [place] [address] Pharmacist Pharmacist 04/12/[address], [facility],PharmD [address] [place] [address] Pharmacist 04/12/21 Vitaly Otto, [facility] [address] [place] [address] Pharmacist Pharmacist 04/12/21 Sarina Abdalla MD [address] [place] [address] Hematology 10/08/22 Dr. Harsh Denton [address] [place] [address] Neurology 01/05/19 Reason for Visit (unrecogniz ed section and content) Reason Comments Follow-up Specialty Diagnoses / Procedures Referred By Contac t Referred To Contact Diagnoses CLL (chronic lymphocytic leukemia) Procedures BTK RESISTANCE MUTATION, BLOOD Bettina Santoyo, IMPORT/EXPORT ANALYST-DIGITAL PHOTO PRINTER [address] [place] [address] Referral ID Status Reason Start Date Expiration Date V isits Requested Visits Authorized [id number] New Request 10/30/2023 11/23/2024 1 FOR RECORDS [...] BE BASED ON THE PRIMARY CLINICAL RECORDS. [employer] provides no warranty or guarantee of the accuracy or completeness of information in this document.
--- NOTE | 2024-01-05 09:22 | CL.D_ITS ---
Patient Name: JUSTINO FOY Study Date: 01/05/2024 Performing: Junior Boykin MD Ht: 66 inches 167.64 cm : 1950 Wt: 137 lbs 62.14 kg Age: 73 Gender: female BSA: 1.7 PROCEDURE(S) PERFORMED DC01-([id number])LHC/COR/LV CLINICAL PROFILE AND INDICATIONS Indications: Cardiomyopathy Heart Failure: NYHA Class: 2, Newly Diagnosed: Yes, Heart Failure Type: Systolic Stress/Imaging Stress/Image Study Performed: No CAD Presentations: No Sxs, no angina. CONCLUSIONS Atrial fibrillation. Mild nonobstructive coronary artery disease. Mild global hypokinesis. RECOMMENDATIONS Aggressive risk factor modification and optimization of heart rate. DESCRIPTION OF PROCEDURE The patient arrived to the procedure lab. The risks and benefits of the procedure as well as a full description of our services here and current unavailability of surgical backup were fully explained to the patient and/or their significant other prior to the catheterization. The Timeout was completed, verifying the correct patient and procedure. The patient's procedural site was prepped and draped in the usual fashion. Local anesthetic was given subcutaneously to right radial region with Lidocaine 2%. Using a modified Seldinger technique, arterial access was obtained via the right radial artery, a 6Fr sheath was inserted. Right Coronary Artery selective angiography was then performed in multiple views using a 5 Fr. 4.0 [place] catheter. Left Coronary Artery selective angiography was performed in multiple views using a 5 Fr. 4.0 [place] catheter.The arterial sheath was pulled and a TR Band was applied for hemostasis CORONARY ANGIOGRAPHY DOMINANCE: Right Dominant LEFT HEART ASSESSMENT Left Ventricular Ejection Fraction: by LV Gram 45 % Global Hypokinesis - Mild Depressed Left Ventricular systolic function LEFT MAIN: Mild calcification, Mild luminal irregularities LEFT ANTERIOR DESCENDING ARTERY: Mild luminal irregularities CIRCUMFLEX ARTERY: Mild luminal irregularities RIGHT CORONARY ARTERY: MID RCA: Moderate luminal irregularities up to 50% COMPLICATIONS No Complications PROCEDURE MEDICATIONS Versed 1 mg IV Fentanyl 50 mcg IV Oxygen: 2 L/min via nasal cannula Baby Aspirin (81mg) 1 Tabs PO @ 01/05/2024 07:54:52 SUMMARY OF HEMODYNAMIC DATA Time AIR REST ECG 07:51:09 AO 157/53 (47) SA 09:04:43 LV 144/5, 15 09:08:59 LV 151/7, 12 09:09:07 LV 133/6, 14 09:09:55 LV 134/8, 13 09:10:00 LV 145/9, 16 09:10:09 LVp 154/10, 15 09:10:13 AOp 150/77 (110) 09:10:20 09:19:55 Signed By Junior Boykin MD On 01/05/2024 09:21:17 Junior Boykin MD
== END 2024-01-05 10:45 | disposition home or self-care (01) ==
LOC: CLSP 07:26
PROVIDERS: PCP Family Medicine; Referring Provider Internal Medicine Cardiovascular Disease; Visit Provider Internal Medicine Cardiovascular Disease
DX: I25.10 Atherosclerotic heart disease of native coronary artery without angina pectoris (principal); I11.0 Hypertensive heart disease with heart failure; I50.22 Chronic systolic (congestive) heart failure; I42.9 Cardiomyopathy, unspecified; I48.20 Chronic atrial fibrillation, unspecified; E78.5 Hyperlipidemia, unspecified; I34.0 Nonrheumatic mitral (valve) insufficiency; Z95.818 Presence of other cardiac implants and grafts
CPT/HCPCS: 36415; 71046; 80048; 85025; 85610; 85730; 93005; 93458; 99152; 99153; J7040; Q9967; C1769; C1894

== ENCOUNTER → 2024-01-16 | Outpatient (CLI) | payer MEDICARE, OTHER, SELFPAY ==
--- OUTSIDE RECORDS SUMMARY | 2024-01-16 20:31 | XMS RPT_ITS | CCD ---
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,PharmD, Chauncey Unavailable Unavai lable Otto [facility], Vitaly Unavailable Sadi [facility] W Unavailable Otto [facility], Vitaly Unavailable [phone] Vitaly Ortega MD Unavailable Unavailable Vitaly Ortega MD Unavailable Unavailable Master Kuo MD Unavailable [facility] MAGDA/Cong MENDOZA Unavailable [phone] Savannah Rios MD Primary Care Provider [phone] Faye CLINICAL TEAM LEAD-[employer]READ [employer] PASTRY BAKER, Ada R Unavailable Avitia [facility], Chris W Unavailable [phone] [facility],PharmD, Chauncey Unavailable Unavai lable Otto [facility], [place] Unavailable Sarina Abdalla MD Unavailable Shannon BENAVIDEZ, [place] Unavailable Unavailable [facility] MB/CHB, Cong Unavailable Savannah Rios MD Primary Care Provider Faye CLINICAL TEAM LEAD[facility], Ada R Unavailable Sadi [facility], Chris W Unavailable Domingo [facility],PharmD, Chauncey Unavailable Unavai lable Otto [facility], [place] Unavailable Sarina Abdalla MD Unavailable Domingo [facility],PharmD, Chauncey Unavailable SAVANNAH Jesus Referring Unavailable SAVANNAH RIOS Primary Care Unavailable CARL, SARINA Oscar Attending Unavailable SAVANNAH RIOS Primary Care Unavailable CARL, SARINA Oscar Attending Unavailable SAVANNAH RIOS Referring Unavailable SAVANNAH RIOS Primary Care Unavailable CARL, SARINA Oscar Attending Unavailable SAVANNAH RIOS Referring Unavailable Medications Current Medications Medication Drug Class(es) Dates Sig (Normalized) Sig (Original) Aloe Vera Oil (20 sources) take 1 dose by mouth three times daily Aloe Vera Oil Take 1 Dose by mouth Three times a day. Active Completed/Discontinued Medications Medication Drug Class(es) Dates Sig (Normalized) Sig (Original) atenolol 25 mg oral tablet (20 sources) beta-Adrenergic Pancho Start: 10-31-2023 End: 01-05-2024 take 2 tablets by mouth twice daily Atenolol 25 MG tablet Take 2 tablets by mouth 2 times daily. 10/31/2023 01/05/2024 Discontinued (Discontinued by another clinician (suppress cancel msg)) Problems Active Problems Problem Classification Problem Date [...] for antineoplastic chemotherapy] Onset: 07-31-2018 07-31-2018 Unclassified (9 sources) New Patient Onset: 03-25-2023 03-25-2023 Unclassified (9 sources) Access to Medication(s) Onset: 03-25-2023 03-25-2023 Unclassified (9 sources) Safety: Avoid toxicity that would cause discontinuation Onset: 03-25-2023 03-25-2023 Unclassified (9 sources) Identify and eliminate barriers to patient adherence Onset: 03-25-2023 03-25-2023 Unclassified (9 sources) Ensure that patient is receiving therapeutic [...] Date Time Vital Sign Value Performing Clinician Haja rouse 10-31-2023 09:49-0500 Body height 165.1 cm Sarina Abdalla MD Work Phone: [facility] 10-31-2023 09:49-0500 Body mass index (BMI) [Ratio] 22.96 kg/m2 Sarina Abdalla MD Work Phone: [facility] 10-31-2023 09:49-0500 Body temperature 97.3 [degF] Sarina Abdalla MD Work Phone: [facility] 10-31-2023 09:49-0500 Body weight 62.6 kg Sarina Abdalla MD Work Phone: [facility] 10-31-2023 09:49-0500 Diastolic blood pressure 70 mm[Hg] Sarina Abdalla MD Work Phone: [facility] 10-31-2023 09:49-0500 Heart rate 72 /min Sarina Abdalla MD Work Phone: [facility] 10-31-2023 09:49-0500 Respiratory rate 18 /min Sarina Abdalla MD Work Phone: [facility] 10-31-2023 09:49-0500 SaO2% (BldA) [Mass fraction] 99 % Sarina Abdalla MD Work Phone: [facility] 10-31-2023 09:49-0500 Systolic blood pressure 145 mm[Hg] Sarina Abdalla MD Work Phone: [facility] 10-08-2022 12:48-0500 Body height 165.1 cm Sarina Abdalla MD Work Phone: [facility] 10-08-2022 12:48-0500 Body mass index (BMI) [Ratio] 21.98 kg/m2 Sarina Abdalla MD Work Phone: [facility] 10-08-2022 12:48-0500 Body temperature 97.81 [degF] Sarina Abdalla MD Work Phone: [facility] 10-08-2022 12:48-0500 Body weight 59.92 kg Sarina Abdalla MD Work Phone: [facility] 10-08-2022 12:48-0500 Diastolic blood pressure 68 mm[Hg] Sarina Abdalla MD Work Phone: [facility] 10-08-2022 12:48-0500 Heart rate 72 /min Sarina Abdalla MD Work Phone: [facility] 10-08-2022 12:48-0500 Respiratory rate 17 /min Sarina Abdalla MD Work Phone: 5(507)064-037499 [address] 10-08-2022 12:48-0500 SaO2% (BldA) [Mass fraction] 98 % Sarina Abdalla MD Work Phone: [facility] 10-08-2022 12:48-0500 Systolic blood pressure 143 mm[Hg] Sarina Abdalla MD Work Phone: [facility] 07-09-2022 14:08-0400 Body height 165.1 cm Sarina Abdalla MD Work Phone: 2(265)508-223399 [address] 07-09-2022 14:08-0400 Body mass index (BMI) [Ratio] 21.72 kg/m2 Sarina Abdalla MD Work Phone: 7(610)998-433199 [address] 07-09-2022 14:08-0400 Body temperature 98.4 [degF] Sarina Abdalla MD Work Phone: [facility] 07-09-2022 14:08-0400 Body weight 59.19 kg Sarina Abdalla MD Work Phone: 6(814)231-313199 [address] 07-09-2022 14:08-0400 Diastolic blood pressure 64 mm[Hg] Sarina Abdalla MD Work Phone: 0(888)420-918615 [place] [address] 07-09-2022 14:08-0400 Heart rate 90 /min Sarina Abdalla MD Work Phone: 4(649)574-127615 [place] [address] 07-09-2022 14:08-0400 Respiratory rate 16 /min Sarina Abdalla MD Work Phone: 7(249)614-466715 [place] [address] 07-09-2022 14:08-0400 SaO2% (BldA) [Mass fraction] 98 % Sarina Abdalla MD Work Phone: 0(170)504-053015 [place] [address] 07-09-2022 14:08-0400 Systolic blood pressure 132 mm[Hg] Sarina Abdalla MD Work Phone: 3(820)912-432115 [place] [address] 04-09-2022 13:22-0400 Body height 165.1 cm Sarina Abdalla MD Work Phone: 3(735)038-341315 [place] [address] 04-09-2022 13:22-0400 Body mass index (BMI) [Ratio] 21.67 kg/m2 Sarina Abdalla MD Work Phone: 5(216)499-284415 [place] [address] 04-09-2022 13:22-0400 Body temperature 97.81 [degF] Sarina Abdalla MD Work Phone: 2(175)492-123115 [place] [address] 04-09-2022 13:22-0400 Body weight 59.06 kg Sarina Abdalla MD Work Phone: 7(297)725-593815 [place] [address] 04-09-2022 13:22-0400 Diastolic blood pressure 73 mm[Hg] Sarina Abdalla MD Work Phone: 7(440)299-426215 [place] [address] 04-09-2022 13:22-0400 Heart rate 73 /min Sarina Abdalla MD Work Phone: 5(141)493-907315 [place] [address] 04-09-2022 13:22-0400 Respiratory rate 16 /min Sarina Abdalla MD Work Phone: [facility] 04-09-2022 13:22-0400 SaO2% (BldA) [Mass fraction] 97 % Sarina Abdalla MD Work Phone: [facility] 04-09-2022 13:22-0400 Systolic blood pressure 144 mm[Hg] Sarina Abdalla MD Work Phone: [facility] 06-05-2021 10:28-0400 Body height 165.1 cm Sarina Abdalla MD Work Phone: [facility] 06-05-2021 10:28-0400 Body mass index (BMI) [Ratio] 21.32 kg/m2 Sarina Abdalla MD Work Phone: [facility] 06-05-2021 10:28-0400 Body temperature 97.7 [degF] Sarina Abdalla MD Work Phone: [facility] 06-05-2021 10:28-0400 Body weight 58.11 kg Sarina Abdalla MD Work Phone: [facility] 06-05-2021 10:28-0400 Diastolic blood pressure 59 mm[Hg] Sarina Abdalla MD Work Phone: [facility] 06-05-2021 10:28-0400 Heart rate 100 /min Sarina Abdalla MD Work Phone: [facility] 06-05-2021 10:28-0400 Respiratory rate 16 /min Sarina Abdalla MD Work Phone: [facility] 06-05-2021 10:28-0400 SaO2% (BldA) [Mass fraction] 99 % Sarina Abdalla MD Work Phone: [facility] 06-05-2021 10:28-0400 Systolic blood pressure 129 mm[Hg] Sarina Abdalla MD Work Phone: [facility] Encounters Encounter Date Encounter Type Care Provider Facility Start: 12-25-2023 End: 12-25-2023 ambulatory Chris Ramirez [facility] Work Phone: [facility] [place] Start: 12-25-2023 End: 12-25-2023 Patient encounter procedure Chris Ramirez [facility] Work Phone: [facility] [place] Start: 11-28-[address] [facility],PharmD [facility] [place] Start: 11-28-2023 Patient encounter procedure Chauncey [address] [facility],PharmD [facility] [place] Start: 10-31-2023 ambulatory SAVANNAH RIOS Facility:[facility] Start: 10-31-2023 End: 10-31-2023 Office outpatient visit 25 minutes Sarina Abdalla MD Work Phone: Division of Hematology & Oncology at [facility] Procedures Date Procedure Procedure Detail Performing Clinician Start: 10-31-2023 CBC AND ELECTRONIC DIFF Bettina Maryjane ArechigaSantoyo CLINICAL TEAM LEAD-[employer]READ [employer] PASTR[employer] BAKER Work Phone: Start: 10-31-2023 Complete blood count with white cell differential, automated Bettinamark Arechigaman CLINICAL TEAM LEAD-[employer]READ AND PASTRY BAKER Work Phone: Start: 10-31-2023 Comprehensive metabo lic panel Bettina Santoyo CLINICAL TEAM LEAD-[employer]READ [employer] PASTRY BAKER Work Phone: Start: 10-31-2023 DNA EXTRACTION, B-CELL Bettina Santoyo CLINICAL TEAM LEAD-[employer]READ [employer] PA[employer] BAKER Work Phone: Start: 10-31-2023 Unlisted molecular pathology procedure Bettina Santoyo CLINICAL TEAM LEAD-[employer]READ [employer] PASTR[employer] BAKER Work Phone: Start: 10-08-2022 CBC AND ELECTRONIC DIFF Bettina Maryjane Santoyo CLINICAL TEAM LEAD-[employer]READ [employer] PASTR[employer] BAKER Work Phone: Start: 10-08-2022 Complete blood count with white cell differential, automated Bettina Maryjane ArechigaSantoyo CLINICAL TEAM LEAD-[employer]READ [employer] PASTRY BAKER Work Phone: Start: 11-22-2022 Comprehensive metabo lic panel Bettina N Santoyo CLINICAL TEAM LEAD-[employer]READ [employer] PASTRY BAKER Work Phone: Start: 07-09-2022 CBC AND ELECTRONIC DIFF Bettina N Santoyo CLINICAL TEAM LEAD-[employer]READ [employer] PASTRY BAKER Work Phone: Start: 07-09-2022 Complete blood count with white cell differential, automated Bettina N Snatoyo CLINICAL TEAM LEAD-[employer]READ [employer] PASTR[employer] BAKER Work Phone: Start: 07-09-2022 Comprehensive metabo lic panel Bettina N Santoyo CLINICAL TEAM LEAD-[employer]READ [employer] PASTRY BAKER Work Phone: Start: 04-09-2022 CBC AND ELECTRONIC DIFF Bettina N Santoyo CLINICAL TEAM LEAD-[employer]READ [employer] PASTR[employer] BAKER Work Phone: Start: 04-09-2022 Complete blood count with white cell differential, automated Bettina N Santoyo CLINICAL TEAM LEAD-[employer]READ [employer] PASTRY BAKER Work Phone: Start: 04-09-2022 Comprehensive metabo lic panel Bettina N Santoyo CLINICAL TEAM LEAD-BREAD AND PASTRY BAKER Work Phone: Start: 06-05-2021 CBC AND ELECTRONIC DIFF Bettina N Santoyo CLINICAL TEAM LEAD-[employer]READ [employer] PASTR[employer] BAKER Work Phone: Start: 06-05-2021 Complete blood count with white cell differential, automated Bettina N Santoyo CLINICAL TEAM LEAD-[employer]READ [employer] PASTRY BAKER Work Phone: Start: 06-05-2021 Comprehensive metabo lic panel Bettina N Santoyo CLINICAL TEAM LEAD-BREAD AND PASTRY BAKER Work Phone: Start: 06-05-2021 MANUAL DIFF Bettina N Santoyo CLINICAL TEAM LEAD-BREAD AND PASTRY BAKER Work Phone: Start: 11-20-2020 Lipid 1996 panel - S mauricio or Plasma Vitaly Otto [facility] Work Phone: Start: 05-10-2020 Antibody screen Plan of Treatment Date Care Activity Detail Author Start: 11-20-2025 Fasting lipid profile LIPID SCREENING [facility] Start: 11-20-2025 Lipid panel LIPID SCREENING [facility] Start: 02-03-2024 End: 02-03-2024 Patient encounter procedure 02/03/2024 9:40 AM EDT Office Visit Division of Hematology & Oncology at [facility] [address] [place] [phone] Sarina Abdalla MD [address] [place] [phone] Division of Hematology & Oncology at [facility] Start: 10-31-2023 End: 10-31-2023 Patient encounter procedure 10/31/2023 10:20 AM EST Office Visit Division of H[facility]ology [facility] at [facility] [place] [facility] [address] [place] [phone] Sarina Abdalla MD [address] [place] [address] Division of Hematology & Oncology at [facility] Start: 07-22-2023 End: 07-22-2023 Patient encounter procedure Division of Hematology & Oncology at [facility] Start: 07-18-2023 Influenza vaccination [facility] Start: 04-01-2023 End: 04-01-2023 Patient encounter procedure 04/01/2023 Office Visit Hematology Sarina Abdalla MD [address] [place] [address] Division of Hematology & Oncology Start: 12-31-2022 End: 12-31-2022 Patient encounter procedure 12/31/2022 Office Visit Hematology Sarina Abdalla MD [address] [place] [address] Division of Hematology & Oncology Start: 10-28-2022 End: 10-28-2022 ambulatory 10/28/2022 Telemed Clin Support Psychology Eduin Ovalle, YOEL [address] [place] [address] [facility] Psychosocial Oncology Start: 10-28-2022 End: 10-28-2022 Telemedicine consultation with patient 10/28/2022 Telemedicine Psychology Anabella Correia CLINICAL TEAM LEAD-BREAD AND PASTRY BAKER [address] [address] [facility] Start: 10-08-2022 End: 10-08-2022 Patient encounter procedure 10/08/2022 Office Visit Hematology Sarina Abdalla MD [address] [place] [address] Division of Hematology & Oncology Start: 09-18-2022 End: 09-18-2022 ambulatory 09/18/2022 Telemed Clin Support Psychology Eduin Ovalle LISW [address] [address] [facility] Start: 09-16-2022 Fasting lipid profile LIPID SCREENING [facility] Work Phone: Start: 08-15-2022 End: 08-15-2022 Telemedicine consultation with patient 08/15/2022 Telemedicine Psychology Anabella Correia CLINICAL TEAM LEAD-BREAD AND PASTRY BAKER [address] [address] [facility] Start: 08-14-2022 End: 08-14-2022 ambulatory 08/14/2022 Telemed Clin Support Psychology Eduin Ovalle LISW [address] [address] [facility] Start: 08-13-2022 End: 08-13-2022 ambulatory 08/13/2022 Telemed Clin Support Multispecialty Siva Lemon, CARMELO- [address] [place] [address] [facility] Start: 07-24-2022 End: 07-24-2022 ambulatory 07/24/2022 Telemed Clin Support Psychology Eduin Ovalle, FIRE CONTROLMAN [address] [facility] [address] [place] [address] [facility] Start: 07-19-2022 End: 07-19-2022 ambulatory 07/19/2022 Telemed Clin Support Multispecialty Sharon Chi, CLINICAL TEAM LEAD-BREAD AND PASTRY BAKER [address] [place] [address] Siva Lemon, [facility] [address] [place] [address] [facility] Start: 07-18-2022 Influenza vaccination [facility] Start: 07-09-2022 End: 07-09-2022 Patient encounter procedure 07/09/2022 Office Visit Hematology Sarina Abdalla MD [address] [place] [phone] Division of Hematology & Oncology Start: 04-09-2022 End: 04-09-2023 OUTSIDE LAB ORDERS OUTSIDE LAB ORDERS Outside Labs Routine 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 Expected: 04/09/2022, Expires: 04/09/2023 [facility] Immunizations Immunization Date Immunization Notes Care Provider Fa cili 08-19-2016 influenza, injectabl e, quadrivalent, contains preservative; Translations: [INFLUENZA, INJECTABLE, QUADRIVALENT] Other Other [facility] Work Phone: 08-19-2016 influenza virus vacc ine, unspecified formulation Other Other [facility] Work Phone: 11-03-2013 influenza virus vacc ine, unspecified formulation Sarina Abdalla MD Work Phone: [facility] 12-16-2012 influenza virus vacc ine, unspecified formulation Sarina Abdalla MD Work Phone: [facility] 10-09-2011 pneumococcal polysaccharide vaccine, 23 valent Vitaly Otto [facility] Work Phone: [facility] 09-17-2010 influenza virus vacc ine, unspecified formulation Sarina Abdalla MD Work Phone: [facility] 09-05-2009 influenza virus vacc ine, unspecified formulation Sarina Abdalla MD Work Phone: [facility] Payers Date Payer Category Payer Unknown GENERIC PAYOR ME DICARE SUPPLEMENT [id number] 2019-Present [address] [place] [id number] 2019 Unknown GENERIC PAYOR ME DICARE SUPPLEMENT [id number] 2019-Present [address] [employer] [place] [id number] 2019 Unknown [id number] 2017 Medicare [id number] 2017 Medicare [id number] 2014 Medicare MEDICARE MEDICAR E A AND B [id number] 2014-Present [address] [place] [address] [id number] 2014 Medicare MEDICARE MEDICAR E A AND B [id number] 2014-Present [address] [place] [address] [id number] 2014 Medicare [id number] 1950 Unknown [id number] 1950 Unknown [id number] 1950 Unknown [id number] Social History Date Type Detail Facility Start: 10-03-2015 End: 05-12-2018 Tobacco smoking status NHIS Never smoker [facility] Work Phone: Start: 1950 Sex Assigned At Not on file O [facility] Work Phone: Start: 10-03-2015 Tobacco use and exposure Never used [facility] Start: 05-09-2021 End: 11-05-2023 Alcohol intake Current non-drinker of alcohol (finding) [facility] Start: 05-09-2021 End: 08-15-2022 Alcohol intake [facility] Start: 01-16-2021 History SDOH Financial 3 [facility] Start: 01-16-2021 End: 08-15-2022 History SDOH Food Worry 1 [facility] Start: 01-16-2021 History SDOH Transpo rt Non-Med 2 [facility] Exposure to SARS-CoV -2 (event) Not sure [facility] Start: 08-15-2022 History SDOH Financial 5 [facility] Start: 10-18-2022 End: 10-28-2022 Exposure to SARS-CoV-2 (event) Unable to assess [facility] Start: 08-15-2022 End: 01-10-2023 Tobacco use panel [facility] How hard is it for y ou to pay for the very basics like food, housing, medical care, and heating Not hard at all [facility] (I/We) worried alvin er (my/our) food would run out before (I/we) got money to buy more. Never true [facility] Gender identity Identifies as fe male gender (finding) [facility] Goals Date Patient Goal Desired Activity /State Personal health goal Clinical Notes 01-17-2021 to 12-25-2023 Vibha Bernabe - 12/25/2023 9:56 AM LUISGiorgioaydee Timothy - 12/25/2023 9:56 AM Cary Srinivasa - 12/25/2023 9:56 AM Nida Timothy - 12/25/2023 9:56 AM Cary Srinivasa - 11/28/2023 11:32 AM EST Note Date & Type Note Facility 12-25-2023 History of Presen t illness Narrative [facility]: Call Information: Date and Time of Contact: 12/25/2023 9:57 AM Method of Contact: By Phone Contact Type: Prescriptions Contactor: [facility] Contactee: Patient Contact Outcome: Left message Shipping/Pickup: Medication Name: Brukinsa 80mg caps Contact Info: [facility]ty ([place]) [phone] [facility] [phone] [facility] [phone] Akira [phone] [facility] ([facility]) [phone] [facility]: Call Information: Date and Time of Contact: 12/26/2023 12:45 PM Method of Contact: By Phone Contact Type: Prescriptions Contactor: Patient Contactee: [facility] Shipping/Pickup: Medicare B Refill?: No Medication Name: Brukinsa 80mg Delivery Method: Ship Delivery Location: Home Signature Required: No Receive/Pickup Date: 12/26/2023 Shipping Address: [address] [place] [address] Contact Info: [facility] ([place]) [phone] [facility] [phone] [facility] [phone] [facility] [phone] [facility] ([facility]) [phone] documented in this encounter [facility] 12-25-2023 History of Presen t illness Narrative [facility]: Call Information: Date and Time of Contact: 12/25/2023 9:57 AM Method of Contact: By Phone Contact Type: Prescriptions Contactor: [facility] Contactee: Patient Contact Outcome: Left message Shipping/Pickup: Medication Name: Brukinsa 80mg caps Contact Info: Specialty ([place]) [phone] [facility] [phone] [facility] [phone] [facility] [phone] [facility] ([facility]) [phone] [facility]: Call Information: Date and Time of Contact: 12/26/2023 12:45 PM Method of Contact: By Phone Contact Type: Prescriptions Contactor: Patient Contactee: [facility] Shipping/Pickup: Medicare B Refill?: No Medication Name: Brukinsa 80mg Delivery Method: Ship Delivery Location: Home Signature Required: No Receive/Pickup Date: 12/26/2023 Shipping Address: [address] [place] [address] Contact Info: [facility]ty ([place]) [phone] [facility] [phone] [facility] [phone] [facility] [phone] [facility] ([facility]) [phone] documented in this encounter [facility] 12-25-2023 Miscellaneous Notes Addended by: VITALY OTTO on: 01/05/2024 04:01 PM Modules accepted: Orders documented in this encounter [facility] 12-25-2023 Note Addended by: VITALY OTTO on: 01/05/2024 04:01 PM Modules accepted: Orders [facility] Work Phone: 11-28-2023 History of Presen t illness Narrative [facility]: Call Information: Date and Time of Contact: 11/28/2023 11:32 AM Method of Contact: By Phone Contact Type: Prescriptions Contactor: [facility] Contactee: Patient Contact Outcome: Left message Shipping/Pickup: Medication Name: Brukina 80mg caps Contact Info: [place] ([place]) [phone] [facility] [phone] [facility] [phone] [facility] [phone] Bed[facility] ([facility]) [phone] [facility]: Call Information: Date and Time of Contact: 12/01/2023 3:51 PM Method of Contact: By Phone Contact Type: Prescriptions Contactor: Patient Contactee: [facility] Shipping/Pickup: Medicare B Refill?: No Medication Name: Brukinsa Delivery Method: Ship Delivery Location: Home Signature Required: No Receive/Pickup Date: 12/02/2023 Shipping Address: [address] [place] [address] Contact Info: [facility] ([place]) [phone] [facility] [phone] [facility] [phone] [facility] [phone] Bed[facility] ([facility]) [phone] documented in this encounter [facility] 10-31-2023 History of Presen t illness Narrative HEMATOLOGY CLINIC NOTE Attending: Sarina [...] 2011 on a clinical trial at the [facility]. This was complicated by anemia, thrombocytopenia and neutropenia. 2. Fludarabine, cyclophosphamide and rituximab in February 2012 for 4 cycles. Treatment was complicated by prolonged cytopenias and recurrent infections. Last 2 cycles required a 66% dose reduction. 3. [id number] Combination of [id number] and Ibrutinib - on combination 04/29/16-05/05/17 with [...] 2011 on a clinical trial at the [facility]. This was complicated by anemia, thrombocytopenia and neutropenia. 02/2012 - Chemotherapy Fludarabine, cyclophosphamide and rituximab in February 2012 for 4 cycles. Treatment was complicated by prolonged cytopenias and recurrent infections. Last 2 cycles required a 66% dose reduction. 04/2016 - 07/2018 Chemotherapy [id number] Combination of [id number] and Ibrutinib - on combination 04/29/16-05/05/17 with [...] ago. Chest pain 2014 Chronic lymphocytic leukemia 2011 Depression H/O cardiovascular [...] states she is receiving IVIG locally in [place] when IGG < 600. Would like IGG [...] HTN and is establishing with a new maintenance team leader on 11/20/23. Otherwise she has been well. [...] states she is receiving IVIG locally in [place] when IGG < 600. She will follow [...] any additional questions. documented in this encounter [facility] 10-31-2023 Instructions Roxann Rollins RN - 10/31/2023 10:20 AM EST YOUR PRIMARY TEAM Dr. Sarina Santoyo [employer] - Nurse Practitioner Diana Dennis [employer] - Nurse Practitioner Roxann Rollins RN - Primary Nurse Will Casper RN - Secondary Nurse CONTACT NUMBERS Clinic phone: [phone] Clinic fax: [phone] Please contact our office if you develop a temperature of 100.4 or greater. [facility] The [employer] is a secure way to get access to your health records online. It will also allow you to communicate with your health care provider through email. For non-emergent concerns, please send us a [employer] message but describe your issue fully. When sending a message to the provider, please know that these messages will be received and answered by the primary nurse practitioner. The nurse practitioner will consult your physician when needed. Please note, [employer] is for non-urgent messages only. If you are reporting symptoms or changes in your condition, please call the clinic at [phone]. For questions or concerns regarding [employer] access or technical dificulties, please call [phone] or toll free at . MEDICAL RECORDS The Release of Information (TA) area is staffed from 8:00 a.m. to 7:00 p.m. and is available for walk in requests from 8:00 a.m. to 4:30 p.m. [facility] is responsible for answering requests for copies of medical records from various requestors such as insurance companies, attorneys, hospitals and patients. Please note it can take up to 2 weeks to complete your request. [phone]; [phone] (fax). FINANCIAL CONCERNS Any questions regarding billing for services or insurance coverage concerns should be directed to our Billing Department at [phone]. DISABILITY FORMS This category includes any form [...] our team about the suggested recovery time. ____ Results for orders placed or performed in [...] Auto 2.43 1.16 - 3.51 K/uL Abs Irwin Auto 0.55 0.22 - 0.87 K/uL Abs Eos Auto 0.13 0.00 - 0.42 K/uL Abs Baso Auto 0.04 0.00 - 0.15 K/uL *Note: Due to a large number of results and/or encounters for the requested time period, some results have not been displayed. A complete set of results can be found in Results Review. documented in this encounter [facility] 10-03-2023 History of Presen t illness Narrative [facility]REACH AD[facility]: Call Information: Date and Time of Contact: 10/03/2023 11:07 AM Method of Contact: By Phone Contactor: [facility] Contactee: Patient Contact Outcome: Left message and Follow-up (Brukinsa RA/refill) Contact Info: Specialty ([place]) [phone] [facility] [phone] [facility] [phone] [place] [phone] [facility] [phone] [facility] OUTREACH ADVANCED: Call Information: Method of Contact: By Phone Contact Type: Prescriptions Contactor: Patient Contactee: [facility] Shipping/Pickup: Medicare B Refill?: No Medication Name: Brukinsa Delivery Method: Air Delivery Location: Home Signature Required: No Mailing/Pickup Date: 10/08/2023 Shipping Address: [address] [place] [address] [place], [place] Pre-Verification/Specialty Assessment/Disease Mgt: Medication(s) Name: Brukinsa Lab [...] Within normal limits Contact Info: Specialty ([place]) [phone] [place] [phone] [facility] [phone] [place] [phone] [facility] ([facility]) [phone] documented in this encounter [facility] 06-13-2023 History of Presen t illness Narrative [facility] RX OUTREACH ADVANCED: Call Information: Date and Time of Contact: 06/13/2023 10:49 AM Method of Contact: By Phone Contact Type: Prescriptions Contactor: [facility] Contactee: Patient Contact Outcome: Left message and Follow-up (in 4 days (due to weekend)) Shipping/Pickup: Medication Name: Brukinsa 80mg Contact Info: Specialty ([place]) [phone] [place] [phone] [facility] [phone] [place] [phone] [facility] ([facility]) [phone] [facility] RX OUTREACH ADVANCED: Call Information: Date and Time of Contact: 06/17/2023 9:49 AM Method of Contact: By Phone Contact Type: Prescriptions Contactor: [facility] Contactee: Patient Shipping/Pickup: Medicare B Refill?: No Medication Name: Brukinsa 80mg Delivery Method: Air Delivery Location: Home Signature Required: No Mailing/Pickup Date: 06/20/2023 Shipping Address: [address] [place] [address] Contact Info: Specialty ([place]) [phone] [facility] [phone] [facility] [phone] [place] [phone] [facility] ([facility]) [phone] documented in this encounter [facility]19[facility]23 History of Presen t illness Narrative [facility] OUTREACH ADVANCED: Call Information: Date and Time of Contact: 05/19/2023 11:42 AM Method of Contact: By Phone Contact Type: Prescriptions Contactor: [facility] Contactee: Patient Contact Outcome: Left message and Follow-up (in 1-2 days) Shipping/Pickup: Medication Name: Brukinsa 80mg Contact Info: [place] ([place]) [phone] [facility] [phone] [facility] [phone] [place] [phone] [facility] ([facility]) [phone] [facility] OUTREACH ADVANCED: Call Information: Date and Time of Contact: 05/21/2023 9:04 AM Method of Contact: By Phone Contact Type: Prescriptions Contactor: [facility] Contactee: Patient Shipping/Pickup: Medicare B Refill?: No Medication Name: Brukinsa 80 mg Delivery Method: Air Delivery Location: Home Signature Required: No Mailing/Pickup Date: 05/22/2023 Shipping Address: [address] [place] [address] Contact Info: Specialty ([place]) [phone] [facility] [phone] [facility] [phone] [place] [phone] [facility] ([facility]) [phone] documented in this encounter [facility] 04-18-2023 History of Presen t illness Narrative [facility] OUTREACH ADVANCED: Call Information: Date and Time of Contact: 04/18/2023 11:34 AM Method of Contact: By Phone Contact Type: Prescriptions Contactor: [facility] Contactee: Patient Contact Outcome: Left message and Follow-up (in 4 days (due to weekend)) Shipping/Pickup: Medication Name: Brukinsa 80mg Contact Info: [place] ([place]) [phone] [facility] [phone] [facility] [phone] [place] [phone] [facility] ([facility]) [phone] [facility] OUTREACH ADVANCED: Call Information: Date and Time of Contact: 04/22/2023 11:20 AM Method of Contact: By Phone Contact Type: Prescriptions Contactor: [facility] Contactee: Patient Shipping/Pickup: Medicare B Refill?: No Medication Name: Brukinsa 80mg Delivery Method: Air Delivery Location: Home Signature Required: No Mailing/Pickup Date: 04/24/2023 Shipping Address: [address] [place] [address] Contact Info: [place]ty ([place]) [phone] [facility] [phone] [facility] [phone] [place] [phone] [facility] ([facility]) [phone] documented in this encounter [facility] 03-17-2023 History of Presen t illness Narrative [facility] OUTREACH ADVANCED: Call Information: Date and Time of Contact: 03/17/2023 2:51 PM Method of Contact: By Phone Contact Type: Prescriptions (brukinsa) Contactor: [facility] Contactee: Patient Contact Outcome: Left message and Follow-up Contact Info: [place] ([place]) [phone] [place] [phone] [facility] [phone] [place] [phone] [facility] ([facility]) [phone] [facility] OUTREACH ADVANCED: Call Information: Date and Time of Contact: 03/17/2023 4:47 PM Method of Contact: By Phone Contact Type: Prescriptions Contactor: Patient Contactee: [facility] Contact Outcome: Patient declined to fill Patient Declined Fill Detail/Reason: Has >2 weeks on hand. [facility] will follow up in 1 week. Shipping/Pickup: Medication Name: Brukinsa Contact Info: Specialty ([place]) [phone] [facility] [phone] [facility] [phone] [place] [phone] [facility] ([facility]) [phone] documented in this encounter [facility] 03-17-2023 History of Presen t illness Narrative [facility] RX OUTREACH ADVANCED: Call Information: Date and Time of Contact: 03/17/2023 2:51 PM Method of Contact: By Phone Contact Type: Prescriptions (brukinsa) Contactor: [facility] Contactee: Patient Contact Outcome: Left message and Follow-up Contact Info: [place]ty ([place]) [phone] [facility] [phone] [facility] [phone] [place] [phone] [facility] ([facility]) [phone] [facility] RX OUTREACH ADVANCED: Call Information: Date and Time of Contact: 03/17/2023 4:47 PM Method of Contact: By Phone Contact Type: Prescriptions Contactor: Patient Contactee: [facility] Contact Outcome: Patient declined to fill Patient Declined Fill Detail/Reason: Has >2 weeks on hand. [facility] will follow up in 1 week. Shipping/Pickup: Medication Name: Brukinsa Contact Info: [place]ty ([place]) [phone] [facility] [phone] [facility] [phone] [place] [phone] [facility] ([facility]) [phone] [facility] OUTREACH ADVANCED: Call Information: Date and Time of Contact: 03/25/2023 2:25 PM Method of Contact: By Phone Contact Type: Prescriptions and Services Contactor: [facility] Contactee: Patient Shipping/Pickup: Medicare B Refill?: No Medication Name: Brukinsa 80ng Delivery Method: Air Delivery Location: Home Signature Required: No Mailing/Pickup Date: 03/26/2023 Shipping Address: [address] [place] [address] Pre-Verification/Specialty Assessment/Disease Mgt: Medication(s) Name: Brukinsa 80mg [...] hgb. continue to monitor Contact Info: Specialty ([place]) [phone] [facility] [phone] [facility] [phone] [place] [phone] [facility] ([facility]) [phone] documented in this encounter [facility] 02-20-2023 History of Presen t illness Narrative [facility] OUTREACH ADVANCED: Contact Info: [place]ty ([place]) [phone] [place] [phone] [facility] [phone] [place] [phone] [facility] ([facility]) [phone] documented in this encounter [facility] 12-27-2022 History of Presen t illness Narrative [facility] RX OUTREACH ADVANCED: Call Information: Date and Time of Contact: 12/27/2022 1:51 PM Method of Contact: By Phone Contact Type: Prescriptions Contactor: [facility] Contactee: Patient Contact Outcome: Left message and Follow-up (2-3 days) Shipping/Pickup: Medication Name: Bukinsa 80mg Contact Info: [place]ty ([place]) [phone] [place] [phone] [facility] [phone] [place] [phone] [facility] ([facility]) [phone] [facility] RX OUTREACH ADVANCED: Call Information: Date and Time of Contact: 12/30/2022 4:41 PM Method of Contact: By Phone Contact Type: Prescriptions Contactor: Patient Contactee: [facility] Shipping/Pickup: Medicare B Refill?: No Medication Name: Brukinsa 80mg caps Delivery Method: Air Delivery Location: Home Signature Required: No Mailing/Pickup Date: 01/01/2023 Shipping Address: [address] [place] [address]. [address] Delivery Details: Otl Contact Info: Specialty ([place]) [phone] [place] [phone] [place] [phone] [place] [phone] [facility] ([facility]) [phone] documented in this encounter [facility] 10-31-2022 History of Presen t illness Narrative [facility] RX OUTREACH ADVANCED: Call Information: Date and Time of Contact: 10/31/2022 10:58 AM Method of Contact: By Phone Contact Type: Prescriptions Contactor: [facility] Contactee: Patient Contact Outcome: Left message and Follow-up (in 4 days (due to weekend)) Shipping/Pickup: Medication Name: Brukinsa 80mg Contact Info: Specialty ([place]) [phone] [facility] [phone] [facility] [phone] [place] [phone] [facility] ([facility]) [phone] [facility] RX OUTREACH ADVANCED: Call Information: Date and Time of Contact: 11/01/2022 11:14 AM Method of Contact: By Phone Contact Type: Prescriptions Contactor: Patient Contactee: [facility] Shipping/Pickup: Medicare B Refill?: No Medication Name: Brukinsa Delivery Method: Air Delivery Location: Home Signature Required: No Mailing/Pickup Date: 11/01/2022 Shipping Address: [address] [place] [address] Contact Info: Specialty ([place]) [phone] [facility] [phone] [facility] [phone] [place] [phone] [facility] ([facility]) [phone] documented in this encounter [facility] 10-08-2022 History of Presen t illness Narrative HEMATOLOGY CLINIC NOTE Attending: Sarina [...] 2011 on a clinical trial at the [facility]. This was complicated by anemia, thrombocytopenia and neutropenia. 2. Fludarabine, cyclophosphamide and rituximab in February 2012 for 4 cycles. Treatment was complicated by prolonged cytopenias and recurrent infections. Last 2 cycles required a 66% dose reduction. 3. [id number] Combination of [id number] and Ibrutinib - on combination 04/29/16-05/05/17 with [...] 2011 on a clinical trial at the [facility]. This was complicated by anemia, thrombocytopenia and neutropenia. 02/2012 - Chemotherapy Fludarabine, cyclophosphamide and rituximab in February 2012 for 4 cycles. Treatment was complicated by prolonged cytopenias and recurrent infections. Last 2 cycles required a 66% dose reduction. 04/2016 - 07/2018 Chemotherapy [id number] Combination of [id number] and Ibrutinib - on combination 04/29/16-05/05/17 with [...] no cath unless progressive symptoms Hay fever 2014 Hives as manifestation of blood transfusion reaction [...] states she is receiving IVIG locally in [place] when IGG < 600. Would like IGG [...] Abdalla MD Hematology documented in this encounter [facility] 10-08-2022 Instructions Roxann Rollins RN - 10/08/2022 12:00 PM EST YOUR PRIMARY TEAM Dr. Sarina Santoyo [employer]ER - Nurse Practitioner Diana Dennis [employer]AKER - Nurse Practitioner Roxann Rollins RN - Primary Nurse Will Casper RN Please contact our office if you develop a temperature of 100.4 or greater. CONTACT NUMBERS Clinic phone: [phone] [facility] fax: [phone] MEDICAL RECORDS The Release of Information ([facility]) area is staffed from 8:00 a.m. to 7:00 p.m. and is available for walk in requests from 8:00 a.m. to 4:30 p.m. [facility] is responsible for answering requests for copies of medical records from various requestors such as insurance companies, attorneys, hospitals and patients. Please note it can take up to 2 weeks to complete your request. [phone]; [phone] (fax). FINANCIAL CONCERNS Any questions regarding billing for services or insurance coverage concerns should be directed to our billing department at [phone]. DISABILITY FORMS This category includes any form [...] our team about the suggested recovery time. [email or web address] The [employer]et is a secure way to get access to your health records online. The medical information you will have access to within the [employer] program is only selected portions of your [...] For non-emergent concerns, please send us a [employer] message but describe your issue fully. When sending a message to the provider, please know that these messages will be received and answered by the primary nurse practitioner. The nurse practitioner will consult your physician when needed. For questions or concerns regarding [employer] access or technical dificulties, please call [phone] or toll free at . ____ Results for orders placed or performed in [...] Auto 3.04 1.16 - 3.51 K/uL Abs Irwin Auto 0.45 0.22 - 0.87 K/uL Abs Eos Auto 0.10 0.00 - 0.42 K/uL Abs Baso Auto <0.04 0.00 - 0.15 K/uL documented in this encounter [facility] 10-03-2022 History of Presen t illness Narrative [facility] RX OUTREACH ADVANCED: Call Information: Date and Time of Contact: 10/03/2022 12:05 PM Method of Contact: By Phone Contact Type: Prescriptions Contactor: [facility] Contactee: Patient Contact Outcome: Left message and Follow-up (follow up in 3 days due to the weekend) Shipping/Pickup: Medication Name: Brukinsa 80 mg Contact Info: [place]ty ([place]) [phone] [facility] [phone] [facility] [phone] [place] [phone] [facility] ([facility]) [phone] [facility] RX OUTREACH ADVANCED: Call Information: Date and Time of Contact: 10/04/2022 3:44 PM Method of Contact: By Phone Contact Type: Prescriptions Contactor: [facility] Contactee: Patient Shipping/Pickup: Medicare B Refill?: No Medication Name: Brukinsa 80mg Delivery Method: Air Delivery Location: Home Signature Required: No Mailing/Pickup Date: 10/08/2022 Shipping Address: [address] [place] [address] Contact Info: Specialty ([place]) [phone] [facility] [phone] [facility] [phone] [place] [phone] [facility] ([facility]) [phone] documented in this encounter [facility] 09-04-2022 History of Presen t illness Narrative [facility] RX OUTREACH ADVANCED: Call Information: Date and Time of Contact: 09/04/2022 1:51 PM Method of Contact: By Phone Contact Type: Prescriptions Contactor: [facility] Contactee: Patient Contact Outcome: Left message and Follow-up (in 1-2 days) Shipping/Pickup: Medication Name: Brukinsa 80mg Contact Info: [place]ty ([place]) [phone] [facility] [phone] [facility] [phone] [place] [phone] [facility] ([facility]) [phone] [facility] RX OUTREACH ADVANCED: Call Information: Date and Time of Contact: 09/06/2022 11:21 AM Method of Contact: By Phone Contact Type: Prescriptions Contactor: [facility] Contactee: Patient Shipping/Pickup: Medicare B Refill?: No Medication Name: Brukinsa 80mg Delivery Method: Air Delivery Location: Home Signature Required: No Mailing/Pickup Date: 09/10/2022 Shipping Address: [address] [place] [address] Contact Info: Specialty ([place]) [phone] [facility] [phone] [facility] [phone] [place] [phone] [facility] ([facility]) [phone] documented in this encounter [facility] 08-06-2022 History of Presen t illness Narrative [facility] RX OUTREACH ADVANCED: Call Information: Date and Time of Contact: 08/06/2022 10:35 AM Method of Contact: By Phone Contact Type: Prescriptions Contactor: [facility] Contactee: Patient Contact Outcome: Left message and Follow-up (in 1-3 days) Shipping/Pickup: Medication Name: Brukinsa 80mg Contact Info: Specialty ([place]) [phone] [facility] [phone] [facility] [phone] [place] [phone] [facility] ([facility]) [phone] [facility] RX OUTREACH ADVANCED: Call Information: Date and Time of Contact: 08/09/2022 9:50 AM Method of Contact: By Phone Contact Type: Prescriptions Contactor: [facility] Contactee: Patient Shipping/Pickup: Medicare B Refill?: No Medication Name: Brukinsa 80mg Delivery Method: Air Delivery Location: Home Signature Required: No Mailing/Pickup Date: 08/12/2022 Shipping Address: [address] [place] [address] Contact Info: Specialty ([place]) [phone] [facility] [phone] [facility] [phone] [place] [phone] [facility] ([facility]) [phone] [facility] ([facility]) Note: The [...] Chris Avitia [facility] Specialty ([place]) [phone] [facility] [phone] [facility] [phone] [place] [phone] [facility] [phone] [place] [phone] Bedside Delivery ([facility]) [phone] documented in this encounter [facility] 07-09-2022 History of Presen t illness Narrative Summary: CLL, continue zanubrutinib HEMATOLOGY [...] 2011 on a clinical trial at the [facility]. This was complicated by anemia, thrombocytopenia and neutropenia. 2. Fludarabine, cyclophosphamide and rituximab in February 2012 for 4 cycles. Treatment was complicated by prolonged cytopenias and recurrent infections. Last 2 cycles required a 66% dose reduction. 3. [id number] Combination of [id number] and Ibrutinib - on combination 04/29/16-05/05/17 with [...] 2011 on a clinical trial at the [facility]. This was complicated by anemia, thrombocytopenia and neutropenia. 02/2012 - Chemotherapy Fludarabine, cyclophosphamide and rituximab in February 2012 for 4 cycles. Treatment was complicated by prolonged cytopenias and recurrent infections. Last 2 cycles required a 66% dose reduction. 04/2016 - 07/2018 Chemotherapy [id number] Combination of [id number] and Ibrutinib - on combination 04/29/16-05/05/17 with [...] states she is receiving IVIG locally in [place] when IGG < 600. Would like IGG [...] MD Hematology documented in this encounter [facility] 07-09-2022 Instructions Nettie Casper RN - 07/09/2022 2:20 PM EDT YOUR PRIMARY TEAM Dr. Sarina Santoyo CNP - Nurse Practitioner Diana Dennis CNP - Nurse Practitioner Roxann Rollins RN - Primary Nurse Will Casper RN - Secondary Nurse Please contact our office if you develop a temperature of 100.4 or greater. CONTACT NUMBERS Clinic phone: [phone] Clinic fax: [phone] MEDICAL RECORDS The Release of Information ([facility]) area is staffed from 8:00 a.m. to 7:00 p.m. and is available for walk in requests from 8:00 a.m. to 4:30 p.m. [facility] is responsible for answering requests for copies of medical records from various requestors such as insurance companies, attorneys, hospitals and patients. Please note it can take up to 2 weeks to complete your request. [phone]; [phone] (fax). FINANCIAL CONCERNS Any questions regarding billing for services or insurance coverage concerns should be directed to our billing department at [phone]. DISABILITY FORMS This category includes any form [...] our team about the suggested recovery time. [employer]429 is a secure way to get access to your health records online. The medical information you will have access to within the [employer] program is only selected portions of your [...] For non-emergent concerns, please send us a [employer] message but describe your issue fully. When sending a message to the provider, please know that these messages will be received and answered by the primary nurse practitioner. The nurse practitioner will consult your physician when needed. For questions or concerns regarding [employer] access or technical dificulties, please call [phone] or toll free at . ____ Results for orders placed or performed in [...] Auto 3.34 1.16 - 3.51 K/uL Abs Irwin Auto 0.56 0.22 - 0.87 K/uL Abs Eos Auto 0.16 0.00 - 0.42 K/uL Abs Baso Auto <0.04 0.00 - 0.15 K/uL documented in this encounter [facility] 05-09-2022 History of Presen t illness Narrative [facility]REACH ADVANC[facility]: Call Information: Date and Time of Contact: 05/09/2022 11:47 AM Method of Contact: By Phone Contact Type: Prescriptions Contactor: [facility] Contactee: Patient Shipping/Pickup: Medication Name: Brukinsa Contact Info: Specialty ([place]) [phone] [facility] [phone] [facility] [phone] Akira [phone] [facility] ([facility]) [phone] [facility] OUTREACH ADVANCED: Call Information: Date and Time of Contact: 05/09/2022 1:44 PM Method of Contact: By Phone Contact Type: Prescriptions Contactor: [facility] Contactee: Patient Shipping/Pickup: Medicare B Refill?: No Medication Name: Brukinsa 80mg Delivery Method: Air Delivery Location: Home Signature Required: No Mailing/Pickup Date: 05/13/2022 Shipping Address: [address] [place] [address] Contact Info: Specialty ([place]) [phone] [facility] [phone] [facility] [phone] Akira [phone] Bed[facility] ([facility]) [phone] documented in this encounter [facility] 04-09-2022 History of Presen t illness Narrative Summary: RTC 3 mos, continue [...] 2011 on a clinical trial at the [facility]. This was complicated by anemia, thrombocytopenia and neutropenia. 2. Fludarabine, cyclophosphamide and rituximab in February 2012 for 4 cycles. Treatment was complicated by prolonged cytopenias and recurrent infections. Last 2 cycles required a 66% dose reduction. 3. [id number] Combination of [id number] and Ibrutinib - on combination 04/29/16-05/05/17 with [...] 2011 on a clinical trial at the [facility]. This was complicated by anemia, thrombocytopenia and neutropenia. 02/2012 - Chemotherapy Fludarabine, cyclophosphamide and rituximab in February 2012 for 4 cycles. Treatment was complicated by prolonged cytopenias and recurrent infections. Last 2 cycles required a 66% dose reduction. 04/2016 - 07/2018 Chemotherapy [id number] Combination of [id number] and Ibrutinib - on combination 04/29/16-05/05/17 with [...] states she is receiving IVIG locally in [place] when IGG < 600. Would like IGG [...] MD Hematology documented in this encounter [facility] 04-09-2022 Instructions Nettie Casper RN - 04/09/2022 1:36 PM EDT YOUR PRIMARY TEAM Dr. Sarina Santoyo CNP - Nurse Practitioner Diana Dennis CNP - Nurse Practitioner Roxann Rollins RN - Primary Nurse Will Casper RN - Secondary Nurse Please contact our office if you develop a temperature of 100.4 or greater. CONTACT NUMBERS Clinic phone: [phone] Clinic fax: [phone] MEDICAL RECORDS The Release of Information ([facility]) area is staffed from 8:00 a.m. to 7:00 p.m. and is available for walk in requests from 8:00 a.m. to 4:30 p.m. [facility] is responsible for answering requests for copies of medical records from various requestors such as insurance companies, attorneys, hospitals and patients. Please note it can take up to 2 weeks to complete your request. [phone]; [phone] (fax). FINANCIAL CONCERNS Any questions regarding billing for services or insurance coverage concerns should be directed to our billing department at [phone]. DISABILITY FORMS This category includes any form [...] our team about the suggested recovery time. [email or web address] is a secure way to get access to your health records online. The medical information you will have access to within the [employer] program is only selected portions of your [...] For non-emergent concerns, please send us a [employer] message but describe your issue fully. When sending a message to the provider, please know that these messages will be received and answered by the primary nurse practitioner. The nurse practitioner will consult your physician when needed. For questions or concerns regarding [employer] access or technical dificulties, please call [phone] or toll free at . ____ Results for orders placed or performed in [...] 4.76 (H) 1.16 - 3.51 K/uL Abs Irwin Auto 0.57 0.22 - 0.87 K/uL Abs Eos Auto 0.25 0.00 - 0.42 K/uL Abs Baso Auto 0.04 0.00 - 0.15 K/uL documented in this encounter [facility] 03-15-2022 History of Presen t illness Narrative [facility]) Note: The patient is out of refills on Brukinsa 80mg. Please send a new prescription to [facility], if appropriate. Chris Avitia [facility] Specialty ([place]) [phone] [facility] [phone] [facility] [phone] Akira [phone] [place] [phone] Bedside Delivery ([facility]) [phone] [facility] RX OUTREACH ADVANCED: Call Information: Date and Time of Contact: 03/18/2022 1:05 PM Method of Contact: By Phone Contact Type: Prescriptions Contactor: [facility] Contactee: Patient Shipping/Pickup: Medicare B Refill?: No Medication Name: Brukinsa 80mg Delivery Method: Air Delivery Location: Home Signature Required: No Mailing/Pickup Date: 03/19/2022 Shipping Address: [address] [place] [address] Contact Info: Specialty ([place]) [phone] [facility] [phone] [facility] [phone] Akira [phone] Bed[facility] ([facility]) [phone] documented in this encounter [facility] 07-09-2021 History of Presen t illness Narrative [facility] OUTRE[facility]: Call Information: Date and Time of Contact: 07/11/2021 2:17 PM Method of Contact: By Phone Contact Type: Prescriptions Contactor: [facility] Contactee: Patient Shipping/Pickup: Mailing/Pickup Date: 07/12/2021 Medicare B Refill: No Medication Name: brukinsa Delivery Method: Air Delivery Location: Home Signature Required: No Shipping Address: [address] [place] [address] Contact Info: Specialty ([place]) [phone] Xavi [phone] [facility] [phone] Akira [phone] Bed[facility] ([facility]) [phone] [facility] OUTREACH: Call Information: Date and Time of Contact: 07/11/2021 10:51 AM Method of Contact: By Phone Contact Type: Prescriptions Contactor: [facility] Contactee: Patient Contact Outcome: Left message and Follow-up (brukinsa refill ) Contact Info: Specialty ([place]) [phone] [facility] [phone] [facility] [phone] Akira [phone] Bedside [facility] ([facility]) [phone] [facility] RX OUTREACH: Call Information: Date and Time of Contact: 07/09/2021 2:27 PM Method of Contact: By Phone Contact Type: Prescriptions Contactor: [facility] Contactee: Patient Contact Outcome: Left message and Follow-up (in 1 to 2 days) Shipping/Pickup: Medication Name: Brukinsa 80mg Contact Info: Specialty ([place]) [phone] [facility] [phone] [facility] [phone] Akira [phone] Bed[facility] ([facility]) [phone] [facility] History of Presen t illness Narrative [facility]: Call Information: Date and Time of Contact: 06/12/2021 12:31 PM Method of Contact: By Phone Contact Type: Prescriptions Contactor: [facility] Contactee: Patient Shipping/Pickup: Mailing/Pickup Date: 06/14/2021 Medicare B Refill: No Medication Name: Brukinsa Delivery Method: Air Delivery Location: Home Signature Required: No Shipping Address: [address] [place] [address] Contact Info: Specialty ([place]) [phone] [facility] [phone] [facility] [phone] Akira [phone] Bedside [facility] ([facility]) [phone] [facility] RX OUTREACH: Call Information: Date and Time of Contact: 06/08/2021 3:26 PM Method of Contact: By Phone Contact Type: Prescriptions Contactor: [facility] Contactee: Patient Contact Outcome: Left message and Follow-up (in 3-5 days (due to weekend)) Shipping/Pickup: Medication Name: Brukinsa 80mg Contact Info: Specialty ([place]) [phone] Xavi [phone] [facility] [phone] Akira [phone] Bedside [facility] ([facility]) [phone] documented in [facility] History of Presen t illness Narrative Attending Addendum: Patient was seen [...] 208K Hx of Afib: Continue follow-up with maintenance team leader. She will follow with her primary care [...] 2011 on a clinical trial at the [facility]. This was complicated by anemia, thrombocytopenia and neutropenia. 2. Fludarabine, cyclophosphamide and rituximab in February 2012 for 4 cycles. Treatment was complicated by prolonged cytopenias and recurrent infections. Last 2 cycles required a 66% dose reduction. 3. [id number] Combination of [id number] and Ibrutinib - on combination 04/29/16-05/05/17 with [...] were detected. She had IVIG locally in [place] and had kyphoplasty at [facility] on 05/10/20. On 05/10/20, wbc was [...] week of 06/29/[address] Aguirre's office ([facility] Ada Mckinney). On 07/06/20 labs were WBC [...] mg on 07/19/20. She returned to the [facility] on 07/25/20 - she had 1 [...] 2011 on a clinical trial at the [facility]. This was complicated by anemia, thrombocytopenia and neutropenia. 02/2012 - Chemotherapy Fludarabine, cyclophosphamide and rituximab in February 2012 for 4 cycles. Treatment was complicated by prolonged cytopenias and recurrent infections. Last 2 cycles required a 66% dose reduction. 04/2016 - 07/2018 Chemotherapy [id number] Combination of [id number] and Ibrutinib - on combination 04/29/16-05/05/17 with [...] sublingual formulations. Receiving monthly IVIG locally in [place] and states this is scheduled if IGG [...] states she is receiving IVIG locally in [place] when IGG < 600. Would like IGG [...] any additional questions. documented in this encounter [facility] 06-05-2021 Instructions Nettie Casper RN - 06/05/2021 10:40 AM EDT YOUR PRIMARY TEAM Dr. Sarina Santoyo CNP - Nurse Practitioner Diana Dennis CNP - Nurse Practitioner Roxann Rollins RN - Primary Nurse Will Casper RN - Secondary Nurse Please contact our office if you develop a temperature of 100.4 or greater. CONTACT NUMBERS Clinic phone: [phone] Clinic fax: [phone] MEDICAL RECORDS The Release of Information ([facility]) area is staffed from 8:00 a.m. to 7:00 p.m. and is available for walk in requests from 8:00 a.m. to 4:30 p.m. [facility] is responsible for answering requests for copies of medical records from various requestors such as insurance companies, attorneys, hospitals and patients. Please note it can take up to 2 weeks to complete your request. [phone]; [phone] (fax). FINANCIAL CONCERNS Any questions regarding billing for services or insurance coverage concerns should be directed to our billing department at [phone]. DISABILITY FORMS This category includes any form [...] our team about the suggested recovery time. [email or web address] is a secure way to get access to your health records online. The medical information you will have access to within the [employer] program is only selected portions of your [...] For non-emergent concerns, please send us a [employer] message but describe your issue fully. When sending a message to the provider, please know that these messages will be received and answered by the primary nurse practitioner. The nurse practitioner will consult your physician when needed. For questions or concerns regarding [employer] access or technical dificulties, please call [phone] or toll free at . ____ Results for orders placed or performed in [...] Immature Grans Absolute Abs Lymph Auto Abs Irwin Auto Abs Eos Auto Abs Baso Auto MANUAL DIFF Result Value Ref Range DIFF STATUS Manual Differential Bands Relative 0.0 % Segs Relative 2.0 % Lymph Relative 97.0 % Irwin Relative 0.0 % Eos Relative 1.0 % Baso Relative 0.0 % Nucleated RBC 0.0 <=0.0 /100 WBC Segs & Bands, Absolute 3.41 1.64 - 7.28 K/uL Abs Lymph Manual 165.43 (H) 1.16 - 3.51 K/uL Abs Irwin Manual 0.00 (L) 0.22 - 0.87 K/uL Abs Eos Manual 1.71 (H) 0.00 - 0.42 K\uL Abs Baso Manual 0.00 0.00 - 0.15 K/uL RBC Morphology RBC INDICES CONFIRMED WITH MANUAL SLIDE REVIEW Platelet Estimate Automated platelet count confirmed by manual slide review documented in this encounter [facility] 01-31-2021 Note HNO ID: [id number] Author: Bharat Durbin MD Service: ? Author Type: Physician Type: Progress Notes Filed: 01/31/2021 11:57 AM Note Text: Bharat Durbin M.D. [facility] General Orthopedics - Orthopedic Spine Surgeon [address], [place] [address] [address] [facility] [address] [address], [facility] [address] Phone: [phone] (791) FAX: [phone] ([place]) SPINE SURGERY OUTPATIENT CONSULT SERVICE DATE: 01/31/2021 PCP: Savannah Rios MD REFERRING PROVIDER: Bharat Durbin MD [address] [facility] [address] CHIEF COMPLAINT: low back pain HISTORY OF [...] Deficiency Routine Medical Exam Svt (Supraventricular Tachycardia) ([facility]) Cll (Chronic Lymphocytic Leukemia) ([facility]) Anemia, Unspecified Drug Induced Neutropenia(288.03) Cough Cmc Arthritis, Thumb, Degenerative Rowe (Dyspnea On Exertion) Tibialis Posterior Tendon Rupture Hypogammaglobulinemia (Hcc) Permanent atrial fibrillation (HCC) At Risk for Stroke At Risk for Bleeding Associated With Anticoagulants History of Falling At Risk for Falling Essential Hypertension Rheumatoid Arthritis ([facility]) History of Syncope Presence of Watchman Left Atrial Appendage Closure Device T12 Compression Fracture ([facility]) Chronic Bilateral Low Back Pain Without Sciatica [...] recurrent falling - At risk for stroke [id number] = 3 (HTN, age, female gender); s/p Watchman left atrial appendage closure device implantation as alternative to oral anticoagulation therapy for stroke prevention - Attention deficit disorder with hyperactivity(314.01) - Carpal tunnel syndrome - CLL (chronic lymphocytic leukemia) ([facility]) 12/06/2011 diagnosed 12/2010 - Depressive disorder, not [...] Watchman left atrial appendage closure device 11/23/2019 [employer] Watchman left atrial appendage closure device implant 11/23/2019 - Rheumatoid arthritis (HCC) - Right bundle branch block PAST SURGICAL HISTORY Procedure Laterality Date - BACK SURGERY HX 04/2020 - PAST SURGICAL HISTORY OF gum surgery - PAST SURGICAL HISTORY OF 2001 bunionectomy - CHELSY 11/23/2019 - TE (more content not included)... [facility] 01-24-2021 Note HNO ID: [id number] Author: Bharat Durbin MD Service: ? Author Type: Physician Type: Progress Notes Filed: 01/24/2021 1:52 PM Note Text: Bharat Durbin M.D. [facility] Orthopedics - Orthopedic Spine Surgeon [address] [place] [address], [facility] [address] [address] [facility] [address] [facility] [address] [address] [facility], [place] [address], [facility] [address] Phone: [phone] ([facility]) FAX: [phone] ([place]) SPINE SURGERY OUTPATIENT CONSULT SERVICE DATE: 01/24/2021 PCP: Savannah Rios MD REFERRING PROVIDER: Ainka Wood PA-C [address] [facility] [address] CHIEF COMPLAINT: low back pain HISTORY OF [...] Deficiency Routine Medical Exam Svt (Supraventricular Tachycardia) ([facility]) Cll (Chronic Lymphocytic Leukemia) ([facility]) Anemia, Unspecified Drug Induced Neutropenia(288.03) Cough Cmc Arthritis, Thumb, Degenerative Rowe (Dyspnea On Exertion) Tibialis Posterior Tendon Rupture Hypogammaglobulinemia (Hcc) Permanent atrial fibrillation (HCC) At Risk for Stroke At Risk for Bleeding Associated With Anticoagulants History of Falling At Risk for Falling Essential Hypertension Rheumatoid Arthritis ([facility]) History of Syncope Presence of Watchman Left Atrial Appendage Closure Device T12 Compression Fracture ([facility]) Chronic Bilateral Low Back Pain Without Sciatica PAST MEDICAL HISTORY Diagnosis Date - Anemia, unspecified - Anticoagulant long-term use DOAC rivaroxaban (Xarelto); 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 01-17-2021 Note HNO ID: [id number] Author: Katelyn Ragland (Tech) Service: ? Author Type: Log Carrier Operator Type: Progress Notes Filed: 01/18/2021 3:50 PM [...] [facility] 01-17-2021 Note HNO ID: [id number] Author: Anika Wood Service: ? Author Type: Physician Website Project Manager Type: Progress Notes Filed: 01/18/2021 3:50 PM Note Text: [facility] Health Program New Patient Evaluation Impression: Monse Orona is a 70 year old White female with osteoporosis who is being seen today for a bone health evaluation. Last bone mineral density was 07/16/20. Risk factors include: age, race, postmenopausal, early [...] HR URINE 8. CLL (chronic lymphocytic leukemia) ([facility]) - ICD9: 204.10, ICD10: C91.10 - PTH INTACT BLD - PROTEIN ELECTROPHORESIS SERUM W/INTERP - PROTEIN ELECT RND UR W/INTERP - PHOSPHORUS INORGANIC - MAGNESIUM BLD - CALCIUM 24 HR URINE 9. Rheumatoid arthritis, involving unspecified site, unspecified whether rheumatoid factor present ([facility]) - ICD9: 714.0, ICD10: M06.9 - PTH [...] [facility] 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- Primary Chronic lymphoid leukemia, without mention of having achieved remission [facility] Diagnosis 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- Primary Chronic lymphoid leukemia, without mention of having achieved remission [facility] Diagnosis CLL (chronic lymphocytic leukemia)- Primary Chronic lymphoid leukemia, without mention of having achieved remission [facility] Diagnosis CLL (chronic lymphocytic leukemia)- Primary Chronic lymphoid leukemia, without mention of having achieved remission documented in this encounter [facility] Summary Purpose Family History No Family History Records FoundNo Family History Records FoundNo Family History Records FoundNo Family History Records FoundNo Family History Records Found Advance Directives No Advanced Directives Records FoundDocuments on File Type Date Recorded 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 She is in agreement with this code status. Full Code 03/30/2016 4:47 PM 04/02/2016 8:24 PM Full Code-Unverified 03/30/2016 2:57 PM 03/30/2016 4:47 PM Latest Code Status on File Code Status Date Activated Date Inactivated Comments DNRCC-ARREST 08/31/2016 1:01 PM 09/06/2016 3:[address] discussed Monsejeremy Orona's Do Not Resuscitate wishes with her. She is in agreement with this code status. 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 She is in agreement with this code status. Code Status History Code Status Date Activated Date Inactivated Comments Full Code 03/30/2016 4:47 PM 04/02/2016 8:24 PM Full Code-Unverified 03/30/2016 2:57 PM 03/30/2016 4:47 PM Reason for Referral Specialty Diagnoses / Procedures Referred By Smita bang Referred To Contact Diagnoses CLL (chronic lymphocytic leukemia) Procedures BTK RESISTANCE MUTATION, BLOOD Bettina Santoyo APRN-[facility] [address] [place] [address] Referral ID Status Reason Start Date Expiration Date V isits Requested Visits Authorized [id number] New Request 10/30/2023 11/23/2024 1 1 Additional Source Comments INFORMATION SOURCE (unrecogn ized section and content) DATE CREATED AUTHOR AUTHOR'S ORGANIZ ATION 02/02/2021 [facility] DATE CREATED AUTHOR AUTHOR'S ORGANIZ ATION 11/28/2021 [facility] DATE CREATED AUTHOR AUTHOR'S ORGANIZ ATION 12/30/2021 [facility] DATE CREATED AUTHOR AUTHOR'S ORGANIZ ATION 01/15/2024 [facility] Care Teams (unrecognized sec tion and content) 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 Relationship Specialty Start Date End Date Savannah Rios MD [address] [place], [place] [address] PCP - General Family Medicine 01/05/19 Vitaly Ortega MD Cardiovascular Medicine 07/04/16 Master Kuo MD [address] [place] [address] Hematology 10/12/18 Cong Aguirre MB/CHB [address] [place] [address] Hematology 10/23/18 Ada Mckinney, CLINICAL TEAM LEAD-[facility] [address] [place] [address] Certified Nurse Practitioner 09/11/20 Chris Avitia, [facility] [address] [place] [address] Pharmacist Pharmacist 04/12/[address], [facility],PharmD [address] [place] [address] Pharmacist 04/12/21 Vitaly Otto, [facility] [address] [place] [id number] Pharmacist Pharmacist 04/12/21 Dr. 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 Relationship Specialty Start Date End Date Savannah Rios MD [address] [place] [address] PCP - General Family Medicine 01/05/19 Vitaly Ortega MD Cardiovascular Medicine 07/04/16 Master Kuo MD [address] [place] [address] Hematology 10/12/18 Cong Aguirre MB/CHB [address] [place] [address] Hematology 10/23/18 Ada Mckinney, CLINICAL TEAM LEAD-[facility]ER [address] [place] [address] Certified Nurse Practitioner 09/11/20 Chris Avitia, RP [address] [place] [address] Pharmacist Pharmacist 04/12/[address] RPh,PharmD [address] [place] [address] Pharmacist 04/12/21 Vitlay Otto, RPH [address] [place] [address] Pharmacist Pharmacist 04/12/21 Dr. 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 Relationship Specialty Start Date End Date Savannah Rios MD [address] [place] [address] PCP - General Family Medicine 01/05/19 Vitaly Ortega MD Cardiovascular Medicine 07/04/16 Master Kuo MD [address] [place] [address] Hematology 10/12/18 Cong Aguirre MB/KELLY [address] [place], [place] [address] Hematology 10/23/18 Ada Mckinney, CLINICAL TEAM LEAD-[employer]READ [employer] PA[employer]Y BAKER [address] [place] [phone] Certified Nurse Practitioner 09/11/20 Chris Avitia, RPH [address] [place] [address] Pharmacist Pharmacist 04/12/[address] RPh,PharmD [address] [place] [address] Pharmacist 04/12/21 Vitaly Otto, NINI [address] [place] [address] Pharmacist Pharmacist 04/12/21 Dr. 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 Relationship Specialty Start Date End Date Savannah Rios MD [address] [place], [place] [address] PCP - General Family Medicine 01/05/19 Vitaly Ortega MD Cardiovascular Medicine 07/04/16 Master Kuo MD [address] 5th [place] [phone] Hematology 10/12/18 Cong Aguirre MB/CHB [address] [place] [address] Hematology 10/23/18 Ada Mckinney, CLINICAL TEAM LEAD[employer]Y BAKER [address] [place] [phone] Certified Nurse Practitioner 09/11/20 Chris Avitia, [facility] [address] [place] [address] Pharmacist Pharmacist 04/12/[address], [facility],PharmD [address] [place] [address] Pharmacist 04/12/21 Vitaly Otto, [facility] [address] [place] [address] Pharmacist Pharmacist 04/12/21 Dr. 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 Relationship Specialty Start Date End Date Savannah Rios MD [address] [place] [address] PCP - General Family Medicine 01/05/19 Vitaly Ortega MD Cardiovascular Disease 07/04/16 Master Kuo MD [address] 5[address] [place] [address] Hematology 10/12/18 Cong Aguirre MB/CHB [address] [place] [address] Hematology 10/23/18 Ada Mckinney, CLINICAL TEAM LEAD[employer] PA[employer]Y BAKER [address] [place] [address] Certified Nurse Practitioner 09/11/20 Chris Avitia, [facility] [address] [place] [address] Pharmacist Pharmacist 04/12/[address], [facility],PharmD [address] [place] [address] Pharmacist 04/12/21 Vitaly Otto, [facility] [address] [place] [address] Pharmacist Pharmacist 04/12/21 Dr. 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 Relationship Specialty Start Date End Date Savannah iRos MD [address] [place] [address] PCP - General Family Medicine 01/05/19 Vitaly Ortega MD Cardiovascular Disease 07/04/16 Master Kuo MD [address] 5[address] [place] [address] Hematology 10/12/18 Cong Aguirre MB/CHB [address] [place] [address] Hematology 10/23/18 Ada Mckinney, CLINICAL TEAM LE[employer]AKER [address] [place] [address] Certified Nurse Practitioner 09/11/20 Chris Avitia, [facility] [address] [place] [address] Pharmacist Pharmacist 04/12/[address] RPh,PharmD [address] [place] [address] Pharmacist 04/12/21 Vitaly Otto, MARLYN [address] [place] [address] Pharmacist Pharmacist 04/12/21 Dr. 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 Relationship Specialty Start Date End Date Savannah Rios MD [address] [place] [address] PCP - General Family Medicine 01/05/19 Vitaly Ortega MD Cardiovascular Disease 07/04/16 Master Kuo MD [address] 5[address] [place] [address] Hematology 10/12/18 Cong Aguirre MB/KELLY [address] [place] [address] Hematology 10/23/18 Ada Mckinney, CLINICAL TEAM LEAD[employer]Y [employer]AKER [address] [place] [phone] Certified Nurse Practitioner 09/11/20 Chris Avitia, RPH [address] [place] [phone] Pharmacist Pharmacist 04/12/[address] RPh,PharmD [address] [place] [address] Pharmacist 04/12/21 Vitaly Otto RPH [address] [place] [phone] Pharmacist Pharmacist 04/12/21 Dr. Harsh Denton [address] [place] [address] Neurology 01/05/19 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 Relationship Specialty Start Date End Date Savannah Rios MD [address] [place] [address] PCP - General Family Medicine 01/05/19 Vitaly Ortega MD Cardiovascular Disease 07/04/16 Master Kuo MD [address] [place] [address] Hematology 10/12/18 Cong Aguirre MB/CHB [address] [place] [address] Hematology 10/23/18 Ada Mckinney, CLINICAL TEAM LEAD[employer]READ [employer] PA[employer]Y BAKER [address] [place] [phone] Certified Nurse Practitioner 09/11/20 Chris Avitia, [facility] [address] [place] [address] Pharmacist Pharmacist 04/12/[address], [facility],PharmD [address] [place] [address] Pharmacist 04/12/21 Vitaly Otto, [facility] [address] [place] [address] Pharmacist Pharmacist 04/12/21 Dr. Harsh Denton [address] [place] [address] Neurology 01/05/19 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 Relationship Specialty Start Date End Date Savannah Rios MD [address] [place] [address] PCP - General Family Medicine 01/05/19 Vitaly Ortega MD Cardiovascular Disease 07/04/16 Cong Aguirre MB/CHB [address] [place] [address] Hematology 10/23/18 Ada Mckinney, CLINICAL TEAM LEAD[employer] BAKER [address] [place] [phone] Certified Nurse Practitioner 09/11/20 Chris Avitia, RPH [address] [place] [address] Pharmacist Pharmacist 04/12/[address] RPh,PharmD [address] [place] [phone] Pharmacist 04/12/21 Vitaly Otto, RPH [address] [place] [address] Pharmacist Pharmacist 04/12/21 Sarina Abdalla MD [address] [place] [address] Hematology 10/08/22 Dr. Harsh Denton [address] [place] [address] Neurology 01/05/19 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 Relationship Specialty Start Date End Date Savannah Rios MD [address] [place] [address] PCP - General Family Medicine 01/05/19 Vitaly Ortega MD Cardiovascular Disease 07/04/16 Cong Aguirre MB/CHB [address] [place] [address] Hematology 10/23/18 Ada Mckinney, CLINICAL TEAM LEAD[employer] PA[employer] BAKER [address] [place] [phone] Certified Nurse Practitioner 09/11/20 Chris Avitia RPEstephania [address] [address] Pharmacist Pharmacist 04/12/[address] RPh,PharmD [address] [place] [address] Pharmacist 04/12/21 Vitaly Otto, MARLYN [address] [place] [address] Pharmacist Pharmacist 04/12/21 Sarina Abdalla MD [address] 5[address] [place] [phone] Hematology 10/08/22 Dr. Harsh Denton [address] [place] [address] Neurology 01/05/19 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 Relationship Specialty Start Date End Date Savannah Rios MD [address] [place] [address] PCP - General Family Medicine 01/05/19 Vitaly Ortega MD Cardiovascular Disease 07/04/16 Cong Aguirre MB/CHB [address] [place] [address] Hematology 10/23/18 Ada Mckinney, CLINICAL TEAM LEAD[employer] PA[employer]Y BAKER [address] [place] [phone] Certified Nurse Practitioner 09/11/20 Chris Avitia, [facility] [address] [place] [address] Pharmacist Pharmacist 04/12/[address], [facility],PharmD [address] [place] [phone] Pharmacist 04/12/21 Vitaly Otto, [facility] [address] [place] [phone] Pharmacist Pharmacist 04/12/21 Sarina Abdalla MD [address] [place] [address] Hematology 10/08/22 Dr. 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,PharmD [address] [place] [address] Pharmacist 04/12/21 Vitaly Otto, [facility] [address] [place] [phone] Pharmacist Pharmacist 04/12/21 Sarina Abdalla MD [address] [place] [address] Hematology 10/08/22 Dr. 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 Relationship Specialty Start Date End Date Savannah Rios MD [address] [place] [address] PCP - General Family Medicine 01/05/19 Vitaly Ortega MD Cardiovascular Disease 07/04/16 Cong Aguirre MB/KELLY [address] [place] [address] Hematology 10/23/18 Ada Mckinney, CLINICAL TEAM LEAD[employer] PA[employer]Y BAKER [address] [place] [address] Certified Nurse Practitioner 09/11/20 Chris Avitia, RPH [address] [place] [address] Pharmacist Pharmacist 04/12/[address] RPh,PharmD [address] [place] [address] Pharmacist 04/12/21 Vitaly Otto, NINIH [address] [place] [address] Pharmacist Pharmacist 04/12/21 Sarina Abdalla MD [address] 5[address] [place] [address] Hematology 10/08/22 Dr. 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 Relationship Specialty Start Date End Date Savannah Rios MD [address] [place] [address] PCP - General Family Medicine 01/05/19 Vitaly Ortega MD Cardiovascular Disease 07/04/16 Cong Aguirre MB/CHB [address] [place] [address] Hematology 10/23/18 Ada Mckinney, CLINICAL TEAM LEAD[employer] PA[employer] BAKER [address] [place] [address] Certified Nurse Practitioner 09/11/20 Chris Avitia, RPH [address] [place] [address] Pharmacist Pharmacist 04/12/[address] RPh,PharmD [address] [place] [address] Pharmacist 04/12/21 Vitaly Otto, RPEstephania [address] [place] [address] Pharmacist Pharmacist 04/12/21 Sarina Abdalla MD [address] [place] [address] Hematology 10/08/22 Dr. 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 [address] [place] [address] Hematology 10/23/18 Ada Mckinney, CLINICAL TEAM LEAD-BREAD AND PASTRY BAKER [address] [place] [phone] Certified Nurse Practitioner 09/11/20 Chris Avitia, [facility] [address] [place] [address] Pharmacist Pharmacist 04/12/[address], [facility],PharmD 600 [facility] [address] [place] [address] Pharmacist 04/12/21 Vitaly Otto, [facility] [address] [place] [address] Pharmacist Pharmacist 04/12/21 Sarina Abdalla MD [address] 5[address] [place] [phone] Hematology 10/08/22 Dr. 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 [address] [place] [address] Hematology 10/23/18 Ada Mckinney, CLINICAL TEAM LEAD-BREAD AND PASTRY BAKER [address] [place] [phone] Certified Nurse Practitioner 09/11/20 Chris Avitia [facility] [address] [place] [phone] Pharmacist Pharmacist 04/12/[address], [facility],PharmD [address] [place] [address] Pharmacist 04/12/21 Vitaly Otto, [facility] [address] [place] [address] Pharmacist Pharmacist 04/12/21 Sarina Abdalla MD [address] [place] [address] Hematology 10/08/22 Dr. Harsh Denton [address] [place] [address] Neurology 01/05/19 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 Relationship Specialty Start Date End Date Savannah Rios MD [address] [place] [address] PCP - General Family Medicine 01/05/19 Vitaly Ortgea MD Cardiovascular Disease 07/04/16 Cong Aguirre MB/CHB [address] [facility] [place], [place] [address] Hematology 10/23/18 Ada Mckinney, CLINICAL TEAM LEAD-BREAD AND PASTRY BAKER [address] [place] [phone] Certified Nurse Practitioner 09/11/20 Chris Avitia, [facility] [address] [place] [address] Pharmacist Pharmacist 04/12/[address], [facility],PharmD [address] [place] [address] Pharmacist 04/12/21 Vitaly Otto [facility] [address] [place] [address] Pharmacist Pharmacist 04/12/21 Sarina Abdalla MD [address] [place] [address] Hematology 10/08/22 Dr. Harsh Denton [address] [place] [address] Neurology 01/05/19 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 Relationship Specialty Start Date End Date Savannah Rios MD [address] [place], [place] [address] PCP - General Family Medicine 01/05/19 Vitaly Ortega MD Cardiovascular Disease 07/04/16 Cong Aguirre MB/CHB [address] [facility] [place], [place] [address] Hematology 10/23/18 Ada Mckinney, CLINICAL TEAM LEAD-[employer]READ [employer] PA[employer]Y BAKER [address] [place] [phone] Certified Nurse Practitioner 09/11/20 Chris Avitia [facility] [address] [place] [address] Pharmacist Pharmacist 04/12/[address] [facility],PharmD [address] [place] [address] Pharmacist 04/12/21 Vitaly Otto [facility] [address] [place] [address] Pharmacist Pharmacist 04/12/21 Sarina Abdalla MD [address] [place] [address] Hematology 10/08/22 Dr. Harsh Denton [address] [place] [address] Neurology 01/05/19 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 Relationship Specialty Start Date End Date Savannah Rios MD [address] [place], [place] [address] PCP - General Family Medicine 01/05/19 Vitaly Ortega MD Cardiovascular Disease 07/04/16 Cong Aguirre MB/KELLY [address] [place], [place] [address] Hematology 10/23/18 Ada Mckinney, CLINICAL TEAM LEAD-BREAD [employer] PASTRY BAKER [address] [place] [address] Certified Nurse Practitioner 09/11/20 Chris Avitia [facility] 600 [facility] Room [address] [place] [address] Pharmacist Pharmacist 04/12/[address] [facility],PharmD [address] [place] [address] Pharmacist 04/12/21 Vitaly Otto [facility] [address] [place] [address] Pharmacist Pharmacist 04/12/21 Sarina Abdalla MD [address] [place] [address] Hematology 10/08/22 Dr. Harsh Denton [address] [place] [address] Neurology 01/05/19 Reason for Visit (unrecogniz ed section and content) Reason Comments Follow-up Specialty Diagnoses / Procedures Referred By Smita t Referred To Contact Diagnoses CLL (chronic lymphocytic leukemia) Procedures BTK RESISTANCE MUTATION, BLOOD Bettina Santoyo APRN-BREAD AND PASTRY BAKER [address] [place] [address] Referral ID Status Reason Start Date Expiration Date V isits Requested Visits Authorized [id number] New Request 10/30/2023 11/23/2024 1 FOR RECORDS [...] BE BASED ON THE PRIMARY CLINICAL RECORDS. [employer] provides no warranty or guarantee of the accuracy or completeness of information in this document.
[2024-01-16] MEDS: Zolpidem Tartrate 5 MG Tablet PO (21:30)
== END | disposition home or self-care (01) ==
LOC: SL 20:26
PROVIDERS: PCP Family Medicine; Referring Provider Nurse Practitioner Acute Care; Visit Provider Nurse Practitioner Acute Care
DX: G47.33 Obstructive sleep apnea (adult) (pediatric) (principal)
CPT/HCPCS: 95811

== ENCOUNTER 2024-02-03 17:48 | Inpatient (IN) | payer MEDICARE, OTHER, SELFPAY ==
[2024-02-03 17:49] VITALS: BP 107/78; PULSE 96; RESP 17; TEMP 36; O2SAT 100; BMI 23.5
--- NOTE | 2024-02-03 18:46 | EDS_ITS ---
HPI History of Present Illness Chief Complaint: Abn Labs Informant: patient Narrative Narrative: Patient presents secondary to concerns for low sodium. She saw her oncologist in [place] today and had lab work done. She states she received a phone call that her sodium was down to 124. Last labs I have available here are from December 24 at which time her sodium was 137. Patient states she did feel somewhat lightheaded and dizzy today. She has had some recent dental work done so has been primarily sticking to a liquid diet. She does, however, states she has been drinking a generic version of Pedialyte to help with electrolytes. She states she was fairly recently diagnosed with congestive heart failure and has been trying to avoid too much salt in her diet. [facility] Medical History Abnormal echocardiogram Anemia Attention deficit disorder with hyperactivity BCC (basal cell carcinoma) Bleeding disorder Chronic atrial fibrillation CLL (chronic lymphoid leukemia) in relapse Contact with or exposure to other viral diseases Cough Daytime somnolence Depressive disorder Essential hypertension History of bronchitis History of pneumonia Hives as manifestation of blood transfusion reaction Hyperlipidemia Hypogammaglobulinemia, acquired Longstanding persistent atrial fibrillation Lower extremity weakness Measles Mitral insufficiency Mitral valve insufficiency Nocturia Osteoarthritis Osteoporosis Personal history of CLL (chronic lymphocytic leukemia) Presence of Watchman left atrial appendage closure device (~11/2019) RBBB Rheumatoid arthritis Right carpal tunnel syndrome SCC (squamous cell carcinoma) Sinus congestion Sinusitis T12 vertebral fracture Tibialis posterior tendon rupture Home Medications ascorbic acid (vitamin C) 1,000 mg tablet 5 g PO DAILY 06/22/19 [History Last Taken Unknown] melatonin 10 mg tablet 10 mg PO HS 06/22/19 [History Last Taken Unknown] zinc 50 mg tablet 50 mg PO DAILY 06/22/19 [History Last Taken Unknown] aspirin 325 mg tablet,delayed release 325 mg PO DAILY 05/31/20 [History Last Taken 01/05/24] valacyclovir 500 mg tablet 500 mg PO DAILY #30 tabs 06/08/20 [Rx Last Taken Unknown] magnesium 200 mg tablet 100 mg PO DAILY 09/07/20 [History Last Taken Unknown] folic acid 1 mg tablet 1 mg PO DAILY 05/10/21 [History Last Taken Unknown] cholecalciferol (vitamin D3) 125 mcg (5,000 unit) tablet 12,000 unit PO DAILY 08/24/21 [History Last Taken Unknown] cyanocobalamin (vitamin B-12) 1,000 mcg tablet 1,000 mcg PO DAILY 08/24/21 [History Last Taken Unknown] zanubrutinib 80 mg capsule 160 mg PO BID 08/24/21 [History Last Taken Unknown] sacubitril 24 mg-valsartan 26 mg tablet (Entresto) 1 tab PO BID #60 tabs 12/05/23 [Rx Last Taken 01/05/24] fluticasone propionate 50 mcg/actuation nasal spray,suspension 1 spray intranasal DAILY 12/18/23 [History Last Taken Unknown] green tea leaf extract 2 cap PO DAILY 12/18/23 [History Last Taken Unknown] carvedilol 12.5 mg tablet 12.5 mg PO Q12H #60 tabs 01/05/24 [Rx Last Taken Unknown] Allergy/AdvReac Type Severity Reaction Status Date / Time No Known Allergies Allergy Verified 02/03/24 17:50 Family History Father Hypertension CAD (coronary artery disease) Myocardial infarction Mother CVA (cerebral vascular accident) Hypertension CAD (coronary artery disease) Myocardial infarction Surgical History H/O vertebroplasty History of bunionectomy of both great toes History of Moh's micrographic surgery for skin cancer History of total left knee replacement (TKR) Social History Smoking Status: Never smoker alcohol intake: never substance use type: former substance user, marijuana and other details: Has a medical marijuana caffeine: Yes Type: coffee Number of servings: 3 ROS ROS ED Constitutional Constitutional ED: Denies chills or fever(s) Eyes Eyes: Denies change in vision or discharge from eye(s) ENT ENT ED: Denies discharge from eye(s), rhinorrhea or sore throat Cardiovascular Cardiovascular: Denies chest pain or palpitations Respiratory/Chest Respiratory/Chest: Denies cough or dyspnea Gastrointestinal Gastrointestinal: Denies abdominal pain, nausea or vomiting Genitourinary Genitourinary ED: Denies dysuria Musculoskeletal Musculoskeletal: Denies back pain or extremity pain Integumentary Denies Abrasions or rash Neurologic Neurologic: Reports other Details: Dizziness ; Denies headache(s) or weakness Psychiatric Psychiatric: Denies anxiety or depression Allergic/Immunologic Allergic/Immunologic ED: Denies lip swelling or urticaria EXAM Physical Exam Const Vital Signs: 02/03/24 17:49 02/03/24 18:58 02/03/24 19:41 Temperature 96.8 F L Temperature Source Temporal Pulse Rate 96 77 Respiratory Rate 17 17 Respiratory Effort Normal Non-Labored Respiratory Pattern Normal Blood Pressure 107/78 121/52 H Blood Pressure Mean 87 75 Pulse Ox 100 98 Oxygen Delivery Method Room Air 02/03/24 20:12 Temperature Temperature Source Pulse Rate 87 Respiratory Rate 16 Respiratory Effort Respiratory Pattern Blood Pressure 114/60 Blood Pressure Mean 78 Pulse Ox 98 Oxygen Delivery Method Room Air Positive well nourished and well developed General Appearance ED: well developed HEENT Reports moist mucous membranes Eyes EOMs intact bilaterally Chest Wall inspection of chest normal and palpation of chest normal Resp normal respiratory effort and clear to auscultation bilaterally Cardio regular rate and regular rhythm GI non-tender Palpation: soft Extremity normal to inspection Neuro oriented x3 and no sensory deficits noted Motor Exam: strength 5/5 throughout Psych mental status grossly normal Skin no rashes or lesions noted MDM MDM MDM Narrative Medical decision making narrative: IV line established and patient initiated on normal saline. Repeat labs obtained to ensure accurate values. Lab Data Labs: Laboratory Results - last 24 hr 02/03/24 18:50 WBC 5.6 RBC 3.48 L Hgb 11.2 L Hct 30.2 L MCV 86.8 MCH 32.2 H MCHC 37.1 H RDW Std Deviation 39.5 RDW Coeff of Jess 12.5 Plt Count 218 MPV 9.6 Immature Gran % (Auto) 0.500 Neut % (Auto) 58.3 Lymph % (Auto) 26.4 Leon % (Auto) 11.7 H Eos % (Auto) 2.7 Baso % (Auto) 0.4 Absolute Neuts (auto) 3.3 Absolute Lymphs (auto) 1.47 Nucleated RBC % 0 Sodium 125 L Potassium 4.2 Chloride 92 L Carbon Dioxide 23.0 Anion Gap 10 BUN 10 Creatinine 0.78 Estim Creat Clear Calc 55.52 Est GFR (MDRD) Af Amer 93 Est GFR (MDRD) Non-Af 77 BUN/Creatinine Ratio 12.8 Glucose 116 H Calcium 9.0 Treatment and Re-Evaluation :: CBC was normal white count 5.6 with a hemoglobin 11.2. Sodium is low at 125 with a chloride of 92. Patient is already been started on normal saline. I will speak with hospitalist regarding admission. Discharge Plan Triage Chief Complaint: Abn Labs ED Provider: Cyndi Melendez Dx/Rx/DC Orders Clinical Impression: Hyponatremia Prescriptions: No Action ascorbic acid (vitamin C) 1,000 mg tablet 5 g PO DAILY zinc 50 mg tablet 50 mg PO DAILY melatonin 10 mg tablet 10 mg PO HS green tea leaf extract capsule capsule 2 cap PO DAILY cholecalciferol (vitamin D3) 125 mcg (5,000 unit) tablet 12,000 unit PO DAILY magnesium 200 mg tablet 100 mg PO DAILY cyanocobalamin (vitamin B-12) 1,000 mcg tablet 1,000 mcg PO DAILY zanubrutinib 80 mg capsule 160 mg PO BID folic acid 1 mg tablet 1 mg PO DAILY Entresto 24-26 mg tablet 1 tab PO BID Qty: 60 11RF fluticasone propionate 50 mcg/actuation spray,suspension 1 spray intranasal DAILY Patient Comments: 1-2 SPRAY EACH NOSTRIL aspirin 325 MG tablet,delayed release (DR/EC) 325 mg PO DAILY valacyclovir 500 MG tablet 500 mg PO DAILY Qty: 30 6RF carvedilol 12.5 mg tablet 12.5 mg PO Q12H Qty: 60 3RF Rx Instructions: must administer with a meal/food Primary Care Provider: Perez Rios Referrals: Perez Rios MD [Primary Care Provider] - Disposition Disposition: Acute Care Hospital [facility]
[2024-02-03] MEDS: 0.9% Normal Saline (500mL Bag) 500 ML 1000 ML IV (18:56)
[2024-02-03] MEDS: 0.9% Normal Saline (1000mL) 1,000 ML 150 ML IV (18:57)
[2024-02-03 19:00] LABS: Absolute Lymphocyte Count 1.47 X10^3/uL (0.83-4.51); Absolute Neutrophil Count 3.3 X10^3/uL (2.0-7.7); Basophil# 0.02 X10^3/uL; Basophil% 0.4 % (0-1); Eosinophil# 0.15 X10^3/uL; Eosinophils% 2.7 % (0-5); Hematocrit 30.2 % (37-47); Hemoglobin 11.2 g/dL (12.0-15.0); Lymphocyte # 1.47 X10^3/ul (0.83-4.51); Lymphocyte % 26.4 % (19-41); Mean Corp Hgb Conc 37.1 g/dL (32-36); Mean Corpuscular Hgb 32.2 pg (27.0-32.0); Mean Corpuscular Volume 86.8 fL (81-99); Mean Platelet Vol. 9.6 fl (6.2-12.0); Monocyte# 0.65 X10^3/uL; Monocyte% 11.7 % (0-10); NRBC Flagged by Analyzer 0 % (0-5); Neutrophil # 3.25 X10^3/uL (2.7-7.7); Neutrophil % 58.3 % (47-70); Platelet Count 218 K/mm3 (150-450); RBC Distribution Width CV 12.5 % (11.6-14.6); RBC Distribution Width SD 39.5 fl (35.1-43.9); Red Blood Count 3.48 M/mm3 (4.2-5.4); White Blood Count 5.6 K/mm3 (4.4-11.0)
[2024-02-03 19:14] LABS: Anion Gap 10 (5-15); BUN 10 mg/dL (7-18); BUN/Creat Ratio 12.8 RATIO (10-20); Chloride 92 mmol/L (98-107); Creatinine, Serum 0.78 mg/dL (0.55-1.02); EST Glomerular Filtration Rate 77 mL/min (>60); Est Glom Filt Rate - Afr Amer 93 mL/min (>60); Estimated Creatinine Clearance 55.52 ml/min; Glucose 116 mg/dL (74-106); Potassium 4.2 mmol/L (3.5-5.1); Sodium Level 125 mmol/L (136-145)
[2024-02-03 19:41] VITALS: BP 121/52; PULSE 77; RESP 17; O2SAT 98
[2024-02-03 20:12] VITALS: BP 114/60; PULSE 87; RESP 16; O2SAT 98
--- NOTE | 2024-02-03 20:45 | PCM.HP.STD ---
HPI - General General Date of Admission: 02/03/24 Date of Service: 02/03/24 Chief Complaint: LH/Dizziness HPI Narrative The patient is a 73 y/o F w/ PMHx: Allergic rhinitis, HFrEF, ERMIAS, Chronic anemia, Anxiety and Depression/ADHD, CLL/Hypogammglobulinemia, Chronic AF s/p Watchman, HTN, HLD, Rheumatoid arthritis who presents to the [facility] ED on 02/03/24 with history of recent evaluation per her oncologist in [place] on day of presentation with call recommending that she be evaluated secondary to sodium level of 124 with history of the last several weeks of mild lightheadedness and dizziness with recent dental work so she is primarily been sticking to a liquid diet although she does report recently drinking a generic version of Pedialyte to assist with electrolytes and given her recent history of heart failure unclear type has been avoiding salt aggressively. She notes she has been undergoing some unclear type of detoxification process with her holistic medicine/dental team. She also reports recent ozone therapy to attempt to assist in her healing process. Workup in the ED included T96.8, heart rate 96, BP 107 or 78, respiratory rate 17, 100% on room air, CBC with WBC 5.6, hemoglobin 11.2, MCV 86.8, platelet 218 without marked shift, BMP with sodium 125, chloride 92, glucose 116 otherwise not marked appearing. In the ED patient administered MIVFs. [facility] Medical History (Updated 02/04/24 @ 03:[address] Kenya Leavitt MD) Anemia Attention deficit disorder with hyperactivity BCC (basal cell carcinoma) Bleeding disorder Chronic atrial fibrillation CLL (chronic lymphoid leukemia) in relapse Daytime somnolence Depressive disorder Essential hypertension Hives as manifestation of blood transfusion reaction Hyperlipidemia Hypogammaglobulinemia, acquired Longstanding persistent atrial fibrillation Measles Mitral insufficiency Mitral valve insufficiency Nocturia ERMIAS (obstructive sleep apnea) Osteoarthritis Osteoporosis Presence of Watchman left atrial appendage closure device (~11/2019) RBBB Rheumatoid arthritis Right carpal tunnel syndrome SCC (squamous cell carcinoma) T12 vertebral fracture Tibialis posterior tendon rupture Home Medications ascorbic acid (vitamin C) 1,000 mg tablet 5 g PO DAILY supplement 06/22/19 [History Last Taken Unknown] zinc 50 mg tablet 50 mg PO DAILY vitamin 06/22/19 [History Last Taken Unknown] aspirin 325 mg tablet,delayed release 325 mg PO DAILY blood thinner 05/31/20 [History Last Taken 01/05/24] valacyclovir 500 mg tablet 500 mg PO DAILY anti viral #30 tabs 06/08/20 [Rx Last Taken Unknown] magnesium 200 mg tablet 100 mg PO DAILY mineral 09/07/20 [History Last Taken Unknown] folic acid 1 mg tablet 1 mg PO DAILY supplement 05/10/21 [History Last Taken Unknown] cholecalciferol (vitamin D3) 125 mcg (5,000 unit) tablet 12,000 unit PO DAILY viatmin 08/24/21 [History Last Taken Unknown] cyanocobalamin (vitamin B-12) 1,000 mcg tablet 1,000 mcg PO DAILY vitamin 08/24/21 [History Last Taken Unknown] sacubitril 24 mg-valsartan 26 mg tablet (Entresto) 1 tab PO BID heart failure #60 tabs 12/05/23 [Rx Last Taken 01/05/24] carvedilol 12.5 mg tablet 12.5 mg PO Q12H heart #60 tabs 01/05/24 [Rx Last Taken Unknown] vitamin K2 90 mcg capsule 90 mcg PO DAILY vitamin 02/03/24 [History Last Taken Unknown] Allergy/AdvReac Type Severity Reaction Status Date / Time No Known Allergies Allergy Verified 02/03/24 17:50 Family History Father Hypertension CAD (coronary artery disease) Myocardial infarction Mother CVA (cerebral vascular accident) Hypertension CAD (coronary artery disease) Myocardial infarction Surgical History H/O vertebroplasty History of bunionectomy of both great toes History of Moh's micrographic surgery for skin cancer History of total left knee replacement (TKR) Social History (Updated 02/04/24 @ 03:[address] Kenya Leavitt MD) household members: none Smoking Status: Never smoker alcohol intake: never substance use type: former substance user, marijuana and other details: Has a medical marijuana caffeine: Yes Type: coffee Number of servings: 3 ROS ROS Narrative Admission Review of Systems: CONSTITUTIONAL: No weight loss, fever, chills, + weakness or fatigue. HEENT: + Recent dental intervention with right-sided oral discomfort although improving. Eyes: No visual loss, blurred vision, double vision or yellow sclerae. Ears, Nose, Throat: No hearing loss, sneezing, congestion, runny nose or sore throat. SKIN: No rash or itching, lesions, wounds. CARDIOVASCULAR: No chest pain, chest pressure or chest discomfort, palpitations, edema, orthopnea, syncopal events. RESPIRATORY: No shortness of breath, cough or sputum, wheezing, hemoptysis. GASTROINTESTINAL: + anorexia. No nausea, vomiting or diarrhea, abdominal pain, melena, BRBPR. GENITOURINARY: No dysuria, frequency, urgency or retention. NEUROLOGICAL: + Lightheadedness/dizziness. No headache, syncope, paralysis, ataxia, numbness or tingling in the extremities, focal weakness, change in bowel or bladder control, seizure. MUSCULOSKELETAL: + muscle, back pain, joint pain or stiffness. HEMATOLOGIC: + Anemia, easy bleeding/bruising. LYMPHATICS: No enlarged nodes. No history of splenectomy. PSYCHIATRIC: + History of anxiety depression/ADHD. ENDOCRINOLOGIC: No reports of sweating, cold or heat intolerance. No polyuria or polydipsia. ALLERGIES: + History of allergic rhinitis. Vital Signs Vital Signs Vital Signs: 02/03/24 17:49 02/03/24 18:58 02/03/24 19:41 Temperature 96.8 F L Temperature Source Temporal Pulse Rate 96 77 Respiratory Rate 17 17 Respiratory Effort Normal Non-Labored Respiratory Pattern Normal Blood Pressure 107/78 121/52 H Blood Pressure Mean 87 75 Pulse Ox 100 98 Oxygen Delivery Method Room Air 02/03/24 20:12 Temperature Temperature Source Pulse Rate 87 Respiratory Rate 16 Respiratory Effort Respiratory Pattern Blood Pressure 114/60 Blood Pressure Mean 78 Pulse Ox 98 Oxygen Delivery Method Room Air Weight Weight: 141 lb 5.061 oz Body Mass Index (BMI) 23.5 Physical Exam Narrative Physical Examination: General: Awake, alert, oriented x 3 and cooperative, seated upright in the ED bed, fatigued, no acute complaints. Skin: Normal color, normal turgor, no icterus, no cyanosis. HEENT: AT/NC, EOMI, PERRLA, moderately dry MM, right-sided evidence of dental intervention, possibly extractions, gum and resection sites appear well-healing, no carotid bruits or JVD noted. Lungs: CTA bilaterally, moderate effort, mild decrease BL bases, no rales, ronchi or wheezing. Heart: Irregular; no gallop, rub audible. Abdomen: Soft, NTTP, ND, mildly hyperactive BS, no HSM. Extremities: No cyanosis, clubbing, or edema. Neurological: Patient awake, alert, oriented as noted, cognitive function intact; pupils equally reactive to light and accommodation, cranial nerves II-XII grossly normal, moving all 4 extremities, no focal deficits, strength moderately globally decreased secondary to acute complaints. Psychiatric: Affect appears fatigued otherwise normal, no acute evidence of depressive or anxiety feelings. Results Lab / Micro Data 02/03/24 18:50 02/03/24 18:50 Labs: Laboratory Results - last 24 hr 02/03/24 18:50: WBC 5.6, RBC 3.48 L, Hgb 11.2 L, Hct 30.2 L, MCV 86.8, MCH 32.2 H, MCHC 37.1 H, RDW Std Deviation 39.5, RDW Coeff of Jess 12.5, Plt Count 218, MPV 9.6, Immature Gran % (Auto) 0.500, Neut % (Auto) 58.3, Lymph % (Auto) 26.4, [place] % (Auto) 11.7 H, Eos % (Auto) 2.7, Baso % (Auto) 0.4, Absolute Neuts (auto) 3.3, Absolute Lymphs (auto) 1.47, Nucleated RBC % 0, Sodium 125 L, Potassium 4.2, Chloride 92 L, Carbon Dioxide 23.0, Anion Gap 10, BUN 10, Creatinine 0.78, Estim Creat Clear Calc 55.52, Est GFR (MDRD) Af Amer 93, Est GFR (MDRD) Non-Af 77, BUN/Creatinine Ratio 12.8, Glucose 116 H, Calcium 9.0 Assessment & Plan Assessment/Plan (1) Hyponatremia: PLAN: Plan The patient is a 73 y/o F w/ PMHx: Allergic rhinitis, HFrEF, ERMIAS, Chronic anemia, Anxiety and Depression/ADHD, CLL/Hypogammglobulinemia, Chronic AF s/p Watchman, HTN, HLD, Rheumatoid arthritis who presents to the [facility] ED on 02/03/24 with history of recent evaluation per her oncologist in [place] on day of presentation with call recommending that she be evaluated secondary to sodium level of 124 with history of the last several weeks of mild lightheadedness and dizziness with recent dental work so she is primarily been sticking to a liquid diet although she does report recently drinking a generic version of Pedialyte to assist with electrolytes and given her recent history of heart failure unclear type has been avoiding salt aggressively. #1. Acute Hyponatremia w/ LH/Dizziness, suspect hypovolemic component especially given lightheadedness and dizziness with decreased intake: Will admit to [facility], noted admission Na 125, baseline appearance previously normal range, suspect secondary to recent decreased intake/liquid diet/avoidance of salt likely very aggressively, will continue judicious hydration, orthostatic vital signs requested, will continue to trend CMP, obtain TSH, obtain FeNa. #2. HFrEF: Recently diagnosed, noted recent cardiac cath 01/05/2024 with mild nonobstructive CAD with mild global hypokinesis, echocardiogram prior to this 12/04/2023 with reduced EF to 30% with moderate to severe global hypokinesis of the LV with mild MVI decreased from the previous 08/2022 EF of 50%, continue aspirin, Coreg, Entresto, not on diuretic therapy nor statin therapy, encourage continued follow-up with cardiology as previously arranged. Given presentation judiciously hydrating with continued monitor for overload. #3. Hypertension: Continue home regimen including Coreg, Entresto with hold parameters as needed especially given pending orthostatic assessment as noted, PRN hydralazine. #4. Hyperlipidemia: Not on regimen, defer to outpatient. #5. Chronic normocytic anemia: Admission hemoglobin 11.2, MCV 86.8, baseline hemoglobin similar primarily 11 range, stable, continue to trend. #6. CLL/Hypogammglobulinemia: Noted to be in relapse, admission CBC with WBC 5.6, hemoglobin 11.2, MCV 86.8, platelet 218 without marked shift, following with oncology in [place] with recent visit as noted, patient maintained on zanubrutinib, encourage continued follow-up as previously arranged. Mag, phos pending. #7. Chronic AF: Not chronically anticoagulated, continue patient home Coreg regimen, s/p Watchman, encourage continued outpatient follow-up with cardiology as previously directed. #8. CLL/Hypogammglobulinemia: Admission CBC with WBC 5.6, hemoglobin #9. Anxiety depression/ADHD: Per current list not on regimen, defer to outpatient. #10. Allergic rhinitis: Continue patient on fluticasone regimen as needed. #11. Rheumatoid arthritis: Per current list not on any chronic regimen, encourage continued outpatient follow-up with rheumatology as previously arranged. #12. Recent right-sided dental intervention: Unclear specific exact intervention, oropharynx appears well-healing, strongly encourage patient to at least consider softened food which will be initiated here to which she was amenable. Encourage continued outpatient follow-up with her dentist as previously arranged. #13. ERMIAS: CPAP nightly. #14. DVT prophylaxis: SCDs. #15. CODE status: Patient HCPOA and living will are not in place but she notes that she would want her son Guerrero to be her decision-maker if she was unable. Discussed CODE status at length including difference between FULL code, DNR-CCA and DNR-CC status. Following discussions about the differences in these status, requested DNR-CCA, no intubation status which was confirmed. Advanced Care Planning Face to Face Time: 16 minutes. Charges/Coding Visit Charges Inpatient E&M: 65020 Init Hosp L2 Procedures Hospitalists Procedures: 26121 Advncd Care Plan 30 Min
[2024-02-03 20:57] VITALS: BP 123/75; PULSE 79; RESP 17; TEMP 36.2; O2SAT 100
[2024-02-03 21:19] LABS: Magnesium 2.1 mg/dL (1.6-2.6); Phosphorus 3.4 mg/dL (2.5-4.9)
[2024-02-03 21:44] VITALS: BMI 22.8
[2024-02-03 21:56] VITALS: BP 115/59; PULSE 78; RESP 16; TEMP 36.6; O2SAT 100
[2024-02-03] MEDS: 0.9% Normal Saline (1000mL) 1,000 ML 100 ML IV (22:34)
[2024-02-03] MEDS: Carvedilol 12.5 MG Tablet PO (22:35)
[2024-02-03] MEDS: SACUBITRIL/VALSARTAN 24/26 MG TABLET 1 EACH PO (22:35)
[2024-02-03] MEDS: Aspirin E.C. 325 MG Tablet PO (22:35)
--- NOTE | 2024-02-03 22:54 | CPS ---
[2242] Pt. states that she does wear CPAP at home. Pt. claims she has a lot of pain in her mouth at this time. Pt. politely declines use of CPAP machine we can provide for her. Pt. is in no respiratory distress and has SpO2 of 98-99% on room air.
[2024-02-04] VITALS (8 sets, daily range): BP systolic 82–112; BP diastolic 38–63; PULSE 73–79; RESP 16–18; TEMP 36.6–36.7; O2SAT 96–98
[2024-02-04 07:34] LABS: Absolute Lymphocyte Count 0.91 X10^3/uL (0.83-4.51); Absolute Neutrophil Count 1.9 X10^3/uL (2.0-7.7); Basophil# 0.02 X10^3/uL; Basophil% 0.6 % (0-1); Eosinophil# 0.11 X10^3/uL; Eosinophils% 3.1 % (0-5); Hematocrit 27.2 % (37-47); Hemoglobin 9.8 g/dL (12.0-15.0); Lymphocyte # 0.91 X10^3/ul (0.83-4.51); Lymphocyte % 25.6 % (19-41); Mean Corpuscular Hgb 31.9 pg (27.0-32.0); Mean Corpuscular Volume 88.6 fL (81-99); Mean Platelet Vol. 9.4 fl (6.2-12.0); Monocyte# 0.63 X10^3/uL; Monocyte% 17.7 % (0-10); NRBC Flagged by Analyzer 0 % (0-5); Neutrophil # 1.86 X10^3/uL (2.7-7.7); Neutrophil % 52.4 % (47-70); Platelet Count 182 K/mm3 (150-450); RBC Distribution Width CV 12.8 % (11.6-14.6); RBC Distribution Width SD 40.8 fl (35.1-43.9); Red Blood Count 3.07 M/mm3 (4.2-5.4); White Blood Count 3.6 K/mm3 (4.4-11.0)
[2024-02-04 08:26] LABS: ALB/GLOB Ratio 1.1 RATIO (0.9-2.4); AST(SGOT) 15 U/L (15-37); Alanine Aminotransfer ALT/SGPT 12 U/L (13-56); Albumin, Serum 3.1 g/dL (3.2-5.0); Alkaline Phosphatase 40 U/L (45-117); Anion Gap 7 (5-15); BUN 7 mg/dL (7-18); BUN/Creat Ratio 12.6 RATIO (10-20); Calcium,Total 8.4 mg/dL (8.5-10.1); Chloride 106 mmol/L (98-107); Creatinine, Serum 0.55 mg/dL (0.55-1.02); EST Glomerular Filtration Rate 114 mL/min (>60); Est Glom Filt Rate - Afr Amer 138 mL/min (>60); Estimated Creatinine Clearance 55.52 ml/min; Globulin 2.8 g/dL (2.2-4.2); Glucose 98 mg/dL (74-106); Potassium 4.1 mmol/L (3.5-5.1); Protein, Total 5.9 g/dL (6.4-8.2); Sodium Level 134 mmol/L (136-145); T4 Free Direct 1.42 ng/dL (0.76-1.46); Thyroid Stim Hormone (TSH) 1.43 uIU/mL (0.358-3.74)
[2024-02-04] MEDS: Carvedilol 12.5 MG Tablet PO ×2 (09:01→18:33)
[2024-02-04] MEDS: Folic Acid 1 MG Tablet PO (09:02)
[2024-02-04] MEDS: SACUBITRIL/VALSARTAN 24/26 MG TABLET 1 EACH PO (10:00)
[2024-02-04] MEDS: Magnesium Chloride 64 MG Delay Rel.Tablet PO (10:00)
[2024-02-04] MEDS: Zinc Sulfate 50 mg zinc (220 mg) ORAL capsule PO (10:01)
[2024-02-04] MEDS: Ascorbic Acid 500 MG Tablet PO (10:01)
[2024-02-04] MEDS: Cyanocobalamin 500 MCG Tablet 1000 MCG PO (10:01)
[2024-02-04] MEDS: Acyclovir 200 MG Capsule 400 MG PO ×2 (10:02→20:43)
--- NOTE | 2024-02-04 12:38 | CASEMGMT ---
Social Work SW met with pt to validate advance directives. Pt states she has completed documents many years ago but would like to change her designees. SW assisted pt in completing living will and Health Care POA naming her son Guerrero Cormeir. Copy placed on pt chart and original given to pt. NURY Day
--- NOTE | 2024-02-04 13:57 | PN_ITS ---
Subjective Subjective Patient seen and examined. She had no active complaints and had an uneventful night. Review of systems is otherwise negative. Sodium is up to 134. Objective Data Objective Data Vital Signs: Vital Signs Temp Pulse Resp BP Pulse Ox O2 Del Method 98.1 F 79 18 110/57 L 98 Room Air 02/04/24 08:20 02/04/24 08:20 02/04/24 08:20 02/04/24 08:20 02/04/24 08:20 02/04/24 08:20 Oxygen Delivery Method Room Air Weight: 137 lb 2.04 oz Body Mass Index (BMI) 22.8 Intake & Output: Intake and Output for Last 24 Hours 02/02/24 02/03/24 02/04/24 23:59 23:59 23:59 Intake Total 1070 / 1070 1000 / 1000 Output Total 200 / 200 Balance 870 / 870 1000 / 1000 Lab / Micro Data 02/04/24 07:08 02/04/24 07:08 Labs: Laboratory Results - last 24 hr 02/03/24 18:50: WBC 5.6, RBC 3.48 L, Hgb 11.2 L, Hct 30.2 L, MCV 86.8, MCH 32.2 H, MCHC 37.1 H, RDW Std Deviation 39.5, RDW Coeff of Jess 12.5, Plt Count 218, MPV 9.6, Immature Gran % (Auto) 0.500, Neut % (Auto) 58.3, Lymph % (Auto) 26.4, [place] % (Auto) 11.7 H, Eos % (Auto) 2.7, Baso % (Auto) 0.4, Absolute Neuts (auto) 3.3, Absolute Lymphs (auto) 1.47, Nucleated RBC % 0, Sodium 125 L, Potassium 4.2, Chloride 92 L, Carbon Dioxide 23.0, Anion Gap 10, BUN 10, Creatinine 0.78, Estim Creat Clear Calc 55.52, Est GFR (MDRD) Af Amer 93, Est GFR (MDRD) Non-Af 77, BUN/Creatinine Ratio 12.8, Glucose 116 H, Calcium 9.0, Phosphorus 3.4, Magnesium 2.1 02/04/24 07:08: WBC 3.6 L, RBC 3.07 L, Hgb 9.8 L, Hct 27.2 L, MCV 88.6, MCH 31.9, MCHC 36.0, RDW Std Deviation 40.8, RDW Coeff of Jess 12.8, Plt Count 182, MPV 9.4, Immature Gran % (Auto) 0.600, Neut % (Auto) 52.4, Lymph % (Auto) 25.6, [place] % (Auto) 17.7 H, Eos % (Auto) 3.1, Baso % (Auto) 0.6, Absolute Neuts (auto) 1.9 L, Absolute Lymphs (auto) 0.91, Nucleated RBC % 0, Sodium 134 L, Potassium 4.1, Chloride 106, Carbon Dioxide 21.0, Anion Gap 7, BUN 7, Creatinine 0.55, Estim Creat Clear Calc 55.52, Est GFR (MDRD) Af Amer 138, Est GFR (MDRD) Non-Af 114, BUN/Creatinine Ratio 12.6, Glucose 98, Calcium 8.4 L, Total Bilirubin 0.60, AST 15, ALT 12 L, Alkaline Phosphatase 40 L, Total Protein 5.9 L, Albumin 3.1 L, Globulin 2.8, Albumin/Globulin Ratio 1.1, TSH 1.43, Free T4 1.42 Physical Exam Const alert, oriented x3 and no apparent distress General Appearance: cooperative HEENT normocephalic, head/scalp atraumatic, moist oral mucous membranes and oropharynx normal Neck no lymphadenopathy, supple and no JVD Lymph Lymphatic: no lymphadenopathy noted and no lymphedema noted Resp normal respiratory effort, normal air movement and clear to auscultation bilaterally Cardio regular rate, regular rhythm, S1 normal heart sound, S2 normal heart sound and no murmurs GI normal to inspection, nondistended, normoactive bowel sounds, soft to palpation, non-tender and non-distended Extremity normal capillary refill, no clubbing, cyanosis or edema and no calf tenderness General Extremity: no tenderness to palpation of joints or extremities Skin General Skin Exam: no breakdown Neuro CN's II-XII intact bilaterally, no focal motor deficits, no sensory deficits noted and deep tendon reflexes 2+ bilaterally Motor Exam: strength 5/5 throughout and general weakness Psych thought process normal, cooperative and affect normal Appearance: appropriate Assessment & Plan Assessment/Plan (1) Hyponatremia: PLAN: Plan #Acute hyponatremia * likely due to hypovolemia. Had associated dizziness and lightheadedness. * being hydrated with IVF * sodium today is 134. * IVF discontinued * #HFrEF * has known EF of 30%. Had cardiac cath on 01/05/2024 with mild nonobstructive CAD with mild global hypokinesis * 2D echo from 12/04/2023 showed EF of 30% with moderate to severe global hypokinesis of the left ventricle with mild mitral valve insufficiency * on aspirin, coreg and entresto * not on statin or diuretics * #Hypertension: on coreg and entresto. IV hydralazine prn #CLL: follows with hem/onc in [place]. On zanubrutinib. Follow up with oncology on outpatient basis #Allergic rhinitis; on fluticasone #ERMIAS: on CPAP qhs. #Chronic atrial fibrillation: not anticoagulated. on carvedilol Charges/Coding Visit Charges Inpatient E&M: 03586 Subs Hosp L2
--- NOTE | 2024-02-04 16:22 | NURSING ---
All documentation by clinical nursing intern Arcelia Juárez reviewed by nursing associate Cyndi Pandey RN.
[2024-02-04] MEDS: Acetaminophen 325 MG Tablet 650 MG PO (20:11)
[2024-02-04] MEDS: MELATONIN 10 MG TABLET PO (20:43)
[2024-02-04] MEDS: Aspirin E.C. 325 MG Tablet PO (20:43)
[2024-02-05] VITALS (7 sets, daily range): BP systolic 87–115; BP diastolic 51–74; PULSE 78–94; RESP 16–18; TEMP 36.6–36.9; O2SAT 95–98; BMI 22.8
[2024-02-05 08:21] LABS: Anion Gap 7 (5-15); BUN 6 mg/dL (7-18); BUN/Creat Ratio 9.1 RATIO (10-20); Calcium,Total 9.3 mg/dL (8.5-10.1); Chloride 106 mmol/L (98-107); Creatinine, Serum 0.66 mg/dL (0.55-1.02); EST Glomerular Filtration Rate 94 mL/min (>60); Est Glom Filt Rate - Afr Amer 113 mL/min (>60); Estimated Creatinine Clearance 55.52 ml/min; Glucose 114 mg/dL (74-106); Potassium 4.4 mmol/L (3.5-5.1); Sodium Level 137 mmol/L (136-145)
[2024-02-05] MEDS: Carvedilol 12.5 MG Tablet PO (09:34)
[2024-02-05] MEDS: Folic Acid 1 MG Tablet PO (09:35)
[2024-02-05] MEDS: Magnesium Chloride 64 MG Delay Rel.Tablet PO (09:35)
[2024-02-05] MEDS: Zinc Sulfate 50 mg zinc (220 mg) ORAL capsule PO (09:36)
[2024-02-05] MEDS: Ascorbic Acid 500 MG Tablet PO (09:36)
[2024-02-05] MEDS: Cyanocobalamin 500 MCG Tablet 1000 MCG PO (09:36)
[2024-02-05] MEDS: Acyclovir 200 MG Capsule 400 MG PO (09:37)
--- NOTE | 2024-02-05 11:40 | CASEMGMT ---
RN?CM?CATERPILLAR DRIVER?CM?to room to meet with patient for initial transition planning/care coordination?assessment.?RN?CM?introduced self and role at [facility].? Pt voices understanding and consents to?assessment?at this time.? Pt resting in bed in no distress at this time.? Pt is A/O at this time and answers all questions appropriately.?? Care providers, pharmacy, and demographics verified/updated at this time. PCP: Dr Perez Rios Specialists: Nettie Acuña, VP [employer]--pulmonology, Dr Abdalla-oncologist in [place], Dr Timo Shafer-web content manager in [place] (1st appt is next ), [facility]/Laboratory Tech Preferred Pharmacy: [facility] Insurance: [facility] [place] [employer] Prescription Benefit:?Yes LNOK: sonGuerrero Living Arrangements: Lives alone one-story home w/one step to enter. Independent w/ADL's and IADL's. Transportation:?Pt states drives self and states no transportation concerns at this time.? DME: ?States has the following DME:?BP machine, uses [employer] Watch for pulse and pulse ox, pulse ox, CPAP [facility]. Pt states she had dental surgery last and is not able to wear the CPAP until the oral surgeon clears her. Pt states no need for further DME at this time.? CCN/Pt Link: Discussed these w/pt and questions answered. Pt interested in either program, depending on whichever one she qualifies for. Palliative Care: Discussed this w/pt and questions answered. 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 She is interested in a referral. Pt wishes to return home and states has no concerns with going home at time of discharge.? CM?to follow for any further discharge planning/needs.? Pt voices no further concerns/needs at this time.? Advised pt to ask for?CM?if any further questions/concerns/needs arise.? Voices understanding. PLAN:?? Home w/CCN or Pt Link Palliative referral Durga MAKN?RN?CM
--- NOTE | 2024-02-05 13:09 | CASEMGMT ---
Pt screened with [facility] Palliative Care Screening Tool, pt met criteria. Order received and referral to Palliative emailed at this time. Order for CCN entered. Updated Roberto of order. She will confirm if Pt Link or CCN is more appropriate for pt.
--- NOTE | 2024-02-05 14:56 | DS.PCM_ITS ---
Providers Date of Admission: 02/04/24 Date of Discharge: 02/05/24 Primary Care Physician: Dr. Perez Rios MD Reason For Visit: HYPONATREMIA, LH/DIZZINESS Diagnosis Discharge Diagnosis (1) Hyponatremia: Status: Acute Code(s): E87.1 - Hypo-osmolality and hyponatremia Plan #Acute hyponatremia * likely due to hypovolemia. Had associated dizziness and lightheadedness. * being hydrated with IVF * sodium today is 134. * IVF discontinued * #HFrEF * has known EF of 30%. Had cardiac cath on 01/05/2024 with mild nonobstructive CAD with mild global hypokinesis * 2D echo from 12/04/2023 showed EF of 30% with moderate to severe global hypokinesis of the left ventricle with mild mitral valve insufficiency * on aspirin, coreg and entresto * not on statin or diuretics * #Hypertension: on coreg and entresto. IV hydralazine prn #CLL: follows with hem/onc in [place]. On zanubrutinib. Follow up with oncology on outpatient basis #Allergic rhinitis; on fluticasone #ERMIAS: on CPAP qhs. #Chronic atrial fibrillation: not anticoagulated. on carvedilol Medications at Discharge Home Medications ascorbic acid (vitamin C) 1,000 mg tablet 5 g PO DAILY supplement 06/22/19 zinc 50 mg tablet 50 mg PO DAILY vitamin 06/22/19 aspirin 325 mg tablet,delayed release 325 mg PO DAILY blood thinner 05/31/20 valacyclovir 500 mg tablet 500 mg PO DAILY anti viral #30 tabs 06/08/20 magnesium 200 mg tablet 100 mg PO DAILY mineral 09/07/20 folic acid 1 mg tablet 1 mg PO DAILY supplement 05/10/21 cholecalciferol (vitamin D3) 125 mcg (5,000 unit) tablet 12,000 unit PO DAILY viatmin 08/24/21 cyanocobalamin (vitamin B-12) 1,000 mcg tablet 1,000 mcg PO DAILY vitamin 08/24/21 carvedilol 12.5 mg tablet 12.5 mg PO Q12H heart #60 tabs 01/05/24 vitamin K2 90 mcg capsule 90 mcg PO DAILY vitamin 02/03/24 Hospital Course Operations None Summary of Care Provided Minutes Spent on Discharge: 45 Hospital Course: Patient is a 73-year-old female with a past medical history as outlined was admitted through the ED on 02/03/2024 with a complaint of lightheadedness and dizziness for several weeks. She said she had been due to have some dental extraction done so she had been sticking to a liquid diet and had been drinking some Pedialyte like fluids to assist with her electrolytes. She had also been avoiding salt intake because of her recent diagnosis of heart failure. She said she had also been undergoing some type of detoxification process with her holistic medicine and dental team. On admission labs were significant for sodium of 125. She was therefore admitted and managed for hyponatremia which was thought to be due to decreased intake of fluids in the presence of her being diuresed. Entresto was held and she was hydrated with fluids. Sodium gradually came up and corrected. Blood pressure was also running on the lower side of normal. Patient did have a known EF of 30% with left global hypokinesis and had recently had cardiac cath in Dec 2023 which showed no obstructive disease. This was discussed with cardiology search engine optimization consultant (DR Boykin) who recommended that patient's Entresto be stopped on discharge and she is to follow-up with her cardiology team to determine when it should be resumed. She was maintained on carvedilol 12.5 mg twice daily. She is follow-up with her primary care doctor and to follow-up with cardiology within 1 to 2 weeks. Of note at time of discharge her sodium was 137. Patient seen and examined prior to discharge. She had no active complaints. Review of systems otherwise negative. Labs and vitals reviewed. Home medication reviewed and reconciled. Physical Exam Const alert, oriented x3 and no apparent distress General Appearance: cooperative and comfortable Orientation / Consciousness: awake HEENT normocephalic, head/scalp atraumatic, hearing grossly normal bilaterally, moist oral mucous membranes and oropharynx normal Mouth: oral and palatal mucosa normal Eyes PERRL, EOMs intact bilaterally and conjunctivae normal Neck no lymphadenopathy, supple and no JVD Lymph Lymphatic: no lymphadenopathy noted and no lymphedema noted Resp normal respiratory effort, normal air movement and clear to auscultation bilaterally Cardio regular rate, regular rhythm, S1 normal heart sound, S2 normal heart sound and no murmurs GI normal to inspection, nondistended, normoactive bowel sounds, soft to palpation, non-tender and non-distended Extremity normal to inspection, full ROM, normal capillary refill, no clubbing, cyanosis or edema and no calf tenderness General Extremity: no tenderness to palpation of joints or extremities Skin no rashes or lesions noted General Skin Exam: no breakdown Neuro oriented x3, CN's II-XII intact bilaterally, moves all extremities, no focal motor deficits, no sensory deficits noted and deep tendon reflexes 2+ bilaterally Motor Exam: strength 5/5 throughout and general weakness Psych thought process normal, cooperative and affect normal Appearance: appropriate Weight / BMI Weight Weight: 137 lb 2.04 oz Body Mass Index (BMI) 22.8 ABG / Lab / Microbiology Data 02/04/24 07:08 02/05/24 07:50 Laboratory: Laboratory Results - last 24 hr 02/05/24 07:50: Sodium 137, Potassium 4.4, Chloride 106, Carbon Dioxide 24.0, Anion Gap 7, BUN 6 L, Creatinine 0.66, Estim Creat Clear Calc 55.52, Est GFR (MDRD) Af Amer 113, Est GFR (MDRD) Non-Af 94, BUN/Creatinine Ratio 9.1 L, Gluco se 114 H, Calcium 9.3 D/C Instructions Discharge Diet: Low fat / Low cholesterol Discharge Activity: Return to Normal Activity Weight Bearing Status: Weight bearing as tolerated Call your doctor if you observe: Fever of 101 or Higher, Shortness of breath, Dizziness, Swelling in the ankles, Chest pain and Increased palpitations (irregular heartbeat) Meaningful Use Info Meaningful Use Diagnoses (Choose all that apply): None applicable Discharge Plan Admission Admit Date/Time: 02/04/24 14:59 Primary Reason for Your Visit: hyponatremia Attending Provider: Anna Fraser Primary Care Provider: Perez Rios Consulting Providers: Kenya Leavitt Instructions Patient Instructions: Hyponatremia Dc Additional Instructions / Restrictions: Entresto discontinued due to hypotension. To discuss with your cardiology team on your next review about whether he should resume it or not. Continue with carvedilol. Discharge Orders/Prescriptions Prescriptions: Continued ascorbic acid (vitamin C) 1,000 mg tablet 5 g PO DAILY zinc 50 mg tablet 50 mg PO DAILY cholecalciferol (vitamin D3) 125 mcg (5,000 unit) tablet 12,000 unit PO DAILY magnesium 200 mg tablet 100 mg PO DAILY cyanocobalamin (vitamin B-12) 1,000 mcg tablet 1,000 mcg PO DAILY folic acid 1 mg tablet 1 mg PO DAILY aspirin 325 MG tablet,delayed release (DR/EC) 325 mg PO DAILY valacyclovir 500 MG tablet 500 mg PO DAILY Qty: 30 6RF carvedilol 12.5 mg tablet 12.5 mg PO Q12H Qty: 60 3RF Rx Instructions: must administer with a meal/food vitamin K2 90 mcg capsule 90 mcg PO DAILY Discontinued Entresto 24-26 mg tablet 1 tab PO BID Qty: 60 11RF Referrals / Follow Up: Perez Rios MD [Primary Care Provider] - Within 2 Weeks Disposition Disposition (needs filled in before D/C Order can be placed): Home, Self Care Charges/Coding Visit Charges Inpatient E&M: 26519 Disch Hosp >30min
--- NOTE | 2024-02-09 10:20 | CCN.REFER ---
AGREEABLE TO CCN. HOME VISIT SCHEDULED FOR 02/11.
== END 2024-02-05 15:28 | disposition home or self-care (01) | DRG 641 ==
LOC: ED 20:53 → MS3 20:57
PROVIDERS: Admitting Provider Family Medicine; Emergency Provider Emergency Medicine; PCP Family Medicine; Visit Provider Student in an Organized Health Care Education/Training Program
DX: E87.1 Hypo-osmolality and hyponatremia (principal); I48.20 Chronic atrial fibrillation, unspecified; I50.20 Unspecified systolic (congestive) heart failure; C91.10 Chronic lymphocytic leukemia of B-cell type not having achieved remission; I11.0 Hypertensive heart disease with heart failure; M06.9 Rheumatoid arthritis, unspecified; I34.0 Nonrheumatic mitral (valve) insufficiency; E78.5 Hyperlipidemia, unspecified; G47.33 Obstructive sleep apnea (adult) (pediatric); J30.9 Allergic rhinitis, unspecified; Z79.82 Long term (current) use of aspirin; Z79.899 Other long term (current) drug therapy; Z66 Do not resuscitate
CPT/HCPCS: 36415; 80048; 80053; 83735; 84100; 84439; 84443; 85025; 97802; 99284; J7030; J7040; A4216

== ENCOUNTER 2024-02-18 14:55 | Outpatient (RCR) | payer MEDICARE, OTHER, SELFPAY ==
[2024-01-16 00:21] VITALS: BMI 21.1
[2024-02-18 15:35] LABS: Absolute Lymphocyte Count 1.58 X10^3/uL (0.83-4.51); Absolute Neutrophil Count 2.5 X10^3/uL (2.0-7.7); Basophil# 0.02 X10^3/uL; Basophil% 0.4 % (0-1); Eosinophil# 0.16 X10^3/uL; Eosinophils% 3.4 % (0-5); Hematocrit 31.3 % (37-47); Hemoglobin 10.6 g/dL (12.0-15.0); Lymphocyte # 1.58 X10^3/ul (0.83-4.51); Lymphocyte % 33.3 % (19-41); Mean Corp Hgb Conc 33.9 g/dL (32-36); Mean Corpuscular Hgb 31.3 pg (27.0-32.0); Mean Corpuscular Volume 92.3 fL (81-99); Mean Platelet Vol. 8.6 fl (6.2-12.0); Monocyte# 0.52 X10^3/uL; NRBC Flagged by Analyzer 0 % (0-5); Neutrophil # 2.45 X10^3/uL (2.7-7.7); Neutrophil % 51.7 % (47-70); Platelet Count 225 K/mm3 (150-450); RBC Distribution Width CV 13.3 % (11.6-14.6); RBC Distribution Width SD 44.8 fl (35.1-43.9); Red Blood Count 3.39 M/mm3 (4.2-5.4); White Blood Count 4.7 K/mm3 (4.4-11.0)
[2024-02-20 05:07] LABS: Immunoglobulin G 565 mg/dL (586-1602)
== END 2024-03-16 23:59 ==
LOC: PAVLAB 14:55
PROVIDERS: PCP Family Medicine
DX: C91.10 Chronic lymphocytic leukemia of B-cell type not having achieved remission (principal); D80.1 Nonfamilial hypogammaglobulinemia
CPT/HCPCS: 36415; 82784; 85025

== ENCOUNTER 2024-02-26 09:02 | Outpatient (CLI) | payer MEDICARE, OTHER, SELFPAY ==
[2024-01-02 09:40] VITALS: BMI 22.8
[2024-02-26 09:28] VITALS: BP 135/66; PULSE 89; RESP 16; TEMP 36.2; O2SAT 97; BMI 22.9
[2024-02-26] MEDS: Acetaminophen 325 MG Tablet 650 MG PO (09:36)
[2024-02-26] MEDS: DiphenhydrAMINE 50 MG/ML Syringe IV (09:37)
[2024-02-26] MEDS: 0.9% NaCl IVPB Med Flush (250 mL) 15 ML IV (09:59)
[2024-02-26] MEDS: 0.9% NaCl Peripheral Flush Adult/Peds IV (09:59)
[2024-02-26] MEDS: Immune Globulin 20 gm Premixed Solution 28.5 BAG IV (10:05)
== END 2024-02-26 09:03 | disposition home or self-care (01) ==
PROVIDERS: PCP Family Medicine
DX: C91.10 Chronic lymphocytic leukemia of B-cell type not having achieved remission (principal); D80.1 Nonfamilial hypogammaglobulinemia
CPT/HCPCS: 96365; 96366; 96375; J7050; A4216; J1568

== ENCOUNTER 2024-03-06 14:10 | Emergency (ER) | payer MEDICARE, OTHER, SELFPAY ==
[2024-03-06 14:11] VITALS: BP 135/61; PULSE 90; RESP 18; TEMP 35.9; O2SAT 96; BMI 24.0
--- NOTE | 2024-03-06 14:22 | ED.VIS.LOWEX ---
HPI History of Present Illness HPI Narrative: Right lower leg laceration. Chief Complaint: Laceration Informant: patient Onset/Context/Timing Onset: Today and Hours Context: Sudden Onset Timing: Continuous Maximum Severity: Mild Narrative Narrative: 73-year-old female history of CLL, A-fib and anemia. Not on blood thinners besides aspirin. Was doing some yard work and when she was walking and picking up sticks a stick caught her in her right lower leg causing a laceration. This occurred less than 2 hours ago. Unsure of her last tetanus shot. Denies any other complaints. She does not believe any of the stick broke off she thinks just poked her in the leg. Tetanus Immunization: Unknown Prior similar symptoms: No Recent Illness/Hospitalization: No PFSH PFSH Medical History Anemia Attention deficit disorder with hyperactivity BCC (basal cell carcinoma) Bleeding disorder Chronic atrial fibrillation CLL (chronic lymphoid leukemia) in relapse Daytime somnolence Depressive disorder Essential hypertension Hives as manifestation of blood transfusion reaction Hyperlipidemia Hypogammaglobulinemia, acquired Longstanding persistent atrial fibrillation Measles Mitral insufficiency Mitral valve insufficiency Nocturia ERMIAS (obstructive sleep apnea) Osteoarthritis Osteoporosis Presence of Watchman left atrial appendage closure device (~11/2019) RBBB Rheumatoid arthritis Right carpal tunnel syndrome SCC (squamous cell carcinoma) T12 vertebral fracture Tibialis posterior tendon rupture Home Medications ascorbic acid (vitamin C) 1,000 mg tablet 5 g PO DAILY supplement 06/22/19 [History Last Taken Unknown] zinc 50 mg tablet 50 mg PO DAILY vitamin 06/22/19 [History Last Taken Unknown] aspirin 325 mg tablet,delayed release 325 mg PO DAILY blood thinner 05/31/20 [History Last Taken 01/05/24] valacyclovir 500 mg tablet 500 mg PO DAILY anti viral #30 tabs 06/08/20 [Rx Last Taken Unknown] magnesium 200 mg tablet 100 mg PO DAILY mineral 09/07/20 [History Last Taken Unknown] folic acid 1 mg tablet 1 mg PO DAILY supplement 05/10/21 [History Last Taken Unknown] cholecalciferol (vitamin D3) 125 mcg (5,000 unit) tablet 12,000 unit PO DAILY viatmin 08/24/21 [History Last Taken Unknown] cyanocobalamin (vitamin B-12) 1,000 mcg tablet 1,000 mcg PO DAILY vitamin 08/24/21 [History Last Taken Unknown] carvedilol 12.5 mg tablet 12.5 mg PO Q12H heart #60 tabs 01/05/24 [Rx Last Taken Unknown] vitamin K2 90 mcg capsule 90 mcg PO DAILY vitamin 02/03/24 [History Last Taken Unknown] sacubitril 24 mg-valsartan 26 mg tablet (Entresto) 1 tab PO BID 02/26/24 [History Last Taken Unknown] Allergy/AdvReac Type Severity Reaction Status Date / Time No Known Allergies Allergy Verified 03/06/24 14:10 Family History Father Hypertension CAD (coronary artery disease) Myocardial infarction Mother CVA (cerebral vascular accident) Hypertension CAD (coronary artery disease) Myocardial infarction Surgical History H/O vertebroplasty History of bunionectomy of both great toes History of Moh's micrographic surgery for skin cancer History of total left knee replacement (TKR) Social History household members: none Smoking Status: Never smoker alcohol intake: never substance use type: former substance user, marijuana and other details: Has a medical marijuana caffeine: Yes Type: coffee Number of servings: 3 ROS ROS ED ROS Narrative Denies recent illness. Review of Systems ROS Unobtainable: Denies due to encephalopathy Constitutional Constitutional ED: Denies chills or fever(s) Eyes Eyes: Denies blurry vision ENT ENT ED: Denies ear pain Cardiovascular Cardiovascular: Denies chest pain Respiratory/Chest Respiratory/Chest: Denies cough or dyspnea Gastrointestinal Gastrointestinal: Denies abdominal pain Genitourinary Genitourinary ED: Denies dysuria or hematuria Musculoskeletal Musculoskeletal: Denies arthralgias Integumentary Denies abscess or Abrasions Neurologic Neurologic: Denies headache(s) Psychiatric Psychiatric: Denies anxiety or depression Endocrine Endocrinology: Denies polydipsia or polyphagia Hematologic/Lymphatic Hematologic/Lymphatic: Denies easy bleeding, easy bruising or lymphadenopathy Allergic/Immunologic Allergic/Immunologic ED: Denies mouth swelling, tongue swelling or urticaria EXAM Physical Exam Narrative Exam Narrative: Well-appearing 73-year-old female. Vital signs stable afebrile. HEENT exam pupils are round and reactive light. She has a bandage on the left side of her face from her recent melanoma resection. Lungs are clear equal and symmetrical. Heart regular rhythm no murmur. Abdomen soft nontender. Chest wall and ribs nontender. Moves all 4 extremities. Normal inspector brake lining strength. Normal dorsi plantarflexion. Right lower leg distal peralta above the ankle she is about a 3 inch laceration that is linear. No pulsatile bleeding. No large hematoma. No obvious foreign body. No signs of infection. She has full flexion extension of the right hip, knee ankle and foot. Normal dorsi plantarflexion. Able to wiggle her toes. Normal touch sensation. The right Const Vital Signs: 03/06/24 14:11 Temperature 96.7 F L Temperature Source Temporal Pulse Rate 90 Respiratory Rate 18 Blood Pressure 135/61 H Blood Pressure Mean 85 Pulse Ox 96 Oxygen Delivery Method Room Air Positive well nourished and well developed; Negative for obese, cachectic, contractures or unkempt General Appearance ED: well developed; Negative for unkempt, cachectic or contractures Nutritional Appearance: Negative for cachectic or obese HEENT Reports moist mucous membranes normocephalic and atraumatic; Negative for trauma or tenderness Eyes PERRL General Eye ED: Negative for other Neck full ROM and supple Thyroid: Negative for tender Lymph Lymphatic: Negative for other Chest Wall inspection of chest normal and palpation of chest normal Resp normal respiratory effort, no retractions and clear to auscultation bilaterally Effort and Inspection: Negative for pain with movement Auscultation: Negative for rales, rhonchi or wheezes Cardio regular rate, regular rhythm, S1 normal heart sound, S2 normal heart sound and no murmurs Rate: Negative for bradycardia or tachycardic Rhythm: Negative for abnormal rhythm Bruits: Negative for other GI non-tender, non-distended and no masses Inspection: Negative for abdominal distention Auscultation: normoactive bowel sounds Palpation: Negative for soft, tender, guarding or rebound tenderness present Back/Spine no CVA tenderness Extremity normal to inspection and full ROM Extremity Narrative: Except right lower leg 3 inch laceration. Linear. Flap. No foreign body. No infection. No redness. No pulsatile bleeding. No hematoma. No bony deformity. Distally neurovascular intact. General Extremety ED: Negative for cyanosis or edema General Extremity: Negative for cyanosis or edema Neuro oriented x3, CN's II-XII intact bilaterally and moves all extremities Sensorium / Orientation: alert, oriented to person, oriented to place and oriented to time; Negative for orientation impaired, confused, lethargic or stuporous Motor Exam: strength 5/5 throughout Psych mental status grossly normal Appearance: Negative for unkempt Speech: No other Mood & Affect: Negative for anxious Skin no wounds Lesions: no lesions Rashes: no rashes Trauma: laceration linear, irregular and involves subcutaneous tissue; Negative for abrasion MDM MDM MDM Narrative Medical decision making narrative: Right lower leg laceration only repaired. Tetanus updated. Local anesthetized with let. Then subcu lidocaine. Cleaned with Shur-Clens. Washed and irrigated with saline. Explored. Closed using 4-0 Ethilon simple erupted sutures. Patient instructed on wound care and suture removal in 10 to 14 days. Procedures Lacerations Right lower extremity laceration repair:: Length: 3.5 in Depth: Sub Q Shape: J-shaped laceration Prep: Shcaroline-Marsha Laceration repair: Irrigated, Lidocaine, Local and Skin sutures Number of Sutures/[place]: 9 Suture Information: Ethilon, Simple and 4-0 Comment: Patient had laceration 3 to 4 inches in length right lower anterior leg. Local anesthetized with lidocaine. Cleaned with Shur-Clens. Washed and irrigated with saline. Explored. No foreign body noted. Closed using 9 simple interrupted 4-0 Ethilon sutures. Proper hemostasis and wound closure is obtained. Patient tolerated procedure well. She was instructed on wound care and suture removal. Discharge Plan Triage Chief Complaint: Laceration ED Provider: Clifford Saavedra Dx/Rx/DC Orders Clinical Impression: Family history of CLL (chronic lymphoid leukemia), Laceration of leg, History of chronic atrial fibrillation Instructions: ED Laceration, All Closures Prescriptions: No Action ascorbic acid (vitamin C) 1,000 mg tablet 5 g PO DAILY zinc 50 mg tablet 50 mg PO DAILY cholecalciferol (vitamin D3) 125 mcg (5,000 unit) tablet 12,000 unit PO DAILY magnesium 200 mg tablet 100 mg PO DAILY cyanocobalamin (vitamin B-12) 1,000 mcg tablet 1,000 mcg PO DAILY folic acid 1 mg tablet 1 mg PO DAILY aspirin 325 MG tablet,delayed release (DR/EC) 325 mg PO DAILY valacyclovir 500 MG tablet 500 mg PO DAILY Qty: 30 6RF carvedilol 12.5 mg tablet 12.5 mg PO Q12H Qty: 60 3RF Rx Instructions: must administer with a meal/food Entresto 24-26 mg tablet 1 tab PO BID vitamin K2 90 mcg capsule 90 mcg PO DAILY Primary Care Provider: Perez Rios Referrals: Perez Rios MD [Primary Care Provider] - 10 Day for suture removal Activity Restrictions/Additional Instructions: Clean the wound daily with either soap and water or peroxide and water. Dry thoroughly. Do not soak this in any dirty water. Apply antibiotic ointment daily. Watch for any signs of infection such as pus, swelling, redness or red streaks or fever if seen return. Stitches out in 10 to 14 days. Your tetanus shot was updated and you are good for 10 years. Disposition Disposition: Home, Self Care
[2024-03-06] MEDS: Lidocaine 1% (20 ml mdv) 20 ML Vial 10 ML INFILT (14:33)
[2024-03-06] MEDS: Diphth,Pertuss(Acell),Tet Vac 0.5 ML Vial IM (14:33)
[2024-03-06 14:59] VITALS: BP 121/79; PULSE 85; RESP 16; TEMP 36.6; O2SAT 97
== END 2024-03-06 15:01 | disposition home or self-care (01) ==
LOC: ED 15:00
PROVIDERS: Emergency Provider Emergency Medicine; PCP Family Medicine; Visit Provider Emergency Medicine
DX: S81.811A Laceration without foreign body, right lower leg, initial encounter (principal); I48.20 Chronic atrial fibrillation, unspecified; W22.8XXA Striking against or struck by other objects, initial encounter; Y93.H2 Activity, gardening and landscaping; Y92.096 Garden or yard of other non-institutional residence as the place of occurrence of the external cause; Z23 Encounter for immunization; I10 Essential (primary) hypertension; E78.5 Hyperlipidemia, unspecified; Z79.82 Long term (current) use of aspirin; Z79.899 Other long term (current) drug therapy
CPT/HCPCS: 12004; 90471; 90715; 99283

== ENCOUNTER → 2024-03-19 | Outpatient (CLI) | payer MEDICARE, OTHER, SELFPAY ==
[2024-03-19 13:28] LABS: Absolute Lymphocyte Count 1.44 X10^3/uL (0.83-4.51); Absolute Neutrophil Count 3.6 X10^3/uL (2.0-7.7); Basophil# 0.03 X10^3/uL; Basophil% 0.5 % (0-1); Eosinophil# 0.31 X10^3/uL; Hematocrit 33.2 % (37-47); Hemoglobin 10.8 g/dL (12.0-15.0); Lymphocyte # 1.44 X10^3/ul (0.83-4.51); Lymphocyte % 23.4 % (19-41); Mean Corp Hgb Conc 32.5 g/dL (32-36); Mean Corpuscular Hgb 30.3 pg (27.0-32.0); Mean Corpuscular Volume 93.3 fL (81-99); Mean Platelet Vol. 9.2 fl (6.2-12.0); Monocyte# 0.78 X10^3/uL; Monocyte% 12.7 % (0-10); NRBC Flagged by Analyzer 0 % (0-5); Neutrophil # 3.58 X10^3/uL (2.7-7.7); Neutrophil % 58.1 % (47-70); Platelet Count 215 K/mm3 (150-450); RBC Distribution Width SD 44.7 fl (35.1-43.9); Red Blood Count 3.56 M/mm3 (4.2-5.4); White Blood Count 6.2 K/mm3 (4.4-11.0)
[2024-03-19 13:55] LABS: BNP,B-Type NATRIURETIC PEPTIDE 258.5 pg/mL (0-100)
[2024-03-19 14:00] LABS: Anion Gap 5 (5-15); BUN 15 mg/dL (7-18); BUN/Creat Ratio 20.3 RATIO (10-20); Calcium,Total 9.2 mg/dL (8.5-10.1); Chloride 108 mmol/L (98-107); Creatinine, Serum 0.74 mg/dL (0.55-1.02); EST Glomerular Filtration Rate 82 mL/min (>60); Est Glom Filt Rate - Afr Amer 99 mL/min (>60); Glucose 94 mg/dL (74-106); Potassium 4.1 mmol/L (3.5-5.1); Sodium Level 139 mmol/L (136-145)
== END | disposition home or self-care (01) ==
LOC: LAB 12:55
PROVIDERS: PCP Family Medicine; Referring Provider Nurse Practitioner Family; Visit Provider Nurse Practitioner Family
DX: I42.8 Other cardiomyopathies (principal); I48.11 Longstanding persistent atrial fibrillation; R06.09 Other forms of dyspnea; E78.5 Hyperlipidemia, unspecified
CPT/HCPCS: 36415; 80048; 83880; 85025

== ENCOUNTER 2024-04-09 11:33 | Outpatient (CLI) | payer MEDICARE, OTHER, SELFPAY ==
[2024-04-09] MEDS: 0.9% NaCl Peripheral Flush Adult/Peds IV (11:51)
[2024-04-09] MEDS: Acetaminophen 325 MG Tablet 650 MG PO (11:56)
[2024-04-09] MEDS: DiphenhydrAMINE 50 MG/ML Syringe IV (11:57)
[2024-04-09 12:02] VITALS: BP 100/52; PULSE 72; RESP 16; TEMP 35.9; O2SAT 98; BMI 22.8
[2024-04-09] MEDS: Immune Globulin 5 GM 5 GM/50 ML VIAL IV ×4 (12:19→14:23)
== END 2024-04-09 23:59 | disposition home or self-care (01) ==
LOC: MEDOUTP 11:33
PROVIDERS: PCP Family Medicine; Referring Provider Physician Assistant; Visit Provider Physician Assistant
DX: C91.10 Chronic lymphocytic leukemia of B-cell type not having achieved remission (principal); D80.1 Nonfamilial hypogammaglobulinemia
CPT/HCPCS: 96365; 96366; 96367; A4216; J1568

== ENCOUNTER 2024-05-12 13:07 | Outpatient (RCR) | payer MEDICARE, OTHER, SELFPAY ==
[2024-03-17 00:08] VITALS: BMI 21.1
[2024-05-12 13:31] LABS: Absolute Lymphocyte Count 1.63 X10^3/uL (0.83-4.51); Absolute Neutrophil Count 2.8 X10^3/uL (2.0-7.7); Basophil# 0.02 X10^3/uL; Basophil% 0.4 % (0-1); Eosinophils% 3.8 % (0-5); Hematocrit 33.2 % (37-47); Lymphocyte # 1.63 X10^3/ul (0.83-4.51); Lymphocyte % 31.2 % (19-41); Mean Corp Hgb Conc 33.1 g/dL (32-36); Mean Corpuscular Hgb 30.7 pg (27.0-32.0); Mean Corpuscular Volume 92.7 fL (81-99); Mean Platelet Vol. 9.1 fl (6.2-12.0); Monocyte# 0.58 X10^3/uL; Monocyte% 11.1 % (0-10); NRBC Flagged by Analyzer 0 % (0-5); Neutrophil # 2.77 X10^3/uL (2.7-7.7); Neutrophil % 53.1 % (47-70); Platelet Count 175 K/mm3 (150-450); RBC Distribution Width CV 13.5 % (11.6-14.6); RBC Distribution Width SD 46.4 fl (35.1-43.9); Red Blood Count 3.58 M/mm3 (4.2-5.4); White Blood Count 5.2 K/mm3 (4.4-11.0)
[2024-05-12 13:47] LABS: ALB/GLOB Ratio 1.2 RATIO (0.9-2.4); AST(SGOT) 21 U/L (15-37); Alanine Aminotransfer ALT/SGPT 26 U/L (13-56); Albumin, Serum 3.9 g/dL (3.2-5.0); Alkaline Phosphatase 60 U/L (45-117); Anion Gap 7 (5-15); BUN 25 mg/dL (7-18); BUN/Creat Ratio 28.1 RATIO (10-20); Calcium,Total 9.1 mg/dL (8.5-10.1); Chloride 111 mmol/L (98-107); Creatinine, Serum 0.89 mg/dL (0.55-1.02); EST Glomerular Filtration Rate 66 mL/min (>60); Est Glom Filt Rate - Afr Amer 80 mL/min (>60); Globulin 3.2 g/dL (2.2-4.2); Glucose 141 mg/dL (74-106); Magnesium 2.4 mg/dL (1.6-2.6); Potassium 4.1 mmol/L (3.5-5.1); Protein, Total 7.1 g/dL (6.4-8.2); Sodium Level 142 mmol/L (136-145)
[2024-05-12 14:09] LABS: Vitamin D,25 Hydroxy 84.5 ng/mL
[2024-05-14 11:09] LABS: Immunoglobulin G 739 mg/dL (586-1602)
== END 2024-05-16 23:59 ==
LOC: PAVLAB 13:07
PROVIDERS: PCP Family Medicine
DX: C91.10 Chronic lymphocytic leukemia of B-cell type not having achieved remission (principal); I48.91 Unspecified atrial fibrillation; E55.9 Vitamin D deficiency, unspecified; D80.1 Nonfamilial hypogammaglobulinemia
CPT/HCPCS: 36415; 80053; 82306; 82784; 83735; 85025

== ENCOUNTER 2024-06-08 13:30 | Outpatient (RCR) | payer MEDICARE, OTHER, SELFPAY ==
[2024-05-25 13:11] VITALS: BP 121/64; PULSE 71; RESP 20; TEMP 36.3; BMI 23.3
--- NOTE | 2024-05-25 21:43 | HP.PCM_ITS ---
History of Present Illness Date of Service: 05/25/24 Chief Complaint: Traumatic wound to the right lateral calf History of Wound: This is a 73-year-old female who presented with a traumatic wound on the right lateral calf. The wound occurred several months prior to the patient's presentation, the result of a penetrating wound from a tree branch. The wound failed to heal, prompting the patient to seek medical attention at the [facility]. At the time of the initial injury, the patient was seen in the [facility] emergency department, where the unsuccessful attempt at suture closure was made. The patient states that the wound has shown signs of healing, but she indicated that she likely retraumatized the area, causing it to worsen. She has been treated by other providers, and was seen on one occasion by the [facility], where she was given Zuly for topical use. She has also been treated with a course of doxycycline, presumably for associated cellulitis. Patient is active. She is self-sufficient. She lives alone. She is . She claims to sleep on a flat mattress at night. She denies swelling in her lower extremities. She is a vegetarian. She suffers from multiple pre-existing medical conditions, which are listed elsewhere. These involve chronic lymphocytic leukemia, for which she has previously been treated with chemotherapy, though not presently. The patient is of normal body habitus, with a BMI of 23.3. [facility] Medical History Penetrating wound Traumatic open wound of right lower leg Vegetarian diet ERMIAS (obstructive sleep apnea) Non-ischemic cardiomyopathy Daytime somnolence Longstanding persistent atrial fibrillation Mitral valve insufficiency Presence of Watchman left atrial appendage closure device (~11/2019) T12 vertebral fracture Hyperlipidemia Mitral insufficiency Tibialis posterior tendon rupture RBBB Chronic atrial fibrillation Rheumatoid arthritis Osteoporosis Osteoarthritis Depressive disorder Attention deficit disorder with hyperactivity Essential hypertension Hypogammaglobulinemia, acquired BCC (basal cell carcinoma) SCC (squamous cell carcinoma) CLL (chronic lymphoid leukemia) in relapse Right carpal tunnel syndrome Nocturia Measles Hives as manifestation of blood transfusion reaction Bleeding disorder Anemia Home Medications ?Medication ?Instructions ?Recorded ?Last Taken ?Type zinc 50 mg tablet 50 mg PO DAILY vitamin 06/22/19 Unknown History valacyclovir 500 mg tablet 500 mg PO DAILY anti viral #30 tabs 06/08/20 Unknown Rx folic acid 1 mg tablet 1 mg PO DAILY supplement 05/10/21 Unknown History cyanocobalamin (vitamin B-12) 1,000 mcg PO DAILY vitamin 08/24/21 Unknown History 1,000 mcg tablet vitamin K2 90 mcg capsule 90 mcg PO DAILY vitamin 02/03/24 Unknown History ascorbic acid (vitamin C) 1,000 mg 1 g PO DAILY supplement 03/19/24 Unknown History tablet atorvastatin 20 mg tablet 20 mg PO QDAY 03/19/24 Unknown History cholecalciferol (vitamin D3) 25 25 mcg PO DAILY 03/19/24 Unknown History mcg (1,000 unit) tablet coenzyme Q10 100 mg capsule (Co 100 mg PO DAILY 03/19/24 Unknown History Q-10) empagliflozin 10 mg tablet 10 mg PO QDAY 03/19/24 Unknown History (Jardiance) magnesium oxide 1,000 mg PO QHS 03/19/24 Unknown History aspirin 81 mg tablet,delayed 81 mg PO QDAY 05/19/24 Unknown History release furosemide 40 mg tablet (Lasix) 40 mg PO Q12H PRN edema 05/19/24 Unknown History metoprolol succinate 50 mg 50 mg PO BID 05/19/24 Unknown History tablet,extended release 24 hr sacubitril 24 mg-valsartan 26 mg 0.5 tab PO BID 05/19/24 Unknown History tablet (Entresto) Allergy/AdvReac Type Severity Reaction Status Date / Time No Known Allergies Allergy Verified 05/25/24 13:42 Family History Father Hypertension CAD (coronary artery disease) Myocardial infarction Mother CVA (cerebral vascular accident) Hypertension CAD (coronary artery disease) Myocardial infarction Surgical History H/O vertebroplasty History of Moh's micrographic surgery for skin cancer History of total left knee replacement (TKR) History of bunionectomy of both great toes Social History household members: none Smoking Status: Never smoker alcohol intake: never substance use type: former substance user, marijuana and other details: Has a medical marijuana caffeine: Yes Type: coffee Number of servings: 3 Vital Signs Vital Signs Vital Signs: 05/25/24 13:11 Temperature 97.3 F L Temperature Source Temporal Pulse Rate 71 Respiratory Rate 20 H Blood Pressure 121/64 H Blood Pressure Mean 83 Blood Pressure Source Monitor Weight Weight: 140 lb 10.354 oz Body Mass Index (BMI) 23.3 Physical Exam Const alert, oriented x3, no apparent distress, average body habitus and well nourished Constitutional Narrative: Patient's BMI is 23.3. General Appearance: cooperative, comfortable, well kempt and well developed Orientation / Consciousness: awake, oriented to person, oriented to place and oriented to time Exam Limitations: no limitations HEENT normocephalic, head/scalp atraumatic and external ears normal Head and Scalp: normal to inspection, normocephalic and atraumatic Nose: external nose normal External Ear: external ears normal Eyes PERRL and EOMs intact bilaterally General Eye: normal appearance of both eyes Neck full ROM Resp normal respiratory effort, normal air movement, no retractions, no use of accessory muscles and clear to auscultation bilaterally Effort and Inspection: able to speak in complete sentences Cardio regular rate, regular rhythm, S1 normal heart sound and S2 normal heart sound Rate: regular rate Rhythm: regular rhythm Extremity no calf tenderness General Extremity: Negative for clubbing or cyanosis Skin Wound Narrative: The wound is noted on the right lateral calf. There is no sign of infection or cellulitis. There is a moderate amount of bioburden. The wound is otherwise generally pink and healthy in appearance. Dimensions are documented elsewhere. The wound extends into the subcutaneous tissue. Hair: normal Neuro oriented x3, CN's II-XII intact bilaterally, moves all extremities and no focal motor deficits Sensorium / Orientation: awake, alert, oriented to person, oriented to place, oriented to time and orientation impaired Psych Appearance: grossly normal and appropriate Attitude: calm Activity / Motor Behavior: appropriate eye contact Speech: normal speech Mood & Affect: euthymic mood Thought Process: normal thought process Thought Content: normal thought content Attention / Concentration: attention grossly intact Debridement Note Debridement Note Wound debrided: Right lateral calf Laterality: Right Type of Debridement: Excisional debridement Anesthesia Used: 5% Lidocaine Gel Depth: Down to and including healthy tissue and in the subcutaneous layer Percentage of wound debrided: 100 Instrument Used: 5mm curette Severity: Fat Layer Exposed Amount of bleeding with debridement: Mild Bleeding Controlled with: Compression and gauze Patient tolerated procedure: Patient tolerated procedure well Post-Debridement Measurements and Additional Note: Post-Debridement Measurements/Treatment - Nurse 1 - General Ulcer Assessment Start: 05/25/24 13:10 Freq: Status: Active Protocol: KARLA Activity Type Activity Date Activity User E-sign Co-sign Detail Recorded Client Recorded Date Recorded By Document 05/25/24 13:11 DL [email or web address] 05/25/24 13:37 DL 05/25/24 13:11 WC - Today's Visit Information Type of service Initial Visit Arrival Mode Ambulatory Transfer Assistance None Patient Identification Verified (Name & Yes ) Patient Requires Transmission-Based No Precautions Height and Weight Height 5 ft 5 in Weight 140 lb 10.354 oz Weight in Pounds 140.6 lbs Weight Measurement Method Estimated by Patient Body Mass Index (BMI) 23.3 BMI Classification Normal BSA - Edenilson 1.70 Vital Signs Temperature (97.8 F-99.1 F) 97.3 F L Temperature Source Temporal Pulse Rate (60-100) 71 Pulse Location Monitor Respiratory Rate (12-18) 20 H Respiratory rate source Observation Blood Pressure (90/60-120/80) 121/64 H Blood Pressure Mean 83 Source Monitor Pain Scale: 0-10 Numeric Is Patient Pain Free? Yes Lower Extremity Assessment/ Foot Assessment/ Toe Nail Assessment Left -Popliteal Doppler Multiphasic -Posterior Tibial Palpable Yes -Posterior Tibial Doppler Multiphasic -Dorsalis Pedis Palpable Yes -Extremity Color Normal -Hair Growth on Legs Yes -Hair Growth on Toes No -Temperature of Extremity Warm -Capillary Refill Less than 3 Seconds -Dependent Rubor No -Blanched when Elevated No -Lipodermatosclerosis No -Other Deformity No -Prior Foot Ulcer No -Charcot Joint No -Prior Amputation No -Thick Yes -Discolored Yes -Deformed Yes -Improper Length & Hygeine No Right -Popliteal Doppler Multiphasic -Posterior Tibial Palpable Yes -Posterior Tibial Doppler Multiphasic -Dorsalis Pedis Palpable Yes -Extremity Color Normal -Hair Growth on Legs Yes -Hair Growth on Toes No -Temperature of Extremity Warm -Capillary Refill Less than 3 Seconds -Dependent Rubor No -Blanched when Elevated No -Lipodermatosclerosis No -Other Deformity No -Prior Foot Ulcer No -Charcot Joint No -Prior Amputation No -Thick Yes -Discolored Yes -Deformed Yes -Improper Length & Hygeine No WC - Nurse 1 - General Ulcer Measurement Start: 05/25/24 13:10 Freq: Status: Active Protocol: Activity Type Activity Date Activity User E-sign Co-sign Detail Recorded Client Recorded Date Recorded By Document 05/25/24 13:11 DL [email or web address] 05/25/24 13:37 DL 05/25/24 13:11 Wound Center Nurse 1 #1 RLE -Current Size (cm) - Length 0.8 -Current Size (cm) - Width 1.4 -Current Size (cm) - Depth 0.1 -Total Square Cm 1.12 -Photo Taken Yes -Exudate Amt Medium -Exudate Type Serosanguineous -Wound Margin Distinct, Outline Attached -Granulation Amt Large (67-100%) -Necrosis Amt Medium (34-66%) -Necrotic Tissue Type Adherent Slough -Structure Exposed N/A -Texture (Sima-wound Skin Appearance) Scarring -Moisture (Sima-wound Skin Appearance) No Abnormality -Color (Sima-wound Skin Appearance) No Abnormality -Temperature (Sima-wound Skin No Abnormality Appearance) (Pt Warm) -Tenderness on Palpation (Sima-wound No Skin Appearance) -Ulcer Cleansing Soap and Water -Foul Odor after Cleansing No -Anesthetic Used 5% Lidocaine Gel Right Calf (cm) 34.4 Right Ankle (cm) 20.2 Left Calf (cm) 33.6 Left Ankle (cm) 21.5 WC - Nurse 2 - General Ulcer CM Notes Start: 05/25/24 13:10 Freq: Status: Active Protocol: Activity Type Activity Date Activity User E-sign Co-sign Detail Recorded Client Recorded Date Recorded By Document 05/25/24 13:58 JF 0000 05/25/24 14:02 JF 05/25/24 13:58 Wound Center Nurse 2 #1 RLE -Time 13:58 -Correct Patient Yes -Correct Side, Site, Position Yes -Correct Procedure Yes -Procedure Performed Yes -Type of Procedure Debridement -Clinical Debridement Subcutaneous -Tissue Removed Subcutaneous -Post Debridement (cm) - Length 1.2 -Post Debridement (cm) - Width 1.7 -Post Debridement (cm) - Depth 0.1 -Total Square (Post) (cm) 2.04 -Area of Debridement (cm) - Length 1.2 -Area of Debridement (cm) - Width 1.7 -Total Square (Area) (cm) 2.04 -Tunneling No -Undermining/Tunneling No -Circular Undermining No -Wound/Ulcer Outcome Not Healed -Ulcer Cleansing Rinsed/ Irrigated with Saline -Foul Odor after Cleansing No -Bioengineered Tissue No -Bleeding Controlled with Pressure -Treatment Response Procedure Tolerated Well -Offloading No -Debridement - Subq, 1st 20sq cm Yes Pain Scale: 0-10 Numeric Is Patient Pain Free? Yes WC - Nurse 3 - General Ulcer D/C NN Start: 05/25/24 13:10 Freq: Status: Active Protocol: Activity Type Activity Date Activity User E-sign Co-sign Detail Recorded Client Recorded Date Recorded By Document 05/25/24 14:16 DL [email or web address] 05/25/24 14:17 DL 05/25/24 14:16 Wound Care Center Nurse 3 #1 RLE -Ulcer Cleansing Rinsed/ Irrigated with Saline -Foul Odor after Cleansing No -Primary Dressing Applied Mepilex Border, Promogran Zuly Matter -Mepilex Border 1 -Promogran Zuly Matter 1 Treatment Response Procedure Tolerated Well Pain Scale: 0-10 Numeric Is Patient Pain Free? Yes WC - Visit Discharge Discharge Condition Stable Ambulatory Status Ambulatory Transportation Private Auto Lab / Micro Data Labs: Laboratory Tests 05/12/24 13:15 WBC 5.2 Hgb 11.0 L Hct 33.2 L Plt Count 175 Sodium 142 Potassium 4.1 Chloride 111 H BUN 25 H Creatinine 0.89 Glucose 141 H Calcium 9.1 Magnesium 2.4 Total Bilirubin 0.80 AST 21 ALT 26 Alkaline Phosphatase 60 Total Protein 7.1 Albumin 3.9 Charges/Coding Multi Select Codes Visit Charges Office Visit/Consults: 75351 OV L4 New 45 min Integumentary Integumentary CPT Codes: 45166 Danyell subq tissue 20 sq cm/< Assessment/Plan Assessment/Plan (1) Traumatic open wound of right lower leg: CODE(S): S81.801A - Unspecified open wound, right lower leg, initial encounter QUALIFIERS: Encounter type: initial encounter Qualified Code(s): S81.801A - Unspecified open wound, right lower leg, initial encounter (2) Penetrating wound: CODE(S): T14.8XXA - Other injury of unspecified body region, initial encounter (3) Non-ischemic cardiomyopathy: CODE(S): I42.8 - Other cardiomyopathies (4) MICHAEL (dyspnea on exertion): CODE(S): R06.09 - Other forms of dyspnea (5) Longstanding persistent atrial fibrillation: CODE(S): I48.11 - Longstanding persistent atrial fibrillation (6) Mitral valve insufficiency: CODE(S): I34.0 - Nonrheumatic mitral (valve) insufficiency (7) Presence of Watchman left atrial appendage closure device: CODE(S): Z95.818 - Presence of other cardiac implants and grafts (8) CLL (chronic lymphoid leukemia) in relapse: CODE(S): C91.92 - Lymphoid leukemia, unspecified, in relapse (9) Autoimmune hemolytic anemia: CODE(S): D59.1 - Other autoimmune hemolytic anemias (10) Esophageal reflux: CODE(S): K21.9 - Gastro-esophageal reflux disease without esophagitis QUALIFIERS: Esophagitis presence: esophagitis presence not specified Qualified Code(s): K21.9 - Gastro-esophageal reflux disease without esophagitis (11) Hyperlipidemia: CODE(S): E78.5 - Hyperlipidemia, unspecified QUALIFIERS: Hyperlipidemia type: unspecified Qualified Code(s): E78.5 - Hyperlipidemia, unspecified (12) Mitral insufficiency: CODE(S): I34.0 - Nonrheumatic mitral (valve) insufficiency QUALIFIERS: Cardiac valve disease etiology: nonrheumatic Quali fied Code(s): I34.0 - Nonrheumatic mitral (valve) insufficiency (13) RBBB: CODE(S): I45.10 - Unspecified right bundle-branch block (14) Chronic atrial fibrillation: CODE(S): I48.2 - Chronic atrial fibrillation (15) Essential hypertension: CODE(S): I10 - Essential (primary) hypertension (16) Hypogammaglobulinemia, acquired: CODE(S): D80.1 - Nonfamilial hypogammaglobulinemia (17) Personal history of CLL (chronic lymphocytic leukemia): CODE(S): Z85.6 - Personal history of leukemia (18) Osteoarthritis: CODE(S): M19.90 - Unspecified osteoarthritis, unspecified site (19) ERMIAS (obstructive sleep apnea): CODE(S): G47.33 - Obstructive sleep apnea (adult) (pediatric) (20) Osteoporosis: CODE(S): M81.0 - Age-related osteoporosis without current pathological fracture (21) Rheumatoid arthritis: CODE(S): M06.9 - Rheumatoid arthritis, unspecified (22) Vegetarian diet: CODE(S): Z78.9 - Other specified health status (23) H/O vertebroplasty: CODE(S): Z98.890 - Other specified postprocedural states (24) History of total left knee replacement (TKR): CODE(S): Z96.652 - Presence of left artificial knee joint (25) History of Moh's micrographic surgery for skin cancer: CODE(S): Z85.828 - Personal history of other malignant neoplasm of skin; Z98.890 - Other specified postprocedural states (26) History of bunionectomy of both great toes: CODE(S): Z98.890 - Other specified postprocedural states PLAN: Plan This is a 73-year-old female with multiple pre-existing medical problems, who sustained a injury to the right lateral calf several months prior to her presentation. The wound failed to heal appropriately, prompting the patient to seek medical attention in the [facility]. She has been advised to optimize her nutritional intake. In an effort to minimize the possibility of swelling and edema, patient has been advised to elevate her lower extremities is much as possible, during both nighttime and daytime hours. Elevation is to be to heart level, or higher. Activity has been encouraged. She is to continue sleeping on a flat mattress at night. We are to continue the use of Zuly, applied topically to the wound on a daily basis. The patient has been instructed in the appropriate means of application. The patient is to return in 1 week for reevaluation. Total time: 48 minutes
--- NOTE | 2024-05-27 10:07 | WC ---
PHOTO 05/25/2024 (I) MISA
[2024-06-01 13:32] VITALS: BP 114/62; PULSE 84; RESP 18; TEMP 36.4; BMI 23.3
--- NOTE | 2024-06-02 19:24 | PCM.WC.HP ---
History of Present Illness Date of Service: 06/01/24 Chief Complaint: Traumatic wound to the right lateral calf History of Wound: This is a 73-year-old female who presented with a traumatic wound on the right lateral calf. The wound occurred several months prior to the patient's presentation, the result of a penetrating wound from a tree branch. The wound failed to heal, prompting the patient to seek medical attention at the [facility]. At the time of the initial injury, the patient was seen in the [facility] emergency department, where the unsuccessful attempt at suture closure was made. The patient states that the wound has shown signs of healing, but she indicated that she likely retraumatized the area, causing it to worsen. She has been treated by other providers, and was seen on one occasion by the [facility], where she was given Zuly for topical use. She has also been treated with a course of doxycycline, presumably for associated cellulitis. The patient is active. She is self-sufficient. She lives alone. She is . She claims to sleep on a flat mattress at night. She denies swelling in her lower extremities. She is a vegetarian. She suffers from multiple pre-existing medical conditions, which are listed elsewhere. These involve chronic lymphocytic leukemia, for which she has previously been treated with chemotherapy, though not presently. The patient is of normal body habitus, with a BMI of 23.3. [facility] Medical History Penetrating wound Traumatic open wound of right lower leg Vegetarian diet ERMIAS (obstructive sleep apnea) Non-ischemic cardiomyopathy Daytime somnolence Longstanding persistent atrial fibrillation Mitral valve insufficiency Presence of Watchman left atrial appendage closure device (~11/2019) T12 vertebral fracture Hyperlipidemia Mitral insufficiency Tibialis posterior tendon rupture RBBB Chronic atrial fibrillation Rheumatoid arthritis Osteoporosis Osteoarthritis Depressive disorder Attention deficit disorder with hyperactivity Essential hypertension Hypogammaglobulinemia, acquired BCC (basal cell carcinoma) SCC (squamous cell carcinoma) CLL (chronic lymphoid leukemia) in relapse Right carpal tunnel syndrome Nocturia Measles Hives as manifestation of blood transfusion reaction Bleeding disorder Anemia Home Medications ?Medication ?Instructions ?Recorded ?Last Taken ?Type zinc 50 mg tablet 50 mg PO DAILY vitamin 06/22/19 Unknown History valacyclovir 500 mg tablet 500 mg PO DAILY anti viral #30 tabs 06/08/20 Unknown Rx folic acid 1 mg tablet 1 mg PO DAILY supplement 05/10/21 Unknown History cyanocobalamin (vitamin B-12) 1,000 mcg PO DAILY vitamin 08/24/21 Unknown History 1,000 mcg tablet vitamin K2 90 mcg capsule 90 mcg PO DAILY vitamin 02/03/24 Unknown History ascorbic acid (vitamin C) 1,000 mg 1 g PO DAILY supplement 03/19/24 Unknown History tablet atorvastatin 20 mg tablet 20 mg PO QDAY 03/19/24 Unknown History cholecalciferol (vitamin D3) 25 25 mcg PO DAILY 03/19/24 Unknown History mcg (1,000 unit) tablet coenzyme Q10 100 mg capsule (Co 100 mg PO DAILY 03/19/24 Unknown History Q-10) empagliflozin 10 mg tablet 10 mg PO QDAY 03/19/24 Unknown History (Jardiance) magnesium oxide 1,000 mg PO QHS 03/19/24 Unknown History aspirin 81 mg tablet,delayed 81 mg PO QDAY 05/19/24 Unknown History release furosemide 40 mg tablet (Lasix) 40 mg PO Q12H PRN edema 05/19/24 Unknown History metoprolol succinate 50 mg 50 mg PO BID 05/19/24 Unknown History tablet,extended release 24 hr sacubitril 24 mg-valsartan 26 mg 0.5 tab PO BID 05/19/24 Unknown History tablet (Entresto) Allergy/AdvReac Type Severity Reaction Status Date / Time No Known Allergies Allergy Verified 05/25/24 13:42 Family History Father Hypertension CAD (coronary artery disease) Myocardial infarction Mother CVA (cerebral vascular accident) Hypertension CAD (coronary artery disease) Myocardial infarction Surgical History H/O vertebroplasty History of Moh's micrographic surgery for skin cancer History of total left knee replacement (TKR) History of bunionectomy of both great toes Social History household members: none Smoking Status: Never smoker alcohol intake: never substance use type: former substance user, marijuana and other details: Has a medical marijuana caffeine: Yes Type: coffee Number of servings: 3 Vital Signs Vital Signs Vital Signs: Weight Weight: 140 lb 10.354 oz Body Mass Index (BMI) 23.3 Physical Exam Const alert, oriented x3, no apparent distress, average body habitus and well nourished Constitutional Narrative: Patient's BMI is 23.3. General Appearance: cooperative, comfortable, well kempt and well developed Orientation / Consciousness: awake, oriented to person, oriented to place and oriented to time Exam Limitations: no limitations HEENT normocephalic, head/scalp atraumatic and external ears normal Head and Scalp: normal to inspection, normocephalic and atraumatic Nose: external nose normal External Ear: external ears normal Eyes PERRL and EOMs intact bilaterally General Eye: normal appearance of both eyes Neck full ROM Resp normal respiratory effort, normal air movement, no retractions, no use of accessory muscles and clear to auscultation bilaterally Effort and Inspection: able to speak in complete sentences Cardio regular rate, regular rhythm, S1 normal heart sound and S2 normal heart sound Rate: regular rate Rhythm: regular rhythm Extremity no calf tenderness General Extremity: Negative for clubbing or cyanosis Skin Wound Narrative: The wound is noted on the right lateral calf. There is no sign of infection or cellulitis. There is a moderate amount of bioburden. The wound is otherwise generally pink and healthy in appearance. Dimensions are documented elsewhere. The wound appears to be slightly smaller, and extends into the subcutaneous tissue. Multiple small veins/telangiectasias are noted in the region of the right lateral malleolus Hair: normal Neuro oriented x3, CN's II-XII intact bilaterally, moves all extremities and no focal motor deficits Sensorium / Orientation: awake, alert, oriented to person, oriented to place, oriented to time and orientation impaired Psych Appearance: grossly normal and appropriate Attitude: calm Activity / Motor Behavior: appropriate eye contact Speech: normal speech Mood & Affect: euthymic mood Thought Process: normal thought process Thought Content: normal thought content Attention / Concentration: attention grossly intact Debridement Note Debridement Note Wound debrided: Right lateral calf Laterality: Right Type of Debridement: Excisional debridement Anesthesia Used: 5% Lidocaine Gel Depth: Down to and including healthy tissue and in the subcutaneous layer Percentage of wound debrided: 100 Instrument Used: 5mm curette Severity: Fat Layer Exposed Amount of bleeding with debridement: Mild Bleeding Controlled with: Compression and gauze Patient tolerated procedure: Patient tolerated procedure well Post-Debridement Measurements and Additional Note: Post-Debridement Measurements/Treatment WC - Nurse 1 - General Ulcer Assessment Start: 05/25/24 13:10 Freq: Status: Active Protocol: KARLA Activity Type Activity Date Activity User E-sign Co-sign Detail Recorded Client Recorded Date Recorded By Document 05/25/24 13:11 DL [email or web address] 05/25/24 13:37 DL Document 06/01/24 13:32 KW ; 06/01/24 13:38 KW 05/25/24 06/01/24 13:11 13:32 WC - Today's Visit Information Type of service Initial Visit Follow-up Visit (Physician/IV THERAPY NURSE ) Arrival Mode Ambulatory Ambulatory Transfer Assistance None Patient Identification Verified (Name & Yes Yes ) Patient Requires Transmission-Based No Precautions Height and Weight Height 5 ft 5 in Weight 140 lb 10.354 oz Weight in Pounds 140.6 lbs Weight Measurement Method Estimated by Patient Body Mass Index (BMI) 23.3 23.3 BMI Classification Normal Normal BSA - Edenilson 1.70 Vital Signs Temperature (97.8 F-99.1 F) 97.3 F L 97.5 F L Temperature Source Temporal Temporal Pulse Rate (60-100) 71 84 Pulse Location Monitor Monitor Respiratory Rate (12-18) 20 H 18 Respiratory rate source Observation Observation Oxygen Delivery Method Room Air Blood Pressure (90/60-120/80) 121/64 H 114/62 Blood Pressure Mean 83 79 Source Monitor Monitor Position Semi-Fowlers Blood Pressure Location Left Arm History Since Last Visit- (Skip if this is Patient's initial visit) Have you changed medications since your No last visit? Any new allergies or adverse reactions No Had a fall/change in ADL's that may No increase risk of falls Signs or symptoms of abuse and/or No neglect since last visit Have you been in the hospital since your No last visit? Has dressing in place as prescribed Yes Has compression in place as prescribed N/A Has offloadiing in place as prescribed N/A Experienced any changes in pain level or No management Left Footwear Regular Shoe Right Footwear Regular Shoe Pain Scale: 0-10 Numeric Is Patient Pain Free? Yes Yes Lower Extremity Assessment/ Foot Assessment/ Toe Nail Assessment Left -Popliteal Doppler Multiphasic -Posterior Tibial Palpable Yes -Posterior Tibial Doppler Multiphasic -Dorsalis Pedis Palpable Yes -Extremity Color Normal -Hair Growth on Legs Yes -Hair Growth on Toes No -Temperature of Extremity Warm -Capillary Refill Less than 3 Seconds -Dependent Rubor No -Blanched when Elevated No -Lipodermatosclerosis No -Other Deformity No -Prior Foot Ulcer No -Charcot Joint No -Prior Amputation No -Thick Yes -Discolored Yes -Deformed Yes -Improper Length & Hygeine No Right -Popliteal Doppler Multiphasic -Posterior Tibial Palpable Yes -Posterior Tibial Doppler Multiphasic -Dorsalis Pedis Palpable Yes -Extremity Color Normal -Hair Growth on Legs Yes -Hair Growth on Toes No -Temperature of Extremity Warm -Capillary Refill Less than 3 Seconds -Dependent Rubor No -Blanched when Elevated No -Lipodermatosclerosis No -Other Deformity No -Prior Foot Ulcer No -Charcot Joint No -Prior Amputation No -Thick Yes -Discolored Yes -Deformed Yes -Improper Length & Hygeine No WC - Nurse 1 - General Ulcer Measurement Start: 05/25/24 13:10 Freq: Status: Active Protocol: Activity Type Activity Date Activity User E-sign Co-sign Detail Recorded Client Recorded Date Recorded By Document 05/25/24 13:11 DL [email or web address] 05/25/24 13:37 DL Document 06/01/24 13:32 KW ; 06/01/24 13:38 KW 05/25/24 06/01/24 13:11 13:32 Wound Center Nurse 1 #1 RLE -Current Size (cm) - Length 0.8 0.7 -Current Size (cm) - Width 1.4 1.2 -Current Size (cm) - Depth 0.1 0.1 -Total Square Cm 1.12 0.84 -Photo Taken Yes -Exudate Amt Medium Small -Exudate Type Serosanguineous Serosanguineous -Wound Margin Distinct, Distinct, Outline Outline Attached Attached -Granulation Amt Large (67-100%) Large (67-100%) -Granulation Quality Red -Necrosis Amt Medium (34-66%) -Necrotic Tissue Type Adherent Slough -Structure Exposed N/A -Texture (Sima-wound Skin Appearance) Scarring Assessed -Moisture (Sima-wound Skin Appearance) No Abnormality Assessed, Maceration -Color (Sima-wound Skin Appearance) No Abnormality Assessed, Erythema -Temperature (Sima-wound Skin No Abnormality No Abnormality Appearance) (Pt Warm) (Pt Warm) -Tenderness on Palpation (Sima-wound No Skin Appearance) -Ulcer Cleansing Soap and Water Rinsed/ Irrigated with Saline -Foul Odor after Cleansing No No -Anesthetic Used 5% Lidocaine 5% Lidocaine Gel Gel Right Calf (cm) 34.4 Right Ankle (cm) 20.2 Left Calf (cm) 33.6 Left Ankle (cm) 21.5 WC - Nurse 2 - General Ulcer CM Notes Start: 05/25/24 13:10 Freq: Status: Active Protocol: Activity Type Activity Date Activity User E-sign Co-sign Detail Recorded Client Recorded Date Recorded By Document 05/25/24 13:58 JF 0000 05/25/24 14:02 JF Document 06/01/24 13:52 DS 1 06/01/24 13:55 DS 05/25/24 06/01/24 13:58 13:52 Wound Center Nurse 2 #1 RLE -Time 13:58 13:52 -Correct Patient Yes Yes -Correct Side, Site, Position Yes Yes -Correct Procedure Yes Yes -Procedure Performed Yes Yes -Type of Procedure Debridement Debridement -Clinical Debridement Subcutaneous Subcutaneous -Tissue Removed Subcutaneous Subcutaneous -Post Debridement (cm) - Length 1.2 0.9 -Post Debridement (cm) - Width 1.7 1.5 -Post Debridement (cm) - Depth 0.1 0.1 -Total Square (Post) (cm) 2.04 1.35 -Area of Debridement (cm) - Length 1.2 0.9 -Area of Debridement (cm) - Width 1.7 1.5 -Total Square (Area) (cm) 2.04 1.35 -Tunneling No -Undermining/Tunneling No -Circular Undermining No -Wound/Ulcer Outcome Not Healed Not Healed -Ulcer Cleansing Rinsed/ Irrigated with Saline -Foul Odor after Cleansing No -Bioengineered Tissue No -Bleeding Controlled with Pressure Pressure -Treatment Response Procedure Procedure Tolerated Well Tolerated Well -Offloading No -Debridement - Subq, 1st 20sq cm Yes Yes Pain Scale: 0-10 Numeric Is Patient Pain Free? Yes Yes KADEEM - Nurse 3 - General Ulcer D/C NN Start: 05/25/24 13:10 Freq: Status: Active Protocol: Activity Type Activity Date Activity User E-sign Co-sign Detail Recorded Client Recorded Date Recorded By Document 05/25/24 14:16 DL [email or web address] 05/25/24 14:17 DL Document 06/01/24 15:33 KW ; 06/01/24 15:33 KW 05/25/24 06/01/24 14:16 15:33 Wound Care Center Nurse 3 #1 RLE -Ulcer Cleansing Rinsed/ Irrigated with Saline -Foul Odor after Cleansing No -Primary Dressing Applied Mepilex Border, NonAdherent Promogran Contact Layer, Zuly Matter Promogran Zuly Matter -Primary Dressing Covered/Secured with Dry Gauze & Roll Gauze, Secured with Tape -Mepilex Border 1 -Promogran Zuly Matter 1 1 Right -Tubular Bandage Double Layer -Size of Tubigrip Used Size D -Size D ($) 2 Treatment Response Procedure Tolerated Well Pain Scale: 0-10 Numeric Is Patient Pain Free? Yes Yes WC - Visit Discharge Discharge Condition Stable Stable Ambulatory Status Ambulatory Ambulatory Transportation Private Auto Private Auto Medication Reconcilliation completed & No provided to patient/care provider Clinical Summary of Care Provided Yes Charges/Coding Procedures Integumentary [id number]: [id number] Danyell subq tissue 20 sq cm/< Assessment/Plan Assessment/Plan (1) Traumatic open wound of right lower leg: CODE(S): S81.801A - Unspecified open wound, right lower leg, initial encounter QUALIFIERS: Encounter type: subsequent encounter Qualified Code(s): S81.801D - Unspecified open wound, right lower leg, subsequent encounter (2) Penetrating wound: CODE(S): T14.8XXA - Other injury of unspecified body region, initial encounter (3) Non-ischemic cardiomyopathy: CODE(S): I42.8 - Other cardiomyopathies (4) MICHAEL (dyspnea on exertion): CODE(S): R06.09 - Other forms of dyspnea (5) Longstanding persistent atrial fibrillation: CODE(S): I48.11 - Longstanding persistent atrial fibrillation (6) Mitral valve insufficiency: CODE(S): I34.0 - Nonrheumatic mitral (valve) insufficiency (7) Presence of Watchman left atrial appendage closure device: CODE(S): Z95.818 - Presence of other cardiac implants and grafts (8) CLL (chronic lymphoid leukemia) in relapse: CODE(S): C91.92 - Lymphoid leukemia, unspecified, in relapse (9) Autoimmune hemolytic anemia: CODE(S): D59.1 - Other autoimmune hemolytic anemias (10) Esophageal reflux: CODE(S): K21.9 - Gastro-esophageal reflux disease without esophagitis QUALIFIERS: Esophagitis presence: esophagitis presence not specified Qualified Code(s): K21.9 - Gastro-esophageal reflux disease without esophagitis (11) Hyperlipidemia: CODE(S): E78.5 - Hyperlipidemia, unspecified QUALIFIERS: Hyperlipidemia type: unspecified Qualified Code(s): E78.5 - Hyperlipidemia, unspecified (12) Mitral insufficiency: CODE(S): I34.0 - Nonrheumatic mitral (valve) insufficiency QUALIFIERS: Cardiac valve disease etiology: nonrheumatic Qualified Code(s): I34.0 - Nonrheumatic mitral (valve) insufficiency (13) RBBB: CODE(S): I45.10 - Unspecified right bundle-branch block (14) Chronic atrial fibrillation: CODE(S): I48.2 - Chronic atrial fibrillation (15) Essential hypertension: CODE(S): I10 - Essential (primary) hypertension (16) Hypogammaglobulinemia, acquired: CODE(S): D80.1 - Nonfamilial hypogammaglobulinemia (17) Personal history of CLL (chronic lymphocytic leukemia): CODE(S): Z85.6 - Personal history of leukemia (18) Osteoarthritis: CODE(S): M19.90 - Unspecified osteoarthritis, unspecified site (19) ERMIAS (obstructive sleep apnea): CODE(S): G47.33 - Obstructive sleep apnea (adult) (pediatric) (20) Osteoporosis: CODE(S): M81.0 - Age-related osteoporosis without current pathological fracture (21) Rheumatoid arthritis: CODE(S): M06.9 - Rheumatoid arthritis, unspecified (22) Vegetarian diet: CODE(S): Z78.9 - Other specified health status (23) H/O vertebroplasty: CODE(S): Z98.890 - Other specified postprocedural states (24) History of total left knee replacement (TKR): CODE(S): Z96.652 - Presence of left artificial knee joint (25) History of Moh's micrographic surgery for skin cancer: CODE(S): Z85.828 - Personal history of other malignant neoplasm of skin; Z98.890 - Other specified postprocedural states (26) History of bunionectomy of both great toes: CODE(S): Z98.890 - Other specified postprocedural states PLAN: Plan This is a 73-year-old female with multiple pre-existing medical problems, who sustained a injury to the right lateral calf several months prior to her presentation. The wound failed to heal appropriately, prompting the patient to seek medical attention in the [facility]. She has been advised to optimize her nutritional intake. In an effort to minimize the possibility of swelling and edema, the patient has been advised to elevate her lower extremities is much as possible, during both nighttime and daytime hours. Elevation is to be to heart level, or higher. Activity has been encouraged. She is to continue sleeping on a flat mattress at night. We are to implement the use of double Tubigrip's to the right lower extremity to minimize swelling, as the patient exhibits stigmata of chronic venous disease. We are to continue the use of Zuly, applied topically to the wound on a daily basis. The patient has been instructed in the appropriate means of application. The patient is to return in 1 week for reevaluation. Total time: 24 minutes
[2024-06-08 13:30] VITALS: BP 128/59; PULSE 72; RESP 18; TEMP 35.6; BMI 23.3
--- NOTE | 2024-06-08 14:15 | PCM.WC.HP ---
History of Present Illness Date of Service: 06/08/24 Chief Complaint: Traumatic wound to the right lateral calf History of Wound: This is a 73-year-old female who presented with a traumatic wound on the right lateral calf. The wound occurred several months prior to the patient's presentation, the result of a penetrating wound from a tree branch. The wound failed to heal, prompting the patient to seek medical attention at the [facility]. At the time of the initial injury, the patient was seen in the [facility] emergency department, where the unsuccessful attempt at suture closure was made. The patient states that the wound has shown signs of healing, but she indicated that she likely retraumatized the area, causing it to worsen. She has been treated by other providers, and was seen on one occasion by the [facility], where she was given Zuly for topical use. She has also been treated with a course of doxycycline, presumably for associated cellulitis. The patient is active. She is self-sufficient. She lives alone. She is . She claims to sleep on a flat mattress at night. She denies swelling in her lower extremities. She is a vegetarian. She suffers from multiple pre-existing medical conditions, which are listed elsewhere. These involve chronic lymphocytic leukemia, for which she has previously been treated with chemotherapy, though not presently. The patient is of normal body habitus, with a BMI of 23.3. FOR[facility]LY [facility] Medical History Penetrating wound Traumatic open wound of right lower leg Vegetarian diet ERMIAS (obstructive sleep apnea) Non-ischemic cardiomyopathy Daytime somnolence Longstanding persistent atrial fibrillation Mitral valve insufficiency Presence of Watchman left atrial appendage closure device (~11/2019) T12 vertebral fracture Hyperlipidemia Mitral insufficiency Tibialis posterior tendon rupture RBBB Chronic atrial fibrillation Rheumatoid arthritis Osteoporosis Osteoarthritis Depressive disorder Attention deficit disorder with hyperactivity Essential hypertension Hypogammaglobulinemia, acquired BCC (basal cell carcinoma) SCC (squamous cell carcinoma) CLL (chronic lymphoid leukemia) in relapse Right carpal tunnel syndrome Nocturia Measles Hives as manifestation of blood transfusion reaction Bleeding disorder Anemia Home Medications ?Medication ?Instructions ?Recorded ?Last Taken ?Type zinc 50 mg tablet 50 mg PO DAILY vitamin 06/22/19 Unknown History valacyclovir 500 mg tablet 500 mg PO DAILY anti viral #30 tabs 06/08/20 Unknown Rx folic acid 1 mg tablet 1 mg PO DAILY supplement 05/10/21 Unknown History cyanocobalamin (vitamin B-12) 1,000 mcg PO DAILY vitamin 08/24/21 Unknown History 1,000 mcg tablet vitamin K2 90 mcg capsule 90 mcg PO DAILY vitamin 02/03/24 Unknown History ascorbic acid (vitamin C) 1,000 mg 1 g PO DAILY supplement 03/19/24 Unknown History tablet atorvastatin 20 mg tablet 20 mg PO QDAY 03/19/24 Unknown History cholecalciferol (vitamin D3) 25 25 mcg PO DAILY 03/19/24 Unknown History mcg (1,000 unit) tablet coenzyme Q10 100 mg capsule (Co 100 mg PO DAILY 03/19/24 Unknown History Q-10) empagliflozin 10 mg tablet 10 mg PO QDAY 03/19/24 Unknown History (Jardiance) magnesium oxide 1,000 mg PO QHS 03/19/24 Unknown History aspirin 81 mg tablet,delayed 81 mg PO QDAY 05/19/24 Unknown History release furosemide 40 mg tablet (Lasix) 40 mg PO Q12H PRN edema 05/19/24 Unknown History metoprolol succinate 50 mg 50 mg PO BID 05/19/24 Unknown History tablet,extended release 24 hr sacubitril 24 mg-valsartan 26 mg 0.5 tab PO BID 05/19/24 Unknown History tablet (Entresto) Allergy/AdvReac Type Severity Reaction Status Date / Time No Known Allergies Allergy Verified 05/25/24 13:42 Family History Father Hypertension CAD (coronary artery disease) Myocardial infarction Mother CVA (cerebral vascular accident) Hypertension CAD (coronary artery disease) Myocardial infarction Surgical History H/O vertebroplasty History of Moh's micrographic surgery for skin cancer History of total left knee replacement (TKR) History of bunionectomy of both great toes Social History household members: none Smoking Status: Never smoker alcohol intake: never substance use type: former substance user, marijuana and other details: Has a medical marijuana caffeine: Yes Type: coffee Number of servings: 3 Vital Signs Vital Signs Vital Signs: 06/08/24 13:30 Temperature 96.1 F L Temperature Source Temporal Pulse Rate 72 Respiratory Rate 18 Blood Pressure 128/59 H Blood Pressure Mean 82 Blood Pressure Source Monitor Blood Pressure Position Semi-Fowlers Blood Pressure Location Left Arm Oxygen Delivery Method Room Air Weight Weight: 140 lb 10.354 oz Body Mass Index (BMI) 23.3 Physical Exam Const alert, oriented x3, no apparent distress, average body habitus and well nourished Constitutional Narrative: Patient's BMI is 23.3. General Appearance: cooperative, comfortable, well kempt and well developed Orientation / Consciousness: awake, oriented to person, oriented to place and oriented to time Exam Limitations: no limitations HEENT normocephalic, head/scalp atraumatic and external ears normal Head and Scalp: normal to inspection, normocephalic and atraumatic Nose: external nose normal External Ear: external ears normal Eyes PERRL and EOMs intact bilaterally General Eye: normal appearance of both eyes Neck full ROM Resp normal respiratory effort, normal air movement, no retractions, no use of accessory muscles and clear to auscultation bilaterally Effort and Inspection: able to speak in complete sentences Cardio regular rate, regular rhythm, S1 normal heart sound and S2 normal heart sound Rate: regular rate Rhythm: regular rhythm Extremity no calf tenderness General Extremity: Negative for clubbing or cyanosis Skin Wound Narrative: The wound is noted on the right lateral calf. There is no obvious sign of infection or cellulitis, although there is very slight periwound erythema. This is assumed to be inflammatory, but will warrant serial observation. There is a moderate amount of bioburden. The wound is otherwise generally pink and healthy in appearance. Dimensions are documented elsewhere. The wound appears to be slightly smaller, and extends into the subcutaneous tissue. Multiple small veins/telangiectasias are noted in the region of the right lateral malleolus Hair: normal Neuro oriented x3, CN's II-XII intact bilaterally, moves all extremities and no focal motor deficits Sensorium / Orientation: awake, alert, oriented to person, oriented to place, oriented to time and orientation impaired Psych Appearance: grossly normal and appropriate Attitude: calm Activity / Motor Behavior: appropriate eye contact Speech: normal speech Mood & Affect: euthymic mood Thought Process: normal thought process Thought Content: normal thought content Attention / Concentration: attention grossly intact Debridement Note Debridement Note Wound debrided: Right lateral calf Laterality: Right Type of Debridement: Excisional debridement Anesthesia Used: 5% Lidocaine Gel and Cetacaine Depth: Down to and including healthy tissue and in the subcutaneous layer Percentage of wound debrided: 100 Instrument Used: 3mm curette Severity: Fat Layer Exposed Amount of bleeding with debridement: Mild Bleeding Controlled with: Compression and gauze Patient tolerated procedure: Patient tolerated procedure well Post-Debridement Measurements and Additional Note: Post-Debridement Measurements/Treatment - Nurse 1 - General Ulcer Assessment Start: 05/25/24 13:10 Freq: Status: Active Protocol: KARLA Activity Type Activity Date Activity User E-sign Co-sign Detail Recorded Client Recorded Date Recorded By Document 05/25/24 13:11 DL [email or web address] 05/25/24 13:37 DL Document 06/01/24 13:32 KW ; 06/01/24 13:38 KW Document 06/08/24 13:30 KW l 06/08/24 13:41 KW 05/25/24 06/01/24 06/08/24 13:11 13:32 13:30 - Today's Visit Information Type of service Initial Visit Follow-up Visit Follow-up Visit (Physician/COMPETENCY EVALUATED NURSE AIDE (Physician/COMPETENCY EVALUATED NURSE AIDE ) ) Arrival Mode Ambulatory Ambulatory Ambulatory Transfer Assistance None Patient Identification Verified (Name & Yes Yes Yes ) Patient Requires Transmission-Based No Precautions Height and Weight Height 5 ft 5 in Weight 140 lb 10.354 oz Weight in Pounds 140.6 lbs Weight Measurement Method Estimated by Patient Body Mass Index (BMI) 23.3 23.3 23.3 BMI Classification Normal Normal Normal BSA - Edenilson 1.70 Vital Signs Temperature (97.8 F-99.1 F) 97.3 F L 97.5 F L 96.1 F L Temperature Source Temporal Temporal Temporal Pulse Rate (60-100) 71 84 72 Pulse Location Monitor Monitor Monitor Respiratory Rate (12-18) 20 H 18 18 Respiratory rate source Observation Observation Observation Oxygen Delivery Method Room Air Room Air Blood Pressure (90/60-120/80) 121/64 H 114/62 128/59 H Blood Pressure Mean 83 79 82 Source Monitor Monitor Monitor Position Semi-Fowlers Semi-Fowlers Blood Pressure Location Left Arm Left Arm History Since Last Visit- (Skip if this is Patient's initial visit) Have you changed medications since your No No last visit? Any new allergies or adverse reactions No No Had a fall/change in ADL's that may No No increase risk of falls Signs or symptoms of abuse and/or No No neglect since last visit Have you been in the hospital since your No No last visit? Has dressing in place as prescribed Yes Yes Has compression in place as prescribed N/A Yes Has offloadiing in place as prescribed N/A N/A Experienced any changes in pain level or No No management Left Footwear Regular Shoe Regular Shoe Right Footwear Regular Shoe Regular Shoe Pain Scale: 0-10 Numeric Is Patient Pain Free? Yes Yes Yes Lower Extremity Assessment/ Foot Assessment/ Toe Nail Assessment Left -Popliteal Doppler Multiphasic -Posterior Tibial Palpable Yes -Posterior Tibial Doppler Multiphasic -Dorsalis Pedis Palpable Yes -Extremity Color Normal -Hair Growth on Legs Yes -Hair Growth on Toes No -Temperature of Extremity Warm -Capillary Refill Less than 3 Seconds -Dependent Rubor No -Blanched when Elevated No -Lipodermatosclerosis No -Other Deformity No -Prior Foot Ulcer No -Charcot Joint No -Prior Amputation No -Thick Yes -Discolored Yes -Deformed Yes -Improper Length & Hygeine No Right -Popliteal Doppler Multiphasic -Posterior Tibial Palpable Yes -Posterior Tibial Doppler Multiphasic -Dorsalis Pedis Palpable Yes -Extremity Color Normal -Hair Growth on Legs Yes -Hair Growth on Toes No -Temperature of Extremity Warm -Capillary Refill Less than 3 Seconds -Dependent Rubor No -Blanched when Elevated No -Lipodermatosclerosis No -Other Deformity No -Prior Foot Ulcer No -Charcot Joint No -Prior Amputation No -Thick Yes -Discolored Yes -Deformed Yes -Improper Length & Hygeine No WC - Nurse 1 - General Ulcer Measurement Start: 05/25/24 13:10 Freq: Status: Active Protocol: Activity Type Activity Date Activity User E-sign Co-sign Detail Recorded Client Recorded Date Recorded By Document 05/25/24 13:11 DL [email or web address] 05/25/24 13:37 DL Document 06/01/24 13:32 KW ; 06/01/24 13:38 KW Document 06/08/24 13:30 KW l 06/08/24 13:41 KW 05/25/24 06/01/24 06/08/24 13:11 13:32 13:30 Wound Center Nurse 1 #1 RLE -Current Size (cm) - Length 0.8 0.7 1.6 -Current Size (cm) - Width 1.4 1.2 1 -Current Size (cm) - Depth 0.1 0.1 0.1 -Total Square Cm 1.12 0.84 1.6 -Date of Last Picture (Recall this 06/08/24 field) -Photo Taken Yes -Exudate Amt Medium Small Medium -Exudate Type Serosanguineous Serosanguineous Serosanguineous -Wound Margin Distinct, Distinct, Distinct, Outline Outline Outline Attached Attached Attached -Granulation Amt Large (67-100%) Large (67-100%) Large (67-100%) -Granulation Quality Red Red -Necrosis Amt Medium (34-66%) -Necrotic Tissue Type Adherent Slough -Structure Exposed N/A -Texture (Sima-wound Skin Appearance) Scarring Assessed Assessed -Moisture (Sima-wound Skin Appearance) No Abnormality Assessed, Assessed Maceration -Color (Sima-wound Skin Appearance) No Abnormality Assessed, Assessed Erythema -Temperature (Sima-wound Skin No Abnormality No Abnormality No Abnormality Appearance) (Pt Warm) (Pt Warm) (Pt Warm) -Tenderness on Palpation (Sima-wound No No Skin Appearance) -Ulcer Cleansing Soap and Water Rinsed/ Rinsed/ Irrigated with Irrigated with Saline Saline -Foul Odor after Cleansing No No No -Anesthetic Used 5% Lidocaine 5% Lidocaine 5% Lidocaine Gel Gel Gel Right Calf (cm) 34.4 31.5 Right Ankle (cm) 20.2 20.5 Left Calf (cm) 33.6 Left Ankle (cm) 21.5 WC - Nurse 2 - General Ulcer CM Notes Start: 05/25/24 13:10 Freq: Status: Active Protocol: Activity Type Activity Date Activity User E-sign Co-sign Detail Recorded Client Recorded Date Recorded By Document 05/25/24 13:58 JF 0000 05/25/24 14:02 JF Document 06/01/24 13:52 DS 1 06/01/24 13:55 DS Document 06/08/24 13:47 DS 1 06/08/24 13:50 DS 05/25/24 06/01/24 06/08/24 13:58 13:52 13:47 Wound Center Nurse 2 #1 RLE -Time 13:58 13:52 13:47 -Correct Patient Yes Yes Yes -Correct Side, Site, Position Yes Yes Yes -Correct Procedure Yes Yes Yes -Procedure Performed Yes Yes Yes -Type of Procedure Debridement Debridement Debridement -Clinical Debridement Subcutaneous Subcutaneous Subcutaneous -Tissue Removed Subcutaneous Subcutaneous Subcutaneous -Post Debridement (cm) - Length 1.2 0.9 0.7 -Post Debridement (cm) - Width 1.7 1.5 1.0 -Post Debridement (cm) - Depth 0.1 0.1 0.1 -Total Square (Post) (cm) 2.04 1.35 0.70 -Area of Debridement (cm) - Length 1.2 0.9 0.7 -Area of Debridement (cm) - Width 1.7 1.5 1.0 -Total Square (Area) (cm) 2.04 1.35 0.70 -Tunneling No No -Undermining/Tunneling No No -Circular Undermining No No -Wound/Ulcer Outcome Not Healed Not Healed Not Healed -Ulcer Cleansing Rinsed/ Irrigated with Saline -Foul Odor after Cleansing No -Bioengineered Tissue No -Bleeding Controlled with Pressure Pressure Pressure -Treatment Response Procedure Procedure Procedure Tolerated Well Tolerated Well Tolerated Well -Offloading No -Debridement - Subq, 1st 20sq cm Yes Yes Yes Pain Scale: 0-10 Numeric Is Patient Pain Free? Yes Yes Yes WC - Nurse 3 - General Ulcer D/C NN Start: 05/25/24 13:10 Freq: Status: Active Protocol: Activity Type Activity Date Activity User E-sign Co-sign Detail Recorded Client Recorded Date Recorded By Document 05/25/24 14:16 DL [email or web address] 05/25/24 14:17 DL Document 06/01/24 15:33 KW ; 06/01/24 15:33 KW 05/25/24 06/01/24 14:16 15:33 Wound Care Center Nurse 3 #1 RLE -Ulcer Cleansing Rinsed/ Irrigated with Saline -Foul Odor after Cleansing No -Primary Dressing Applied Mepilex Border, NonAdherent Promogran Contact Layer, Zuly Matter Promogran Zuly Matter -Primary Dressing Covered/Secured with Dry Gauze & Roll Gauze, Secured with Tape -Mepilex Border 1 -Promogran Zuly Matter 1 1 Right -Tubular Bandage Double Layer -Size of Tubigrip Used Size D -Size D ($) 2 Treatment Response Procedure Tolerated Well Pain Scale: 0-10 Numeric Is Patient Pain Free? Yes Yes WC - Visit Discharge Discharge Condition Stable Stable Ambulatory Status Ambulatory Ambulatory Transportation Private Auto Private Auto Medication Reconcilliation completed & No provided to patient/care provider Clinical Summary of Care Provided Yes Charges/Coding Procedures Integumentary [id number]: [id number] Danyell subq tissue 20 sq cm/< Assessment/Plan Assessment/Plan (1) Traumatic open wound of right lower leg: CODE(S): S81.801A - Unspecified open wound, right lower leg, initial encounter QUALIFIERS: Encounter type: subsequent encounter Qualified Code(s): S81.801D - Unspecified open wound, right lower leg, subsequent encounter (2) Penetrating wound: CODE(S): T14.8XXA - Other injury of unspecified body region, initial encounter (3) Non-ischemic cardiomyopathy: CODE(S): I42.8 - Other cardiomyopathies (4) MICHAEL (dyspnea on exertion): CODE(S): R06.09 - Other forms of dyspnea (5) Longstanding persistent atrial fibrillation: CODE(S): I48.11 - Longstanding persistent atrial fibrillation (6) Mitral valve insufficiency: CODE(S): I34.0 - Nonrheumatic mitral (valve) insufficiency (7) Presence of Watchman left atrial appendage closure device: CODE(S): Z95.818 - Presence of other cardiac implants and grafts (8) CLL (chronic lymphoid leukemia) in relapse: CODE(S): C91.92 - Lymphoid leukemia, unspecified, in relapse (9) Autoimmune hemolytic anemia: CODE(S): D59.1 - Other autoimmune hemolytic anemias (10) Esophageal reflux: CODE(S): K21.9 - Gastro-esophageal reflux disease without esophagitis QUALIFIERS: Esophagitis presence: esophagitis presence not specified Qualified Code(s): K21.9 - Gastro-esophageal reflux disease without esophagitis (11) Hyperlipidemia: CODE(S): E78.5 - Hyperlipidemia, unspecified QUALIFIERS: Hyperlipidemia type: unspecified Qualified Code(s): E78.5 - Hyperlipidemia, unspecified (12) Mitral insufficiency: CODE(S): I34.0 - Nonrheumatic mitral (valve) insufficiency QUALIFIERS: Cardiac valve disease etiology: nonrheumatic Qualified Code(s): I34.0 - Nonrheumatic mitral (valve) insufficiency (13) RBBB: CODE(S): I45.10 - Unspecified right bundle-branch block (14) Chronic atrial fibrillation: CODE(S): I48.2 - Chronic atrial fibrillation (15) Essential hypertension: CODE(S): I10 - Essential (primary) hypertension (16) Hypogammaglobulinemia, acquired: CODE(S): D80.1 - Nonfamilial hypogammaglobulinemia (17) Personal history of CLL (chronic lymphocytic leukemia): CODE(S): Z85.6 - Personal history of leukemia (18) Osteoarthritis: CODE(S): M19.90 - Unspecified osteoarthritis, unspecified site (19) ERMIAS (obstructive sleep apnea): CODE(S): G47.33 - Obstructive sleep apnea (adult) (pediatric) (20) Osteoporosis: CODE(S): M81.0 - Age-related osteoporosis without current pathological fracture (21) Rheumatoid arthritis: CODE(S): M06.9 - Rheumatoid arthritis, unspecified (22) Vegetarian diet: CODE(S): Z78.9 - Other specified health status (23) H/O vertebroplasty: CODE(S): Z98.890 - Other specified postprocedural states (24) History of total left knee replacement (TKR): CODE(S): Z96.652 - Presence of left artificial knee joint (25) History of Moh's micrographic surgery for skin cancer: CODE(S): Z85.828 - Personal history of other malignant neoplasm of skin; Z98.890 - Other specified postprocedural states (26) History of bunionectomy of both great toes: CODE(S): Z98.890 - Other specified postprocedural states PLAN: Plan This is a 73-year-old female with multiple pre-existing medical problems, who sustained an injury to the right lateral calf several months prior to her presentation. The wound failed to heal appropriately, prompting the patient to seek medical attention in the [facility]. She has been advised to optimize her nutritional intake. In an effort to minimize the possibility of swelling and edema, the patient has been advised to elevate her lower extremities is much as possible, during both nighttime and daytime hours. Elevation is to be to heart level, or higher. Activity has been encouraged. She is to continue sleeping on a flat mattress at night. We are to continue the use of double Tubigrip's to the right lower extremity to minimize swelling, as the patient exhibits stigmata of chronic venous disease. We are to continue the use of Zuly, applied topically to the wound on a daily basis. The patient has been instructed in the appropriate means of application. The patient was seen at [facility] yesterday, where a biopsy of her right lateral calf wound was performed, although the patient was there for other reasons. It is uncertain as to why a biopsy would be performed of a recent traumatic wound. Nonetheless, a request will be made for the results of the recent biopsy. The patient is to return in 1 week for reevaluation. Total time: 25 minutes
[2024-06-15 14:49] VITALS: BP 122/60; PULSE 92; RESP 18; TEMP 35.9; BMI 23.3
--- NOTE | 2024-06-15 16:16 | WC ---
Pt into room for nurse 1 and measurement of wound and vital signs then after 30 min approximately Pt rescheduled appointment today due to another appointment she had later this afternoon.
--- NOTE | 2024-06-16 10:58 | WC ---
PHOTO 06/08/23 MISA
--- NOTE | 2024-06-16 12:00 | WC ---
PHOTO 06/15/2024 MISA
== END 2024-06-16 23:59 | disposition home or self-care (01) ==
LOC: WC 13:30
PROVIDERS: PCP Family Medicine; Referring Provider Family Medicine; Visit Provider Surgery
DX: S81.831A Puncture wound without foreign body, right lower leg, initial encounter (principal); D59.10 Autoimmune hemolytic anemia, unspecified; M06.9 Rheumatoid arthritis, unspecified; C91.12 Chronic lymphocytic leukemia of B-cell type in relapse; I48.20 Chronic atrial fibrillation, unspecified; I42.8 Other cardiomyopathies; W22.8XXA Striking against or struck by other objects, initial encounter; G47.33 Obstructive sleep apnea (adult) (pediatric); D80.1 Nonfamilial hypogammaglobulinemia; I10 Essential (primary) hypertension; E78.5 Hyperlipidemia, unspecified; I34.0 Nonrheumatic mitral (valve) insufficiency; M19.90 Unspecified osteoarthritis, unspecified site; K21.9 Gastro-esophageal reflux disease without esophagitis; M81.0 Age-related osteoporosis without current pathological fracture; Z79.82 Long term (current) use of aspirin; Z79.84 Long term (current) use of oral hypoglycemic drugs; Z79.899 Other long term (current) drug therapy; Z92.21 Personal history of antineoplastic chemotherapy; Z95.818 Presence of other cardiac implants and grafts
CPT/HCPCS: 11042; 99213; G0463

== ENCOUNTER 2024-06-22 13:52 | Outpatient (RCR) | payer MEDICARE, OTHER, SELFPAY ==
[2024-06-17 00:26] VITALS: BP 122/60; PULSE 92; RESP 18; TEMP 35.9; BMI 23.3
[2024-06-22 14:09] VITALS: BP 112/70; PULSE 83; RESP 18; TEMP 35.7; BMI 23.3
--- NOTE | 2024-06-23 08:36 | WC ---
PHOTO RLE 06/22/24
--- NOTE | 2024-06-23 11:25 | PCM.WC.HP ---
History of Present Illness Date of Service: 06/22/24 Chief Complaint: Traumatic wound to the right lateral calf History of Wound: This is a 73-year-old female who presented with a traumatic wound on the right lateral calf. The wound occurred several months prior to the patient's presentation, the result of a penetrating wound from a tree branch. The wound failed to heal, prompting the patient to seek medical attention at the [facility]. At the time of the initial injury, the patient was seen in the [facility] Emergency Department, where the unsuccessful attempt at suture closure was made. The patient states that the wound has shown signs of healing, but she indicated that she likely retraumatized the area, causing it to worsen. She has been treated by other providers, and was seen on one occasion by the [facility], where she was given Zuly for topical use. She has also been treated with a course of doxycycline, presumably for associated cellulitis. The patient is active. She is self-sufficient. She lives alone. She is . She claims to sleep on a flat mattress at night. She denies swelling in her lower extremities. She is a vegetarian. She suffers from multiple pre-existing medical conditions, which are listed elsewhere. These involve chronic lymphocytic leukemia, for which she has previously been treated with chemotherapy, though not presently. The patient is of normal body habitus, with a BMI of 23.3. FOR[facility]LY [facility] Medical History Penetrating wound Traumatic open wound of right lower leg Vegetarian diet ERMIAS (obstructive sleep apnea) Non-ischemic cardiomyopathy Daytime somnolence Longstanding persistent atrial fibrillation Mitral valve insufficiency Presence of Watchman left atrial appendage closure device (~11/2019) T12 vertebral fracture Hyperlipidemia Mitral insufficiency Tibialis posterior tendon rupture RBBB Chronic atrial fibrillation Rheumatoid arthritis Osteoporosis Osteoarthritis Depressive disorder Attention deficit disorder with hyperactivity Essential hypertension Hypogammaglobulinemia, acquired BCC (basal cell carcinoma) SCC (squamous cell carcinoma) CLL (chronic lymphoid leukemia) in relapse Right carpal tunnel syndrome Nocturia Measles Hives as manifestation of blood transfusion reaction Bleeding disorder Anemia Home Medications ?Medication ?Instructions ?Recorded ?Last Taken ?Type zinc 50 mg tablet 50 mg PO DAILY vitamin 06/22/19 Unknown History valacyclovir 500 mg tablet 500 mg PO DAILY anti viral #30 tabs 06/08/20 Unknown Rx folic acid 1 mg tablet 1 mg PO DAILY supplement 05/10/21 Unknown History cyanocobalamin (vitamin B-12) 1,000 mcg PO DAILY vitamin 08/24/21 Unknown History 1,000 mcg tablet vitamin K2 90 mcg capsule 90 mcg PO DAILY vitamin 02/03/24 Unknown History ascorbic acid (vitamin C) 1,000 mg 1 g PO DAILY supplement 03/19/24 Unknown History tablet atorvastatin 20 mg tablet 20 mg PO QDAY 03/19/24 Unknown History cholecalciferol (vitamin D3) 25 25 mcg PO DAILY 03/19/24 Unknown History mcg (1,000 unit) tablet coenzyme Q10 100 mg capsule (Co 100 mg PO DAILY 03/19/24 Unknown History Q-10) empagliflozin 10 mg tablet 10 mg PO QDAY 03/19/24 Unknown History (Jardiance) magnesium oxide 1,000 mg PO QHS 03/19/24 Unknown History aspirin 81 mg tablet,delayed 81 mg PO QDAY 05/19/24 Unknown History release furosemide 40 mg tablet (Lasix) 40 mg PO Q12H PRN edema 05/19/24 Unknown History metoprolol succinate 50 mg 50 mg PO BID 05/19/24 Unknown History tablet,extended release 24 hr sacubitril 24 mg-valsartan 26 mg 0.5 tab PO BID 05/19/24 Unknown History tablet (Entresto) Allergy/AdvReac Type Severity Reaction Status Date / Time No Known Allergies Allergy Verified 05/25/24 13:42 Family History Father Hypertension CAD (coronary artery disease) Myocardial infarction Mother CVA (cerebral vascular accident) Hypertension CAD (coronary artery disease) Myocardial infarction Surgical History H/O vertebroplasty History of Moh's micrographic surgery for skin cancer History of total left knee replacement (TKR) History of bunionectomy of both great toes Social History household members: none Smoking Status: Never smoker alcohol intake: never substance use type: former substance user, marijuana and other details: Has a medical marijuana caffeine: Yes Type: coffee Number of servings: 3 Vital Signs Vital Signs Vital Signs: 06/22/24 14:09 Temperature 96.2 F L Temperature Source Temporal Pulse Rate 83 Respiratory Rate 18 Blood Pressure 112/70 Blood Pressure Mean 84 Blood Pressure Source Monitor Blood Pressure Position Sitting Blood Pressure Location Right Arm Oxygen Delivery Method Room Air Weight Weight: 140 lb 10.354 oz Body Mass Index (BMI) 23.3 Physical Exam Const alert, oriented x3, no apparent distress, average body habitus and well nourished Constitutional Narrative: Patient's BMI is 23.3. General Appearance: cooperative, comfortable, well kempt and well developed Orientation / Consciousness: awake, oriented to person, oriented to place and oriented to time Exam Limitations: no limitations HEENT normocephalic, head/scalp atraumatic and external ears normal Head and Scalp: normal to inspection, normocephalic and atraumatic Nose: external nose normal External Ear: external ears normal Eyes PERRL and EOMs intact bilaterally General Eye: normal appearance of both eyes Neck full ROM Resp normal respiratory effort, normal air movement, no retractions, no use of accessory muscles and clear to auscultation bilaterally Effort and Inspection: able to speak in complete sentences Cardio regular rate, regular rhythm, S1 normal heart sound and S2 normal heart sound Rate: regular rate Rhythm: regular rhythm Extremity no calf tenderness General Extremity: Negative for clubbing or cyanosis Skin Wound Narrative: The wound is noted on the right lateral calf. There is no obvious sign of infection or cellulitis. There is a small amount of bioburden. The wound is otherwise generally pink and healthy in appearance. Dimensions are documented elsewhere. The wound is slightly smaller, and extends into the subcutaneous tissue. Multiple small veins/telangiectasias are noted in the region of the right lateral malleolus. Hair: normal Neuro oriented x3, CN's II-XII intact bilaterally, moves all extremities and no focal motor deficits Sensorium / Orientation: awake, alert, oriented to person, oriented to place, oriented to time and orientation impaired Psych Appearance: grossly normal and appropriate Attitude: calm Activity / Motor Behavior: appropriate eye contact Speech: normal speech Mood & Affect: euthymic mood Thought Process: normal thought process Thought Content: normal thought content Attention / Concentration: attention grossly intact Debridement Note Debridement Note Wound debrided: Right lateral calf Laterality: Right Type of Debridement: Excisional debridement Anesthesia Used: 5% Lidocaine Gel Depth: Down to and including healthy tissue and in the subcutaneous layer Percentage of wound debrided: 100 Instrument Used: 3mm curette Tissue Removed: Bioburden Severity: Fat Layer Exposed Amount of bleeding with debridement: Mild Bleeding Controlled with: Compression and gauze Patient tolerated procedure: Patient tolerated procedure well Post-Debridement Measurements and Additional Note: Post-Debridement Measurements/Treatment KADEEM - Nurse 1 - General Ulcer Assessment Start: 06/22/24 14:09 Freq: Status: Active Protocol: KARLA Activity Type Activity Date Activity User E-sign Co-sign Detail Recorded Client Recorded Date Recorded By Document 06/22/24 14:09 MAURA 06/22/24 14:14 06/22/24 14:09 - Today's Visit Information Type of service Follow-up Visit (Physician/DIXONAC OPERATOR ) Arrival Mode Ambulatory Patient Identification Verified (Name & Yes ) Height and Weight Body Mass Index (BMI) 23.3 BMI Classification Normal Vital Signs Temperature (97.8 F-99.1 F) 96.2 F L Temperature Source Temporal Pulse Rate (60-100) 83 Pulse Location Monitor Respiratory Rate (12-18) 18 Respiratory rate source Observation Oxygen Delivery Method Room Air Blood Pressure (90/60-120/80) 112/70 Blood Pressure Mean 84 Source Monitor Position Sitting Blood Pressure Location Right Arm History Since Last Visit- (Skip if this is Patient's initial visit) Have you changed medications since your No last visit? Any new allergies or adverse reactions No Had a fall/change in ADL's that may No increase risk of falls Signs or symptoms of abuse and/or No neglect since last visit Have you been in the hospital since your No last visit? Has dressing in place as prescribed Yes Has compression in place as prescribed Yes Has offloadiing in place as prescribed N/A Experienced any changes in pain level or No management Left Footwear Regular Shoe Right Footwear Regular Shoe Pain Scale: 0-10 Numeric Is Patient Pain Free? Yes - Nurse 1 - General Ulcer Measurement Start: 06/22/24 14:09 Freq: Status: Active Protocol: Activity Type Activity Date Activity User E-sign Co-sign Detail Recorded Client Recorded Date Recorded By Document 06/22/24 14:09 MAURA shipley 06/22/24 14:14 06/22/24 14:09 Wound Center Nurse 1 #1 RLE -Current Size (cm) - Length 0.1 -Current Size (cm) - Width 0.1 -Current Size (cm) - Depth 0.1 -Total Square Cm 0.01 -Date of Last Picture (Recall this 06/22/24 field) -Epithelialization Large 67-100% -Exudate Amt None Present -Texture (Sima-wound Skin Appearance) Assessed -Moisture (Sima-wound Skin Appearance) Assessed -Color (Sima-wound Skin Appearance) Assessed -Temperature (Sima-wound Skin No Abnormality Appearance) (Pt Warm) -Tenderness on Palpation (Sima-wound No Skin Appearance) -Ulcer Cleansing Rinsed/ Irrigated with Saline -Foul Odor after Cleansing No -Anesthetic Used 5% Lidocaine Gel -Wound Comment(s) NOT OPEN AT THIS TIME. KADEEM - Nurse 2 - General Ulcer CM Notes Start: 06/22/24 14:09 Freq: Status: Active Protocol: Activity Type Activity Date Activity User E-sign Co-sign Detail Recorded Client Recorded Date Recorded By Document 06/22/24 14:27 DS 1 06/22/24 14:29 DS 06/22/24 14:27 Wound Center Nurse 2 -Time 14:27 -Correct Patient Yes -Correct Side, Site, Position Yes -Correct Procedure Yes -Procedure Performed Yes -Type of Procedure Debridement -Clinical Debridement Subcutaneous -Tissue Removed Subcutaneous -Post Debridement (cm) - Length 0.4 -Post Debridement (cm) - Width 0.4 -Post Debridement (cm) - Depth 0.1 -Total Square (Post) (cm) 0.16 -Area of Debridement (cm) - Length 0.4 -Area of Debridement (cm) - Width 0.4 -Total Square (Area) (cm) 0.16 -Tunneling No -Undermining/Tunneling No -Wound/Ulcer Outcome Not Healed -Bleeding Controlled with Pressure -Treatment Response Procedure Tolerated Well -Debridement - Subq, 1st 20sq cm Yes Pain Scale: 0-10 Numeric Is Patient Pain Free? Yes - Nurse 3 - General Ulcer D/C NN Start: 06/22/24 14:09 Freq: Status: Active Protocol: Activity Type Activity Date Activity User E-sign Co-sign Detail Recorded Client Recorded Date Recorded By Document 06/22/24 14:47 RB woumd 06/22/24 14:48 RB 06/22/24 14:47 Wound Care Center Nurse 3 #1 RLE -Ulcer Cleansing Rinsed/ Irrigated with Saline -Primary Dressing Applied C Hydrogel ($) -Primary Dressing Covered/Secured with Dry Gauze, Secured with Tape Right -Stockings Yes Treatment Response Procedure Tolerated Well Pain Scale: 0-10 Numeric Is Patient Pain Free? Yes WC - Visit Discharge Discharge Condition Stable Ambulatory Status Ambulatory Transportation Private Auto Medication Reconcilliation completed & No provided to patient/care provider Clinical Summary of Care Provided Yes Charges/Coding Procedures Integumentary [id number]: [id number] Danyell subq tissue 20 sq cm/< Assessment/Plan Assessment/Plan (1) Traumatic open wound of right lower leg: CODE(S): S81.801A - Unspecified open wound, right lower leg, initial encounter QUALIFIERS: Encounter type: subsequent encounter Qualified Code(s): S81.801D - Unspecified open wound, right lower leg, subsequent encounter (2) Penetrating wound: CODE(S): T14.8XXA - Other injury of unspecified body region, initial encounter (3) Non-ischemic cardiomyopathy: CODE(S): I42.8 - Other cardiomyopathies (4) MICHAEL (dyspnea on exertion): CODE(S): R06.09 - Other forms of dyspnea (5) Longstanding persistent atrial fibrillation: CODE(S): I48.11 - Longstanding persistent atrial fibrillation (6) Mitral valve insufficiency: CODE(S): I34.0 - Nonrheumatic mitral (valve) insufficiency (7) Presence of Watchman left atrial appendage closure device: CODE(S): Z95.818 - Presence of other cardiac implants and grafts (8) CLL (chronic lymphoid leukemia) in relapse: CODE(S): C91.92 - Lymphoid leukemia, unspecified, in relapse (9) Autoimmune hemolytic anemia: CODE(S): D59.1 - Other autoimmune hemolytic anemias (10) Esophageal reflux: CODE(S): K21.9 - Gastro-esophageal reflux disease without esophagitis QUALIFIERS: Esophagitis presence: esophagitis presence not specified Qualified Code(s): K21.9 - Gastro-esophageal reflux disease without esophagitis (11) Hyperlipidemia: CODE(S): E78.5 - Hyperlipidemia, unspecified QUALIFIERS: Hyperlipidemia type: unspecified Qualified Code(s): E78.5 - Hyperlipidemia, unspecified (12) Mitral insufficiency: CODE(S): I34.0 - Nonrheumatic mitral (valve) insufficiency QUALIFIERS: Cardiac valve disease etiology: nonrheumatic Qualified Code(s): I34.0 - Nonrheumatic mitral (valve) insufficiency (13) RBBB: CODE(S): I45.10 - Unspecified right bundle-branch block (14) Chronic atrial fibrillation: CODE(S): I48.2 - Chronic atrial fibrillation (15) Essential hypertension: CODE(S): I10 - Essential (primary) hypertension (16) Hypogammaglobulinemia, acquired: CODE(S): D80.1 - Nonfamilial hypogammaglobulinemia (17) Personal history of CLL (chronic lymphocytic leukemia): CODE(S): Z85.6 - Personal history of leukemia (18) Osteoarthritis: CODE(S): M19.90 - Unspecified osteoarthritis, unspecified site (19) ERMIAS (obstructive sleep apnea): CODE(S): G47.33 - Obstructive sleep apnea (adult) (pediatric) (20) Osteoporosis: CODE(S): M81.0 - Age-related osteoporosis without current pathological fracture (21) Rheumatoid arthritis: CODE(S): M06.9 - Rheumatoid arthritis, unspecified (22) Vegetarian diet: CODE(S): Z78.9 - Other specified health status (23) H/O vertebroplasty: CODE(S): Z98.890 - Other specified postprocedural states (24) History of total left knee replacement (TKR): CODE(S): Z96.652 - Presence of left artificial knee joint (25) History of Moh's micrographic surgery for skin cancer: CODE(S): Z85.828 - Personal history of other malignant neoplasm of skin; Z98.890 - Other specified postprocedural states (26) History of bunionectomy of both great toes: CODE(S): Z98.890 - Other specified postprocedural states PLAN: Plan This is a 73-year-old female with multiple pre-existing medical problems, who sustained an injury to the right lateral calf several months prior to her presentation. The wound failed to heal appropriately, prompting the patient to seek medical attention in the [facility]. She has been advised to optimize her nutritional intake. In an effort to minimize the possibility of swelling and edema, the patient has been advised to elevate her lower extremities as much as possible, during both nighttime and daytime hours. Elevation is to be to heart level, or higher. Activity has been encouraged. She is to continue sleeping on a flat mattress at night. We are to continue the use of double Tubigrip's to the right lower extremity to minimize swelling, as the patient exhibits stigmata of chronic venous disease. We are to implement the use of collagen hydrogel, applied topically to the wound on a daily basis. The patient has been instructed in the appropriate means of application. The patient was seen at [facility] one week ago, where a biopsy of her right lateral calf wound was performed, although the patient was there for other reasons. The patient informs that the biopsy result was positive for squamous cell carcinoma, and she is scheduled for Mohs surgery in approximately 10 to 14 days. As the site of her current wound is to be excised and examined microscopically, she is to be discharged from our care, and will follow-up henceforth on an as-needed basis. It is assumed that the patient will be followed as to healing following her Mohs procedure, though she is welcome to contact our facility should further wound care be necessary. Total time: 24 minutes
== END 2024-07-17 23:59 | disposition home or self-care (01) ==
LOC: WC 13:52
PROVIDERS: PCP Family Medicine; Referring Provider Family Medicine; Visit Provider Surgery
DX: S81.831A Puncture wound without foreign body, right lower leg, initial encounter (principal); D59.10 Autoimmune hemolytic anemia, unspecified; M06.9 Rheumatoid arthritis, unspecified; C91.92 Lymphoid leukemia, unspecified, in relapse; I48.11 Longstanding persistent atrial fibrillation; I42.8 Other cardiomyopathies; G47.33 Obstructive sleep apnea (adult) (pediatric); M81.0 Age-related osteoporosis without current pathological fracture; W22.8XXA Striking against or struck by other objects, initial encounter; I34.0 Nonrheumatic mitral (valve) insufficiency; D80.1 Nonfamilial hypogammaglobulinemia; I10 Essential (primary) hypertension; E78.5 Hyperlipidemia, unspecified; M19.90 Unspecified osteoarthritis, unspecified site; K21.9 Gastro-esophageal reflux disease without esophagitis; Z92.21 Personal history of antineoplastic chemotherapy; Z85.828 Personal history of other malignant neoplasm of skin; Z95.818 Presence of other cardiac implants and grafts; Z96.652 Presence of left artificial knee joint; Z98.890 Other specified postprocedural states
CPT/HCPCS: 11042

== ENCOUNTER 2024-07-13 10:33 | Outpatient (CLI) | payer MEDICARE, OTHER, SELFPAY ==
[2024-07-13] MEDS: 0.9% NaCl Peripheral Flush Adult/Peds IV (10:57)
[2024-07-13] MEDS: 0.9% NaCl IVPB Med Flush (250 mL) 15 ML IV (10:57)
[2024-07-13] MEDS: Acetaminophen 325 MG Tablet 650 MG PO (10:57)
[2024-07-13] MEDS: DiphenhydrAMINE 50 MG/ML Syringe IV (10:58)
[2024-07-13 11:03] VITALS: BP 105/50; PULSE 81; RESP 16; TEMP 35.6; O2SAT 99; BMI 24.7
[2024-07-13] MEDS: Immune Globulin 20 gm 20 GM/200 ML VIAL IV (11:21)
[2024-07-13 14:09] VITALS: BP 93/51; PULSE 75; RESP 16; TEMP 36.2; O2SAT 97
== END 2024-07-13 23:59 | disposition home or self-care (01) ==
LOC: MEDOUTP 10:33
PROVIDERS: PCP Family Medicine; Referring Provider Physician Assistant; Visit Provider Physician Assistant
DX: C91.10 Chronic lymphocytic leukemia of B-cell type not having achieved remission (principal); D80.1 Nonfamilial hypogammaglobulinemia
CPT/HCPCS: 96365; 96366; 96375; J7050; A4216; J1568

== ENCOUNTER 2024-09-02 10:57 | Outpatient (RCR) | payer MEDICARE, OTHER, SELFPAY ==
[2024-05-17 00:05] VITALS: BMI 21.1
[2024-09-02 11:18] LABS: Absolute Lymphocyte Count 2.22 X10^3/uL (0.83-4.51); Absolute Neutrophil Count 4.1 X10^3/uL (2.0-7.7); Basophil# 0.04 X10^3/uL; Basophil% 0.6 % (0-1); Eosinophil# 0.24 X10^3/uL; Eosinophils% 3.3 % (0-5); Hematocrit 35.1 % (37-47); Hemoglobin 12.1 g/dL (12.0-15.0); Lymphocyte # 2.22 X10^3/ul (0.83-4.51); Lymphocyte % 30.9 % (19-41); Mean Corp Hgb Conc 34.5 g/dL (32-36); Mean Corpuscular Hgb 33.1 pg (27.0-32.0); Mean Corpuscular Volume 95.9 fL (81-99); Mean Platelet Vol. 8.8 fl (6.2-12.0); Monocyte# 0.57 X10^3/uL; Monocyte% 7.9 % (0-10); NRBC Flagged by Analyzer 0 % (0-5); Neutrophil # 4.08 X10^3/uL (2.7-7.7); Neutrophil % 56.9 % (47-70); Platelet Count 201 K/mm3 (150-450); RBC Distribution Width CV 13.5 % (11.6-14.6); RBC Distribution Width SD 47.7 fl (35.1-43.9); Red Blood Count 3.66 M/mm3 (4.2-5.4); White Blood Count 7.2 K/mm3 (4.4-11.0)
== END 2024-09-16 23:59 ==
LOC: PAVLAB 10:57
PROVIDERS: PCP Family Medicine
DX: C91.10 Chronic lymphocytic leukemia of B-cell type not having achieved remission (principal); D80.1 Nonfamilial hypogammaglobulinemia
CPT/HCPCS: 36415; 82784; 85025

== ENCOUNTER 2024-09-30 10:00 | Outpatient (RCR) | payer MEDICARE, OTHER, SELFPAY ==
[2024-09-17 00:05] VITALS: BMI 21.1
[2024-09-30 10:16] LABS: Absolute Lymphocyte Count 2.63 X10^3/uL (0.83-4.51); Absolute Neutrophil Count 3.8 X10^3/uL (2.0-7.7); Basophil# 0.02 X10^3/uL; Basophil% 0.3 % (0-1); Eosinophil# 0.26 X10^3/uL; Eosinophils% 3.5 % (0-5); Hematocrit 35.9 % (37-47); Hemoglobin 12.3 g/dL (12.0-15.0); Lymphocyte # 2.63 X10^3/ul (0.83-4.51); Lymphocyte % 35.7 % (19-41); Mean Corp Hgb Conc 34.3 g/dL (32-36); Mean Corpuscular Hgb 33.2 pg (27.0-32.0); Mean Platelet Vol. 8.8 fl (6.2-12.0); Monocyte# 0.62 X10^3/uL; Monocyte% 8.4 % (0-10); NRBC Flagged by Analyzer 0 % (0-5); Neutrophil # 3.81 X10^3/uL (2.7-7.7); Neutrophil % 51.7 % (47-70); Platelet Count 186 K/mm3 (150-450); RBC Distribution Width CV 12.9 % (11.6-14.6); RBC Distribution Width SD 45.9 fl (35.1-43.9); White Blood Count 7.4 K/mm3 (4.4-11.0)
[2024-10-01 04:07] LABS: Immunoglobulin G 538 mg/dL (586-1602)
== END 2024-10-16 23:59 ==
LOC: PAVLAB 10:00
PROVIDERS: PCP Family Medicine
DX: C91.10 Chronic lymphocytic leukemia of B-cell type not having achieved remission (principal)
CPT/HCPCS: 36415; 82784; 85025

== ENCOUNTER 2024-10-05 10:58 | Outpatient (CLI) | payer MEDICARE, OTHER, SELFPAY ==
[2024-10-05] MEDS: Acetaminophen 325 MG Tablet 650 MG PO (11:10)
[2024-10-05] MEDS: 0.9% NaCl IVPB Med Flush (250 mL) 15 ML IV (11:11)
[2024-10-05 11:15] VITALS: BP 114/56; PULSE 83; RESP 16; TEMP 36.1; O2SAT 97; BMI 24.1
[2024-10-05] MEDS: 0.9% NaCl Peripheral Flush Adult/Peds IV (11:20)
[2024-10-05] MEDS: DiphenhydrAMINE 50 MG/ML Syringe IV (11:22)
[2024-10-05] MEDS: Immune Globulin 20 gm 20 GM/200 ML VIAL IV (11:52)
== END 2024-10-05 23:59 | disposition home or self-care (01) ==
LOC: MEDOUTP 10:58
PROVIDERS: PCP Family Medicine; Referring Provider Physician Assistant; Visit Provider Physician Assistant
DX: C91.10 Chronic lymphocytic leukemia of B-cell type not having achieved remission (principal); D80.1 Nonfamilial hypogammaglobulinemia
CPT/HCPCS: 96365; 96366; 96375; J7050; A4216; J1568

== ENCOUNTER 2024-11-29 08:30 | Outpatient (RCR) | payer MEDICARE, OTHER, SELFPAY ==
[2024-10-17 00:09] VITALS: BMI 21.1
[2024-11-29 08:47] LABS: Absolute Neutrophil Count 3.1 X10^3/uL (2.0-7.7); Basophil# 0.04 X10^3/uL; Basophil% 0.5 % (0-1); Eosinophil# 0.34 X10^3/uL; Eosinophils% 4.6 % (0-5); Hematocrit 35.2 % (37-47); Hemoglobin 12.4 g/dL (12.0-15.0); Lymphocyte % 43.7 % (19-41); Mean Corp Hgb Conc 35.2 g/dL (32-36); Mean Corpuscular Hgb 33.2 pg (27.0-32.0); Mean Corpuscular Volume 94.1 fL (81-99); Mean Platelet Vol. 8.8 fl (6.2-12.0); Monocyte# 0.66 X10^3/uL; NRBC Flagged by Analyzer 0 % (0-5); Neutrophil # 3.06 X10^3/uL (2.7-7.7); Neutrophil % 41.8 % (47-70); Platelet Count 151 K/mm3 (150-450); RBC Distribution Width CV 12.8 % (11.6-14.6); RBC Distribution Width SD 43.9 fl (35.1-43.9); Red Blood Count 3.74 M/mm3 (4.2-5.4); White Blood Count 7.3 K/mm3 (4.4-11.0)
[2024-11-30 04:07] LABS: Immunoglobulin G 559 mg/dL (586-1602)
== END 2024-12-17 23:59 ==
LOC: PAVLAB 08:30
PROVIDERS: PCP Family Medicine
DX: C91.10 Chronic lymphocytic leukemia of B-cell type not having achieved remission (principal)
CPT/HCPCS: 36415; 82784; 85025

== ENCOUNTER 2024-11-30 11:01 | Outpatient (CLI) | payer MEDICARE, OTHER, SELFPAY ==
[2024-11-30 11:18] VITALS: BP 107/48; PULSE 71; RESP 16; TEMP 35.5; O2SAT 98; BMI 24.0
[2024-11-30] MEDS: DiphenhydrAMINE 50 MG/ML Syringe IV (11:27)
[2024-11-30] MEDS: Acetaminophen 500 MG Tablet 1000 MG PO (11:28)
[2024-11-30] MEDS: Immune Globulin 20 gm 20 GM/200 ML VIAL IV (11:54)
== END 2024-11-30 23:59 | disposition home or self-care (01) ==
LOC: MEDOUTP 11:01
PROVIDERS: PCP Family Medicine; Referring Provider Physician Assistant; Visit Provider Physician Assistant
DX: C91.10 Chronic lymphocytic leukemia of B-cell type not having achieved remission (principal); D80.1 Nonfamilial hypogammaglobulinemia
CPT/HCPCS: 96365; 96366 ×2; 96375; 96415; A4216; J1568

== ENCOUNTER → 2025-01-20 | Outpatient (CLI) | payer MEDICARE, OTHER, SELFPAY ==
--- NOTE | 2025-01-20 13:40 | ART_ITS ---
Reason For Study Reason For Study: Decreased pedal pulses Procedure A bilateral lower extremity continuous wave Doppler with analog waveform analysis,segmental pressures,and ankle brachial indexes without exercise. Left Segmental Pressures Left brachial= 105mmHg. Left posterior tibial artery = 122mmHg. Left dorsalis pedis artery = 147mmHg. Left digit = 75 mmHg. The left dorsalis pedis waveforms are triphasic. The left posterior tibial artery waveforms are triphasic. Right Segmental Pressures Right brachial= 103mmHg. Right posterior tibial artery = 118mmHg. Right dorsalis pedis artery = 142mmHg. Right digit = 86 mmHg. The right dorsalis pedis waveforms are triphasic. The right posterior tibial artery waveforms are triphasic. Indices The right ankle brachial index by the dorsalis pedis is 1.35. The right ankle brachial index by the posterior tibial artery is 1.12. The right digital-brachial index is 0.82. The left ankle brachial index by the dorsalis pedis is 1.40. The left ankle brachial index by the posterior tibial artery is 1.22. The left digital-brachial index is 0.71. VL/Lower Ext Art Exam w/o Exercis Interpretation Summary Right MARIELY 1.35, normal. TBI and Doppler/PVR waveforms of the right leg normal a t rest. Left MARIELY 1.4, normal. Doppler/PVR waveforms of the left leg normal at rest. TBI diminished, pedal/digit disease vs spasm. Ordering Physician: Master Jean Baptiste Referring Physician: Perez Rios MD Performed By: Meseret Diaz RVT
== END | disposition home or self-care (01) ==
LOC: CVS 13:39
PROVIDERS: PCP Family Medicine; Referring Provider Nurse Practitioner Family; Visit Provider Nurse Practitioner Family
DX: R09.89 Other specified symptoms and signs involving the circulatory and respiratory systems (principal)
CPT/HCPCS: 93923

== ENCOUNTER 2025-02-01 09:39 | Outpatient (CLI) | payer MEDICARE, OTHER, SELFPAY ==
[2025-02-01 09:50] VITALS: BP 113/69; PULSE 76; RESP 16; TEMP 35.9; O2SAT 98
[2025-02-01] MEDS: Acetaminophen 325 MG Tablet 650 MG PO (09:54)
[2025-02-01] MEDS: 0.9% NaCl Peripheral Flush Adult IV (10:02)
[2025-02-01] MEDS: DiphenhydrAMINE 50 MG/ML Syringe 25 MG IV (10:04)
[2025-02-01] MEDS: Immune Globulin 20 gm 20 GM/200 ML VIAL IV (10:33)
[2025-02-01] MEDS: 0.9% Normal Saline (100mL Bag) 100 ML 15 ML IV (13:00)
== END 2025-02-01 23:59 | disposition home or self-care (01) ==
LOC: MEDOUTP 09:39
PROVIDERS: PCP Family Medicine; Referring Provider Internal Medicine Hematology & Oncology; Visit Provider Internal Medicine Hematology & Oncology
DX: C91.10 Chronic lymphocytic leukemia of B-cell type not having achieved remission (principal); D80.1 Nonfamilial hypogammaglobulinemia
CPT/HCPCS: 96365; 96366; 96375; A4216; J1568

== ENCOUNTER 2025-03-24 15:12 | Outpatient (RCR) | payer MEDICARE, OTHER, SELFPAY ==
[2024-12-18 00:15] VITALS: BMI 21.1
[2025-03-24 16:53] LABS: Absolute Lymphocyte Count 8.25 X10^3/uL (0.83-4.51); Absolute Neutrophil Count 3.1 X10^3/uL (2.0-7.7); Basophil# 0.04 X10^3/uL; Basophil% 0.3 % (0-1); Eosinophil# 0.22 X10^3/uL; Eosinophils% 1.7 % (0-5); Lymphocyte # 8.25 X10^3/ul (0.83-4.51); Lymphocyte % 63.5 % (19-41); Mean Corp Hgb Conc 34.4 g/dL (32-36); Mean Corpuscular Hgb 34.5 pg (27.0-32.0); Mean Corpuscular Volume 100.3 fL (81-99); Monocyte# 1.34 X10^3/uL; Monocyte% 10.3 % (0-10); NRBC Flagged by Analyzer 0 % (0-5); Neutrophil # 3.08 X10^3/uL (2.7-7.7); Neutrophil % 23.7 % (47-70); POSITIVE DIFFERENTIAL YES; POSITIVE MORPHOLOGY YES; Platelet Count 160 K/mm3 (150-450); RBC Distribution Width CV 14.3 % (11.6-14.6); RBC Distribution Width SD 52.1 fl (35.1-43.9); Red Blood Count 3.19 M/mm3 (4.2-5.4)
[2025-03-24 20:01] LABS: Differential Indicated SCAN CRITERIA MET
[2025-03-24 20:03] LABS: Platelet Estimate ADEQUATE (ADEQ)
[2025-03-26 05:07] LABS: Immunoglobulin G 615 mg/dL (586-1602)
== END 2025-03-24 18:00 | disposition home or self-care (01) ==
LOC: LAB 15:12
PROVIDERS: PCP Family Medicine
DX: C91.10 Chronic lymphocytic leukemia of B-cell type not having achieved remission (principal)
CPT/HCPCS: 36415; 82784; 85025

== ENCOUNTER 2025-04-06 10:06 | Outpatient (CLI) | payer MEDICARE, OTHER, SELFPAY ==
[2025-04-06] MEDS: Acetaminophen 325 MG Tablet 650 MG PO (10:37)
[2025-04-06] MEDS: DiphenhydrAMINE 50 MG/ML Syringe 25 MG IV (10:37)
[2025-04-06 10:43] VITALS: BP 123/60; PULSE 82; RESP 16; TEMP 36; O2SAT 97; BMI 26.6
[2025-04-06] MEDS: Immune Globulin 20 gm 20 GM/200 ML VIAL IV (11:00)
[2025-04-06 13:41] VITALS: BP 108/55; PULSE 73; RESP 16; TEMP 36.3; O2SAT 97
== END 2025-04-06 23:59 | disposition home or self-care (01) ==
LOC: MEDOUTP 10:06
PROVIDERS: PCP Family Medicine; Referring Provider Internal Medicine Hematology & Oncology; Visit Provider Internal Medicine Hematology & Oncology
DX: C91.10 Chronic lymphocytic leukemia of B-cell type not having achieved remission (principal); D80.1 Nonfamilial hypogammaglobulinemia
CPT/HCPCS: 96365; 96366 ×2; 96375; J1568

== ENCOUNTER 2025-05-09 15:02 | Outpatient (RCR) | payer MEDICARE, OTHER, SELFPAY ==
[2025-04-17 19:01] VITALS: BMI 21.1
[2025-05-09 15:40] LABS: Absolute Lymphocyte Count 13.43 X10^3/uL (0.83-4.51); Absolute Neutrophil Count 2.7 X10^3/uL (2.0-7.7); Basophil# 0.03 X10^3/uL; Basophil% 0.2 % (0-1); Eosinophil# 0.33 X10^3/uL; Eosinophils% 1.8 % (0-5); Hematocrit 31.8 % (37-47); Hemoglobin 10.8 g/dL (12.0-15.0); Lymphocyte # 13.43 X10^3/ul (0.83-4.51); Lymphocyte % 73.3 % (19-41); Mean Corpuscular Hgb 34.6 pg (27.0-32.0); Mean Corpuscular Volume 101.9 fL (81-99); Mean Platelet Vol. 8.8 fl (6.2-12.0); Monocyte# 1.76 X10^3/uL; Monocyte% 9.6 % (0-10); NRBC Flagged by Analyzer 0 % (0-5); Neutrophil # 2.67 X10^3/uL (2.7-7.7); Neutrophil % 14.6 % (47-70); POSITIVE DIFFERENTIAL YES; POSITIVE MORPHOLOGY YES; Platelet Count 166 K/mm3 (150-450); RBC Distribution Width CV 14.2 % (11.6-14.6); RBC Distribution Width SD 52.5 fl (35.1-43.9); Red Blood Count 3.12 M/mm3 (4.2-5.4); White Blood Count 18.3 K/mm3 (4.4-11.0)
[2025-05-09 16:12] LABS: ALB/GLOB Ratio 1.8 RATIO (0.9-2.4); AST(SGOT) 29 U/L (<=31); Alanine Aminotransfer ALT/SGPT 20 U/L (<=34); Albumin, Serum 4.4 g/dL (3.4-4.8); Alkaline Phosphatase 56 U/L (35-104); Anion Gap 12 (5-15); BUN 22 mg/dL (4-19); BUN/Creat Ratio 16.8 RATIO (10-20); Calcium,Total 9.4 mg/dL (7.6-11.0); Carbon Dioxide 22.6 mmol/L (21.0-32.0); Chloride 104 mmol/L (98-108); Creatinine, Serum 1.29 mg/dL (0.70-1.20); EST Glomerular Filtration Rate 43 (>60); Globulin 2.4 g/dL (2.2-4.2); Glucose 94 mg/dL (70-99); Potassium 4.5 mmol/L (3.3-5.1); Protein, Total 6.7 g/dL (5.9-8.4); Sodium Level 139 mmol/L (133-145); Total Bilirubin 1.13 mg/dL (0.00-1.30)
[2025-05-09 16:14] LABS: Pro- Brain NATRIURETIC PEPTIDE 2313 pg/mL (<=1800)
[2025-05-09 20:10] LABS: Differential Indicated SCAN CRITERIA MET
[2025-05-09 20:11] LABS: Differential Comment SCANNED
[2025-05-11 05:07] LABS: Immunoglobulin G 694 mg/dL (586-1602)
== END 2025-05-09 18:00 | disposition home or self-care (01) ==
LOC: LAB 15:02
PROVIDERS: PCP Family Medicine; Referring Provider Nurse Practitioner Family
DX: C91.10 Chronic lymphocytic leukemia of B-cell type not having achieved remission (principal); R06.00 Dyspnea, unspecified; I42.8 Other cardiomyopathies; G47.33 Obstructive sleep apnea (adult) (pediatric); I48.11 Longstanding persistent atrial fibrillation
CPT/HCPCS: 36415; 80053; 82784; 83880; 85025

== ENCOUNTER → 2025-07-14 | Outpatient (CLI) | payer MEDICARE, OTHER, SELFPAY ==
[2025-07-14 12:39] VITALS: PULSE 90; PULSE 91; PULSE 92; PULSE 93; PULSE 96; PULSE 97; O2SAT 96; O2SAT 97; O2SAT 98; O2SAT 99
--- NOTE | 2025-07-14 12:43 | CPS ---
PATIENT STATES HER WOB IS SLIGHTLY INCREASED TODAY, BASELINE FOR HER RECENTLY. SHE HAS A SORE ON HER TOE THAT IS BOTHERING HER. SHE TOOK 1 REST BREAK DURING TESTING D/T LEG FATIGUE AND WORK OF BREATHING. PT WALKED 745FT ON ROOM AIR DURING TESTING.
--- NOTE | 2025-07-15 10:17 | WT_ITS ---
PSN 6 Minute Walk Test 6 Minute Walk Test 6 Minute Walk Test: 6 Minute Walk Test PSN:6-Minute Walk Test Start: 07/14/25 12:39 Freq: Status: Active Protocol: RESP.6MINW Document 07/14/25 12:39 [facility] (Rec: 07/14/25 12:45 [facility] [id number]) 6 Minute Walk Test Date Performed 07/14/25 Time Performed 12:15 Height 5 ft 5 in Weight: 153 lb Weight in Pounds 153.[address]: Nettie Molina DIRECTOR RECREATION Assistive device None used: Pre-test Oxygen Delivery Room Air Method Pulse Ox (%) 98 Pulse Rate (60-100 91 beats/min) Dyspnea Leighton Scale ( 3 0-10) Exertion Leighton Scale 7 (6-20) Reported Symptoms Increased Work of Breathing 1st minute Oxygen Delivery Room Air Method Pulse Ox (%) 98 Pulse Rate (60-100 90 beats/min) Dyspnea Leighton Scale ( 3 0-10) Number of Rests 0 Taken Reported Symptoms Increased Work of Breathing 2nd minute Oxygen Delivery Room Air Method Pulse Ox (%) 97 Pulse Rate (60-100 91 beats/min) Dyspnea Leighton Scale ( 3 0-10) Number of Rests 0 Taken Reported Symptoms Increased Work of Breathing 3rd minute Oxygen Delivery Room Air Method Pulse Ox (%) 97 Pulse Rate (60-100 93 beats/min) Dyspnea Leighton Scale ( 4 0-10) Exertion Leighton Scale 10 (6-20) Number of Rests 1 Taken Reported Symptoms Increased Work of Breathing 4th minute Oxygen Delivery Room Air Method Pulse Ox (%) 96 Pulse Rate (60-100 96 beats/min) Dyspnea Leighton Scale ( 4 0-10) Number of Rests 0 Taken Reported Symptoms Increased Work of Breathing 5th minute Oxygen Delivery Room Air Method Pulse Ox (%) 98 Pulse Rate (60-100 97 beats/min) Dyspnea Leighton Scale ( 4 0-10) Number of Rests 0 Taken Reported Symptoms Increased Work of Breathing 6th minute Oxygen Delivery Room Air Method Pulse Ox (%) 97 Pulse Rate (60-100 92 beats/min) Dyspnea Leighton Scale ( 4 0-10) Number of Rests 0 Taken Reported Symptoms Increased Work of Breathing Post-test Oxygen Delivery Room Air Method Pulse Ox (%) 99 Pulse Rate (60-100 90 beats/min) Dyspnea Leighton Scale ( 3 0-10) Exertion Leighton Scale 7 (6-20) Reported Symptoms Increased Work of Breathing Full Laps Walked 12 Partial Lap, Number 37 of Tiles Walked Total Distance 745 Walked (ft) 07/14/25 12:43 Cardiopulmonary Services by Jessie Gibson PATIENT STATES HER WOB IS SLIGHTLY INCREASED TODAY, BASELINE FOR HER RECENTLY. SHE HAS A SORE ON HER TOE THAT IS BOTHERING HER. SHE TOOK 1 REST BREAK DURING TESTING D/T LEG FATIGUE AND WORK OF BREATHING. PT WALKED 745FT ON ROOM AIR DURING TESTING. Initialized on 07/14/25 12:43 - END OF NOTE Interpretation Interpretation: The patient ambulated 745 feet over the course of 6 minutes beginning on room air without assistive devices. Pretesting oxygen saturation was noted to be 98% on room air. Pretesting oxygen saturation was noted to be 98% on room air. With ambulation, the tiffani oxygen saturation was 96%. There was no significant exertional oxygen desaturation. Recommendations Recommendations: There is no indication for the use of supplemental oxygen at this time.
== END | disposition home or self-care (01) ==
LOC: PSN 12:10
PROVIDERS: PCP Family Medicine; Referring Provider Nurse Practitioner Acute Care; Visit Provider Nurse Practitioner Acute Care
DX: R06.09 Other forms of dyspnea (principal)
CPT/HCPCS: 94618

== ENCOUNTER 2025-07-15 09:56 | Outpatient (CLI) | payer MEDICARE, OTHER, SELFPAY ==
[2025-07-15 10:18] VITALS: BP 104/49; PULSE 81; RESP 16; TEMP 35.7; O2SAT 98; BMI 25.4
[2025-07-15] MEDS: 0.9% NaCl Peripheral Flush Adult IV (10:26)
[2025-07-15] MEDS: CETIRIZINE HCL 10 MG TABLET PO (10:39)
[2025-07-15] MEDS: Immune Globulin 20 gm 20 GM/200 ML VIAL IV (11:11)
== END 2025-07-15 23:59 | disposition home or self-care (01) ==
LOC: MEDOUTP 09:56
PROVIDERS: PCP Family Medicine; Referring Provider Internal Medicine Hematology & Oncology; Visit Provider Internal Medicine Hematology & Oncology
DX: C91.10 Chronic lymphocytic leukemia of B-cell type not having achieved remission (principal); D80.1 Nonfamilial hypogammaglobulinemia
CPT/HCPCS: 96365; 96366 ×2; A4216; J1568

== ENCOUNTER → 2025-07-28 | Outpatient (CLI) | payer MEDICARE, OTHER, SELFPAY ==
[2025-07-28 11:03] LABS: Anion Gap 14 (5-15); BUN 38 mg/dL (4-19); BUN/Creat Ratio 33.1 RATIO (10-20); Calcium,Total 8.4 mg/dL (7.6-11.0); Carbon Dioxide 16.6 mmol/L (21.0-32.0); Chloride 108 mmol/L (98-108); Glucose 163 mg/dL (70-99); Potassium 4.5 mmol/L (3.3-5.1)
[2025-07-28 11:39] LABS: Uric Acid 6.7 mg/dL (2.6-6.0)
== END | disposition home or self-care (01) ==
PROVIDERS: PCP Family Medicine
DX: C91.10 Chronic lymphocytic leukemia of B-cell type not having achieved remission (principal)
CPT/HCPCS: 36415; 80048; 84100; 84550

== ENCOUNTER 2025-08-12 08:39 | Outpatient (CLI) | payer MEDICARE, OTHER, SELFPAY ==
[2025-08-12 08:45] VITALS: RESP 16; TEMP 35.6
[2025-08-12] MEDS: Immune Globulin 20 gm 20 GM/200 ML VIAL IV (09:39)
== END 2025-08-12 23:59 | disposition home or self-care (01) ==
LOC: MEDOUTP 08:39
PROVIDERS: PCP Family Medicine; Referring Provider Internal Medicine Hematology & Oncology; Visit Provider Internal Medicine Hematology & Oncology
DX: C91.10 Chronic lymphocytic leukemia of B-cell type not having achieved remission (principal); D80.1 Nonfamilial hypogammaglobulinemia
CPT/HCPCS: 96366 ×2; 96365; A4216; J1568

== ENCOUNTER 2025-09-16 09:33 | Outpatient (CLI) | payer MEDICARE, OTHER, SELFPAY ==
[2025-09-16 10:59] VITALS: BP 119/66; PULSE 87; RESP 16; TEMP 35.8; O2SAT 98
[2025-09-16] MEDS: Immune Globulin 20 gm 20 GM/200 ML VIAL IV (11:14)
== END 2025-09-16 23:59 | disposition home or self-care (01) ==
LOC: MEDOUTP 09:33
PROVIDERS: PCP Family Medicine; Referring Provider Internal Medicine Hematology & Oncology; Visit Provider Internal Medicine Hematology & Oncology
DX: C91.10 Chronic lymphocytic leukemia of B-cell type not having achieved remission (principal); D80.1 Nonfamilial hypogammaglobulinemia
CPT/HCPCS: 96365; 96366; J1568

== ENCOUNTER 2025-10-24 08:52 | Outpatient (CLI) | payer MEDICARE, OTHER, SELFPAY ==
[2025-10-24 08:59] VITALS: BP 124/75; PULSE 92; RESP 16; TEMP 35.6; O2SAT 99; BMI 23.1
[2025-10-24] MEDS: 0.9% NaCl Peripheral Flush Adult IV (09:25)
[2025-10-24] MEDS: Immune Globulin 20 gm 20 GM/200 ML VIAL IV (09:41)
== END 2025-10-24 23:59 | disposition home or self-care (01) ==
LOC: MEDOUTP 08:52
PROVIDERS: PCP Family Medicine; Referring Provider Internal Medicine Hematology & Oncology; Visit Provider Internal Medicine Hematology & Oncology
DX: C91.10 Chronic lymphocytic leukemia of B-cell type not having achieved remission (principal); D80.1 Nonfamilial hypogammaglobulinemia
CPT/HCPCS: 96365; 96366; A4216; J1568